=== PATIENT | male | born 1965 | race Caucasian/White ===

== ENCOUNTER 2016-07-04 10:24 | Emergency (ER) | payer MEDICARE ==
[~2016-07-04] VITALS: Ht 177.8 cm; Wt 113.4 kg
[~2016-07-04 10:24] MED LIST: ATEN100T88 PO; CYCL10TA9 PO; HYDR-2997 PO; LISI10TA PO; LISI40TA PO; OMEP40CA36 PO; OXYC-272 PO; PRAV20TA3 PO
[2016-07-04 11:13] LABS: BILIRUBIN,URINE NEGATIVE (NEGATIVE); KETONES,URINE NEGATIVE (NEGATIVE); LEUKOCYTE ESTERASE ,URINE NEGATIVE (NEGATIVE); NITRITE,URINE NEGATIVE (NEGATIVE); PH,URINE 5 (5-9); PROTEIN,URINE NEGATIVE (NEGATIVE); UROBILINOGEN,URINE NORMAL (NORMAL)
[2016-07-04] MEDS ORDERED: KETOROLAC 30 MG/ML VIAL IVP ONE (11:15)
[2016-07-04] MEDS ORDERED: NS IV 1000 ML 1,000 ML IV SCH (11:15)
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
[2016-07-04 11:22] LABS: SQUAMOUS EPITHELIAL CELL,UR RARE /HPF
[2016-07-04 11:45] LABS: BASOPHILS # (AUTO) 0.1 10^3/uL (0.0-0.1); BASOPHILS % (AUTO) 1 % (0-10); EOSINOPHILS # (AUTO) 0.2 10^3/uL (0.0-0.3); EOSINOPHILS % (AUTO) 2 % (0-10); LYMPHOCYTES # (AUTO) 2.3 X 10^3 (1.0-4.0); LYMPHOCYTES % (AUTO) 20 % (12-44); MEAN CORPUSCULAR HEMOGLOBIN 30 PG (25-34); MEAN CORPUSCULAR HGB CONC 34 G/DL (32-36); MEAN CORPUSCULAR VOLUME 88 FL (80-99); MEAN PLATELET VOLUME 10.9 FL (7.4-10.4); MONOCYTES # (AUTO) 0.7 X 10^3 (0.0-1.0); MONOCYTES % (AUTO) 6 % (0-12); NEUTROPHILS # (AUTO) 8.4 X 10^3 (1.8-7.8); NEUTROPHILS % (AUTO) 73 % (42-75); PLATELET COUNT 227 10^3/uL (130-400); RED BLOOD COUNT 4.81 10^6/uL (4.35-5.85); RED CELL DISTRIBUTION WIDTH 12.8 % (10.0-14.5); WHITE BLOOD COUNT 11.6 10^3/uL (4.3-11.0)
--- NOTE | 2016-07-04 12:04 | Diagnostic Imaging Report ---
PROCEDURE: CT abdomen and pelvis without contrast. TECHNIQUE: Multiple contiguous axial images were obtained through the abdomen and pelvis without the use of intravenous contrast. DATE: 07/04/2016. COMPARISON: CT abdomen and pelvis 03/29/2013. INDICATION: 51-year-old male, right flank pain. FINDINGS: The visualized portions of the lung bases are clear. The heart is not enlarged. There is no identified pericardial effusion. The liver is normal in size and contour. There are gallstones. The gallbladder is distended. There is no gallbladder wall thickening. There is no pericholecystic fluid or adjacent inflammatory stranding to specifically suggest acute cholecystitis. There is no intrahepatic or extrahepatic bile duct dilation. The main pancreatic duct is not abnormally dilated. The pancreatic parenchyma is grossly unremarkable on noncontrast assessment. The spleen is not enlarged. Several small splenic calcifications likely relate to sequela of prior granulomatous disease. The adrenal glands are unremarkable. There is a 2 mm nonobstructing right renal stone on axial image 34. There is a low-attenuation left renal lesion on axial image 30 which measures 1.9 cm in size with internal attenuation consistent with a benign renal cyst. The urinary collecting systems are not distended. In the left distal ureter at the ureterovesical junction, there is a 1 mm stone best demonstrated on axial image 77. The urinary bladder is unremarkable in appearance. There is extensive diverticulosis without evidence of acute diverticulitis. The intestinal tract is not distended. There is no free intraperitoneal air. There is no drainable fluid collection. There is a duodenal diverticulum at the junction of the second and third portions of duodenum. There are atherosclerotic calcifications. There is no identified lymph node in the abdomen or pelvis which specifically meet CT size criteria for adenopathy. There are moderate degenerative changes of the bilateral hips with prominent subchondral cystic changes in the acetabula. There are bilateral fractures of the L4 transverse processes with the fracture on the left appearing most likely chronic in age. The fracture on the right is age indeterminate. There are fractures of the right L2 and L3 transverse processes which may potentially be acute in age. There is a compression type fracture of the superior endplate of L1 with up to approximately 25% height loss. This is also seen on 03/29/2013. There are chronic-appearing right-sided rib deformities. IMPRESSION: CT ABDOMEN AND PELVIS. 1. 1 mm stone at the left ureterovesical junction without hydronephrosis. 2. Nonobstructing 2 mm right renal stone. 3. Cholelithiasis without evidence of acute cholecystitis. 4. Age indeterminate fractures of the right L2, L3, and L4 transverse processes which are new since 03/29/2013 with chronic appearing fracture of the left L4 transverse process. 5. Stable prior compression deformity of L1 vertebral body. Dictated by: Dictated on workstation # [id number]
[2016-07-04 12:08] LABS: ALANINE AMINOTRANSFERASE 17 U/L (0-55); ALBUMIN 4.3 G/DL (3.2-4.5); ANION GAP 13 MMOL/L (5-14); ASPARTATE AMINO TRANSFERASE 24 U/L (5-34); BILIRUBIN,TOTAL 0.5 MG/DL (0.1-1.0); BLOOD UREA NITROGEN 23 MG/DL (7-18); BUN/CREATININE RATIO 19; CALCIUM 8.8 MG/DL (8.5-10.1); CARBON DIOXIDE 25 MMOL/L (21-32); CHLORIDE 104 MMOL/L (98-107); CREATININE SERUM 1.22 MG/DL (0.60-1.30); GFR ESTIMATED > 60; GLUCOSE 95 MG/DL (70-105); LIPASE 18 U/L (8-78); POTASSIUM 4.3 MMOL/L (3.6-5.0); SODIUM 142 MMOL/L (135-145); TOTAL PROTEIN 7.2 G/DL (6.4-8.2)
[2016-07-04] MEDS ORDERED: TRAM50TA2 PO (12:40)
[2016-07-04] MEDS ORDERED: fentaNYL INJECTION 100 MCG/2 ML AMP ONE (12:41)
[2016-07-04] MEDS ORDERED: fentaNYL INJECTION 100 MCG/2 ML AMP IVP ONE (12:45)
[2016-07-04 13:02] VITALS: BP 138/90
== END 2016-07-04 13:02 | disposition home or self-care (01) ==
LOC: EDUNIT# 10:24 → ER 10:25
DX: M54.5 Low back pain (principal); N20.2 Calculus of kidney with calculus of ureter; K80.20 Calculus of gallbladder without cholecystitis without obstruction; I10 Essential (primary) hypertension; J44.9 Chronic obstructive pulmonary disease, unspecified; Z79.899 Other long term (current) drug therapy
CPT/HCPCS: 36415; 74176; 80053; 81000; 83690; 85025; 96361; 96374; 96375; 99282

== ENCOUNTER 2017-09-06 10:39 | Emergency (ER) | payer MEDICARE ==
[~2017-09-06] VITALS: Ht 177.8 cm; Wt 123.8 kg
[~2017-09-06 10:39] MED LIST changes: +TRAM50TA2 PO
--- OUTSIDE RECORDS SUMMARY | 2017-09-06 10:48 | XMS REPORT ---
Author Author AINSLEY OLEARY [facility] eClinicalWorks Address Unknown Phone Unavailable Care Team Providers Care Head Field Hockey Coach Name Role Phone AINSLEY OLEARY CP Unavailable Allergies No Known Allergies Problems Problem Type Condition ICD-9 Code Onset Dates Condition Status Problem Hypertension 401.9 Active Medications No Known Medications Results No Known Results Summary Purpose eClinicalWorks Submission
--- OUTSIDE RECORDS SUMMARY | 2017-09-06 10:48 | XMS REPORT ---
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 Active 882532026 Problem Essential hypertension I10 Active 12264426 Problem Hepatitis C, chronic B18.2 Active 208029286 Problem Reactive depression F32.9 Active 21992341 Problem Mixed hyperlipidemia E78.2 Active 697187033 ALLERGIES No Known Allergies SOCIAL HISTORY Never Assessed PLAN OF CARE Activity Details Follow Up 3 Months Reason: VITAL SIGNS Height 69 in 2016-09-10 Weight 263 lbs 2016-09-10 Temperature 98.4 degrees Fahrenheit 2016-09-10 Heart Rate 66 bpm 2016-09-10 Respiratory Rate 24 2016-09-10 Oximetry on room air:94 % 2016-09-10 BMI 38.83 kg/m2 2016-09-10 Blood pressure systolic 136 mmHg 2016-09-10 Blood pressure diastolic 92 mmHg 2016-09-10 MEDICATIONS Medication Instructions Dosage Frequency Start Date End Date Duration Status Remeron 30 MG Orally Once a day 1 tablet at bedtime 24h August, 30 day(s) Active Lisinopril 40 mg Orally Once a day 1 tablet in AM 24h Dec, Active Oxycodone-Acetaminophen 10-325 MG Orally every 6 hrs 1 tablet as needed 6h Active Omeprazole 20 mg Orally Once a day 1 capsule 24h August, Active Pravastatin Sodium 20 mg Orally Once a day 1 tablet 24h 17 Dec, 2014 Active Atenolol-Chlorthalidone 100-25 MG Orally Once a day 1 tablet 24h 30 days Active Ventolin HFA 108 (90 Base) MCG/ACT Inhalation every 4 hrs 2 puffs as needed 4h 90 days Active Lisinopril 20 mg Orally Once a day 1 tablet 24h Active Gabapentin 300 MG Orally Three times a day 1 capsule 8h Jun, 30 day(s) Active HydrOXYzine HCl 25 MG Orally every 8 hrs as needed for anxiety. APPT REQUIRED PRIOR TO REFILL 1 tablet as needed Apr, Active RESULTS No Results PROCEDURES Procedure Date Ordered Result Body Site MEASURE BLOOD OXYGEN LEVEL September 10, 2016 [facility] VISIT ESTABLISHED PATIENT September 10, 2016 IMMUNIZATIONS No Known Immunizations MEDICAL (GENERAL) HISTORY Type Description Date Medical History Asthma Medical History COPD (chronic obstructive pulmonary disease) Medical History Arthritis Medical History Hepatitis C Medical History (Hep C treated with Harvoni x 8 weeks Apr 2015 to Jun 2015) Medical History Stroke Medical History Heart attack Medical History Hypertension Surgical History rotator cuff tear repair Surgical History Left eye removal Hospitalization History surgeries
--- OUTSIDE RECORDS SUMMARY | 2017-09-06 10:48 | XMS REPORT ---
Author Author AINSLEY OLEARY [facility] eClinicalWorks Address Unknown Phone Unavailable Care Team Providers Care Hogshead Head Matcher Name Role Phone AINSLEY OLEARY CP Unavailable Allergies No Known Allergies Problems Problem Type Condition Code Onset Dates Condition Status Problem Hepatitis C, chronic B18.2 Active Problem Essential hypertension I10 Active Problem Chronic bronchitis, unspecified chronic bronchitis type J42 Active Medications No Known Medications Results No Known Results Summary Purpose eClinicalWorks Submission
--- OUTSIDE RECORDS SUMMARY | 2017-09-06 10:49 | XMS REPORT ---
Author Author PATRICK POOL [facility] Address [address] [place] [address] Care Team Providers Care [facility] Attendant Name Role Phone PATRICK POOL Unavailable PROBLEMS Type Condition ICD9-CM Code [id number] Code Onset Dates Condition Status SNOMED Code Problem Chronic bronchitis, unspecified chronic bronchitis type J42 Active 02784743 Problem Generalized anxiety disorder F41.1 Active 41789823 Problem Chronic pain due to trauma G89.21 Active 692500997 Problem Essential hypertension I10 Active 56688497 Problem Hepatitis C, chronic B18.2 Active 861587654 Problem Reactive depression F32.9 Active 53744309 Problem Mixed hyperlipidemia E78.2 Active 496774902 ALLERGIES Unknown Allergies SOCIAL HISTORY No smoking Hx information available PLAN OF CARE VITAL SIGNS MEDICATIONS Medication Instructions Dosage Frequency Start Date End Date Duration Status Ventolin HFA 108 (90 Base) MCG/ACT Inhalation every 4 hrs 2 puffs as needed 4h 90 days Active RESULTS No Results PROCEDURES No Known procedures IMMUNIZATIONS No Known Immunizations
--- OUTSIDE RECORDS SUMMARY | 2017-09-06 10:49 | XMS REPORT ---
Author Author AINSLEY OLEARY [facility] eClinicalWorks Address Unknown Phone Unavailable Care Team Providers Care [place]hateria Attendant Name Role Phone AINSLEY OLEARY CP Unavailable Allergies No Known Allergies Problems Problem Type Condition Code Onset Dates Condition Status Problem Hepatitis C, chronic B18.2 Active Problem Essential hypertension I10 Active Problem Chronic bronchitis, unspecified chronic bronchitis type J42 Active Medications No Known Medications Results No Known Results Summary Purpose eClinicalWorks Submission
--- OUTSIDE RECORDS SUMMARY | 2017-09-06 10:49 | XMS REPORT ---
Author Author ROXI SIMS [facility] eClinicalWorks Address Unknown Phone Unavailable Care Team Providers Care Rn Hedis Name Role Phone ROXI SIMS CP Unavailable Allergies No Known Allergies Problems Problem Type Condition Code Onset Dates Condition Status Problem Hepatitis C, chronic B18.2 Active Problem Essential hypertension I10 Active Problem Chronic bronchitis, unspecified chronic bronchitis type J42 Active Assessment Hepatitis C, chronic B18.2 Active Medications Medication Code System Code Instructions Start Date End Date Status Dosage HydrOXYzine HCl [facility] [address]-86 25 MG Orally every 8 hrs as needed for anxiety. APPT REQUIRED PRIOR TO REFILL Apr 22, 2015 1 tablet as needed Ibuprofen [facility] [address]-06 800 MG Orally Three times a day 1 tablet Albuterol [facility] 0 90 MCG/ACT Inhalation not defined Lisinopril [facility] [address]-79 40 MG Orally Once a day Jan 14, 2015 1 tablet Ranitidine HCl [facility] [address]-19 300 MG Orally Once a day 1 capsule at bedtime Harvoni [facility] [address]-66 90-400 MG Orally Once a day Apr 21, 2015Jun 1 tablet ProAir HFA [facility] [address]-00 108 (90 Base) MCG/ACT Inhalation every 4 hrs Mar 11, 2015 2 puffs as needed Pravastatin Sodium [facility] [address]-93 20 MG Orally Once a day Jan 16, 2015 1 tablet Oxycodone-Acetaminophen [facility] [address]-24 10-325 MG Orally every 6 hrs 1 tablet as needed Trazodone HCl [facility] [address]-53 150 MG Orally Once a day 1 tablet at bedtime as needed Norvasc [facility] [address]-98 5 MG Orally Once a day Jan 14, 2015 1 tablet Atenolol [facility] [address]-39 50 MG Orally Once a day Feb 24, 2015 1 tablet Results No Known Results Summary Purpose eClinicalWorks Submission
--- OUTSIDE RECORDS SUMMARY | 2017-09-06 10:49 | XMS REPORT ---
Author Author PATRICK POOL [facility] Address [address] [place] [address] Care Team Providers Care Community Outreach Specialist Name Role Phone PATRICK POOL Unavailable PROBLEMS Type Condition ICD9-CM Code [id number] Code Onset Dates Condition Status SNOMED Code Problem Essential hypertension I10 Active 58544267 Problem Generalized anxiety disorder F41.1 Active 18966418 Problem Reactive depression F32.9 Active 96255876 Problem Chronic bronchitis, unspecified chronic bronchitis type J42 Active 41747244 Problem Hepatitis C, chronic B18.2 Active 057178365 Problem Chronic pain due to 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
--- OUTSIDE RECORDS SUMMARY | 2017-09-06 10:49 | XMS REPORT ---
Author Author PATRICK POOL [facility] eClinicalWorks Address Unknown Phone Unavailable Care Team Providers Care Fabric Lay Out Worker Name Role Phone PATRICK POOL CP Unavailable Allergies, Adverse Reactions, Alerts Substance Reaction Event Type N.K.D.A. Info Not Available Non Drug Allergy Problems Problem Type Condition Code Onset Dates Condition Status Problem Chronic bronchitis, unspecified chronic bronchitis type J42 Active Problem Hepatitis C, chronic B18.2 Active Problem Mixed hyperlipidemia E78.2 Active Problem Essential hypertension I10 Active Assessment Mixed hyperlipidemia E78.2 Active Medications Medication Code System Code Instructions Start Date End Date Status Dosage Oxycodone-Acetaminophen [facility] [address]-11 10-325 MG Orally every 6 hrs 1 tablet as needed Pravastatin Sodium [facility] [address]-21 20 mg Orally Once a day Jan 16, 2015 1 tablet Ventolin HFA [facility] [address]-41 108 (90 Base) MCG/ACT Inhalation every 4 hrs 2 puffs as needed HydrOXYzine HCl [facility] [address]-45 25 MG Orally every 8 hrs as needed for anxiety. APPT REQUIRED PRIOR TO REFILL Apr 22, 2015 1 tablet as needed Omeprazole [facility] [address]-74 20 mg Orally Once a day September 19, 2015 1 capsule Lisinopril [facility] [address]-24 20 mg Orally Once a day 1 tablet Lisinopril [facility] [address]-27 40 mg Orally Once a day Jan 14, 2015 1 tablet in AM Atenolol-Chlorthalidone [facility] [address]-81 50-25 MG Orally Once a day 1 tablet Procedures Procedure Coding System Code Date Office Visit, Est Pt., Level 3 CPT-4 77276 Jan 30, 2016 [facility] ESTABLISHED PATIENT CPT-4 G0467 Jan 30, 2016 Vital Signs Date/Time: Jan 30, 2016 Cardiac Monitoring Heart Rate 92 bpm Weight 257.4 lbs Height 69 in BMI 38.01 Index Blood Pressure Diastolic 74 mmHg Blood Pressure Systolic 98 mmHg Results No Known Results Summary Purpose eClinicalWorks Submission
--- OUTSIDE RECORDS SUMMARY | 2017-09-06 10:49 | XMS REPORT ---
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 Active 481326325 Problem Essential hypertension I10 Active 02522875 Problem Hepatitis C, chronic B18.2 Active 068943844 Problem Reactive depression F32.9 Active 52338758 Problem Mixed hyperlipidemia E78.2 Active 577304775 ALLERGIES No Known Allergies SOCIAL HISTORY Never Assessed PLAN OF CARE Activity Details Follow Up prn Reason: VITAL SIGNS Height 69 in 2016-07-09 Weight 267 lbs 2016-07-09 Temperature 98.9 degrees Fahrenheit 2016-07-09 Heart Rate 108 bpm 2016-07-09 Respiratory Rate 24 2016-07-09 BMI 39.42 kg/m2 2016-07-09 Blood pressure systolic 178 mmHg 2016-07-09 Blood pressure diastolic 90 mmHg 2016-07-09 MEDICATIONS Medication Instructions Dosage Frequency Start Date End Date Duration Status HydrOXYzine HCl 25 MG Orally every 8 hrs as needed for anxiety. APPT REQUIRED PRIOR TO REFILL 1 tablet as needed Apr, Active Ventolin HFA 108 (90 Base) MCG/ACT Inhalation every 4 hrs 2 puffs as needed 4h 90 days Active Omeprazole 20 mg Orally Once a day 1 capsule 24h August, Active Lisinopril 20 mg Orally Once a day 1 tablet 24h Active Atenolol-Chlorthalidone 50-25 MG Orally Once a day 1 tablet 24h Active Pravastatin Sodium 20 mg Orally Once a day 1 tablet 24h 17 Dec, 2014 Active Oxycodone-Acetaminophen 10-325 MG Orally every 6 hrs 1 tablet as needed 6h Active Gabapentin 300 MG Orally Three times a day 1 capsule 8h 10 Jun, 2016 30 day(s) Active Lisinopril 40 mg Orally Once a day 1 tablet in AM 24h 15 Dec, 2014 Active RESULTS Name Result Date Reference Range UA LONG DIP (IN HOUSE) Lot # Exp date [id number] Clarity clear Color Dark yellow Odor None GLU Negative ELIZA 1+ KET trace SG 1.025 BLO Negative pH 7.5 Protein 2+ URO 4.0 NIT Negative SEDRICK Trace Lot # Exp date PROCEDURES Procedure Date Ordered Result Body Site URINALYSIS, AUTO, W/O SCOPE July 09, 2016 [facility] VISIT ESTABLISHED PATIENT July 09, 2016 IMMUNIZATIONS No Known Immunizations MEDICAL (GENERAL) [...]
--- OUTSIDE RECORDS SUMMARY | 2017-09-06 10:49 | XMS REPORT ---
Author Author ROXI SIMS [facility] eClinicalWorks Address Unknown Phone Unavailable Care Team Providers Care Fiber Optic Technician Name Role Phone ROXI SIMS CP Unavailable Allergies, Adverse Reactions, Alerts Substance Reaction Event Type N.K.D.A. Info Not Available Non Drug Allergy Problems Problem Type Condition Code Onset Dates Condition Status Problem Hepatitis C, chronic B18.2 Active Problem Essential hypertension I10 Active Problem Chronic bronchitis, unspecified chronic bronchitis type J42 Active Assessment Reflux esophagitis K21.0 Active Assessment Essential hypertension I10 Active Assessment Hepatitis C, chronic B18.2 Active Assessment Dyspepsia R10.13 Active Medications Medication Code System Code Instructions Start Date End Date Status Dosage Pravastatin Sodium [facility] [address]-13 20 MG Orally Once a day Jan 16, 2015 1 tablet ProAir HFA [facility] [address]-03 108 (90 Base) MCG/ACT Inhalation every 4 hrs Mar 11, 2015 2 puffs as needed HydrOXYzine HCl [facility] [address]-65 25 MG Orally every 8 hrs as needed for anxiety. APPT REQUIRED PRIOR TO REFILL Apr 22, 2015 1 tablet as needed Omeprazole [facility] [address]-59 40 MG Orally Once a day July 28, 2015 1 capsule Atenolol [facility] [address]-52 50 mg Orally Once a day Feb 24, 2015 1 tablet Lisinopril [facility] [address]-29 40 MG Orally Once a day Jan 14, 2015 1 tablet Ranitidine HCl [facility] [address]-82 300 MG Orally twice a day 1 capsule Procedures Procedure Coding System Code Date PROTHROMBIN TIME CPT-4 21877 July 28, 2015 VENINDIGO HASSAN* CPT-4 49216 July 28, 2015 LAB NOT BILLED BY [facility] CPT-4 NOBLL July 28, 2015 Office Visit, Est Pt., Level 4 CPT-4 73680 July 28, 2015 [facility]LY [facility] VISIT ESTABLISHED PATIENT CPT-4 G0467 July 28, 2015 Vital Signs Date/Time: July 28, 2015 Temperature 97.9 F Weight 256.0 lbs Height 69 in BMI 37.80 Index Blood Pressure Diastolic 86 mmHg Blood Pressure Systolic 140 mmHg Cardiac Monitoring Heart Rate 96 bpm Results Name Result Date Reference Range Unit Abnormality Flag CBC ----Lymphs 21 20150728 % ----Neutrophils 68 20150728 % ----Baso (Absolute) 0.0 40034032 0.0-0.2 x10E3/uL ----Hemoglobin 13.9 52421709 12.6-17.7 g/dL ----Eos (Absolute) 0.2 09675514 0.0-0.4 x10E3/uL ----Hematocrit 42.0 50336482 37.5-51.0 % ----Monocytes(Absolute) 0.7 32210061 0.1-0.9 x10E3/uL ----MCV 88 71055656 79-97 fL ----Lymphs (Absolute) 1.8 27522810 0.7-3.1 x10E3/uL ----MCH 29.0 17932834 26.6-33.0 pg ----Neutrophils (Absolute) 5.9 86421867 1.4-7.0 x10E3/uL ----MCHC 33.1 93471012 31.5-35.7 g/dL ----Immature Granulocytes 0 82121625 % ----Basos 1 20150728 % ----RDW 13.7 68079752 12.3-15.4 % ----Immature Grans (Abs) 0.0 73489580 0.0-0.1 x10E3/uL ----WBC 8.6 24133373 3.4-10.8 x10E3/uL ----Platelets 214 32174840 150-379 x10E3/uL ----Eos 2 48823168 % ----RBC 4.79 57350337 4.14-5.80 x10E6/uL ----Monocytes 8 46705730 % PT/INR ----INR 0.9 72250929 0.8-1.2 ----Prothrombin Time 10.1 03626185 9.1-12.0 sec ROUTINE VENIPUNCTURE HEP C PCR QUANT (Non-Graph)-APPROVAL REQUIRED ----Hepatitis C Quantitation HCV Not Detected 54029370 IU/mL CMP ----Potassium, Serum 4.6 58220352 3.5-5.2 mmol/L ----Sodium, Serum 143 41321396 134-144 mmol/L ----BUN/Creatinine Ratio 25 48874869 9-20 H ----eGFR If Africn Am 112 40298049 >59 mL/min/1.73 ----eGFR If NonAfricn Am 97 57019068 >59 mL/min/1.73 ----Creatinine, Serum 0.92 34311998 0.76-1.27 mg/dL ----BUN 23 80061198 6-24 mg/dL ----Glucose, Serum 121 07446743 65-99 mg/dL H ----AST (SGOT) 14 20150728 0-40 IU/L ----Globulin, Total 2.7 20874997 1.5-4.5 g/dL ----ALT (SGPT) 13 29699453 0-44 IU/L ----A/G Ratio 1.7 96957731 1.1-2.5 ----Bilirubin, Total 0.2 29328087 0.0-1.2 mg/dL ----Alkaline Phosphatase, S 60 20150728 39-117 IU/L ----Carbon Dioxide, Total 26 20150728 18-29 mmol/L ----Calcium, Serum 10.2 36088577 8.7-10.2 mg/dL ----Protein, Total, Serum 7.4 78641205 6.0-8.5 g/dL ----Albumin, Serum 4.7 88062085 3.5-5.5 g/dL ----Chloride, Serum 100 80421795 97-108 mmol/L Summary Purpose eClinicalWorks Submission
--- OUTSIDE RECORDS SUMMARY | 2017-09-06 10:49 | XMS REPORT ---
Author Author AINSLEY OLEARY [facility] eClinical[employer] Address Unknown Phone Unavailable Care Team Providers Care Youth Coordinator Name Role Phone AINSLEY OLEARY CP Unavailable Allergies No Known Allergies Problems Problem Type Condition Code Onset Dates Condition Status Problem Hepatitis C, chronic B18.2 Active Problem Essential hypertension I10 Active Problem Chronic bronchitis, unspecified chronic bronchitis type J42 Active Medications No Known Medications Results No Known Results Summary Purpose eClinicalWorks Submission
--- OUTSIDE RECORDS SUMMARY | 2017-09-06 10:49 | XMS REPORT ---
Author Author PATRICK POOL Organization [facility] [place] Address [address] [place] [address] Care Team Providers Care Drill Operator Pneumatic Name Role Phone PATRICK POOL Unavailable PROBLEMS Type Condition ICD9-CM Code FWT68-LR Code Onset Dates Condition Status SNOMED Code Problem Reactive depression F32.9 Active 40719540 Problem Generalized anxiety disorder F41.1 Active 87977233 Problem Chronic pain due to trauma G89.21 Active 770048451 Problem Essential hypertension I10 Active 79467404 Problem Chronic bronchitis, unspecified chronic bronchitis type J42 Active 69092134 Problem Mixed hyperlipidemia E78.2 Active 462834109 Problem Other chronic pain G89.29 Active 39860130 Problem Lumbago with sciatica, right side M54.41 Active 982426414675200 Problem Arthritis M19.90 Active 9936096 Problem History of CVA (cerebrovascular accident) Z86.73 Active 274228131 Problem Lumbago with sciatica, left side M54.42 Active 067934077 Problem Urinary hesitancy R39.11 Active 8418862 ALLERGIES No Information ENCOUNTERS Encounter Location Date Diagnosis [facility] [place] [id number] [place] [address]4627[address] 2835 August, [facility] [address] [place] [address]26 -3852 Jul, Left shoulder pain, unspecified chronicity M25.512 [facility] [place] [id number] [place] [address] 36946- 2007 Jul, Chronic pain due to trauma G89.21 ; Essential hypertension I10 ; Urinary hesitancy R39.11 ; Chronic bronchitis, unspecified chronic bronchitis type J42 ; Lumbago with sciatica, left side M54.42 ; Lumbago with sciatica, right side M54.41 ; Other chronic pain G89.29 and BMI 40.0-44.9, adult Z68.41 [facility] [place] [id number] [address] Jul, Chronic pain due to trauma G89.21 [facility] [place] [id number] [place] [address] 42697- 4855 Jul, Encounter for medication monitoring Z51.81 [facility] [place] [address] [address] Jul, Encounter for medication monitoring Z51.81 [facility] [place] [id number] [place] [address] 29890- 0466 Jun, [facility] [place] [id number] [place] [address] 80079- 1972 Jun, Chronic pain due to trauma G89.21 [facility] [place] [id number] [place] [address] 74777- 6594 Jun, Chronic bronchitis, unspecified chronic bronchitis type J42 [facility] [place] [id number] [place] [address] 13112- 3339 Jun, [facility] [place] [id number] [place] [address] 53900- 8304 Jun, Chronic pain due to trauma G89.21 [facility] [place] [id number] [place] [address] 22271- 7311 Jun, Chronic bronchitis, unspecified chronic bronchitis type J42 [facility] [place] [id number] [place] [address] 34518- 4767 Jun, Chronic pain due to trauma G89.21 [facility] [place] [id number] [place] [address] 47218- 8552 Jun, Chronic bronchitis, unspecified chronic bronchitis type J42 [facility] [place] [id number] [place] [address] 06575- 0768 May, Chronic pain due to trauma G89.21 and Arthritis M19.90 [facility] [place] [id number] [place] [address] 09100- 6813 May, Chronic pain due to trauma G89.21 [facility] [place] [id number] [place] [address] 66487- 9346 May, [facility] [place] [id number] [place] [address] 15937- 6218 Apr, Chronic pain due to trauma G89.21 [facility] [place] [id number] [place] [address] 33257- 6208 Mar, Essential hypertension I10 [facility] [place] [address] 55[address]- 9991 Mar, Chronic pain due to trauma G89.21 [facility] [place] [id number] [place] [address] 50388- 2411 Mar, [facility] [place] [address] 52920- 6815 Mar, Chronic pain due to trauma G89.21 ; Essential hypertension I10 and Mixed hyperlipidemia E78.2 [facility] [place] [id number] [place] [address] 92699- 5647 Jan, Chronic pain due to trauma G89.21 [facility] [place] [id number] [place] [address] 55311- 9153 Jan, [facility] [place] [id number] [place] [address] 15992- 3288 Dec, Chronic pain due to trauma G89.21 [facility] [place] [id number] [place] [address] 78426- 4570 22 Dec, 2016 Chronic pain due to trauma G89.21 [facility] [place] [id number] [place] [address] 86831- 4121 11 Dec, 2016 Essential hypertension I10 [facility] [place] [id number] [place] [address] 60928- 0680 Nov, Chronic pain due to trauma G89.21 [facility] [place] [id number] [place] [address] 36582- 7589 Oct, Chronic pain due to trauma G89.21 [facility] [place] [id number] [place] [address] 87827- 9666 Oct, Chronic pain due to trauma G89.21 [facility] [place] [address] 79363- 3276 Oct, Essential hypertension I10 [facility] [place] [address] 44555- 5024 Sep, Chronic pain due to trauma G89.21 ; Reactive depression F32.9 and Essential hypertension I10 [facility] [place] [id number] [place] [address] 30803- 7496 Sep, Generalized anxiety disorder F41.1 [facility] [place] [address] 88190- 2862 August, Essential hypertension I10 ; Reactive depression F32.9 and Chronic pain due to trauma G89.21 [facility] [place] [address] 90231- 5844 Jun, Flank pain R10.9 [facility] [place] [id number] [place] [address] 22336- 4756 09 Jun, 2016 Essential hypertension I10 [facility] [place] [address] 93591- 7301 May, Chronic bronchitis, unspecified chronic bronchitis type J42 [facility] [place] [id number] [place] [address] 00639- 9755 Apr, Essential hypertension I10 [facility] [place] [address] 31606- 3566 Apr, [facility] [place] [id number] [place] [address] 31917- 2019 30 Jan, 2016 Mixed hyperlipidemia E78.2 [facility] [place] [id number] [place] [address] 92689- 3626 Dec, Hepatitis C, chronic B18.2 ; Essential hypertension I10 and Mixed hyperlipidemia E78.2 [facility] [place] [id number] [place] [address] 37134- 4826 August, [facility] [place] [id number] [place] [address] 67776- 1137 August, [facility] [place] [address] 29800- 7807 August, Essential hypertension I10 ; Mixed hyperlipidemia E78.2 and Gastroesophageal reflux disease, esophagitis presence not specified K21.9 [place] [address] 9[address]53- 0723 Jun, [place] [id number] [place] [address] 16349- 7697 Jun, Hepatitis C, chronic B18.2 ; Dyspepsia R10.13 ; Reflux esophagitis K21.0 and Essential hypertension I10 [place] [id number] [place] [address] 25244- 5317 May, Reflux esophagitis K21.0 ; Hepatitis C, chronic B18.2 and Tachycardia, unspecified R00.0 [place] [id number] [place] [address] 29413- 5756 May, Generalized anxiety disorder F41.1 and Substance addiction F19.20 [place] [id number] [place] [address] 34116- 6655 Apr, [place] [id number] [place] [address] 89905- 0896 Apr, Hepatitis C, chronic B18.2 [place] [id number] [place] [address] 45953- 6142 Apr, Anxiety F41.9 [place] [address] 70833- 5322 Apr, Encounter for immunization Z23 and Hepatitis C, chronic B18.2 [facility] [place] [address] [address] Apr, [facility] [place] [id number] [place] [address] 83905- 0668 Apr, Dyspepsia R10.13 [facility] [place] [id number] [place] [address] 74039- 0011 Apr, [facility] [place] [id number] [place] [address] 43378- 8479 Mar, Hepatitis C, chronic B18.2 [facility] [place] [id number] [place] [address] 01830- 8513 Mar, Hepatitis C, chronic B18.2 [facility] [place] [id number] [place] [address] 21922- 7456 Mar, [facility] [place] [id number] [place] [address] 76947- 6151 Mar, [facility] [place] [id number] [place] [address] 26663- 3904 Mar, [facility] [place] [id number] [place] [address] 36761- 8851 Jan, Essential hypertension I10 ; Chronic bronchitis, unspecified chronic bronchitis type J42 ; Hepatitis C, chronic B18.2 and Dental caries of root surface K02.7 [facility] [place] [address] [place] [address] 75927- 7147 Dec, Routine adult health maintenance V70.0 [facility] [place] [id number] [place] [address] 53268- 5635 Dec, [facility] [place] [id number] [place] [address] 82879- 0521 Dec, Hypertension 401.9 ; Anxiety 300.00 and Routine adult health maintenance V70.0 IMMUNIZATIONS No Known Immunizations SOCIAL HISTORY Never Assessed REASON FOR VISIT Oxycodone 01/21 PLAN OF CARE VITAL SIGNS MEDICATIONS Medication Instructions Dosage Frequency Start Date End Date Duration Status Oxycodone-Acetaminophen 10-325 MG Orally every 6 hrs 1 tablet as needed 6h Dec, 28 days Active RESULTS No Results PROCEDURES No Known procedures INSTRUCTIONS MEDICATIONS ADMINISTERED No Known Medications MEDICAL (GENERAL) HISTORY Type Description Date Medical [...]
--- OUTSIDE RECORDS SUMMARY | 2017-09-06 10:50 | XMS REPORT ---
Author Author PATRICK POOL Organization [facility] Address [address] [place] [address] Care Team Providers Care Structural Steel Worker Apprentice Name Role Phone PATRICK POOL Unavailable PROBLEMS Type Condition ICD9-CM Code WGE37-DF Code Onset Dates Condition Status SNOMED Code Problem Reactive depression F32.9 Active 81651729 Problem Generalized anxiety disorder F41.1 Active 27585542 Problem Chronic pain due to trauma G89.21 Active 894204051 Problem Essential hypertension I10 Active 59572468 Problem Chronic bronchitis, unspecified chronic bronchitis type J42 Active 29883074 Problem Mixed hyperlipidemia E78.2 Active 182708971 Problem Other chronic pain G89.29 Active 93807505 Problem Lumbago with sciatica, right side M54.41 Active 171282075959753 Problem Arthritis M19.90 Active 7732975 Problem History of CVA (cerebrovascular accident) Z86.73 Active 019251431 Problem Lumbago with sciatica, left side M54.42 Active 966690573 Problem Urinary hesitancy R39.11 Active 8518442 ALLERGIES No Information ENCOUNTERS Encounter Location Date Diagnosis [place] [id number] [place] [address]058- 8028 August, [place] [id number] [place] [address] 13565- 8085 Jul, Chronic pain due to trauma G89.21 ; Essential hypertension I10 ; Urinary hesitancy R39.11 ; Chronic bronchitis, unspecified chronic bronchitis type J42 ; Lumbago with sciatica, left side M54.42 ; Lumbago with sciatica, right side M54.41 ; Other chronic pain G89.29 and BMI 40.0-44.9, adult Z68.41 [address] [place] [address] 55605- 0512 Jul, Chronic pain due to trauma G89.21 [facility] [address], [place] [address] Jul, Encounter for medication monitoring Z51.81 [facility] [address] [place] [id number] [place] [address] 14888- 3440 Jul, Encounter for medication monitoring Z51.81 [facility] [address] [place] [id number] [place] [address] 74667- 3520 Jun, [facility] [address] [place] [id number] [place] [address] 08114- 7954 Jun, Chronic pain due to trauma G89.21 [facility] [address] [place] [id number] [place] [address] 15267- 7195 Jun, Chronic bronchitis, unspecified chronic bronchitis type J42 [facility] [address] [place] [id number] [place] [address] 22845- 4084 Jun, [facility] [address] [place] [id number] [place] [address] 64167- 8494 Jun, Chronic pain due to trauma G89.21 [facility] [address] [place] [id number] [place] [address] 85586- 2268 Jun, Chronic bronchitis, unspecified chronic bronchitis type J42 [facility] [address] [place] [id number] [address] Jun, Chronic pain due to trauma G89.21 [facility] [address] [place] [id number] [place] [address] 86838- 3938 Jun, Chronic bronchitis, unspecified chronic bronchitis type J42 [facility] [address] [place] [id number] [place] [address] 72656- 9481 May, Chronic pain due to trauma G89.21 and Arthritis M19.90 [facility] [address] [place] [id number] [place] [address] 68889- 9506 May, Chronic pain due to trauma G89.21 [facility] [address] [place] [id number] [address] May, [facility] [address] [place] [id number] [place] [address] 56509- 7426 Apr, Chronic pain due to trauma G89.21 [facility] [address] [place] [id number] [place] [address] 67347- 4836 Mar, Essential hypertension I10 [facility] [address] [place] [id number] [place] [address] 78148- 4106 Mar, Chronic pain due to trauma G89.21 [facility] [address] [place] [id number] [place] [address] 69905- 8356 Mar, [facility] [address] [place] [id number] [place] [address] 72831- 0546 Mar, Chronic pain due to trauma G89.21 ; Essential hypertension I10 and Mixed hyperlipidemia E78.2 [facility] [address] [place] [id number] [place] [address] 02407- 9606 Jan, Chronic pain due to trauma G89.21 [facility] [address] [place] [id number] [place] [address] 37668- 8019 Jan, [facility] [address] [place] [id number] [place] [address] 14094- 7052 27 Dec, 2016 Chronic pain due to trauma G89.21 [facility] [address] [place] [id number] [place] [address] 72053- 1806 22 Dec, 2016 Chronic pain due to trauma G89.21 [facility] [address] [place] [address] 17947- 0244 11 Dec, 2016 Essential hypertension I10 [facility] [address] [place] [id number] [place] [address] 42317853- 7436 Nov, Chronic pain due to trauma G89.21 [facility] [address] [place] [id number] [place] [address] 02122- 8396 Oct, Chronic pain due to trauma G89.21 [facility] [address], [place] [address] 9[address] Oct, Chronic pain due to trauma G89.21 [facility] [address] [place] [id number] [place] [address] 97660- 7126 Oct, Essential hypertension I10 [facility] [address] [place] [id number] [place] [address] 96033- 0592 Sep, Chronic pain due to trauma G89.21 ; Reactive depression F32.9 and Essential hypertension I10 [facility] [address] [place] [id number] [place] [address] 81237- 0790 Sep, Generalized anxiety disorder F41.1 [facility] [address] [place] [id number] [place] [address] 64094- 0120 August, Essential hypertension I10 ; Reactive depression F32.9 and Chronic pain due to trauma G89.21 [facility] [address] [place] [id number] [place] [address] 60599- 4783 Jun, Flank pain R10.9 [facility] [address] [place] [id number] [place] [address] 77881- 1530 Jun, Essential hypertension I10 [facility] [address] [place] [id number] [place] [address] 30701- 7284 May, Chronic bronchitis, unspecified chronic bronchitis type J42 [facility] [address] [place] [id number] [place] [address] 09072- 1984 Apr, Essential hypertension I10 [facility] [address] [place] [id number] [place] [address] 18439- 2200 Apr, [facility] [address] [place] [id number] [place] [address] 03441- 0709 30 Jan, 2016 Mixed hyperlipidemia E78.2 [facility] [address] [place] [id number] [place] [address] 12294- 7216 19 Jan, 2016 Hepatitis C, chronic B18.2 ; Essential hypertension I10 and Mixed hyperlipidemia E78.2 [facility] [address] [place] [id number] [place] [address] 09105- 4413 August, [facility] [address] 14165- 3831 August, [facility] [address] 58931- 5091 August, Essential hypertension I10 ; Mixed hyperlipidemia E78.2 and Gastroesophageal reflux disease, esophagitis presence not specified K21.9 [facility] [address] 68291- 2174 Jun, [place] [address] 88999- 4645 Jun, Hepatitis C, chronic B18.2 ; Dyspepsia R10.13 ; Reflux esophagitis K21.0 and Essential hypertension I10 [place] [address] 48178- 9041 May, Reflux esophagitis K21.0 ; Hepatitis C, chronic B18.2 and Tachycardia, unspecified R00.0 [place] [address] 47959- 1099 May, Generalized anxiety disorder F41.1 and Substance addiction F19.20 [place] [address] [place] [id number] [place] [address] 15536- 0713 Apr, [place] [address] [place] [id number] [place] [address] 52902- 0998 Apr, Hepatitis C, chronic B18.2 [place] [address] [place] [id number] [place] [address] 93805- 2045 Apr, Anxiety F41.9 [place] [address] [place] [id number] [place] [address] 88430- 9631 Apr, Hepatitis C, chronic B18.2 and Encounter for immunization Z23 [place] [address] 25260- 8130 Apr, [facility] [address], [place] [address]- 8204 Apr, Dyspepsia R10.13 [facility] [address] [place] [address] 92558- 9777 Apr, [facility] [address] [place] [id number] [place] [address] 08665- 2495 Mar, Hepatitis C, chronic B18.2 [facility] [address] [place] [id number] [place] [address] 03599- 8144 Mar, Hepatitis C, chronic B18.2 [facility] [address] [place] [id number] [place] [address] 67069- 9387 Mar, [facility] [address] [place] [id number] [place] [address] 16770- 6601 Mar, [facility] [address] [place] [id number] [place] [address] 87361- 4274 Mar, [facility] [address] [place] [address] 48198- 2385 Jan, Essential hypertension I10 ; Chronic bronchitis, unspecified chronic bronchitis type J42 ; Hepatitis C, chronic B18.2 and Dental caries of root surface K02.7 [facility] [address] [place] [address] 23360- 0725 Dec, Routine adult health maintenance V70.0 [facility] [address] [place] [address] 06025- 0663 Dec, [facility] [address] [place] [address] 34079- 7398 Dec, Hypertension 401.9 ; Anxiety 300.00 and Routine adult health maintenance V70.0 IMMUNIZATIONS No Known Immunizations SOCIAL HISTORY Never Assessed REASON FOR VISIT Oxycodone- 12/24 PLAN OF CARE VITAL SIGNS MEDICATIONS Medication Instructions Dosage Frequency Start Date End Date Duration Status Oxycodone-Acetaminophen 10-325 MG Orally every 6 hrs 1 tablet as needed 6h Nov, 28 days Active RESULTS No Results PROCEDURES [...]
--- OUTSIDE RECORDS SUMMARY | 2017-09-06 10:50 | XMS REPORT ---
Author Author AINSLEY OLEARY [employer] Address Unknown Phone Unavailable Care Team Providers Care Financial Center Manager Name Role Phone AINSLEY OLEARY CP Unavailable Allergies, Adverse Reactions, Alerts Substance Reaction Event Type N.K.D.A. Info Not Available Non Drug Allergy Problems Problem Type Condition Code Onset Dates Condition Status Problem Hepatitis C, chronic B18.2 Active Problem Essential hypertension I10 Active Problem Chronic bronchitis, unspecified chronic bronchitis type J42 Active Assessment Hepatitis C, chronic B18.2 Active Assessment Dental caries of root surface K02.7 Active Assessment Essential hypertension I10 Active Assessment Chronic bronchitis, unspecified chronic bronchitis type J42 Active Medications Medication Code System Code Instructions Start Date End Date Status Dosage Ibuprofen [facility] [address]-58 800 MG Orally Three times a day 1 tablet Oxycodone-Acetaminophen [facility] [address]-48 10-325 MG Orally every 6 hrs 1 tablet as needed Norvasc [facility] [address]-76 5 MG Orally Once a day Jan 14, 2015 1 tablet Amoxicillin [facility] [address]-63 500 MG Orally 3 times a day Feb 24, 2015 Mar 06, 2015 1 tablet Albuterol ND 0 90 MCG/ACT Inhalation not defined Trazodone HCl [facility] [address]-64 150 MG Orally Once a day 1 tablet at bedtime as needed Ranitidine HCl [facility] [address]-35 300 MG Orally Once a day 1 capsule at bedtime Lisinopril [facility] [address]-37 40 MG Orally Once a day Jan 14, 2015 1 tablet Atenolol [facility] [address]-06 50 MG Orally Once a day Feb 24, 2015 1 tablet Pravastatin Sodium [facility] [address]-20 20 MG Orally Once a day Jan 16, 2015 1 tablet HydrOXYzine HCl [facility] [address]-58 25 MG Orally every 8 hrs 1 tablet as needed Clonazepam [facility] [address]-48 1 MG Orally PRN 1 tablet Procedures Procedure Coding System Code Date Office Visit, Est Pt., Level 3 CPT-4 16953 Feb 24, 2015 [facility] VISIT ESTABLISHED PATIENT CPT-4 G0467 Feb 24, 2015 Vital Signs Date/Time: Feb 24, 2015 Temperature 98.1 F Weight 252.3 lbs Height 69 in BMI 37.25 Index Blood Pressure Diastolic 82 mmHg Blood Pressure Systolic 136 mmHg Cardiac Monitoring Heart Rate 80 bpm Results No Known Results Summary Purpose eClinicalWorks Submission
--- OUTSIDE RECORDS SUMMARY | 2017-09-06 10:50 | XMS REPORT ---
Author Author ROXI SIMS [facility] e[employer] Address Unknown Phone Unavailable Care Team Providers Care Home Health Aid Name Role Phone ROXI SIMS CP Unavailable Allergies, Adverse Reactions, Alerts Substance Reaction Event Type N.K.D.A. Info Not Available Non Drug Allergy Problems Problem Type Condition Code Onset Dates Condition Status Problem Hepatitis C, chronic B18.2 Active Problem Essential hypertension I10 Active Problem Chronic bronchitis, unspecified chronic bronchitis type J42 Active Assessment Hepatitis C, chronic B18.2 Active Assessment Encounter for immunization Z23 Active Medications Medication Code System Code Instructions Start Date End Date Status Dosage Oxycodone-Acetaminophen [facility] [place] [address]-08 10-325 MG Orally every 6 hrs 1 tablet as needed Trazodone HCl [facility] [place] [address]-98 150 MG Orally Once a day 1 tablet at bedtime as needed Ranitidine HCl [facility] [place] [address]-23 300 MG Orally Once a day 1 capsule at bedtime Pravastatin Sodium [facility] [place] [address]-97 20 MG Orally Once a day Jan 16, 2015 1 tablet Ibuprofen [facility] [place] [address]-28 800 MG Orally Three times a day 1 tablet HydrOXYzine HCl [facility] [place] [address]-32 25 MG Orally every 8 hrs 1 tablet as needed Norvasc [facility] [place] [address]-34 5 MG Orally Once a day Jan 14, 2015 1 tablet Harvoni [facility] [place] [address]-19 90-400 MG Orally Once a day Apr 14, 2015Jun 1 tablet Lisinopril [facility] [place] [address]-83 40 MG Orally Once a day Jan 14, 2015 1 tablet Atenolol [facility] [place] [address]-68 50 MG Orally Once a day Feb 24, 2015 1 tablet ProAir HFA [facility] [place] [address]-73 108 (90 Base) MCG/ACT Inhalation every 4 hrs Mar 11, 2015 2 puffs as needed Albuterol [facility] [place] 0 90 MCG/ACT Inhalation not defined Procedures Procedure Coding System Code Date Office Visit, Est Pt., Level 4 CPT-4 31919 Apr 14, 2015 TWINRIX (HEP A/B) CPT-4 25039 Apr 14, 2015 [facility] VISIT ESTABLISHED PATIENT CPT-4 G0467 Apr 14, 2015 FLUARIX QUAD (3 & UP)-GSK-2014 CPT-4 38975 Apr 14, 2015 PPV23 (PNEUMOVAX) CPT-4 14863 Apr 14, 2015 IMMUNIZATION ADMIN, EACH ADD (please include units) CPT-4 42178 Apr 14, 2015 SINGLE IMMUNIZATION ADMIN CPT-4 69374 Apr 14, 2015 Vital Signs Date/Time: Apr 14, 2015 Temperature 97.9 F Weight 254 lbs Height 69 in BMI 37.51 Index Blood Pressure Diastolic 78 mmHg Blood Pressure Systolic 132 mmHg Cardiac Monitoring Heart Rate 78 bpm Results No Known Results Immunizations Vaccine Administration Date TWINRIX (HEP A/B) Apr 14, 2015 FLUARIX QUAD (3 & UP)-GSK-2014Apr 14, 2015 PPV23 (PNEUMOVAX) Apr 14, 2015 Summary Purpose eClinicalWorks Submission
--- OUTSIDE RECORDS SUMMARY | 2017-09-06 10:50 | XMS REPORT ---
Author Author PATRICK POOL Organization [facility] Address [address] [place] [address] Care Team Providers Care Nurses Medical Assistants Phlebotomists Name Role Phone PATRICK POOL Unavailable PROBLEMS Type Condition ICD9-CM Code UVY53-PP Code Onset Dates Condition Status SNOMED Code Problem Reactive depression F32.9 Active 24092578 Problem Generalized anxiety disorder F41.1 Active 23695754 Problem Chronic pain due to trauma G89.21 Active 400710927 Problem Essential hypertension I10 Active 44571615 Problem Chronic bronchitis, unspecified chronic bronchitis type J42 Active 16920221 Problem Mixed hyperlipidemia E78.2 Active 060542063 Problem Other chronic pain G89.29 Active 53588832 Problem Lumbago with sciatica, right side M54.41 Active 648978524666155 Problem Arthritis M19.90 Active 7076513 Problem History of CVA (cerebrovascular accident) Z86.73 Active 575660462 Problem Lumbago with sciatica, left side M54.42 Active 975897582 Problem Urinary hesitancy R39.11 Active 8952701 ALLERGIES No Information ENCOUNTERS Encounter Location Date Diagnosis [facility] [id number] [place] [address] 28724- 3997 August, Medicare annual wellness visit, initial Z00.00 ; Chronic bronchitis, unspecified chronic bronchitis type J42 ; Reactive depression F32.9 ; Mixed hyperlipidemia E78.2 and Generalized anxiety disorder F41.1 [facility] [id number] [place] [address] 74632- 3560 August, Chronic pain due to trauma G89.21 [facility] [id number] [place] [address] 24234 -6565 Jul, Left shoulder pain, unspecified chronicity M25.512 [facility] [id number] [place] [address] 35673- 3511 Jul, Chronic pain due to trauma G89.21 ; Essential hypertension I10 ; Urinary hesitancy R39.11 ; Chronic bronchitis, unspecified chronic bronchitis type J42 ; Lumbago with sciatica, left side M54.42 ; Lumbago with sciatica, right side M54.41 ; Other chronic pain G89.29 and BMI 40.0-44.9, adult Z68.41 [facility] [id number] [place] [address] 88215- 0816 Jul, Chronic pain due to trauma G89.21 [facility] [id number] [place] [address] 49250- 5778 Jul, Encounter for medication monitoring Z51.81 [facility] [id number] [place] [address] 31566- 6962 Jul, Encounter for medication monitoring Z51.81 [facility] [id number] [place] [address] 89658- 1378 Jun, [facility] [id number] [place] [address] 41580- 4250 Jun, Chronic pain due to trauma G89.21 [facility] [id number] [place] [address] 52082- 3678 Jun, Chronic bronchitis, unspecified chronic bronchitis type J42 [facility] [id number] [place] [address] 47608- 0664 Jun, [facility] [id number] [place] [address] 69120- 2327 Jun, Chronic pain due to trauma G89.21 [facility] [id number] [place] [address] 30224- 3052 Jun, Chronic bronchitis, unspecified chronic bronchitis type J42 [facility] [id number] [place] [address] 56246- 1052 Jun, Chronic pain due to trauma G89.21 [facility] [id number] [place] [address] 58447- 2516 Jun, Chronic bronchitis, unspecified chronic bronchitis type J42 [facility] [id number] [place] [address] 21566- 9424 May, Chronic pain due to trauma G89.21 and Arthritis M19.90 [facility] [id number] [place] [address] 40710- 6090 May, Chronic pain due to trauma G89.21 [facility] [id number] [place] [address] 18305- 0570 May, [facility] [address] 38246- 7122 Apr, Chronic pain due to trauma G89.21 [facility] [address] 05029- 7514 Mar, Essential hypertension I10 [facility] [id number] [place] [address] 39412- 3764 Mar, Chronic pain due to trauma G89.21 [facility] [id number] [place] [address] 15653- 2997 Mar, [facility] [id number] [place] [address] 18677- 2225 Mar, Chronic pain due to trauma G89.21 ; Essential hypertension I10 and Mixed hyperlipidemia E78.2 [facility] [id number] [place] [address] 99180- 9488 Jan, Chronic pain due to trauma G89.21 [facility] [id number] [place] [address] 29384- 2918 Jan, [facility] [id number] [place] [address] 28161- 5736 Dec, Chronic pain due to trauma G89.21 [facility] [id number] [place] [address] 99773- 9382 Dec, Chronic pain due to trauma G89.21 [facility] [address] [address] Dec, Essential hypertension I10 [facility] [id number] [place] [address] 13867- 5695 Nov, Chronic pain due to trauma G89.21 [facility] [id number] [place] [address] 28303- 8550 Oct, Chronic pain due to trauma G89.21 [facility] [id number] [place] [address] 46468- 7576 Oct, Chronic pain due to trauma G89.21 [facility] [id number] [place] [address] 83441- 3286 Oct, Essential hypertension I10 [facility] [id number] [place] [address] 46110- 5184 Sep, Chronic pain due to trauma G89.21 ; Reactive depression F32.9 and Essential hypertension I10 [facility] [id number] [place] [address] 23287- 2553 Sep, Generalized anxiety disorder F41.1 [facility] [id number] [place] [address] 09129- 3079 August, Essential hypertension I10 ; Reactive depression F32.9 and Chronic pain due to trauma G89.21 [facility] [id number] [place] [address] 90593- 6635 Jun, Flank pain R10.9 [facility] [id number] [place] [address] 81961- 1393 Jun, Essential hypertension I10 [facility] [id number] [place] [address] 36754- 7206 May, Chronic bronchitis, unspecified chronic bronchitis type J42 [facility] [id number] [place] [address] 00954- 4177 Apr, Essential hypertension I10 [facility] [id number] [place] [address] 12113- 0157 Apr, [facility] [id number] [place] [address] 09661- 8156 30 Jan, 2016 Mixed hyperlipidemia E78.2 [facility] [id number] [place] [address] 24221- 5951 Dec, Hepatitis C, chronic B18.2 ; Essential hypertension I10 and Mixed hyperlipidemia E78.2 [facility] [id number] [place] [address] 22590- 7160 August, [facility] [address] 78774- 8283 August, [facility] [id number] [place] [address] 65655- 9363 August, Essential hypertension I10 ; Mixed hyperlipidemia E78.2 and Gastroesophageal reflux disease, esophagitis presence not specified K21.9 [facility] [id number] [place] [address] 03174- 1828 Jun, [facility] [id number] [place] [address] 82684- 0598 Jun, Hepatitis C, chronic B18.2 ; Dyspepsia R10.13 ; Reflux esophagitis K21.0 and Essential hypertension I10 [facility] [id number] [place] [address] 51813- 5729 May, Reflux esophagitis K21.0 ; Hepatitis C, chronic B18.2 and Tachycardia, unspecified R00.0 [facility] [id number] [place] [address] 86646- 0426 May, Generalized anxiety disorder F41.1 and Substance addiction F19.20 [facility] [id number] [place] [address] 41697- 9763 29 Apr, 2015 [facility] [address] 80298- 6497 Apr, Hepatitis C, chronic B18.2 [facility] [address] 64939- 0491 Apr, Anxiety F41.9 [facility] [address] 59168- 0974 14 Apr, 2015 Hepatitis C, chronic B18.2 and Encounter for immunization Z23 [facility] [address] 41227- 8124 Apr, [facility] [address] 89524- 8563 Apr, Dyspepsia R10.13 [facility] [address] 30730- 0296 Apr, [facility] [address] 20983- 2901 Mar, Hepatitis C, chronic B18.2 [facility] [address] 79207- 1724 Mar, Hepatitis C, chronic B18.2 [facility] [address] 21719- 6469 Mar, [facility] [address] 85360- 0837 Mar, [facility] [address] 23708- 8543 Mar, [facility] [address] 55613- 2593 Jan, Essential hypertension I10 ; Chronic bronchitis, unspecified chronic bronchitis type J42 ; Hepatitis C, chronic B18.2 and Dental caries of root surface K02.7 [facility] [id number] [place] [address] 95885- 4308 17 Dec, 2014 Routine adult health maintenance V70.0 [facility] [address] [place] [address]- 2190 17 Dec, 2014 [facility] [address] [facility] [id number] [place] [address]- [address]10 15 Dec, 2014 Hypertension 401.9 ; Anxiety 300.00 and Routine adult health maintenance V70.0 IMMUNIZATIONS No Known Immunizations SOCIAL HISTORY Never Assessed REASON FOR VISIT Stolen Oxycodone- FYI PLAN OF CARE VITAL SIGNS MEDICATIONS No Known Medications RESULTS No Results PROCEDURES No Known [...]
--- OUTSIDE RECORDS SUMMARY | 2017-09-06 10:50 | XMS REPORT ---
Author Author PATRICK POOL [facility] Address [address] [place] [address] Care Team Providers Care Hearing Therapist Name Role Phone PATRICK POOL Unavailable PROBLEMS Type Condition ICD9-CM Code CNG45-HJ Code Onset Dates Condition Status SNOMED Code Problem Chronic bronchitis, unspecified chronic bronchitis type J42 Active 46395509 Problem Generalized anxiety disorder F41.1 Active 10765081 Problem Chronic pain due to trauma G89.21 Active 929455761 Problem Essential hypertension I10 Active 75989744 Problem Hepatitis C, chronic B18.2 Active 797560722 Problem Reactive depression F32.9 Active 04223901 Problem Mixed hyperlipidemia E78.2 Active 257898594 ALLERGIES No Known Allergies SOCIAL HISTORY Never Assessed PLAN OF CARE Activity Details Follow Up 6 Months Reason: VITAL SIGNS Height 69 in 2016-06-10 Weight 272.8 lbs 2016-06-10 Temperature 98.0 degrees Fahrenheit 2016-06-10 Heart Rate 104 bpm 2016-06-10 Respiratory Rate 22 2016-06-10 BMI 40.28 kg/m2 2016-06-10 Blood pressure systolic 130 mmHg 2016-06-10 Blood pressure diastolic 84 mmHg 2016-06-10 MEDICATIONS Medication Instructions Dosage Frequency Start Date End Date Duration Status Atenolol-Chlorthalidone 50-25 MG Orally Once a day 1 tablet 24h Active Lisinopril 20 mg Orally Once a day 1 tablet 24h Active HydrOXYzine HCl 25 MG Orally every 8 hrs as needed for anxiety. APPT REQUIRED PRIOR TO REFILL 1 tablet as needed Apr, Active Pravastatin Sodium 20 mg Orally Once a day 1 tablet 24h Dec, Active Omeprazole 20 mg Orally Once a day 1 capsule 24h August, Active Ventolin HFA 108 (90 Base) MCG/ACT Inhalation every 4 hrs 2 puffs as needed 4h 90 days Active Lisinopril 40 mg Orally Once a day 1 tablet in AM 24h Dec, Active Oxycodone-Acetaminophen 10-325 MG Orally every 6 hrs 1 tablet as needed 6h Active RESULTS No Results PROCEDURES Procedure Date Ordered Result Body Site [facility] VISIT ESTABLISHED PATIENT Jun 10, 2016 IMMUNIZATIONS No Known Immunizations MEDICAL [...]
--- OUTSIDE RECORDS SUMMARY | 2017-09-06 10:50 | XMS REPORT ---
Author Author AINSLEY OLEARY Organization [employer] Address Unknown Phone Unavailable Care Team Providers Care Hostel Parent Name Role Phone AINSLEY OLEARY CP Unavailable Allergies No Known Allergies Problems Problem Type Condition Code Onset Dates Condition Status Problem Hepatitis C, chronic B18.2 Active Problem Essential hypertension I10 Active Problem Chronic bronchitis, unspecified chronic bronchitis type J42 Active Assessment Dyspepsia R10.13 Active Medications Medication Code System Code Instructions Start Date End Date Status Dosage Ranitidine HCl [facility] [address]-36 300 MG Orally Once a day. APPT REQUIRED PRIOR TO REFILL Apr 11, 2015 1 capsule at bedtime Results No Known Results Summary Purpose [employer] Submission
--- OUTSIDE RECORDS SUMMARY | 2017-09-06 10:51 | XMS REPORT ---
Author Author AINSLEY OLEARY [facility] [employer] Address Unknown Phone Unavailable Care Team Providers Care Phlebotomist Name Role Phone AINSLEY OLEARY CP Unavailable Allergies, Adverse Reactions, Alerts Substance Reaction Event Type N.K.D.A. Info Not Available Non Drug Allergy Problems Problem Type Condition ICD-9 Code Onset Dates Condition Status Assessment Hypertension 401.9 Active Assessment Anxiety 300.00 Active Problem Hypertension 401.9 Active Assessment Routine adult health maintenance V70.0 Active Medications Medication Code System Code Instructions Start Date End Date Status Dosage Albuterol NDC 0 90 MCG/ACT Inhalation not defined Ventolin HFA [facility] [address]-14 90 MCG/ACT Inhalation every 4 hrs 2 puffs as needed Lisinopril [facility] [address]-38 40 MG Orally Once a day Jan 14, 2015 1 tablet HydrOXYzine HCl [facility] [address]-61 25 MG Orally every 8 hrs 1 tablet as needed Oxycodone-Acetaminophen [facility] [address]-07 10-325 MG Orally every 6 hrs 1 tablet as needed Clonazepam [facility] [address]-40 1 MG Orally PRN 1 tablet Budesonide-Formoterol Fumarate [facility] [address]-53 160-4.5 MCG/ACT Inhalation Twice a day 2 puffs Ibuprofen [facility] [address]-15 800 MG Orally Three times a day 1 tablet Ranitidine HCl [facility] [address]-22 300 MG Orally Once a day 1 capsule at bedtime Norvasc [facility] [address]-20 5 MG Orally Once a day Jan 14, 2015 1 tablet Trazodone HCl [facility] [address]-68 150 MG Orally Once a day 1 tablet at bedtime as needed Procedures Procedure Coding System Code Date [facility] VISIT NEW PATIENT CPT-4 G0466 Jan 14, 2015 Office Visit, New Pt., Level 4 CPT-4 35556 Jan 14, 2015 No Charge CPT-4 42079 Jan 14, 2015 VENIPUNCT, ROUTINE* CPT-4 79981 Jan 14, 2015 [facility] CPT-4 NOBLL Jan 14, 2015 Vital Signs Date/Time: Jan 14, 2015 Temperature 99.1 F Weight 253.5 lbs Height 69 in BMI 37.43 Index Blood Pressure Diastolic 110 mmHg Blood Pressure Systolic 172 mmHg Cardiac Monitoring Heart Rate 88 bpm Results Name Result Date Reference Range Unit Abnormality Flag TSH Summary Purpose [employer] Submission
--- OUTSIDE RECORDS SUMMARY | 2017-09-06 10:51 | XMS REPORT ---
Author Author PATRICK POOL Organization [facility] Address [address] [place] [address] Care Team Providers Care Brim Stretching Machine Operator Name Role Phone PATRICK POOL Unavailable PROBLEMS Type Condition ICD9-CM Code ZUE08-UH Code Onset Dates Condition Status SNOMED Code Problem Reactive depression F32.9 Active 25774678 Problem Generalized anxiety disorder F41.1 Active 94221847 Problem Chronic pain due to trauma G89.21 Active 245436973 Problem Essential hypertension I10 Active 87102677 Problem Chronic bronchitis, unspecified chronic bronchitis type J42 Active 49366475 Problem Mixed hyperlipidemia E78.2 Active 779202188 Problem Other chronic pain G89.29 Active 42925535 Problem Lumbago with sciatica, right side M54.41 Active 784729037947269 Problem Arthritis M19.90 Active 6830653 Problem History of CVA (cerebrovascular accident) Z86.73 Active 498516697 Problem Lumbago with sciatica, left side M54.42 Active 503698726 Problem Urinary hesitancy R39.11 Active 2499165 ALLERGIES No Information ENCOUNTERS Encounter Location Date Diagnosis [place] [id number] [place] [address] 41644- 3542 August, [place] [id number] [place] [address] 28274- 4238 Jul, Chronic pain due to trauma G89.21 ; Essential hypertension I10 ; Urinary hesitancy R39.11 ; Chronic bronchitis, unspecified chronic bronchitis type J42 ; Lumbago with sciatica, left side M54.42 ; Lumbago with sciatica, right side M54.41 ; Other chronic pain G89.29 and BMI 40.0-44.9, adult Z68.[address] [place] [address] 28370- 0908 Jul, Chronic pain due to trauma G89.21 [facility] [address], [place] [address] 4882 Jul, Encounter for medication monitoring Z51.81 [facility] [address] [place] [id number] [place] [address] 79806- 9083 Jul, Encounter for medication monitoring Z51.81 [facility] [address] [place] [address] [id number] [place] [address] 52762- 6611 Jun, [facility] [address] [place] [address] [id number] [place] [address] 26096- 1338 Jun, Chronic pain due to trauma G89.21 [facility] [address] [place] [address] [id number] [place] [address] 27915- 5776 Jun, Chronic bronchitis, unspecified chronic bronchitis type J42 [facility] [address] [place] [address] [id number] [place] [address] 08559- 6036 Jun, [facility] [address] [place] [address] [id number] [place] [address] 80213- 5448 Jun, Chronic pain due to trauma G89.21 [facility] [address] [place] [address] [id number] [place] [address] 50467- 3710 Jun, Chronic bronchitis, unspecified chronic bronchitis type J42 [facility] [id number] [address] 2247 Jun, Chronic pain due to trauma G89.21 [facility] [address] [place] [address] [id number] [place] [address] 79078- 7889 Jun, Chronic bronchitis, unspecified chronic bronchitis type J42 [facility] [address] [place] [address] [id number] [place] [address] 37227- 8810 May, Chronic pain due to trauma G89.21 and Arthritis M19.90 [facility] [address] [place] [address] [id number] [place] [address] 10501- 7222 May, Chronic pain due to trauma G89.21 [facility] [address] [address] [id number] [address]- 0068 May, [facility] [address] [place] [address] [id number] [place] [address] 49091- 4976 Apr, Chronic pain due to trauma G89.21 [facility] [address] [place] [address] [id number] [place] [address] 03305- 0286 Mar, Essential hypertension I10 [facility] [address] [place] [address] [id number] [place] [address] 65222- 0726 Mar, Chronic pain due to trauma G89.21 [facility] [address] [place] [address] [id number] [place] [address] 67300- 8596 Mar, [facility] [address] [place] [address] [id number] [place] [address] 83638- 9446 Mar, Chronic pain due to trauma G89.21 ; Essential hypertension I10 and Mixed hyperlipidemia E78.2 [facility] [address] [place] [address] [id number] [place] [address] 63675- 7137 Jan, Chronic pain due to trauma G89.21 [facility] [address] [place] [address] [id number] [place] [address] 68651- 3234 Jan, [facility] [address] [place] [address] [id number] [place] [address] 63455- 5536 27 Dec, 2016 Chronic pain due to trauma G89.21 [facility] [address] [place] [address] [id number] [place] [address] 34653- 3786 22 Dec, 2016 Chronic pain due to trauma G89.21 [facility] [address] [place] [address] 91297- 7822 11 Dec, 2016 Essential hypertension I10 [facility] [address] [place] [address] [id number] [place] [address] 66623035- 2566 Nov, Chronic pain due to trauma G89.21 [facility] [address] [place] [address] [id number] [place] [address] 03354- 5916 Oct, Chronic pain due to trauma G89.21 [facility] [address], [place] [address]- 3066 Oct, Chronic pain due to trauma G89.21 [facility] [address] [place] [id number] [place] [address] 65025- 9926 Oct, Essential hypertension I10 [facility] [address] [place] [id number] [place] [address] 93652- 0147 Sep, Chronic pain due to trauma G89.21 ; Reactive depression F32.9 and Essential hypertension I10 [facility] [address] [place] [id number] [place] [address] 76322- 0515 Sep, Generalized anxiety disorder F41.1 [facility] [address] [place] [id number] [place] [address] 35639- 2356 August, Essential hypertension I10 ; Reactive depression F32.9 and Chronic pain due to trauma G89.21 [facility] [address] [place] [id number] [place] [address] 02122- 0799 Jun, Flank pain R10.9 [facility] [address] [place] [id number] [place] [address] 30949- 0542 Jun, Essential hypertension I10 [facility] [address] [place] [id number] [place] [address] 53804- 9397 May, Chronic bronchitis, unspecified chronic bronchitis type J42 [facility] [address] [place] [address] [id number] [place] [address] 03986- 8563 Apr, Essential hypertension I10 [facility] [address] [place] [address] [id number] [place] [address] 31979- 4558 Apr, [facility] [address] [place] [id number] [place] [address] 65458- 9360 30 Jan, 2016 Mixed hyperlipidemia E78.2 [facility] [address] [place] [id number] [place] [address] 65871- 3524 19 Jan, 2016 Hepatitis C, chronic B18.2 ; Essential hypertension I10 and Mixed hyperlipidemia E78.2 [facility] [address] [place] [id number] [place] [address] 13551- 5029 August, [facility] [address] 84594- 8481 August, [facility] [address] 36437- 2655 August, Essential hypertension I10 ; Mixed hyperlipidemia E78.2 and Gastroesophageal reflux disease, esophagitis presence not specified K21.9 [facility] [address] 09976- 3765 Jun, [place] [address] 19613- 7950 Jun, Hepatitis C, chronic B18.2 ; Dyspepsia R10.13 ; Reflux esophagitis K21.0 and Essential hypertension I10 [place] [address] 62746- 4626 May, Reflux esophagitis K21.0 ; Hepatitis C, chronic B18.2 and Tachycardia, unspecified R00.0 [place] [address] 48761- 9972 May, Generalized anxiety disorder F41.1 and Substance addiction F19.20 [place] [address] [place] [id number] [place] [address] 27089- 8745 Apr, [place] [address] [place] [id number] [place] [address] 48113- 0470 Apr, Hepatitis C, chronic B18.2 [place] [address] [place] [id number] [place] [address] 93520- 1071 Apr, Anxiety F41.9 [place] [address] [place] [id number] [place] [address] 62917- 5296 Apr, Encounter for immunization Z23 and Hepatitis C, chronic B18.2 [place] [address] 16153- 8461 Apr, [facility] [address], [place] [address]- 4290 Apr, Dyspepsia R10.13 [facility] [address] [place] [address] 82310- 1155 Apr, [facility] [address] [place] [id number] [place] [address] 43753- 0266 Mar, Hepatitis C, chronic B18.2 [facility] [address] [place] [id number] [place] [address] 74100- 5233 Mar, Hepatitis C, chronic B18.2 [facility] [address] [place] [id number] [place] [address] 57547- 0254 Mar, [facility] [address] [place] [id number] [place] [address] 83509- 0427 Mar, [facility] [address] [place] [id number] [place] [address] 29965- 8017 Mar, [facility] [address] [place] [address] 92086- 3438 Jan, Essential hypertension I10 ; Chronic bronchitis, unspecified chronic bronchitis type J42 ; Hepatitis C, chronic B18.2 and Dental caries of root surface K02.7 [facility] [address] [place] [address] 67621- 9872 Dec, Routine adult health maintenance V70.0 [facility] [address] [place] [address] 98033- 6933 Dec, [facility] [address] [place] [address] 23790- 1070 Dec, Hypertension 401.9 ; Anxiety 300.00 and Routine adult health maintenance V70.0 IMMUNIZATIONS No Known Immunizations SOCIAL HISTORY Never Assessed REASON FOR VISIT Refill request PLAN OF CARE VITAL SIGNS MEDICATIONS Unknown [...]
--- OUTSIDE RECORDS SUMMARY | 2017-09-06 10:51 | XMS REPORT ---
Author Author AINSLEY OLEARY [facility] eClinicalWorks Address Unknown Phone Unavailable Care Team Providers Care Public Area Attendant Name Role Phone AINSLEY OLEARY CP Unavailable Allergies No Known Allergies Problems Problem Type Condition Code Onset Dates Condition Status Problem Hepatitis C, chronic B18.2 Active Problem Essential hypertension I10 Active Problem Chronic bronchitis, unspecified chronic bronchitis type J42 Active Medications Medication Code System Code Instructions Start Date End Date Status Dosage ProAir [facility] [id number] 108 (90 Base) MCG/ACT Inhalation every 4 hrs Mar 11, 2015 2 puffs as needed Results No Known Results Summary Purpose eClinicalWorks Submission
--- OUTSIDE RECORDS SUMMARY | 2017-09-06 10:51 | XMS REPORT ---
Author Author PATRICK POOL [facility] Address [address] [place] [address] Care Team Providers Care Mathematics Lecturer Name Role Phone PATRICK POOL Unavailable PROBLEMS Type Condition ICD9-CM Code XPU70-NK Code Onset Dates Condition Status SNOMED Code Problem Essential hypertension I10 Active 21959626 Problem Chronic bronchitis, unspecified chronic bronchitis type J42 Active 50353693 Problem Arthritis M19.90 Active 8830485 Problem History of CVA (cerebrovascular accident) Z86.73 Active 270066379 Problem Reactive depression F32.9 Active 91797648 Problem Mixed hyperlipidemia E78.2 Active 676967645 Problem Generalized anxiety disorder F41.1 Active 60483770 Problem Chronic pain due to trauma G89.21 Active 269187130 ALLERGIES No Information ENCOUNTERS Encounter Location Date Diagnosis [place] [address] [place] [id number] [place] [address] 24302- 5624 Jul, [place] [address] 30337- 5980 Jul, Chronic pain due to trauma G89.21 [facility] [address] [place] [id number] [place] [address] 89172- 9360 Jul, Encounter for medication monitoring Z51.81 [facility] [address] [place] [id number] [place] [address] 33770- 3394 Jul, Encounter for medication monitoring Z51.81 [facility] [address] 05275- 3946 Jun, [facility] [address] [place] [id number] [place] [address] 36706- 2631 Jun, Chronic pain due to trauma G89.21 [facility] [address] 02770- 7025 Jun, Chronic bronchitis, unspecified chronic bronchitis type J42 [facility] [address] [place] [address] 96456- 9061 Jun, [facility] [address] [place] [id number] [place] [address] 09574- 2835 Jun, Chronic pain due to trauma G89.21 [facility] [address] [place] [id number] [place] [address] 70275- 6390 Jun, Chronic bronchitis, unspecified chronic bronchitis type J42 [facility] [address] [place] [address] 23174- 1617 Jun, Chronic pain due to trauma G89.21 [facility] [address] [place] [id number] [place] [address] 74915- 1781 Jun, Chronic bronchitis, unspecified chronic bronchitis type J42 [facility] [address] [place] [id number] [place] [address] 38412- 4306 May, Chronic pain due to trauma G89.21 and Arthritis M19.90 [facility] [address] [place] [id number] [place] [address] 06238- 0106 May, Chronic pain due to trauma G89.21 [facility] [address] [place] [id number] [place] [address] 13604- 9874 May, [facility] [address] [place] [id number] [place] [address] 75204- 7176 Apr, Chronic pain due to trauma G89.21 [facility] [address] [place] [address] 11566- 0205 Mar, Essential hypertension I10 [facility] [address] [place] [id number] [place] [address] 19548- 1525 Mar, Chronic pain due to trauma G89.21 [facility] [address] [place] [id number] [place] [address] 74425- 6738 Mar, [facility] [address] [address]- 9616 Mar, Chronic pain due to trauma G89.21 ; Essential hypertension I10 and Mixed hyperlipidemia E78.2 [facility] [address] [place] [address] 37035768- 4346 Jan, Chronic pain due to trauma G89.21 [facility] [address] [place] [id number] [place] [address] 60735- 5916 Jan, [facility] [address] [place] [id number] [place] [address] 98349- 6636 Dec, Chronic pain due to trauma G89.21 [facility] [address] [place] [id number] [place] [address] 67680- 8376 Dec, Chronic pain due to trauma G89.21 [facility] [address] [place] [id number] [place] [address] 38375- 5926 Dec, Essential hypertension I10 [facility] [address] [place] [id number] [place] [address] 52977- 9921 Nov, Chronic pain due to trauma G89.21 [facility] [address] [place] [id number] [place] [address] 41157- 5416 Oct, Chronic pain due to trauma G89.21 [facility] [address] [place] [address] 39575- 7487 Oct, Chronic pain due to trauma G89.21 [facility] [address] [place] [id number] [place] [address] 19078- 8548 Oct, Essential hypertension I10 [facility] [address] [place] [id number] [place] [address] 113611- 1876 30 Sep, 2016 Chronic pain due to trauma G89.21 ; Reactive depression F32.9 and Essential hypertension I10 [facility] [address] [address]- 3312 13 Sep, 2016 Generalized anxiety disorder F41.1 [facility] [address] [place] [id number] [place] [address] 47043- 1751 August, Essential hypertension I10 ; Reactive depression F32.9 and Chronic pain due to trauma G89.21 [facility] [address] [place] [id number] [place] [address] 24067- 5666 10 Jun, 2016 Flank pain R10.9 [facility] [address] [place] [id number] [place] [address] 20875- 1446 09 Jun, 2016 Essential hypertension I10 [facility] [address] [place] [id number] [place] [address] 67427- 5487 May, Chronic bronchitis, unspecified chronic bronchitis type J42 [facility] [address] [place] [id number] [place] [address] 51469- 8934 Apr, Essential hypertension I10 [facility] [address] [place] [id number] [place] [address] 37321- 2018 Apr, [facility] [address] 68264- 9053 Dec, Mixed hyperlipidemia E78.2 [facility] [address] [place] [id number] [place] [address] 60513- 2425 Dec, Hepatitis C, chronic B18.2 ; Essential hypertension I10 and Mixed hyperlipidemia E78.2 [facility] [address] [id number] [place] [address] 37605- 3795 August, [facility] [address] [id number] [place] [address] 34513- 2550 August, [facility] [address] [address] [id number] [place] [address] 83288- 1124 August, Essential hypertension I10 ; Mixed hyperlipidemia E78.2 and Gastroesophageal reflux disease, esophagitis presence not specified K21.9 [facility] [address] [id number] [place] [address] 86950- 3314 29 Jul, 2015 [facility] [address] [address] [id number] [place] [address] 67648- 7227 Jun, Hepatitis C, chronic B18.2 ; Dyspepsia R10.13 ; Reflux esophagitis K21.0 and Essential hypertension I10 [place] [address] 09719- 5346 May, Reflux esophagitis K21.0 ; Hepatitis C, chronic B18.2 and Tachycardia, unspecified R00.0 [place] [address] 27208- 7772 May, Generalized anxiety disorder F41.1 and Substance addiction F19.20 [place] [address] 20609- 5489 Apr, [place] [address] 48700- 7163 Apr, Hepatitis C, chronic B18.2 [place] [address] 05178- 9510 Apr, Anxiety F41.9 [place] [address] 15404- 8943 Apr, Hepatitis C, chronic B18.2 and Encounter for immunization Z23 [place] [address] 79923- 0925 Apr, [place] [address] 98798- 7146 Apr, Dyspepsia R10.13 [place] [address] 49127- 5660 Apr, [place] [address] 10231- 8054 Mar, Hepatitis C, chronic B18.2 [place] [address] 14534- 2717 Mar, Hepatitis C, chronic B18.2 [place] [address] 74123- 6446 Mar, [facility] [address] [address]- 6861 Mar, [facility] [address] [address]- 7747 Mar, [facility] [address] [address]- 0340 Jan, Essential hypertension I10 ; Chronic bronchitis, unspecified chronic bronchitis type J42 ; Hepatitis C, chronic B18.2 and Dental caries of root surface K02.7 [facility] [address] [address]- 4417 17 Dec, 2014 Routine adult health maintenance V70.0 [facility] [address] [address]- 3873 Dec, [facility] [id number] [place] [address] 52794- 5369 Dec, Hypertension 401.9 ; Anxiety 300.00 and Routine adult health maintenance V70.0 IMMUNIZATIONS No Known Immunizations SOCIAL HISTORY Never Assessed REASON FOR VISIT Oxycodone 11/26 PLAN OF CARE VITAL SIGNS MEDICATIONS Medication Instructions Dosage Frequency Start Date End Date Duration Status Oxycodone-Acetaminophen 10-325 MG Orally every 6 hrs 1 tablet as needed 6h Oct, 28 days Active RESULTS No Results PROCEDURES [...]
--- OUTSIDE RECORDS SUMMARY | 2017-09-06 10:51 | XMS REPORT ---
Author Author AINSLEY OLEARY [facility] eClinicalWorks Address Unknown Phone Unavailable Care Team Providers Care Sales Support Coordinator Name Role Phone AINSLEY OLEARY CP Unavailable Allergies No Known Allergies Problems Problem Type Condition Code Onset Dates Condition Status Problem Hepatitis C, chronic B18.2 Active Problem Essential hypertension I10 Active Problem Chronic bronchitis, unspecified chronic bronchitis type J42 Active Assessment Hepatitis C, chronic B18.2 Active Medications No Known Medications Results No Known Results Summary Purpose eClinicalWorks Submission
--- OUTSIDE RECORDS SUMMARY | 2017-09-06 10:51 | XMS REPORT ---
Author Author AINSLEY OLEARY [facility] eClinicalWorks Address Unknown Phone Unavailable Care Team Providers Care Unit Educator Name Role Phone AINSLEY OLEARY CP Unavailable Allergies No Known Allergies Problems Problem Type Condition Code Onset Dates Condition Status Problem Hepatitis C, chronic B18.2 Active Problem Essential hypertension I10 Active Problem Chronic bronchitis, unspecified chronic bronchitis type J42 Active Assessment Hepatitis C, chronic B18.2 Active Medications No Known Medications Procedures Procedure Coding System Code Date PROTHROMBIN TIME CPT-4 28080 Mar 31, 2015 No Charge CPT-4 69860 Mar 31, 2015 [facility]-4 NOBLL Mar 31, 2015 ALANINE AMINO (ALT) (SGPT) CPT-4 04493 Mar 31, 2015 ASSAY, NEPHELOMETRY NOT SPEC CPT-4 66598 Mar 31, 2015 ASSAY OF PSA, TOTAL CPT-4 17780 Mar 31, 2015 VENIPUNCT, ROUTINE* CPT-4 67353 Mar 31, 2015 Results No Known Results Summary Purpose eClinicalWorks Submission
--- OUTSIDE RECORDS SUMMARY | 2017-09-06 10:52 | XMS REPORT ---
Author Author PATRICK POOL [facility] Address [address] [place] [address] Care Team Providers Care Mechanical Development Engineer Name Role Phone PATRICK POOL Unavailable PROBLEMS Type Condition ICD9-CM Code BIM18-BK Code Onset Dates Condition Status SNOMED Code Problem Mixed hyperlipidemia E78.2 Active 244277929 Problem Chronic bronchitis, unspecified chronic bronchitis type J42 Active 15688455 Assessment Hepatitis C, chronic B18.2 Dec, Active 949978264 Problem Hepatitis C, chronic B18.2 Active 690632849 Problem Essential hypertension I10 Active 27689969 ALLERGIES No Known Allergies SOCIAL HISTORY No smoking Hx information available PLAN OF CARE VITAL SIGNS MEDICATIONS No Known Medications RESULTS Name Result Date Reference Range CBC 2016-01-19 WBC 6.8 3.4-10.8 RBC 4.47 4.14-5.80 Hemoglobin 13.1 12.6-17.7 Hematocrit 40.0 37.5-51.0 MCV 90 79-97 MCH 29.3 26.6-33.0 MCHC 32.8 31.5-35.7 RDW 13.5 12.3-15.4 Platelets 181 150-379 Neutrophils 60 Lymphs 27 Monocytes 9 Eos 4 Basos 0 Neutrophils (Absolute) 3.9 1.4-7.0 Lymphs (Absolute) 1.8 0.7-3.1 Monocytes(Absolute) 0.6 0.1-0.9 Eos (Absolute) 0.3 0.0-0.4 Baso (Absolute) 0.0 0.0-0.2 Immature Granulocytes 0 Immature Grans (Abs) 0.0 0.0-0.1 CMP 2016-01-19 Glucose, Serum 103 65-99 BUN 31 6-24 Creatinine, Serum 1.16 0.76-1.27 eGFR If NonAfricn Am 73 >59 eGFR If Africn Am 84 >59 BUN/Creatinine Ratio 27 9-20 Sodium, Serum 141 134-144 Potassium, Serum 4.1 3.5-5.2 Chloride, Serum 97 97-108 Carbon Dioxide, Total 28 18-29 Calcium, Serum 9.7 8.7-10.2 Protein, Total, Serum 6.7 6.0-8.5 Albumin, Serum 4.4 3.5-5.5 Globulin, Total 2.3 1.5-4.5 A/G Ratio 1.9 1.1-2.5 Bilirubin, Total <0.2 0.0-1.2 Alkaline Phosphatase, S 61 39-117 AST (SGOT) 17 0-40 ALT (SGPT) 13 0-44 LIPID PANEL 2016-01-19 Cholesterol, Total 136 100-199 Triglycerides 204 0-149 HDL Cholesterol 28 >39 VLDL Cholesterol Flako 41 5-40 LDL Cholesterol Calc 67 0-99 HEP C PCR QUANT (Non-Graph)-APPROVAL REQUIRED 2016-01-19 Hepatitis C Quantitation HCV Not Detected HCV log10 Test Information: PROCEDURES Procedure Date Ordered Related Diagnosis Body Site VENIPUNCT, ROUTINE* Jan 19, 2016 LAB NOT BILLED BY [facility] Jan 19, 2016 IMMUNIZATIONS No Known Immunizations
--- OUTSIDE RECORDS SUMMARY | 2017-09-06 10:52 | XMS REPORT | Continuity of Care Document ---
Author Author [facility] Organization [facility] Address Unknown Phone Unavailable Allergies Active Description Code Type Severity Reaction Onset Reported/Identified Relationship to Patient Clinical Status Yes No Known Drug Allergies [id number] Drug Allergy Unknown N/A 03/29/2013 Medications There is no data. Problems Date Dx Coded Attending Type Code Diagnosis Diagnosed By 03/29/2013 SALTY NIETO MD Ot 574.20 03/29/2013 SALTY NIETO MD Ot 789.00 05/18/2013 HARRIETT COOL MD Ot 278.00 05/18/2013 HARRIETT COOL MD Ot 721.3 05/18/2013 HARRIETT COOL MD Ot 722.52 05/18/2013 HARRIETT COOL MD Ot 729.1 05/18/2013 HARRIETT COOL MD Ot V58.69 05/18/2013 HARRIETT COOL MD Ot V85.39 07/20/2013 HARRIETT COOL MD Ot 278.00 07/20/2013 HARRIETT COOL MD Ot 721.3 07/20/2013 HARRIETT COOL MD Ot 722.52 07/20/2013 HARRIETT COOL MD Ot 729.1 07/20/2013 HARRIETT COOL MD Ot V58.69 07/20/2013 HARRIETT COOL MD Ot V85.39 09/09/2014 HARRIETT COOL MD Ot 722.52 09/09/2014 HARRIETT COOL MD Ot 338.4 09/09/2014 HARRIETT COOL MD Ot 721.3 09/09/2014 HARRIETT COOL MD Ot 724.6 09/09/2014 HARRIETT COOL MD Ot V58.69 03/04/2016 BLAIR CADET DO Ot Z01.818 ENCOUNTER FOR OTHER PREPROCEDURAL EXAMIN 03/04/2016 BLAIR CADET DO Ot Z12.11 ENCOUNTER FOR SCREENING FOR MALIGNANT NE 03/09/2016 BLAIR CADET DO Ot K57.30 DVRTCLOS OF LG INT W/O PERFORATION OR AB 03/09/2016 BLAIR CADET DO Ot Z12.11 ENCOUNTER FOR SCREENING FOR MALIGNANT NE 03/10/2016 BLAIR CADET DO Ot K57.30 DVRTCLOS OF LG INT W/O PERFORATION OR AB 03/10/2016 BLAIR CADET DO Ot Z12.11 ENCOUNTER FOR SCREENING FOR MALIGNANT NE 07/04/2016 BILLIE RAMOS, JAEL Bates Ot I10 ESSENTIAL (PRIMARY) HYPERTENSION 07/04/2016 BILLIE RAMOS, JAEL Bates Ot J44.9 CHRONIC OBSTRUCTIVE PULMONARY DISEASE, U 07/04/2016 JAEL WISE MD Ot K80.20 CALCULUS OF GALLBLADDER W/O CHOLECYSTITI 07/04/2016 JAEL WISE MD Ot M54.5 LOW BACK PAIN 07/04/2016 JAEL WISE MD Ot N20.2 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 07/04/2016 AJEL WISE MD Ot R10.31 RIGHT LOWER QUADRANT PAIN 07/04/2016 JAEL WISE MD Ot Z79.899 OTHER CORRECTION (CURRENT) DRUG THERAPY 07/06/2016 JAEL WISE MD Ot I10 ESSENTIAL (PRIMARY) HYPERTENSION 07/06/2016 JAEL WISE MD Ot J44.9 CHRONIC OBSTRUCTIVE PULMONARY DISEASE, U 07/06/2016 JAEL WISE MD Ot K80.20 CALCULUS OF GALLBLADDER W/O CHOLECYSTITI 07/06/2016 JAEL WISE MD Ot M54.5 LOW BACK PAIN 07/06/2016 JAEL WISE MD Ot N20.2 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 07/06/2016 JAEL WISE MD Ot R10.31 RIGHT LOWER QUADRANT PAIN 07/06/2016 JAEL WISE MD Ot Z79.899 OTHER EMERGENCY VEHICLE TECHNICIAN (CURRENT) DRUG THERAPY 07/10/2016 JAEL WISE MD Ot I10 ESSENTIAL (PRIMARY) HYPERTENSION 07/10/2016 JAEL WISE MD Ot J44.9 CHRONIC OBSTRUCTIVE PULMONARY DISEASE, U 07/10/2016 JAEL WISE MD Ot K80.20 CALCULUS OF GALLBLADDER W/O CHOLECYSTITI 07/10/2016 BILILE RAMOS, JAEL Bates Ot M54.5 LOW BACK PAIN 07/10/2016 BILLIE RAMOS, JAEL Bates Ot N20.2 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 07/10/2016 BILLIE RAMOS, JAEL Bates Ot R10.31 RIGHT LOWER QUADRANT PAIN 07/10/2016 BILLIE RAMOS, JAEL Bates Ot Z79.899 OTHER EMERGENCY VEHICLE TECHNICIAN (CURRENT) DRUG THERAPY Procedures There is no data. Results Test Result Range CBC With Differential/Platelet - 01/19/16 08:32 WBC 6.8 x10E3/uL 3.4-10.8 RBC 4.47 x10E6/uL 4.14-5.80 Hemoglobin 13.1 g/dL 12.6-17.7 Hematocrit 40.0 % 37.5-51.0 MCV 90 fL 79-97 MCH 29.3 pg 26.6-33.0 MCHC 32.8 g/dL 31.5-35.7 RDW 13.5 % 12.3-15.4 Platelets 181 x10E3/uL 150-379 Neutrophils 60 % Lymphs 27 % Monocytes 9 % Eos 4 % Basos 0 % Neutrophils (Absolute) 3.9 x10E3/uL 1.4-7.0 Lymphs (Absolute) 1.8 x10E3/uL 0.7-3.1 Monocytes(Absolute) 0.6 x10E3/uL 0.1-0.9 Eos (Absolute) 0.3 x10E3/uL 0.0-0.4 Baso (Absolute) 0.0 x10E3/uL 0.0-0.2 Immature Granulocytes 0 % Immature Grans (Abs) 0.0 x10E3/uL 0.0-0.1 Comp. Metabolic Panel (14) - 01/19/16 08:32 Glucose, Serum 103 mg/dL 65-99 BUN 31 mg/dL 6-24 Creatinine, Serum 1.16 mg/dL 0.76-1.27 eGFR If NonAfricn Am 73 mL/min/1.73 >59 eGFR If Africn Am 84 mL/min/1.73 >59 BUN/Creatinine Ratio 27 9-20 Sodium, Serum 141 mmol/L 134-144 Potassium, Serum 4.1 mmol/L 3.5-5.2 Chloride, Serum 97 mmol/L 97-108 Carbon Dioxide, Total 28 mmol/L 18-29 Calcium, Serum 9.7 mg/dL 8.7-10.2 Protein, Total, Serum 6.7 g/dL 6.0-8.5 Albumin, Serum 4.4 g/dL 3.5-5.5 Globulin, Total 2.3 g/dL 1.5-4.5 A/G Ratio 1.9 1.1-2.5 Bilirubin, Total <0.2 mg/dL 0.0-1.2 Alkaline Phosphatase, S 61 IU/L 39-117 AST (SGOT) 17 IU/L 0-40 ALT (SGPT) 13 IU/L 0-44 Lipid Panel - 01/19/16 08:32 Cholesterol, Total 136 mg/dL 100-199 Triglycerides 204 mg/dL 0-149 HDL Cholesterol 28 mg/dL >39 VLDL Cholesterol Flako 41 mg/dL 5-40 LDL Cholesterol Calc 67 mg/dL 0-99 HCV RT-PCR, Quant (Non-Graph) - 01/19/16 08:32 Hepatitis C Quantitation HCV Not Detected IU/mL Test Information: Comment Complete urinalysis with reflex to culture - 07/04/16 11:05 Urine color determination YELLOW NRG Urine clarity determination CLEAR NRG Urine pH measurement by test strip 5 5-9 Specific gravity of urine by test strip 1.015 1.016- 1.022 Urine protein assay by test strip, semi-quantitative NEGATIVE NEGATIVE Urine glucose detection by automated test strip NEGATIVE NEGATIVE Erythrocytes detection in urine sediment by light microscopy NEGATIVE NEGATIVE Urine ketones detection by automated test strip NEGATIVE NEGATIVE Urine nitrite detection by test strip NEGATIVE NEGATIVE Urine total bilirubin detection by test strip NEGATIVE NEGATIVE Urine urobilinogen measurement by automated test strip (mass/volume) NORMAL NORMAL Urine leukocyte esterase detection by dipstick NEGATIVE NEGATIVE Automated urine sediment erythrocyte count by microscopy (number/high power field) RARE NRG Automated urine sediment leukocyte count by microscopy (number/high power field ) NONE NRG Bacteria detection in urine sediment by light microscopy NEGATIVE NRG Squamous epithelial cells detection in urine sediment by light microscopy RARE NRG Crystals detection in urine sediment by light microscopy NONE NRG Casts detection in urine sediment by light microscopy NONE NRG Mucus detection in urine sediment by light microscopy NEGATIVE NRG Complete urinalysis with reflex to culture NO NRG Complete blood count (CBC) with automated white blood cell (WBC) differential - 07/04/16 11:30 Blood leukocytes automated count (number/volume) 11.6 10*3/uL 4.3-11.0 Blood erythrocytes automated count (number/volume) 4.81 10*6/uL 4.35-5.85 Venous blood hemoglobin measurement (mass/volume) 14.3 g/dL 13.3-17.7 Blood hematocrit (volume fraction) 43 % 40-54 Automated erythrocyte mean corpuscular volume 88 [foz_us] 80-99 Automated erythrocyte mean corpuscular hemoglobin (mass per erythrocyte) 30 pg 25-34 Automated erythrocyte mean corpuscular hemoglobin concentration measurement ( mass/volume) 34 g/dL 32-36 Automated erythrocyte distribution width ratio 12.8 % 10.0-14.5 Automated blood platelet count (count/volume) 227 10*3/uL 130-400 Automated blood platelet mean volume measurement 10.9 [foz_us] 7.4-10.4 Automated blood neutrophils/100 leukocytes 73 % 42-75 Automated blood lymphocytes/100 leukocytes 20 % 12-44 Blood monocytes/100 leukocytes 6 % 0-12 Automated blood eosinophils/100 leukocytes 2 % 0-10 Automated blood basophils/100 leukocytes 1 % 0-10 Blood neutrophils automated count (number/volume) 8.4 10*3 1.8-7.8 Blood lymphocytes automated count (number/volume) 2.3 10*3 1.0-4.0 Blood monocytes automated count (number/volume) 0.7 10*3 0.0-1.0 Automated eosinophil count 0.2 10*3/uL 0.0-0.3 Automated blood basophil count (count/volume) 0.1 10*3/uL 0.0-0.1 Comprehensive metabolic panel - 07/04/16 11:35 Serum or plasma sodium measurement (moles/volume) 142 mmol/L 135-145 Serum or plasma potassium measurement (moles/volume) 4.3 mmol/L 3.6-5.0 Serum or plasma chloride measurement (moles/volume) 104 mmol/L 98-107 Carbon dioxide 25 mmol/L 21-32 Serum or plasma anion gap determination (moles/volume) 13 mmol/L 5-14 Serum or plasma urea nitrogen measurement (mass/volume) 23 mg/dL 7-18 Serum or plasma creatinine measurement (mass/volume) 1.22 mg/dL 0.60-1.30 Serum or plasma urea nitrogen/creatinine mass ratio 19 NRG Serum or plasma creatinine measurement with calculation of estimated glomerular filtration rate > NRG Serum or plasma glucose measurement (mass/volume) 95 mg/dL 70-105 Serum or plasma calcium measurement (mass/volume) 8.8 mg/dL 8.5-10.1 Serum or plasma total bilirubin measurement (mass/volume) 0.5 mg/dL 0.1-1.0 Serum or plasma alkaline phosphatase measurement (enzymatic activity/volume) 71 U/L 40-136 Serum or plasma aspartate aminotransferase measurement (enzymatic activity/ volume) 24 U/L 5-34 Serum or plasma alanine aminotransferase measurement (enzymatic activity/volume ) 17 U/L 0-55 Serum or plasma protein measurement (mass/volume) 7.2 g/dL 6.4-8.2 Serum or plasma albumin measurement (mass/volume) 4.3 g/dL 3.2-4.5 Lipase - 07/04/16 11:35 Lipase 18 U/L 8-78 CBC - 03/04/17 10:34 WHITE BLOOD CELL COUNT 7.4 Thousand/uL 3.8-10.8 RED BLOOD CELL COUNT 4.78 Million/uL 4.20-5.80 HEMOGLOBIN 14.1 g/dL 13.2-17.1 HEMATOCRIT 44.1 % 38.5-50.0 MCV 92.3 fL 80.0-100.0 MCH 29.5 pg 27.0-33.0 MCHC 32.0 g/dL 32.0-36.0 RDW 12.1 % 11.0-15.0 PLATELET COUNT 240 Thousand/uL 140-400 MPV 10.7 fL 7.5-12.5 ABSOLUTE NEUTROPHILS 4114 cells/uL 2079-9271 ABSOLUTE LYMPHOCYTES 2042 cells/uL 850-3900 ABSOLUTE MONOCYTES 895 cells/uL 200-950 ABSOLUTE EOSINOPHILS 266 cells/uL 15-500 ABSOLUTE BASOPHILS 81 cells/uL 0-200 NEUTROPHILS 55.6 % NRG LYMPHOCYTES 27.6 % NRG MONOCYTES 12.1 % NRG EOSINOPHILS 3.6 % NRG BASOPHILS 1.1 % NRG PDM - ATS (PROFILE 8 WITH CONFIRMATION) - 08/03/17 11:30 Creatinine 89.6 mg/dL > or=20.0 pH 6.25 4.5 - 9.0 Oxidant NEGATIVE mcg/mL <200 Amphetamines NEGATIVE ng/mL <500 medMATCH Amphetamines CONSISTENT NRG Benzodiazepines NEGATIVE ng/mL <100 medMATCH Benzodiazepines CONSISTENT NRG Marijuana Metabolite NEGATIVE ng/mL <20 medMATCH Marijuana Metab CONSISTENT NRG Cocaine Metabolite NEGATIVE ng/mL <150 medMATCH Cocaine Metab CONSISTENT NRG Opiates NEGATIVE ng/mL <100 medMATCH Opiates CONSISTENT NRG Oxycodone POSITIVE ng/mL <100 COMMENT NRG Buprenorphine NEGATIVE ng/mL <5 MDMA NEGATIVE ng/mL <500 medMATCH MDMA CONSISTENT NRG Alcohol Metabolites POSITIVE ng/mL <500 6 Acetylmorphine NEGATIVE ng/mL <10 medMATCH 6 Acetylmorphine CONSISTENT NRG medMATCH Buprenorphine CONSISTENT NRG Noroxycodone 1432 ng/mL <50 medMATCH Noroxycodone INCONSISTENT NRG Oxycodone 857 ng/mL <50 medMATCH Oxycodone INCONSISTENT NRG Oxymorphone 375 ng/mL <50 medMATCH Oxymorphone INCONSISTENT NRG Ethyl Glucuronide (ETG) 40161 ng/mL <500 medMATCH ETG INCONSISTENT NRG Ethyl Sulfate (ETS) 4033 ng/mL <100 medMATCH ETS INCONSISTENT NRG Encounters ACCT No. Visit Date/Time Discharge Status Pt. Type Provider Facility Loc./Unit Complaint [id number] 07/04/2016 10:25:00 07/04/2016 13:02:00 DIS Emergency BILLIE RAMOS, JAEL Bates [facility] ER R SIDE LOWER BACK PAIN [id number] 03/09/2016 10:23:00 03/09/2016 14:15:00 DIS Outpatient BLAIR CADET DO [facility] SDC SCREENING [id number] 03/04/2016 05:41:00 03/04/2016 14:55:00 DIS Outpatient BLAIR CADET DO [facility] PREOP SCREENING [id number] 09/09/2014 12:54:00 09/09/2014 14:53:00 DIS Outpatient HARRIETT COOL MD [facility] CARD [id number] 07/20/2013 09:07:00 07/20/2013 10:24:00 DIS Outpatient HARRIETT COOL MD [facility] CARD [id number] 05/18/2013 07:54:00 05/18/2013 08:54:00 DIS Outpatient SILVINA RAMOS, HARRIETT Kevin [facility] CARD [id number] 03/29/2013 07:54:00 03/29/2013 12:24:00 DIS Emergency GERSON RAMOS, SALTY Shoemaker [facility] ER [id number] 02/23/2013 06:59:00 02/23/2013 23:59:59 CLS Outpatient SILVINA RAMOS, HARRIETT Kevin [facility] CARD [id number] 08/26/2017 14:20:00 08/26/2017 23:59:59 CLS Outpatient YRN RAMOS, PATRICK DOTY [facility] [id number] 08/03/2017 12:00:00 Document Registration [id number] 03/04/2017 10:20:00 Document Registration [id number] 01/21/2016 13:05:00 Document Registration
--- OUTSIDE RECORDS SUMMARY | 2017-09-06 10:52 | XMS REPORT ---
Author Author PATRICK POOL Organization [facility] Address [address] [place] [address] Care Team Providers Care Account Management Specialist Name Role Phone PATRICK POOL Unavailable PROBLEMS Type Condition ICD9-CM Code BUB82-ZM Code Onset Dates Condition Status SNOMED Code Problem Essential hypertension I10 Active 23354181 Problem Chronic bronchitis, unspecified chronic bronchitis type J42 Active 07220205 Problem Arthritis M19.90 Active 8835741 Problem History of CVA (cerebrovascular accident) Z86.73 Active 350668881 Problem Reactive depression F32.9 Active 97031131 Problem Mixed hyperlipidemia E78.2 Active 595340782 Problem Generalized anxiety disorder F41.1 Active 58806537 Problem Chronic pain due to trauma G89.21 Active 319179397 ALLERGIES No Information ENCOUNTERS Encounter Location Date Diagnosis [place] [id number] [place] [address]858 Jul, [place] [address] [address] Jul, [place] [address] [address] Jul, Encounter for medication monitoring Z51.81 [facility] [id number] [place] [address] 24578- 1004 Jul, Encounter for medication monitoring Z51.81 [facility] [id number] [place] [address] 39591- 9754 Jun, [facility] [address] [address] Jun, Chronic pain due to trauma G89.21 [facility] [address] [address] Jun, Chronic bronchitis, unspecified chronic bronchitis type J42 [facility] [id number] [address] Jun, [facility] [id number] [place] [address] 02568- 9408 Jun, Chronic pain due to trauma G89.21 [facility] [id number] [place] [address] 19260- 8012 Jun, Chronic bronchitis, unspecified chronic bronchitis type J42 [facility] [id number] [place] [address] 75776- 7522 Jun, Chronic pain due to trauma G89.21 [facility] [id number] [place] [address] 45377- 9835 Jun, Chronic bronchitis, unspecified chronic bronchitis type J42 [facility] [id number] [place] [address] 79690- 0392 May, Chronic pain due to trauma G89.21 and Arthritis M19.90 [facility] [id number] [place] [address] 14830- 0701 May, Chronic pain due to trauma G89.21 [facility] [id number] [place] [address] 54241- 0347 May, [facility] [id number] [place] [address] 76869- 8641 Apr, Chronic pain due to trauma G89.21 [facility] [id number] [place] [address] 26156- 2962 Mar, Essential hypertension I10 [facility] [id number] [place] [address] 62982- 2850 Mar, Chronic pain due to trauma G89.21 [facility] [id number] [place] [address] 63146- 2245 Mar, [facility] [address] [place] [address] Mar, Chronic pain due to trauma G89.21 ; Essential hypertension I10 and Mixed hyperlipidemia E78.2 [facility] [id number] [place] [address] 35653- 7056 Jan, Chronic pain due to trauma G89.21 [facility] [id number] [place] [address] 50371- 7076 Jan, [facility] [address] [address]- [address] Dec, Chronic pain due to trauma G89.21 [facility] [address] 665149- 5086 22 Dec, 2016 Chronic pain due to trauma G89.21 [facility] [id number] [place] [address] 87011- 7216 Dec, Essential hypertension I10 [facility] [address] [address]- [address]44 Nov, Chronic pain due to trauma G89.21 [facility] [address] 983903- 1041 Oct, Chronic pain due to trauma G89.21 [facility] [id number] [place] [address] 51471- 8437 Oct, Chronic pain due to trauma G89.21 [facility] [id number] [place] [address] 07278- 1598 Oct, Essential hypertension I10 [facility] [id number] [place] [address] 73714- 5644 30 Sep, 2016 Chronic pain due to trauma G89.21 ; Reactive depression F32.9 and Essential hypertension I10 [facility] [id number] [place] [address] 55660- 4079 13 Sep, 2016 Generalized anxiety disorder F41.1 [facility] [address] [id number]- [address] August, Essential hypertension I10 ; Reactive depression F32.9 and Chronic pain due to trauma G89.21 [facility] [id number] [place] [address] 78321- 8197 10 Jun, 2016 Flank pain R10.9 [facility] [id number] [place] [address] 23356- 4636 09 Jun, 2016 Essential hypertension I10 [facility] [address] [address]- [address] May, Chronic bronchitis, unspecified chronic bronchitis type J42 [facility] [address] 29[address]- 0806 Apr, Essential hypertension I10 [facility] [id number] [place] [address] 87374- 4670 Apr, [facility] [id number] [place] [address] 98803- 1577 30 Jan, 2016 Mixed hyperlipidemia E78.2 [facility] [id number] [place] [address] 31387- 8207 Dec, Hepatitis C, chronic B18.2 ; Essential hypertension I10 and Mixed hyperlipidemia E78.2 [facility] [id number] [place] [address] 12051- 8948 August, [facility] [id number] [place] [address] 25032- 3759 August, [facility] [id number] [place] [address] 53739- 9937 August, Essential hypertension I10 ; Mixed hyperlipidemia E78.2 and Gastroesophageal reflux disease, esophagitis presence not specified K21.9 [facility] [id number] [place] [address] 81107- 6753 29 Jul, 2015 [facility] [id number] [place] [address] 20600- 0823 28 Jul, 2015 Hepatitis C, chronic B18.2 ; Dyspepsia R10.13 ; Reflux esophagitis K21.0 and Essential hypertension I10 [place] [address] 20167- [address] May, Reflux esophagitis K21.0 ; Hepatitis C, chronic B18.2 and Tachycardia, unspecified R00.0 [place] [address] [address]- [address] May, Generalized anxiety disorder F41.1 and Substance addiction F19.20 [place] [address] 0[address]- 9166 Apr, [place] [address] 9[address]- [address]75 Apr, Hepatitis C, chronic B18.2 [place] [address] 44737- 3417 Apr, Anxiety F41.9 [place] [address] 08096- 6833 Apr, Encounter for immunization Z23 and Hepatitis C, chronic B18.2 [place] [address] 50190- 6771 Apr, [place] [address] 01714- 8354 Apr, Dyspepsia R10.13 [place] [address] 48975- 8262 Apr, [place] [address] 06144- 0589 Mar, Hepatitis C, chronic B18.2 [place] [address] 9[address]96- 2779 Mar, Hepatitis C, chronic B18.2 [place] [address] 8[address]- 1890 Mar, [place] [address] [id number] [address] Mar, [facility] [address] [address] Mar, [facility] [address] [address] Jan, Essential hypertension I10 ; Chronic bronchitis, unspecified chronic bronchitis type J42 ; Hepatitis C, chronic B18.2 and Dental caries of root surface K02.7 [facility] [address] [address] Dec, Routine adult health maintenance V70.0 [facility] [address] [address] Dec, [facility] [address] [address] Dec, Hypertension 401.9 ; Anxiety 300.00 and Routine adult health maintenance V70.0 IMMUNIZATIONS No Known Immunizations SOCIAL HISTORY Never Assessed REASON FOR VISIT Refill request PLAN OF CARE VITAL SIGNS MEDICATIONS Medication Instructions Dosage Frequency Start Date End Date Duration Status Atenolol-Chlorthalidone 100-25 MG Orally Once a day 1 tablet 24h 30 days Active RESULTS No Results PROCEDURES No [...]
--- OUTSIDE RECORDS SUMMARY | 2017-09-06 10:52 | XMS REPORT ---
Author Author AINSLEY OLEARY Organization [employer] Address Unknown Phone Unavailable Care Team Providers Care Sandblaster Supervisor Name Role Phone AINSLEY OLEARY CP Unavailable Allergies No Known Allergies Problems Problem Type Condition Code Onset Dates Condition Status Problem Hepatitis C, chronic B18.2 Active Problem Essential hypertension I10 Active Problem Chronic bronchitis, unspecified chronic bronchitis type J42 Active Assessment Anxiety F41.9 Active Medications Medication Code System Code Instructions Start Date End Date Status Dosage HydrOXYzine HCl [facility] [address]-24 25 MG Orally every 8 hrs as needed for anxiety. APPT REQUIRED PRIOR TO REFILL Apr 22, 2015 1 tablet as needed Results No Known Results Summary Purpose [employer]Clinical[employer] Submission
--- OUTSIDE RECORDS SUMMARY | 2017-09-06 10:52 | XMS REPORT ---
Author Author AINSLEY OLEARY [facility] [employer] Address Unknown Phone Unavailable Care Team Providers Care Yard Warehouse Worker Name Role Phone AINSLEY OLEARY Unavailable Allergies No Known Allergies Problems Problem Type Condition ICD-9 Code Onset Dates Condition Status Assessment Routine adult health maintenance V70.0 Active Problem Hypertension 401.9 Active Medications Medication Code System Code Instructions Start Date End Date Status Dosage Pravastatin Sodium [facility] [address]-82 20 MG Orally Once a day Jan 16, 2015 1 tablet Results No Known Results Summary Purpose eClinicalWorks Submission
--- OUTSIDE RECORDS SUMMARY | 2017-09-06 10:52 | XMS REPORT ---
Author Author PATRICK POOL [facility] Address [address] [place] [address] Care Team Providers Care Concrete Vibrator Operator Name Role Phone PATRICK POOL Unavailable PROBLEMS Type Condition ICD9-CM Code [id number] Code Onset Dates Condition Status SNOMED Code Problem Essential hypertension I10 Active 58100053 Problem Generalized anxiety disorder F41.1 Active 25028562 Problem Reactive depression F32.9 Active 72728716 Problem Chronic bronchitis, unspecified chronic bronchitis type J42 Active 87389947 Problem Hepatitis C, chronic B18.2 Active 906736859 Problem Chronic pain due to trauma G89.21 Active 014785005 Problem Mixed hyperlipidemia E78.2 Active 430748202 ALLERGIES Unknown Allergies SOCIAL HISTORY No smoking Hx information available PLAN OF CARE VITAL SIGNS MEDICATIONS Medication Instructions Dosage Frequency Start Date End Date Duration Status Atenolol-Chlorthalidone 50-25 MG Orally Once a day 1 tablet 24h Active RESULTS No Results PROCEDURES No Known procedures IMMUNIZATIONS No Known Immunizations
--- OUTSIDE RECORDS SUMMARY | 2017-09-06 10:52 | XMS REPORT ---
Author Author AINSLEY OLEARY [facility] e[employer] Address Unknown Phone Unavailable Care Team Providers Care Crude Oil Driver Name Role Phone AINSLEY OLEARY CP Unavailable Allergies No Known Allergies Problems Problem Type Condition Code Onset Dates Condition Status Problem Hepatitis C, chronic B18.2 Active Problem Essential hypertension I10 Active Problem Chronic bronchitis, unspecified chronic bronchitis type J42 Active Medications No Known Medications Results No Known Results Summary Purpose eClinicalWorks Submission
--- OUTSIDE RECORDS SUMMARY | 2017-09-06 10:52 | XMS REPORT ---
Author Author IAN LEIGH [facility] Address [address] [place] [address] Care Team Providers Care Dispatcher Maintenance Service Name Role Phone IAN LEIGH Unavailable PROBLEMS Type Condition ICD9-CM Code [id number] Code Onset Dates Condition Status SNOMED Code Problem Essential hypertension I10 Active 50083266 Problem Generalized anxiety disorder F41.1 Active 24437918 Problem Reactive depression F32.9 Active 47859519 Problem Chronic bronchitis, unspecified chronic bronchitis type J42 Active 14972449 Problem Hepatitis C, chronic B18.2 Active 202342066 Problem Chronic pain due to trauma G89.21 Active 796973057 Problem Mixed hyperlipidemia E78.2 Active 473872058 ALLERGIES Unknown Allergies SOCIAL HISTORY No smoking Hx information available PLAN OF CARE Activity Details Follow Up prn Reason:Anxiety, possible depression VITAL SIGNS MEDICATIONS Unknown Medications RESULTS No Results PROCEDURES Procedure Date Ordered Related Diagnosis Body Site Psych diagnostic evaluation, new patient May 19, 2015 IMMUNIZATIONS No Known Immunizations
--- OUTSIDE RECORDS SUMMARY | 2017-09-06 10:52 | XMS REPORT ---
Author Author AINSLEY OLEARY [facility] eClinical[employer] Address Unknown Phone Unavailable Care Team Providers Care Sheep Killer Name Role Phone AINSLEY OLEARY CP Unavailable Allergies No Known Allergies Problems Problem Type Condition Code Onset Dates Condition Status Problem Hepatitis C, chronic B18.2 Active Problem Essential hypertension I10 Active Problem Chronic bronchitis, unspecified chronic bronchitis type J42 Active Medications Medication Code System Code Instructions Start Date End Date Status Dosage Ibuprofen [facility] [address]-45 800 MG Orally Three times a day 1 tablet Oxycodone-Acetaminophen [facility] [address]-68 10-325 MG Orally every 6 hrs 1 tablet as needed Lisinopril [facility] [address]-97 40 MG Orally Once a day Jan 14, 2015 1 tablet Clonazepam [facility] [address]-26 1 MG Orally PRN 1 tablet Ranitidine HCl [facility] [address]-99 300 MG Orally Once a day. APPT REQUIRED PRIOR TO REFILL Apr 11, 2015 1 tablet Albuterol ND 0 90 MCG/ACT Inhalation not defined HydrOXYzine HCl [facility] [address]-19 25 MG Orally every 8 hrs 1 tablet as needed Norvasc [facility] [address]-62 5 MG Orally Once a day Jan 14, 2015 1 tablet Trazodone HCl [facility] [address]-90 150 MG Orally Once a day 1 tablet at bedtime as needed Atenolol [facility] [address]-14 50 MG Orally Once a day Feb 24, 2015 1 tablet ProAir HFA [facility] [address]-32 108 (90 Base) MCG/ACT Inhalation every 4 hrs Mar 11, 2015 2 puffs as needed Pravastatin Sodium [facility] [address]-78 20 MG Orally Once a day Jan 16, 2015 1 tablet Results No Known Results Summary Purpose eClinicalWorks Submission
[2017-09-06] MEDS ORDERED: NS IV 1000 ML 1,000 ML IV ONE (10:55)
[2017-09-06] MEDS ORDERED: ONDANSETRON 4 MG/2 ML (SDV) Z0FRAN ONE (11:10)
[2017-09-06] MEDS ORDERED: ONDANSETRON 4 MG/2 ML (SDV) Z0FRAN IVP ONE (11:15)
[2017-09-06 11:18] LABS: BASOPHILS % (AUTO) 0 % (0-10); EOSINOPHILS # (AUTO) 0.2 10^3/uL (0.0-0.3); EOSINOPHILS % (AUTO) 2 % (0-10); HEMATOCRIT 39 % (40-54); HEMOGLOBIN 12.9 G/DL (13.3-17.7); LYMPHOCYTES # (AUTO) 1.3 X 10^3 (1.0-4.0); LYMPHOCYTES % (AUTO) 13 % (12-44); MEAN CORPUSCULAR HEMOGLOBIN 30 PG (25-34); MEAN CORPUSCULAR HGB CONC 33 G/DL (32-36); MEAN CORPUSCULAR VOLUME 90 FL (80-99); MEAN PLATELET VOLUME 11.2 FL (7.4-10.4); MONOCYTES # (AUTO) 0.8 X 10^3 (0.0-1.0); MONOCYTES % (AUTO) 8 % (0-12); NEUTROPHILS # (AUTO) 7.9 X 10^3 (1.8-7.8); NEUTROPHILS % (AUTO) 77 % (42-75); PLATELET COUNT 199 10^3/uL (130-400); RED BLOOD COUNT 4.32 10^6/uL (4.35-5.85); RED CELL DISTRIBUTION WIDTH 12.5 % (10.0-14.5); WHITE BLOOD COUNT 10.3 10^3/uL (4.3-11.0)
[2017-09-06 11:33] LABS: PROTHROMBIN TIME PATIENT 13.1 SEC (12.2-14.7)
[2017-09-06 11:39] LABS: ALANINE AMINOTRANSFERASE 110 U/L (0-55); ALBUMIN 4.6 GM/DL (3.2-4.5); ALKALINE PHOSPHATASE 122 U/L (40-136); BILIRUBIN,TOTAL 0.5 MG/DL (0.1-1.0); BUN/CREATININE RATIO 34; CALCIUM 9.7 MG/DL (8.5-10.1); CARBON DIOXIDE 24 MMOL/L (21-32); CHLORIDE 107 MMOL/L (98-107); CREATININE SERUM 1.19 MG/DL (0.60-1.30); GFR ESTIMATED > 60; GLUCOSE 130 MG/DL (70-105); POTASSIUM 4.9 MMOL/L (3.6-5.0); SODIUM 139 MMOL/L (135-145); TOTAL PROTEIN 7.9 GM/DL (6.4-8.2)
[2017-09-06 11:44] LABS: BILIRUBIN,URINE NEGATIVE (NEGATIVE); CLARITY,URINE CLEAR; COLOR,URINE YELLOW; GLUCOSE, URINE (UA) NEGATIVE (NEGATIVE); KETONES,URINE NEGATIVE (NEGATIVE); LEUKOCYTE ESTERASE ,URINE NEGATIVE (NEGATIVE); NITRITE,URINE NEGATIVE (NEGATIVE); PH,URINE 6 (5-9); PROTEIN,URINE 1+ (NEGATIVE); UROBILINOGEN,URINE NORMAL (NORMAL)
[2017-09-06 11:54] LABS: BACTERIA,URINE NEGATIVE /HPF; SQUAMOUS EPITHELIAL CELL,UR RARE /HPF
[2017-09-06 11:59] LABS: TSH (THYROID ANALYZER) 4.17 UIU/ML (0.35-4.94)
--- NOTE | 2017-09-06 12:03 | Diagnostic Imaging Report ---
INDICATION: Nausea. Weakness. COMPARISON: None FINDINGS: Single frontal view of the chest demonstrates borderline enlarged cardiac silhouette. Pulmonary vasculature, however, is within normal limits. The lungs are well aerated and clear. No large pleural effusion or pneumothorax is seen. The visualized osseous structures show no acute abnormalities. IMPRESSION: 1. Borderline enlarged cardiac silhouette, which may be accentuated by portable technique. There is, however, no evidence of failure or focal infiltrate. Dictated by: Dictated on workstation # [id number]
[2017-09-06 12:30] LABS: AMPHETAMINE SCREEN, URINE NEGATIVE (NEGATIVE); BARBITURATE SCREEN URINE NEGATIVE (NEGATIVE); BENZODIAZEPINES SCREEN URINE NEGATIVE (NEGATIVE); CANNABINOID SCREEN, URINE NEGATIVE (NEGATIVE); COCAINE SCREEN URINE NEGATIVE (NEGATIVE); METHADONE STAT NEGATIVE (NEGATIVE); METHAMPHETAMINE SCREEN URINE S NEGATIVE (NEGATIVE); OPIATE SCREEN URINE NEGATIVE (NEGATIVE); OXYCODONE STAT POSITIVE (NEGATIVE); PROPOXYPHENE STAT NEGATIVE (NEGATIVE); TRICYCLIC ANTIDEPRESSANTS SCRE POSITIVE (NEGATIVE)
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
[2017-09-06] MEDS ORDERED: ONDA4TAB11 PO (13:47)
[2017-09-06 13:49] VITALS: BP 116/102
[2017-09-09] MEDS ORDERED: ACHD5005 PO (14:51)
[2017-10-19] MEDS ORDERED: DILT120C53 PO (07:32)
[2017-10-19] MEDS ORDERED: ASPI-808 PO (07:32)
[2017-10-19] MEDS ORDERED: APIX5TAB PO (07:32)
== END 2017-09-06 13:49 | disposition home or self-care (01) ==
LOC: EDUNIT# 10:39 → ER 10:42
DX: R11.2 Nausea with vomiting, unspecified (principal); T88.7XXA Unspecified adverse effect of drug or medicament, initial encounter; J44.9 Chronic obstructive pulmonary disease, unspecified; I10 Essential (primary) hypertension; K21.9 Gastro-esophageal reflux disease without esophagitis; Z87.19 Personal history of other diseases of the digestive system
CPT/HCPCS: 36415; 71045; 80053; 80306; 80320; 81000; 82962; 83605; 84443; 84484; 85025; 85610; 85730; 87040; 96361; 96374

== ENCOUNTER 2017-09-08 15:18 | Inpatient (IN) | payer MEDICARE ==
[~2017-09-08] VITALS: Ht 175.3 cm; Wt 121.6 kg
[~2017-09-08 15:18] MED LIST changes: -ACHD5005 PO; -ALBU18HF2 INH; -AMLO5TAB2 PO; -APIX5TAB PO; -ASPI-808 PO; -ATEN1TAB4 PO; -DICL100G18 TOP; -DILT120C53 PO; -GABA-488 PO; -HYDR-700 PO; -IBUP-850 PO; -LISI-552 PO; -MELO15TA39 PO; -MULT-228 PO; -OMEP20CA12 PO; -OXYC-465 PO
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
[2017-09-08] MEDS ORDERED: NS IV 1000 ML 1,000 ML ONE (15:37)
[2017-09-08] MEDS: NS IV 1000 ML 1,000 ML IV SCH ×3 (15:40→19:55)
[2017-09-08] MEDS ORDERED: PIPERACILLIN SODIUM/TAZOBACTAM 4.5 GM in D5W 100 ML IVPB 100 ML IV ONE (16:00)
--- NOTE | 2017-09-08 16:01 | ED Abdominal Pain ---
General Chief Complaint: Back Problems Stated Complaint: CHEST/ABD Source of Information: Patient History of Present Illness Date Seen by Provider: September 08, 2017 Time Seen by Provider: 15:57 Initial Comments This 50-year-old white male presents with acute cholecystitis documented by the radiologist shortly before the patient was transferred to the emergency department. Patient is complaining of severe right upper quadrant pain. On arrival to emergency department patient blood pressure was systolic of 70. IV fluid bolus was initiated. Dr. Guillaume was acutely counseled will see the patient emergency department shortly. Allergies and Home Medications Allergies Coded Allergies: No Known Drug Allergies (Unverified , 03/29/13) Home Medications Atenolol 100 Mg Tablet, 100 MG PO DAILY, (Reported) Cyclobenzaprine Hcl 10 Mg Tablet, 10 MG PO Q8HR PRN, (Reported) Lisinopril 40 Mg Tablet, 40 MG PO DAILY, (Reported) Omeprazole 40 Mg Capsule.dr, 40 MG PO DAILY, (Reported) Ondansetron 4 Mg Tab.rapdis, 4 MG PO Q6H PRN for NAUSEA/VOMITING Prescribed by: MONA POE on 09/06/17 1347 Pravastatin Sodium 20 Mg Tablet, 20 MG PO HS, (Reported) Tramadol HCl 50 Mg Tablet, 50 MG PO Q4H PRN for PAIN Prescribed by: JAEL WISE MD on 07/04/16 1240 Patient Home Medication List Home Medication List Reviewed: Yes Review of Systems Constitutional: see HPI EENTM: No Eye Pain Respiratory: Denies Cough Cardiovascular: Denies Chest Pain Gastrointestinal: Abdominal Pain Genitourinary: No Symptoms Reported Musculoskeletal: back pain Skin: no symptoms reported Psychiatric/Neurological: No Symptoms Reported Endocrine: No Symptoms Reported Hematologic/Lymphatic: No Symptoms Reported Past Flrkjhx-Kcwimz-Awsnbn Hx Past Med/Social Hx: Reviewed Nursing Past Med/Soc Hx Patient Social History Alcohol Use: Regular Use Alcohol Beverage of Choice: Beer Recreational Drug Use: No Smoking Status: Never a Smoker Recent Foreign Travel: No Contact w/Someone Who Travel: No Recent Hopitalizations: No Physical Abuse: No Sexual Abuse: No Mistreated: No Fear: No Seasonal Allergies Seasonal Allergies: No Past Medical History Surgeries: Yes Eye Surgery Respiratory: Yes Asthma, COPD Cardiac: Yes Hypertension Gastrointestinal: Yes Gastroesophageal Reflux, Diverticulosis Musculoskeletal: Yes Chronic Back Pain Nursing Suicide Risk Score: 0 Family Medical History No Pertinent Family Hx Physical Exam Vital Signs Capillary Refill : General Appearance: WD/WN, moderate distress HEENT: normal ENT inspection Neck: non-tender, normal inspection Respiratory: lungs clear Cardiovascular: regular rate, rhythm, tachycardia Gastrointestinal: abnormal bowel sounds, tenderness Extremities: normal inspection Neurologic/Psychiatric: no motor/sensory deficits Skin: normal color, warm/dry Progress/Results/Core Measures Results/Orders My Orders Orders - JAEL WISE MD Ns Iv 1000 Ml (Sodium Chloride 0.9%) (09/08/17 15:37) Blood Culture (09/08/17 15:55) Comprehensive Metabolic Panel (09/08/17 15:55) Lipase (09/08/17 15:55) Lactic Acid Analyzer (09/08/17 15:55) Zosyn 4.5 Gm Iv (1x Dose) (09/08/17 16:00) Normal Saline Bolus 2,000ml (09/08/17 16:00) Progress Progress Note : Time: 15:59 Progress Note The patient's hypertension was treated with a 2 L bolus of normal saline. Laboratory evaluation was undertaken. Per Dr. Guillaume requests an ultrasound of the gallbladder has been requested. Patient received 4.5 g of Zosyn IV. Departure Communication (Admissions) Time/Spoke to Admitting Phy: 16:00 Dr. Guillaume. Impression Primary Impression: Acute cholecystitis Disposition: ADMITTED INPATIENT Condition: Improved Admissions Decision to Admit Reason: Admit from ER (General) Decision to Admit/Date: September 08, 2017 Time/Decision to Admit Time: 16:00 Departure-Patient Inst. Referrals: PATRICK POOL MD (PCP/Family) Primary Care Physician JAEL WISE MD September 08, 2017 16:01
[2017-09-08 16:25] LABS: ALBUMIN 4.3 GM/DL (3.2-4.5); BILIRUBIN,TOTAL 0.7 MG/DL (0.1-1.0); CALCIUM 9.8 MG/DL (8.5-10.1); CREATININE SERUM 4.2 MG/DL (0.60-1.30); POTASSIUM 3.6 MMOL/L (3.6-5.0); TOTAL PROTEIN 8.4 GM/DL (6.4-8.2)
--- NOTE | 2017-09-08 16:38 | Diagnostic Imaging Report ---
PROCEDURE: US Gallbladder. TECHNIQUE: Multiple real-time grayscale images were obtained over the right upper quadrant in various projections. INDICATION: Abdominal pain. FINDINGS: Liver parenchyma is homogeneous with normal echotexture. There are stones and sludge in the gallbladder. The gallbladder wall appears thickened and the patient has a sonographic Conrad's sign. Common duct was difficult to see and could not be evaluated. Right kidney appears normal. There is no ascites. Pancreas is obscured by bowel gas. IMPRESSION: Cholecystolithiasis with sludge and thickened gallbladder wall. Findings are concerning for acute cholecystitis. Dictated by: Dictated on workstation # [id number]
[2017-09-08 17:30] VITALS: BP 102/60
--- NOTE | 2017-09-08 17:42 | History & Physicial ---
History of Present Illness History of Present Illness Reason for visit/HPI Malaise and upper abdominal pain leading to an emergency room visit. Evaluation has confirmed gallstones with features of early acute cholecystitis. In addition, his renal function is deranged possibly due to his acute illness. Date of Admission September 08, 2017 at 16:28 Date Seen by Provider: September 08, 2017 Time Seen by Provider: 15:55 I consulted on this patient on 09/08/17 17:37 Attending Physician Anselmo Quiroz MD Admitting Physician Jong Wells MD Consult Allergies and Home Medications Allergies Coded Allergies: No Known Drug Allergies (Unverified , 03/29/13) Home Medications Atenolol 100 Mg Tablet, 100 MG PO DAILY, (Reported) Cyclobenzaprine Hcl 10 Mg Tablet, 10 MG PO Q8HR PRN, (Reported) Lisinopril 40 Mg Tablet, 40 MG PO DAILY, (Reported) Omeprazole 40 Mg Capsule.dr, 40 MG PO DAILY, (Reported) Ondansetron 4 Mg Tab.rapdis, 4 MG PO Q6H PRN for NAUSEA/VOMITING Prescribed by: MONA POE on 09/06/17 1347 Pravastatin Sodium 20 Mg Tablet, 20 MG PO HS, (Reported) Tramadol HCl 50 Mg Tablet, 50 MG PO Q4H PRN for PAIN Prescribed by: JAEL WISE MD on 07/04/16 1240 Patient Home Medication List Home Medication List Reviewed: Yes Past Haurlxp-Vpdbut-Etfxgi Hx Patient Social History Marrital Status: single Employed/Student: unemployed Alcohol Use: Regular Use Alcohol Beverage of Choice: Beer Recreational Drug Use: No Smoking Status: Never a Smoker Recent Foreign Travel: No Contact w/other who traveled: No Recent Hopitalizations: No Recent Infectious Disease Expo: No Seasonal Allergies Seasonal Allergies: No Surgeries Yes Eye Surgery, Orthopedic Respiratory Yes Cardiovascular Yes High Cholesterol, Hypertension Neurological No Reproductive System Hx Reproductive Disorders: No Gastrointestinal Yes Gastroesophageal Reflux, Diverticulosis Musculoskeletal Yes Chronic Back Pain Endocrine History of Endocrine Disorders: No HEENT History of HEENT Disorders: No Loss of Vision: Left Cancer No Psychosocial History of Psychiatric Problem: No Family Medical History Significant Family History: No Pertinent Family Hx Constitutional: malaise, weakness EENTM: no symptoms reported Respiratory: no symptoms reported Cardiovascular: other Gastrointestinal: RUQ, abdominal pain (RUQ) Genitourinary: decreased output Musculoskeletal: back pain Skin: no symptoms reported Psychiatric/Neurological: No Symptoms Reported Physical Exam Vital Signs Vital Signs - First Documented 09/08/17 15:49 Temp 97.4 Pulse 115 Resp 18 B/P (MAP) 70/55 (60) Pulse Ox 97 Capillary Refill : Less Than 3 Seconds General Appearance: No Apparent Distress HEENT: Normal ENT Inspection Neck: Normal Inspection Respiratory: Lungs Clear Cardiovascular: Regular Rate, Rhythm Gastrointestinal: Soft, Tenderness Back: Normal Inspection Extremity: Normal Inspection Neurologic/Psychiatric: Alert, Oriented x3 Skin: Warm/Dry Comments tenderness over the right upper quadrant. 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 Movements of left shoulder limited despite previous surgery for rotator cuff injury Assessment/Plan Assessment and Plan gentleman with gallstones and acute cholecystitis. Hypertension. Renal dysfunction. We will administer intravenous fluids and IV antibiotics. Robotic -assisted cholecystectomy planned for the morning. Admission Diagnosis Admission Status: Observation ANSELMO QUIROZ MD September 08, 2017 17:42
--- NOTE | 2017-09-08 17:45 | Progress Note-Pre Operative ---
Pre-Operative Progress Note H&P Reviewed The H&P was reviewed, patient examined and no changes noted. Date Seen by Provider: September 08, 2017 Time Seen by Provider: 15:55 Date H&P Reviewed: September 08, 2017 Time H&P Reviewed: 17:45 Pre-Operative Diagnosis: Gallstones with acute cholecystitis BRODERICK QUIROZ MD September 08, 2017 17:45
[2017-09-08] MEDS ORDERED: ONDANSETRON 4 MG/2 ML (SDV) Z0FRAN IV PRN (18:00)
[2017-09-08] MEDS ORDERED: CATHETER FLUSH 10 ML SYR IV PRN (18:00)
[2017-09-08] MEDS: fentaNYL INJECTION 100 MCG/2 ML AMP IV PRN ×2 (18:23→22:17)
[2017-09-08 20:00] VITALS: BP 100/60
[2017-09-08] MEDS: PIPERACILLIN/TAZO 4.5 GM/D5W 100 ML IVPB IV SCH ×2 (21:06)
[2017-09-08] MEDS ORDERED: ATENOLOL 50 MG (TENORMIN) TAB PO ONE (22:45)
[2017-09-08 23:16] VITALS: BP 111/59
[2017-09-09 02:15] LABS: BILIRUBIN,URINE NEGATIVE (NEGATIVE); COLOR,URINE YELLOW; GLUCOSE, URINE (UA) NEGATIVE (NEGATIVE); KETONES,URINE NEGATIVE (NEGATIVE); LEUKOCYTE ESTERASE ,URINE NEGATIVE (NEGATIVE); NITRITE,URINE NEGATIVE (NEGATIVE); PH,URINE 5 (5-9); PROTEIN,URINE 3+ (NEGATIVE); UROBILINOGEN,URINE 1 MG/DL (NORMAL)
[2017-09-09 02:23] LABS: AMORPHOUS SEDIMENT,UR MOD AMOR URATES /LPF; BACTERIA,URINE TRACE /HPF; CLARITY,URINE SLIGHTLY CLOUDY; SQUAMOUS EPITHELIAL CELL,UR RARE /HPF
[2017-09-09 02:24] LABS: GRANULAR CASTS,URINE RARE /LPF
[2017-09-09] MEDS: fentaNYL INJECTION 100 MCG/2 ML AMP IV PRN ×4 (03:31→20:21)
[2017-09-09 04:00] VITALS: BP 127/81
[2017-09-09] MEDS: NS IV 1000 ML 1,000 ML IV SCH ×2 (05:17→15:56)
[2017-09-09] MEDS: PIPERACILLIN/TAZO 4.5 GM/D5W 100 ML IVPB IV SCH ×6 (05:31→21:05)
[2017-09-09 06:57] LABS: BASOPHILS % (AUTO) 0 % (0-10); EOSINOPHILS % (AUTO) 0 % (0-10); HEMATOCRIT 32 % (40-54); HEMOGLOBIN 10.4 G/DL (13.3-17.7); LYMPHOCYTES # (AUTO) 1.3 X 10^3 (1.0-4.0); LYMPHOCYTES % (AUTO) 8 % (12-44); MEAN CORPUSCULAR HEMOGLOBIN 30 PG (25-34); MEAN CORPUSCULAR HGB CONC 33 G/DL (32-36); MEAN CORPUSCULAR VOLUME 90 FL (80-99); MEAN PLATELET VOLUME 11.6 FL (7.4-10.4); MONOCYTES # (AUTO) 1.4 X 10^3 (0.0-1.0); MONOCYTES % (AUTO) 9 % (0-12); NEUTROPHILS # (AUTO) 13.8 X 10^3 (1.8-7.8); NEUTROPHILS % (AUTO) 83 % (42-75); PLATELET COUNT 202 10^3/uL (130-400); RED BLOOD COUNT 3.52 10^6/uL (4.35-5.85); RED CELL DISTRIBUTION WIDTH 12.4 % (10.0-14.5); WHITE BLOOD COUNT 16.6 10^3/uL (4.3-11.0)
[2017-09-09 07:18] LABS: BAND NEUTROPHILS 4 %; LYMPHOCYTES % (MANUAL) 13 %; MONOCYTES % (MANUAL) 7 %; NEUTROPHILS % (MANUAL) 76 %
[2017-09-09 07:19] LABS: RBC MORPH NORMAL
[2017-09-09 07:20] LABS: ALBUMIN 3.6 GM/DL (3.2-4.5); BILIRUBIN,TOTAL 0.8 MG/DL (0.1-1.0); CALCIUM 8.4 MG/DL (8.5-10.1); CREATININE SERUM 2.55 MG/DL (0.60-1.30); POTASSIUM 3.2 MMOL/L (3.6-5.0); TOTAL PROTEIN 6.7 GM/DL (6.4-8.2)
[2017-09-09 08:00] VITALS: BP 113/57
[2017-09-09] MEDS ORDERED: MELO15TA39 PO (08:40)
[2017-09-09] MEDS ORDERED: OXYC-465 PO (08:40)
[2017-09-09] MEDS ORDERED: CYCL10TA9 PO (08:40)
[2017-09-09] MEDS ORDERED: ATEN1TAB4 PO (08:40)
[2017-09-09] MEDS ORDERED: HYDR-700 PO (08:40)
[2017-09-09] MEDS ORDERED: LISI-552 PO (08:40)
[2017-09-09] MEDS ORDERED: AMLO5TAB2 PO (08:40)
[2017-09-09] MEDS ORDERED: ALBU18HF2 INH (08:40)
--- NOTE | 2017-09-09 08:42 | Progress Note-Standard ---
Standard Progress Note Progress Notes/Assess & Plan Date Seen by Provider: September 09, 2017 Time Seen by Provider: 07:00 Progress/Assessment & Plan Found to be in atrial fibrillation. RUQ pain persists. Creatinine decreasing. WCC increased. Tender RUQ on exam. Heart rate around 105, irregular. Echo and cardiac eval pending. For cholecystectomy this am. Final Diagnosis Acute cholecystitis. Hypertension, atrial fibrillation Focused Exam Lactate Level 09/08/17 15:45: Lactic Acid Level 1.33 BRODERICK QUIROZ MD September 09, 2017 08:42
[2017-09-09] MEDS ORDERED: DICL100G18 TOP (08:48)
[2017-09-09] MEDS ORDERED: OMEP20CA12 PO (08:48)
[2017-09-09] MEDS ORDERED: LISI40TA PO (08:48)
[2017-09-09] MEDS ORDERED: IBUP-850 PO (08:48)
[2017-09-09] MEDS ORDERED: GABA-488 PO (08:48)
[2017-09-09] MEDS ORDERED: MULT-228 PO (08:49)
[2017-09-09] MEDS ORDERED: BUP/EPI 0.5% 1:200,000 (SENSORCAINE) 30 ML VIAL ONE (10:28)
[2017-09-09] MEDS ORDERED: meTOprolol 5 MG/5 ML (LOPRESSOR) VIAL IV NR (10:30)
--- NOTE | 2017-09-09 10:50 | Consultation-Cardiology ---
HPI-Cardiology Cardiology Consultation Date of Consultation 09/09/17 Date of Admission Time Seen by Provider: 10:44 Indication: Atrial Fibrillation HPI 52 years old gentleman with history of hypertension, sustained a fall about 2 weeks ago and injured his shoulder. Continue to have pain. Came into the emergency room for the shoulder pain in addition to abdominal pain, he has been having abdominal pain which has been worsening recently, could not eat for the past 3 days. Denied any previous cardiac history, noted to be in atrial fibrillation, denied any shortness of breath, fairly active. No chest pain. No syncope or near syncopal episodes. No claudication. Home Medications & Allergies Allergies: Coded Allergies: No Known Drug Allergies (Unverified , 03/29/13) Home Medication List Reviewed: Yes HOW-Pigbxh-Cydpwc Hx Patient Social History Marital Status: single Employed/Student: unemployed Alcohol Use: Occasionally Uses Recreational Drug Use: No Smoking Status: Never a Smoker Recent Foreign Travel: No Recent Infectious Disease Expo: No Recent Hopitalizations: No Physical Abuse Screen: No Sexual Abuse: No Immunizations Up To Date Date of Pneumonia Vaccine: Mar 11, 2017 Past Medical History Past medical history as discussed below Family Medical History Significant Family History: No Pertinent Family Hx Family History: Arthritis 19 FATHER Asthma 19 MOTHER Cardiovascular disease Congenital heart disease 19 FATHER Hypertension G8 BROTHER Myocardial infarction 19 FATHER Osteoporosis 19 FATHER Respiratory disorder 19 MOTHER Thyroid disease 19 MOTHER Constitutional: no symptoms reported, see HPI EENTM: see HPI, no symptoms reported Respiratory: no symptoms reported, see HPI Cardiovascular: no symptoms reported, see HPI Gastrointestinal: RUQ, see HPI, nausea Genitourinary: no symptoms reported, see HPI Musculoskeletal: see HPI, back pain, joint pain (Left shoulder pain) Skin: no symptoms reported, see HPI Psychiatric/Neurological: No Symptoms Reported, See HPI Reviewed Test Results Reviewed Test Results Lab Laboratory Tests Test 09/08/17 15:33 09/08/17 15:45 09/09/17 02:08 09/09/17 06:31 Range/Units Sodium Level 139 137 135-145 MMOL/L Potassium Level 3.6 3.2 L 3.6-5.0 MMOL/L Chloride Level 98 104 98-107 MMOL/L Carbon Dioxide Level 27 20 L 21-32 MMOL/L Anion Gap 14 13 5-14 MMOL/L Blood Urea Nitrogen 47 H 45 H 7-18 MG/DL Creatinine 4.20 #H 2.55 #H 0.60-1.30 MG/DL Estimat Glomerular Filtration Rate 15 27 BUN/Creatinine Ratio 11 18 Glucose Level 96 108 H 70-105 MG/DL Calcium Level 9.8 8.4 L 8.5-10.1 MG/DL Total Bilirubin 0.7 0.8 0.1-1.0 MG/DL Aspartate Amino Transf (AST/SGOT) 18 15 5-34 U/L Alanine Aminotransferase (ALT/SGPT) 39 27 0-55 U/L Alkaline Phosphatase 88 73 40-136 U/L Total Protein 8.4 H 6.7 6.4-8.2 GM/DL Albumin 4.3 3.6 3.2-4.5 GM/DL Lipase 19 15 8-78 U/L Lactic Acid Level 1.33 0.50-2.00 MMOL/L Urine Color YELLOW Urine Clarity SLIGHTLY CLOUDY Urine pH 5 5-9 Urine Specific Herreid 1.010 L 1.016-1.022 Urine Protein 3+ H NEGATIVE Urine Glucose (UA) NEGATIVE NEGATIVE Urine Ketones NEGATIVE NEGATIVE Urine Nitrite NEGATIVE NEGATIVE Urine Bilirubin NEGATIVE NEGATIVE Urine Urobilinogen 1 NORMAL MG/DL Urine Leukocyte Esterase NEGATIVE NEGATIVE Urine RBC (Auto) 1+ H NEGATIVE Urine RBC NONE /HPF Urine WBC NONE /HPF Urine Squamous Epithelial Cells RARE /HPF Urine Crystals PRESENT H /LPF Urine Amorphous Sediment MOD ILDEFONSO URATES H /LPF Urine Bacteria TRACE /HPF Urine Casts NONE /LPF Urine Granular Casts RARE /LPF Urine Mucus SMALL H /LPF Urine Culture Indicated NO White Blood Count 16.6 H 4.3-11.0 10^3/uL Red Blood Count 3.52 L 4.35-5.85 10^6/uL Hemoglobin 10.4 L 13.3-17.7 G/DL Hematocrit 32 L 40-54 % Mean Corpuscular Volume 90 80-99 FL Mean Corpuscular Hemoglobin 30 25-34 PG Mean Corpuscular Hemoglobin Concent 33 32-36 G/DL Red Cell Distribution Width 12.4 10.0-14.5 % Platelet Count 202 130-400 10^3/uL Mean Platelet Volume 11.6 H 7.4-10.4 FL Neutrophils (%) (Auto) 83 H 42-75 % Lymphocytes (%) (Auto) 8 L 12-44 % Monocytes (%) (Auto) 9 0-12 % Eosinophils (%) (Auto) 0 0-10 % Basophils (%) (Auto) 0 0-10 % Neutrophils # (Auto) 13.8 H 1.8-7.8 X 10^3 Lymphocytes # (Auto) 1.3 1.0-4.0 X 10^3 Monocytes # (Auto) 1.4 H 0.0-1.0 X 10^3 Eosinophils # (Auto) 0.0 0.0-0.3 10^3/uL Basophils # (Auto) 0.0 0.0-0.1 10^3/uL Neutrophils % (Manual) 76 % Lymphocytes % (Manual) 13 % Monocytes % (Manual) 7 % Band Neutrophils 4 % Blood Morphology Comment NORMAL Physical Exam Vital Signs Vital Signs - First Documented 09/08/17 09/08/17 15:49 17:30 Temp 97.4 Pulse 115 Resp 18 B/P (MAP) 70/55 (60) Pulse Ox 97 O2 Delivery Room Air Capillary Refill : Less Than 3 Seconds General Appearance: WD/WN, Mild Distress Eyes: Bilateral Eye Normal Inspection, Bilateral Eye PERRL, Bilateral Eye EOMI HEENT: PERRL/EOMI, TMs Normal, Normal ENT Inspection, Pharynx Normal Neck: Full Range of Motion, Normal Inspection, Non Tender, Supple, Carotid Bruit Respiratory: Chest Non Tender, Lungs Clear, Normal Breath Sounds, No Accessory Muscle Use, No Respiratory Distress Cardiovascular: No Edema, No Gallop, No JVD, No Murmur, Normal Peripheral Pulses, Irregularly Irregular Gastrointestinal: No Organomegaly, No Pulsatile Mass, Guarding, Tenderness (RUQ ) Back: Normal Inspection, No CVA Tenderness, No Vertebral Tenderness Extremity: Normal Capillary Refill, Normal Inspection, Normal Range of Motion, Non Tender, No Calf Tenderness Neurologic/Psychiatric: Alert, Oriented x3, No Motor/Sensory Deficits, Normal Mood/Affect Skin: Normal Color, Warm/Dry Lymphatic: No Adenopathy A/P-Cardiology Admission Diagnosis Acute cholecystitis Paroxysmal atrial fibrillation Hypertension Pulmonary hypertension Assessment/Plan Acute cholecystitis, scheduled for cholecystectomy today. Atrial fibrillation, unknown duration, probably chronic. Patient is reporting history of rapid heart rate in the past about 10 years ago. Does not have any symptoms. Echocardiogram showed left atrium is mildly dilated. Otherwise normal liver ventricular size and function. He was noted to be slightly tachycardic, I will give 5 mg of IV Lopressor, perioperative beta blockers are recommended with close monitoring to his heart rate and blood pressure [id number] score of 1, intermediate risk for stroke without oral anticoagulation, yearly risk of stroke without oral anticoagulation is 1.3 percent, recommend aspirin or oral anticoagulation to reduce the risk of stroke Acute renal failure, probably due to intravascular volume depletion, slightly better today with hydration. Continue to monitor renal function closely Hypertension, was on atenolol as an outpatient. Restart beta blockers postoperatively Obesity, BMI 39, discussed weight loss Left shoulder injury after a fall about 2 weeks ago, history of rotator cuff surgery about 12 years ago. Questionable sleep apnea, body habitus suggestive of sleep apnea. Moderate pulmonary hypertension, continue to monitor blood pressure Preoperative cardiac evaluation, patient is considered at intermediate risk for perioperative cardiac vascular complications, decision regarding the surgery, risks versus benefit is deferred to the surgeon. Clinical Quality Measures DVT/VTE Risk/Contraindication: Risk Factor Score Per Nursin RFS Level Per Nursing on Admit: 4+=Very High ANGELA HYMAN MD September 09, 2017 10:50
[2017-09-09] MEDS ORDERED: MIDAZOLAM 2 MG/2 ML (VERSED) VIAL ONE (10:54)
[2017-09-09] MEDS ORDERED: DEXAMETHASONE 10 MG/ML (DECADRON) 1 ML VIAL ONE (10:54)
[2017-09-09] MEDS ORDERED: LIDOCAINE PF 2% 5 ML (XYLOCAINE) VIAL ONE (10:54)
[2017-09-09] MEDS ORDERED: proPOfol 200 MG/20 ML (DIPRIVAN) VIAL IV ONE ×2 (10:54→14:00)
[2017-09-09] MEDS ORDERED: ONDANSETRON 4 MG/2 ML (SDV) Z0FRAN ONE (10:54)
[2017-09-09] MEDS ORDERED: SEVOFLURANE (ULTANE) 15 ML INHAL SOLN ONE ×10 (10:54→14:01)
[2017-09-09] MEDS ORDERED: ROCURONIUM 10 MG/ML 5 ML SYRINGE IV ONE ×2 (10:54→11:43)
[2017-09-09] MEDS ORDERED: fentaNYL INJECTION 100 MCG/2 ML AMP ONE ×2 (10:56→13:15)
[2017-09-09] MEDS ORDERED: PHENYLEPHRINE 100 MCG/ML 10 ML (ANESTHESIA) SYR ONE (11:33)
[2017-09-09] MEDS ORDERED: ESMOLOL 100 MG/10 ML (BREVIBLOC) VIAL ONE (11:33)
[2017-09-09] MEDS ORDERED: metroNIDAZOLE 500MG/100ML IVPB 100 ML IV ONE (12:00)
[2017-09-09] MEDS ORDERED: ceFAZolin 2 GM IV Premixed 50 ML IV ONE (12:00)
[2017-09-09] MEDS: LACTATED RINGERS 1,000 ML IV PRN ×2 (12:30→14:20)
[2017-09-09] MEDS ORDERED: NS (IVPB) 250 ML ONE (12:41)
[2017-09-09] MEDS ORDERED: PHENYLEPHRINE INJ 10 MG/ML (NEO-SYNEPHRINE 1%) ONE (12:41)
[2017-09-09] MEDS ORDERED: metroNIDAZOLE 500MG/100ML IVPB 100 ML ONE (13:43)
[2017-09-09] MEDS ORDERED: ceFAZolin 1,000 MG (ANCEF) VIAL ONE (13:43)
[2017-09-09] MEDS ORDERED: GLYCOPYRROLATE 0.2 MG/ML (ROBINUL) 2 ML VIAL ONE (14:03)
[2017-09-09] MEDS ORDERED: NEOSTIGMINE 1 MG/ML 5 ML SYRINGE ONE (14:03)
--- NOTE | 2017-09-09 14:44 | Operative Report ---
Operative Report Date of Procedure/Surgery September 09, 2017 Surgeon (s) BRODERICK QUIROZ MD Social Work Lecturer (s): Tana Pruett (Med Student III) Post-Operative Diagnosis Gallstones with acute cholecystitis Empyema of the gallbladder Procedure Performed Robotic-assisted cholecystectomy Description of Procedure Anesthesia Type: General Estimated blood loss (mL): 400 mL Specimen(s) collected/removed Gallbladder Description of the Procedure Indication for the procedure: This gentleman presented with complicated gallstone disease with features of acute cholecystitis and decreased renal function. Following intravenous fluid administration and IV antibiotics, he was offered cholecystectomy using minimally invasive technique with robotic assistance. The operative details and complications of wound infection, bile leak and cardiorespiratory dysfunction. During the night before surgery, he was found to be in atrial fibrillation. This was evaluated by Dr. Jade, our security administrator and he was found to be at intermediate risk for cardiac complications. Description of the procedure: He was placed supine on the operative table and general anesthesia induced. 2 g of Ancef and 500 mg of Flagyl were administered intravenously as prophylaxis against wound infection. Sequential compression devices were placed around his legs, abdomen was prepared and draped in the usual sterile manner. Pneumoperitoneum was established using a Veress needle introduced over the supraumbilical region. Intra-abdominal pressure was maintained at 17 millimeters of mercury, using carbon dioxide insufflation. A 12 mm trocar was placed and anatomy visualized using the high definition, 3-dimensional laparoscope associated with da Pham system. Under direct view, I placed an 8 mm trocar over each side of the, followed by a 5 mm trocar over the left subcostal region. He was then turned into reverse Trendelenburg position, with the right side tilted up. The robotic system was then docked in place. Gallbladder was obscured by omentum wrapped around it. Was gently using blunt dissection, revealing an acutely inflamed gallbladder, that was tense. It was decompressed at the fundus to facilitate dissection. Spillage of purulent material was To the minimal and the area was irrigated. The fundus of the gallbladder was retracted cephalad and by a combination of blunt and sharp dissection the infundibulum of the gallbladder was delineated. This was followed by delineation of this duct and artery, both being divided between locking clips. Cholecystectomy was then completed using the vessel sealing device and intermittent use of hook cautery. Gallbladder was then placed in an Endo Catch bag via the supraumbilical trocar site. Due to empyema of the gallbladder, it is felt reasonable to place a drain. A 10 [place] Amos-Alonzo drain was chosen and placed in the gallbladder fossa, being introduced into the peritoneal cavity along the trocar over the right side abdomen. It was carefully secured with 2 sutures due to the large nature of the gallbladder, the supraumbilical incision had to be extended sideways to allow retrieval of the gallbladder. The fascia over this incision was closed using interrupted #1 Prolene sutures. The cutaneous tissue was closed using 3- 0 PDS sutures. Skin incisions was closed using saira. 0.5 percent Marcaine with epinephrine was infiltrated along the incisions, both preemptively and at the conclusion of the operation. He tolerated the procedure well, was extubated in the operating room and taken to the recovery room in a stable condition. Findings of the Procedure See op report Allergies and Home Medications Allergies Coded Allergies: No Known Drug Allergies (Unverified , 03/29/13) Home Medications Albuterol Sulfate 18 Gm Hfa.aer.ad, 2 PUFF INH Q4H PRN for SHORTNESS OF BREATH, (Reported) Atenolol/Chlorthalidone 1 Each Tablet, 1 TAB PO DAILY, (Reported) Cyclobenzaprine HCl 10 Mg Tablet, 10 MG PO TID PRN for MUSCLE SPASMS, (Reported) Diclofenac Sodium 100 Gm Gel..gram., TOP QID PRN for ARTHRITIS PAIN, (Reported) Gabapentin 300 Mg Capsule, 300 MG PO BID PRN for NERVE PAIN, (Reported) Hydroxyzine HCl 25 Mg Tablet, 25 MG PO TID PRN for ANXIETY, (Reported) Ibuprofen 800 Mg Tablet, 800 MG PO TID PRN for PAIN-MILD, (Reported) Lisinopril 20 Mg Tablet, 20 MG PO HS, (Reported) Lisinopril 40 Mg Tablet, 40 MG PO DAILY, (Reported) Meloxicam 15 Mg Tablet, 15 MG PO DAILY, (Reported) Multivitamin 1 Each Tab.chew, 1 TAB.CHEW PO DAILY, (Reported) Omeprazole 20 Mg Capsule.dr, 20 MG PO DAILY, (Reported) Ondansetron 4 Mg Tab.rapdis, 4 MG PO Q6H PRN for NAUSEA/VOMITING Prescribed by: MONA POE on 09/06/17 4426 Oxycodone HCl/Acetaminophen 1 Each Tablet, 1 TAB PO Q6H PRN for PAIN-MODERATE, ( Reported) Pravastatin Sodium 20 Mg Tablet, 20 MG PO HS, (Reported) LAST FILLED #90 05-26-17 Patient Home Medication List Home Medication List Reviewed: Yes BRODERICK QUIROZ MD September 09, 2017 2:44 pm
[2017-09-09] MEDS ORDERED: CYCLOBENZAPRINE 10 MG (FLEXERIL) TAB PO PRN (14:45)
[2017-09-09] MEDS ORDERED: GABAPENTIN 300 MG (NEURONTIN) CAP PO PRN (14:45)
[2017-09-09] MEDS ORDERED: D5 LR IV SOLUTION 1,000 ML IV SCH (14:45)
[2017-09-09] MEDS ORDERED: ACHD5005 PO (14:51)
[2017-09-09] MEDS: morphine INJ 10 MG/ML 1ML (SYR OR VIAL) IVP PRN ×2 (14:55→15:00)
[2017-09-09] MEDS ORDERED: ONDANSETRON 4 MG/2 ML (SDV) Z0FRAN IVP PRN (15:00)
[2017-09-09] MEDS ORDERED: HYDROmorphone 1 MG/ML (DILAUDID) 1 ML SYRINGE IV PRN (15:00)
[2017-09-09 16:00] VITALS: BP 149/95
[2017-09-09] MEDS: HYDROcodone/APAP 5 MG/325 MG (LORTAB) TAB PO PRN ×2 (16:07→21:50)
[2017-09-09 19:40] VITALS: BP 128/89
[2017-09-09] MEDS ORDERED: LISINOPRIL 20 MG PO SCH (21:00)
[2017-09-09] MEDS ORDERED: lisINopril 20 MG (PRINIVIL) TABLET PO SCH (21:00)
[2017-09-09] MEDS ORDERED: NON-FORMULARY MEDICATION 1 EA EA (Pravastatin Sodium 20 MG) PO SCH (21:00)
[2017-09-09] MEDS ORDERED: SIMvastatin 10 MG (ZOCOR) TAB PO SCH (21:00)
[2017-09-10] MEDS: fentaNYL INJECTION 100 MCG/2 ML AMP IV PRN ×4 (00:16→09:11)
[2017-09-10] MEDS: NS IV 1000 ML 1,000 ML IV SCH ×2 (00:21→08:29)
[2017-09-10 00:26] VITALS: BP 124/84
[2017-09-10 04:05] VITALS: BP 122/78
[2017-09-10 04:30] LABS: BASOPHILS % (AUTO) 0 % (0-10); EOSINOPHILS % (AUTO) 0 % (0-10); HEMATOCRIT 28 % (40-54); HEMOGLOBIN 9.3 G/DL (13.3-17.7); LYMPHOCYTES # (AUTO) 0.5 X 10^3 (1.0-4.0); LYMPHOCYTES % (AUTO) 5 % (12-44); MEAN CORPUSCULAR HEMOGLOBIN 30 PG (25-34); MEAN CORPUSCULAR HGB CONC 33 G/DL (32-36); MEAN CORPUSCULAR VOLUME 91 FL (80-99); MEAN PLATELET VOLUME 11.1 FL (7.4-10.4); MONOCYTES # (AUTO) 0.9 X 10^3 (0.0-1.0); MONOCYTES % (AUTO) 8 % (0-12); NEUTROPHILS # (AUTO) 9.4 X 10^3 (1.8-7.8); NEUTROPHILS % (AUTO) 87 % (42-75); PLATELET COUNT 226 10^3/uL (130-400); RED BLOOD COUNT 3.13 10^6/uL (4.35-5.85); RED CELL DISTRIBUTION WIDTH 12.5 % (10.0-14.5); WHITE BLOOD COUNT 10.8 10^3/uL (4.3-11.0)
[2017-09-10 05:30] LABS: ALBUMIN 3.3 GM/DL (3.2-4.5); BILIRUBIN,TOTAL 0.5 MG/DL (0.1-1.0); CALCIUM 8.2 MG/DL (8.5-10.1); CREATININE SERUM 1.51 MG/DL (0.60-1.30); POTASSIUM 3.7 MMOL/L (3.6-5.0); TOTAL PROTEIN 6.4 GM/DL (6.4-8.2)
[2017-09-10] MEDS: PIPERACILLIN/TAZO 4.5 GM/D5W 100 ML IVPB IV SCH ×2 (05:53)
[2017-09-10] MEDS ORDERED: ATENOLOL 50 MG (TENORMIN) TAB PO SCH (07:00)
[2017-09-10] MEDS ORDERED: PANTOPRAZOLE 20 MG TABLET (PROTONIX) PO SCH (07:00)
[2017-09-10] MEDS ORDERED: CHLORTHALIDONE 25 MG (HYGROTON) TABLET PO SCH (07:00)
[2017-09-10 08:00] VITALS: BP 123/77
[2017-09-10] MEDS ORDERED: ATENOLOL PO SCH (09:00)
[2017-09-10] MEDS ORDERED: lisINopril 40 MG (PRINIVIL) TABLET PO SCH (09:00)
[2017-09-10] MEDS ORDERED: OMEPRAZOLE 20 MG (PriLOSEC) CAP NON-FORMULARY PO SCH (09:00)
[2017-09-10] MEDS ORDERED: CHLORTHALIDONE PO SCH (09:00)
[2017-09-10] MEDS ORDERED: [UNRECOGNIZED DRUG - OTHER] PO SCH (09:00)
--- NOTE | 2017-09-10 11:26 | Anesthesia-General Post-Op ---
General Patient Condition Mental Status/LOC: Same as Preop Cardiovascular: Satisfactory Nausea/Vomiting: Absent Respiratory: Satisfactory Pain: Controlled Complications: Absent Post Op Complications Complications None Follow Up Care/Instructions Patient Instructions None needed. Anesthesia/Patient Condition Patient Condition Patient is doing well, no complaints, stable vital signs, no apparent adverse anesthesia problems. No complications reported per nursing. [place] [facility] [place]: Yes DELMIS EL CRNA September 10, 2017 11:25
--- NOTE | 2017-09-10 11:33 | Progress Note ---
Subjective Time Seen by Provider: 11:20 Subjective/Events-last exam Pt seen and examined, states he has minimal incisional pain. Tolerating diet and urinating without any difficulty. Review of Systems General: No Chills, No Night Sweats Pulmonary: No Dyspnea, No Cough Cardiovascular: Palpitations; No: Chest Pain, Lt Headedness Genitourinary: No Dysuria, No Frequency, No Hematuria Focused Exam Lactate Level 09/08/17 15:45: Lactic Acid Level 1.33 Objective Exam Vital Signs Date Time Temp Pulse Resp B/P (MAP) Pulse Ox O2 Delivery O2 Flow Rate FiO2 09/10/17 08:00 98.9 117 20 123/77 (92) 95 Room Air 09/10/17 07:00 119 09/10/17 04:05 97.8 105 19 122/78 (93) 93 Room Air 09/10/17 01:00 116 09/10/17 00:26 97.9 110 18 124/84 (97) 95 Room Air 09/09/17 19:40 98.9 111 18 128/89 (102) 96 Room Air 09/09/17 19:00 135 09/09/17 16:00 98.0 109 20 149/95 (113) 94 Room Air I & O 09/10/17 07:00 Intake Total 3824 ml Output Total 2120 ml Balance 1704 ml Capillary Refill : Less Than 3 Seconds General Appearance: No Apparent Distress, WD/WN Neck: Carotid Bruit Respiratory: Chest Non Tender, Lungs Clear, Normal Breath Sounds, No Accessory Muscle Use, No Respiratory Distress Cardiovascular: No Edema, No Murmur, Irregularly Irregular Gastrointestinal: soft, distended, tenderness (mild and mostly at incisions) Neurologic/Psychiatric: Alert, Oriented x3 Results Lab Laboratory Tests 09/10/17 04:00: White Blood Count 10.8, Red Blood Count 3.13L, Hemoglobin 9.3L, Hematocrit 28L, Mean Corpuscular Volume 91, Mean Corpuscular Hemoglobin 30, Mean Corpuscular Hemoglobin Concent 33, Red Cell Distribution Width 12.5, Platelet Count 226, Mean Platelet Volume 11.1H, Neutrophils (%) (Auto) 87H, Lymphocytes (%) (Auto) 5L, Monocytes (%) (Auto) 8, Eosinophils (%) (Auto) 0, Basophils (%) (Auto) 0, Neutrophils # (Auto) 9.4H, Lymphocytes # (Auto) 0.5L, Monocytes # (Auto) 0.9, Eosinophils # (Auto) 0.0, Basophils # (Auto) 0.0, Sodium Level 138, Potassium Level 3.7, Chloride Level 103, Carbon Dioxide Level 25, Anion Gap 10, Blood Urea Nitrogen 37H, Creatinine 1.51H, Estimat Glomerular Filtration Rate 49, BUN/ Creatinine Ratio 25, Glucose Level 209H, Calcium Level 8.2L, Total Bilirubin 0.5 , Aspartate Amino Transf (AST/SGOT) 45H, Alanine Aminotransferase (ALT/SGPT) 38 , Alkaline Phosphatase 95, Total Protein 6.4, Albumin 3.3 Microbiology 09/08/17 Blood Culture - Preliminary, Resulted No growth Assessment/Plan Assessment/Plan Assessment/Plan S/P Lap Roseline Acute Renal failure - improving Afib ?? chronic Pt encouraged to drink lots of fluids, was most likely dehydrated and this caused his acute renal failure. Pt still in Afib, will await cardiology input today; most likely can go home if ok with Cardiology. Pt already pulled out his IV and was in process of pulling out HARLAN drain, threw the bulb away already "it fell off in the bathroom and I threw it in the trash". Clinical Quality Measures DVT/VTE Risk/Contraindication: Risk Factor Score Per Nursin RFS Level Per Nursing on Admit: 4+=Very High MAC AHUMADA DO September 10, 2017 11:33
--- NOTE | 2017-09-10 12:08 | Discharge Inst-Surgical ---
Discharge Inst-Surgical Depart Medication/Instructions New, Converted or Re-Newed RX: RX Given to Pt/Family Patient Instructions Follow up Appt: Make appointment for Tuesday or Tuesday with Dr. Guillaume to remove HARLAN drain. Instructions: No lifting greater than 10 pounds. No strenuous activity. May shower in 24 hours, no tub bath or soaking. Use incentive spirometer at home as directed. No Smoking Skin/Wound Care: May remove bandages. Symptoms to Report: Appetite Changes, Extremity Discoloration, Numbness/Tingling, Swelling Increased , Bleeding Excessive, Eyesight Changes, Pain Increased, Urine Color Change, Constipation(Persistent), Fever over 101 degree F, Pain/Pressure in chest, Urinating Difficulty, Cough Up/Vomit Blood, Heart Beat Irreg/Pounding, Pain/ Pressure in jaw, Cramps in feet or legs, Lightheadedness, Pain/Pressure in shoulder, Diarrhea(Persistent), Memory Changes Suddenly, Questions/Concerns, Weight gain consecutive days, Dizziness/Fainting, Nausea/Vomiting, Shortness of Breath, Weight gain over 2 pounds. If eyes or skin turn yellow notify physician. If questions or concerns contact your physician Or seek help at emergency department. Activity Activity as Tolerated: Yes Activity Instructions: Avoid Stress to Incision Driving Instructions: No Driving/Refer to Diet Discharge Diet: Avoid Fatty Foods, Low Fat/Low Cholesterol Diet After 24 Hours: Clear Liquid if Nauseous If Any Problems/Questions/Issu: Contact Your Physician, Go to Emergency Room Skin/Wound Care Infection Signs and Symptoms: Increased Redness, Foul Odor of Wound, Increased Drainage, Skin Itchy or Has a Rash, Increased Swelling, Temperature Above 101 F Wound Care Comment: please teach HARLAN care Stitches/Gil/Dermabond Dis: Care of MAC Rojas DO September 10, 2017 12:08
[2017-10-19] MEDS ORDERED: ASPI-808 PO (07:32)
[2017-10-19] MEDS ORDERED: DILT120C53 PO (07:32)
[2017-10-19] MEDS ORDERED: APIX5TAB PO (07:32)
== END 2017-09-10 12:30 | disposition home or self-care (01) | DRG 418 ==
LOC: EDUNIT# 15:18 → ER 15:19 → 4TH 16:28
PROVIDERS: ADMIT Surgery; ATTEND Surgery
PROC: 8E0W4CZ Robotic Assisted Procedure of Trunk Region, Percutaneous Endoscopic Approach (ICD-10-PCS; 2017-09-09)
PROC: 0FT44ZZ Resection of Gallbladder, Percutaneous Endoscopic Approach (ICD-10-PCS; principal; 2017-09-09 11:15)
DX: K80.00 Calculus of gallbladder with acute cholecystitis without obstruction (principal); N17.9 Acute kidney failure, unspecified; E86.0 Dehydration; I10 Essential (primary) hypertension; J44.9 Chronic obstructive pulmonary disease, unspecified; K21.9 Gastro-esophageal reflux disease without esophagitis; E78.00 Pure hypercholesterolemia, unspecified; M54.9 Dorsalgia, unspecified; K57.90 Diverticulosis of intestine, part unspecified, without perforation or abscess without bleeding; I48.0 Paroxysmal atrial fibrillation; I27.20 Pulmonary hypertension, unspecified; E66.9 Obesity, unspecified; Z68.39 Body mass index [BMI] 39.0-39.9, adult
CPT/HCPCS: 36415; 74176; 76705; 80053; 81000; 83605; 83690; 85007; 85025; 85027; 87040; 87081; 88304; 93005; 93306; 94664; 96361; 96365

== ENCOUNTER → 2017-09-08 | Outpatient (CLI) | payer MEDICARE ==
[~2017-09-08] MED LIST changes: +ACHD5005 PO; +ALBU18HF2 INH; +AMLO5TAB2 PO; +APIX5TAB PO; +ASPI-808 PO; +ATEN1TAB4 PO; +DICL100G18 TOP; +DILT120C53 PO; +GABA-488 PO; +HYDR-700 PO; +IBUP-850 PO; +LISI-552 PO; +MELO15TA39 PO; +MULT-228 PO; +OMEP20CA12 PO; +ONDA4TAB11 PO; +OXYC-465 PO
--- NOTE | 2017-09-08 15:43 | Diagnostic Imaging Report ---
PROCEDURE: CT abdomen and pelvis without contrast. TECHNIQUE: Multiple contiguous axial images were obtained through the abdomen and pelvis without the use of intravenous contrast. INDICATION: Right upper quadrant pain. FINDINGS: The previous exam of 07/04/2016 noted that there was cholelithiasis and that the gallbladder was distended but that there was no sign of acute cholecystitis. On this exam, the gallbladder is more distended than noted previously. The wall also seems thickened, and a small amount of pericholecystic fluid has developed. In addition, there is now a gallstone lodged in the neck of the gallbladder. These findings do suggest acute cholecystitis. If further evaluation is desired, then either a surgical consult or a gallbladder ultrasound exam would be recommended. The liver is homogeneous and not enlarged. The spleen, pancreas, adrenals, kidneys, aorta, and inferior vena cava show no sign of an acute abnormality. The cyst along the anterior margin of the left kidney seen previously is again evident and not significantly changed. The nonobstructive calculus within the right kidney noted on the prior exam is also again visualized and unchanged. The stomach is not well distended and consequently difficult to assess. The images through the pelvis show that there are a number of diverticula involving the sigmoid colon. There is no evidence for acute diverticulitis, however. The appendix was visualized and is not abnormally thickened. There is no pelvic mass or free fluid collection noted. The urinary bladder and prostate gland are grossly unremarkable. The bone windows show no evidence for an acute fracture or for a destructive lesion. The long-standing compression deformity of the superior endplate of L1 seen previously is again evident and no different. The lung bases are clear. IMPRESSION: 1. There is marked distention of the gallbladder. The gallbladder wall also seems thickened, and there is pericholecystic fluid. Cholelithiasis is also again noted, and there does seem to be a gallstone lodged in the neck of the gallbladder. These findings do suggest acute cholecystitis. Recommendations as above. 2. There is no acute abnormality of the abdomen or pelvis noted otherwise. 3. These results were discussed with Dr. Jong Wells. Dictated by: Dictated on workstation # [id number]
== END ==
LOC: RAD 14:32
PROVIDERS: ATTEND Internal Medicine
DX: K80.20 Calculus of gallbladder without cholecystitis without obstruction (principal)
CPT/HCPCS: 74176

== ENCOUNTER → 2017-09-21 | Outpatient (CLI) | payer MEDICARE ==
[~2017-09-21] MED LIST changes: +ACHD5005 PO; +ALBU18HF2 INH; +AMLO5TAB2 PO; +APIX5TAB PO; +ASPI-808 PO; +ATEN1TAB4 PO; +DICL100G18 TOP; +DILT120C53 PO; +GABA-488 PO; +HYDR-700 PO; +IBUP-850 PO; +LISI-552 PO; +MELO15TA39 PO; +MULT-228 PO; +OMEP20CA12 PO; +OXYC-465 PO
[2017-09-21 11:44] LABS: HEMOGLOBIN 10.6 G/DL (13.3-17.7); MEAN PLATELET VOLUME 10.7 FL (7.4-10.4); RED BLOOD COUNT 3.66 10^6/uL (4.35-5.85); RED CELL DISTRIBUTION WIDTH 12.4 % (10.0-14.5); WHITE BLOOD COUNT 12.5 10^3/uL (4.3-11.0)
[2017-09-21 11:57] LABS: ALBUMIN 4.3 GM/DL (3.2-4.5); BILIRUBIN,TOTAL 0.2 MG/DL (0.1-1.0); CALCIUM 9.8 MG/DL (8.5-10.1); CREATININE SERUM 1.94 MG/DL (0.60-1.30); POTASSIUM 4.1 MMOL/L (3.6-5.0); TOTAL PROTEIN 8.4 GM/DL (6.4-8.2)
--- NOTE | 2017-09-22 12:21 | Physician Query-Final Dx ---
PARK LAZARO 09/22/17 1221: Clinic Account Progress/Dx Physician Query: Diagnosis gave is Post OP - Please give a more specific diagnosis thank you Date of Service September 21, 2017 at 11:23 BRODERICK QUIROZ MD 09/22/17 1649: Clinic Account Progress/Dx DIAGNOSIS: Diagnosis Empyema of gallbladder PARK LAZARO September 22, 2017 12:21 BRODERICK QUIROZ MD September 22, 2017 16:49
== END ==
LOC: LAB 11:23
PROVIDERS: ATTEND Surgery
DX: K81.0 Acute cholecystitis (principal)
CPT/HCPCS: 36415; 80053; 85027

== ENCOUNTER → 2017-10-19 | Day surgery (SDC) | payer MEDICARE ==
[2017-10-19] VITALS (9 sets, daily range): BP systolic 130–181; BP diastolic 101–124
[~2017-10-19] VITALS: Ht 175.3 cm; Wt 121.6 kg
[~2017-10-19] MED LIST changes: +LIDOCAINE 2% VISCOUS 15 ML UDC ONE; +MIDAZOLAM 2 MG/2 ML (VERSED) VIAL ONE; +NS IV 1000 ML 1,000 ML IV SCH; +NS IV 1000 ML 1,000 ML ONE; +proPOfol 200 MG/20 ML (DIPRIVAN) VIAL IV ONE
--- OUTSIDE RECORDS SUMMARY | 2017-10-19 06:42 | XMS REPORT ---
Author Author PATRICK POOL [facility] Address [address] [place] [address] Care Team Providers Care Law Enforcement Instructor Name Role Phone PATRICK POOL Unavailable PROBLEMS Type Condition ICD9-CM Code FLI84-IJ Code Onset Dates Condition Status SNOMED Code Problem Reactive depression F32.9 Active 95818775 Problem Generalized anxiety disorder F41.1 Active 55778096 Problem Chronic pain due to trauma G89.21 Active 219294260 Problem Essential hypertension I10 Active 16108409 Problem Chronic bronchitis, unspecified chronic bronchitis type J42 Active 40855135 Problem Mixed hyperlipidemia E78.2 Active 999251637 Problem Other chronic pain G89.29 Active 16822640 Problem Lumbago with sciatica, right side M54.41 Active 514234660613168 Problem Arthritis M19.90 Active 5180851 Problem History of CVA (cerebrovascular accident) Z86.73 Active 042147104 Problem Lumbago with sciatica, left side M54.42 Active 248638222 Problem Urinary hesitancy R39.11 Active 6393093 ALLERGIES No Information ENCOUNTERS Encounter Location Date Diagnosis [place] [id number] [place] [address] 59075- 6738 August, Chronic pain due to trauma G89.21 [facility] [id number] [place] [address] 60703- 3846 August, Essential hypertension I10 [place] [id number] [place] [address] 66117- 9676 August, Right upper quadrant abdominal pain R10.11 [facility] [id number] [place] [address] 13306- 8813 August, Medicare annual wellness visit, initial Z00.00 ; Chronic bronchitis, unspecified chronic bronchitis type J42 ; Reactive depression F32.9 ; Mixed hyperlipidemia E78.2 and Generalized anxiety disorder F41.1 [facility] [id number] [place] [address] 59661- 9236 August, Chronic pain due to trauma G89.21 [facility] WALK IN [facility] [id number] [place] [address] 66250 -2790 Jul, Left shoulder pain, unspecified chronicity M25.512 [facility] [id number] [place] [address] 24638- 2599 Jul, Chronic pain due to trauma G89.21 ; Essential hypertension I10 ; Urinary hesitancy R39.11 ; Chronic bronchitis, unspecified chronic bronchitis type J42 ; Lumbago with sciatica, left side M54.42 ; Lumbago with sciatica, right side M54.41 ; Other chronic pain G89.29 and BMI 40.0-44.9, adult Z68.41 [place] [id number] [place] [address] 87631- 4864 Jul, Chronic pain due to trauma G89.21 [facility] [id number] [place] [address] 77354- 7388 Jul, Encounter for medication monitoring Z51.81 [place] [id number] [place] [address] 39123- 4003 Jul, Encounter for medication monitoring Z51.81 [place] [id number] [place] [address] 16264- 2040 Jun, [place] [id number] [place] [address] 34946- 6612 Jun, Chronic pain due to trauma G89.21 [facility] [id number] [place] [address] 83393- 6978 Jun, Chronic bronchitis, unspecified chronic bronchitis type J42 [place] [id number] [place] [address] 59253- 6989 Jun, [facility] [address] [place] [address]- 5763 Jun, Chronic pain due to trauma G89.21 [facility] [address] 91678- 6742 Jun, Chronic bronchitis, unspecified chronic bronchitis type J42 [facility] [id number] [place] [address] 13545- 6830 Jun, Chronic pain due to trauma G89.21 [facility] [address] 76526- 3322 Jun, Chronic bronchitis, unspecified chronic bronchitis type J42 [facility] [address] 130936- 6454 May, Chronic pain due to trauma G89.21 and Arthritis M19.90 [facility] [address] 97659- 3119 May, Chronic pain due to trauma G89.21 [facility] [id number] [place] [address] 21826- 1095 May, [facility] [address] 98072- 2673 Apr, Chronic pain due to trauma G89.21 [facility] [id number] [place] [address] 59467- 9653 Mar, Essential hypertension I10 [facility] [id number] [place] [address] 40604- 4913 Mar, Chronic pain due to trauma G89.21 [facility] [id number] [place] [address] 44331- 4997 Mar, [facility] [address] 130934- 5100 Mar, Chronic pain due to trauma G89.21 ; Essential hypertension I10 and Mixed hyperlipidemia E78.2 [facility] [address] 74536- 9393 Jan, Chronic pain due to trauma G89.21 [facility] [id number] [place] [address] 57611- 7627 Jan, [facility] [id number] [place] [address] 775499- 8726 Dec, Chronic pain due to trauma G89.21 [facility] [id number] [place] [address] 554893- 0983 Dec, Chronic pain due to trauma G89.21 [facility] [id number] [place] [address] 559924- 2678 Dec, Essential hypertension I10 [facility] [id number] [place] [address] 08113- 4904 Nov, Chronic pain due to trauma G89.21 [facility] [id number] [place] [address] 30349- 4700 Oct, Chronic pain due to trauma G89.21 [facility] [id number] [place] [address] 94229- 0754 Oct, Chronic pain due to trauma G89.21 [facility] [id number] [place] [address] 01162- 8696 Oct, Essential hypertension I10 [facility] [id number] [place] [address] 62086- 4437 Sep, Chronic pain due to trauma G89.21 ; Reactive depression F32.9 and Essential hypertension I10 [facility] [id number] [place] [address] 31401- 7542 13 Sep, 2016 Generalized anxiety disorder F41.1 [facility] [id number] [place] [address] 84450- 8856 August, Essential hypertension I10 ; Reactive depression F32.9 and Chronic pain due to trauma G89.21 [facility] [id number] [place] [address] 02682- 8607 Jun, Flank pain R10.9 [facility] [id number] [place] [address] 22516- 7642 Jun, Essential hypertension I10 [facility] [id number] [place] [address] 05488- 1331 May, Chronic bronchitis, unspecified chronic bronchitis type J42 [facility] [id number] [place] [address] 53195- 8612 Apr, Essential hypertension I10 [facility] [id number] [place] [address] 02738- 4611 Apr, [facility] [address] 84951- 7943 30 Jan, 2016 Mixed hyperlipidemia E78.2 [facility] [id number] [place] [address] 66036- 4565 Dec, Hepatitis C, chronic B18.2 ; Essential hypertension I10 and Mixed hyperlipidemia E78.2 [facility] [id number] [place] [address] 93897- 5970 August, [facility] [id number] [place] [address] 88711- 9208 August, [facility] [id number] [place] [address] 86616- 4088 August, Essential hypertension I10 ; Mixed hyperlipidemia E78.2 and Gastroesophageal reflux disease, esophagitis presence not specified K21.9 [facility] [id number] [place] [address] 89943- 1649 Jun, [facility] [id number] [place] [address] 46713- 0394 Jun, Hepatitis C, chronic B18.2 ; Dyspepsia R10.13 ; Reflux esophagitis K21.0 and Essential hypertension I10 [facility] [id number] [place] [address] 60041- 1646 May, Reflux esophagitis K21.0 ; Hepatitis C, chronic B18.2 and Tachycardia, unspecified R00.0 [facility] [id number] [place] [address] 85932- 7134 May, Generalized anxiety disorder F41.1 and Substance addiction F19.20 [facility] [id number] [place] [address] 16943- 1211 Apr, [facility] [address] 91904- 9970 Apr, Hepatitis C, chronic B18.2 [facility] [address] 85375- 6809 Apr, Anxiety F41.9 [place] [address] 58311- 7926 Apr, Encounter for immunization Z23 and Hepatitis C, chronic B18.2 [facility] [address] 61329- 0397 Apr, [facility] [address] 99547- 4323 Apr, Dyspepsia R10.13 [facility] [address] 29135- 8970 Apr, [facility] [id number] [place] [address] 44128- 0354 30 Mar, 2015 Hepatitis C, chronic B18.2 [facility] [id number] [place] [address] 25651- 4261 Mar, Hepatitis C, chronic B18.2 [facility] [id number] [place] [address] 67386- 4875 Mar, [facility] [id number] [place] [address] 71470- 0115 Mar, [facility] [id number] [place] [address] 39012- 8906 Mar, [facility] [address] [facility] [id number] [address]- 2049 Jan, Essential hypertension I10 ; Chronic bronchitis, unspecified chronic bronchitis type J42 ; Hepatitis C, chronic B18.2 and Dental caries of root surface K02.7 [facility] [id number] [address]- 2091 Dec, Routine adult health maintenance V70.0 [facility] [id number] [address]- 9512 Dec, [facility] [id number] [address]- 4653 Dec, Hypertension 401.9 ; Anxiety 300.00 and Routine adult health maintenance V70.0 IMMUNIZATIONS No Known Immunizations SOCIAL HISTORY Never Assessed REASON FOR VISIT Oxycodone 04/15 PLAN OF CARE VITAL SIGNS MEDICATIONS Medication Instructions Dosage Frequency Start Date End Date Duration Status Oxycodone-Acetaminophen 10-325 MG Orally every 6 hrs 1 tablet as needed 6h Apr, 28 days Active RESULTS No Results PROCEDURES [...] tear repair Surgical History Left eye removal Surgical History cholecystectomy Hospitalization History surgeries Hospitalization History [facility]- Acute Cholecystitis 09/10/2017
--- OUTSIDE RECORDS SUMMARY | 2017-10-19 06:42 | XMS REPORT ---
Author Author PATRICK POOL Organization [facility] Address [address] [place] [address] Care Team Providers Care Ethanol Quality Leader Name Role Phone PATRICK POOL Unavailable PROBLEMS Type Condition ICD9-CM Code ASN95-AN Code Onset Dates Condition Status SNOMED Code Problem Reactive depression F32.9 Active 97352025 Problem Generalized anxiety disorder F41.1 Active 80968745 Problem Chronic pain due to trauma G89.21 Active 329310312 Problem Essential hypertension I10 Active 82959432 Problem Chronic bronchitis, unspecified chronic bronchitis type J42 Active 64153887 Problem Mixed hyperlipidemia E78.2 Active 959326324 Problem Other chronic pain G89.29 Active 05662907 Problem Lumbago with sciatica, right side M54.41 Active 693923259215512 Problem Arthritis M19.90 Active 3663717 Problem History of CVA (cerebrovascular accident) Z86.73 Active 483852943 Problem Lumbago with sciatica, left side M54.42 Active 176415373 Problem Urinary hesitancy R39.11 Active 6174311 ALLERGIES No Information ENCOUNTERS Encounter Location Date Diagnosis [place] [id number] [place] [address] 62455- 7320 Sep, [facility] [id number] [place] [address] 72978- 5277 August, Chronic pain due to trauma G89.21 [facility] [id number] [place] [address] 99584- 5249 August, Essential hypertension I10 [facility] [id number] [place] [address] 07850- 4707 August, Right upper quadrant abdominal pain R10.11 [place] [id number] [place] [address] 25364- 5959 August, Medicare annual wellness visit, initial Z00.00 ; Chronic bronchitis, unspecified chronic bronchitis type J42 ; Reactive depression F32.9 ; Mixed hyperlipidemia E78.2 and Generalized anxiety disorder F41.1 [facility] [address] [place] [address] 18563- 1500 August, Chronic pain due to trauma G89.21 [facility] WALK IN [facility] [id number] [place] [address] 35819 -6931 Jul, Left shoulder pain, unspecified chronicity M25.512 [facility] [id number] [place] [address] 53213- 0361 Jul, Chronic pain due to trauma G89.21 ; Essential hypertension I10 ; Urinary hesitancy R39.11 ; Chronic bronchitis, unspecified chronic bronchitis type J42 ; Lumbago with sciatica, left side M54.42 ; Lumbago with sciatica, right side M54.41 ; Other chronic pain G89.29 and BMI 40.0-44.9, adult Z68.41 [place] [id number] [place] [address] 73367- 5653 Jul, Chronic pain due to trauma G89.21 [place] [id number] [place] [address] 64504- 5551 Jul, Encounter for medication monitoring Z51.81 [place] [id number] [place] [address] 58852- 2653 Jul, Encounter for medication monitoring Z51.81 [facility] [id number] [place] [address] 34427- 0935 Jun, [place] [id number] [place] [address] 11504- 3433 Jun, Chronic pain due to trauma G89.21 [facility] [id number] [place] [address] 83659- 7465 Jun, Chronic bronchitis, unspecified chronic bronchitis type J42 [place] [id number] [place] [address] 68506- 1011 Jun, [facility] [id number] [place] [address] 62565- 0826 Jun, Chronic pain due to trauma G89.21 [facility] [id number] [place] [address] 58427- 4736 Jun, Chronic bronchitis, unspecified chronic bronchitis type J42 [facility] [id number] [place] [address] 88604- 1852 Jun, Chronic pain due to trauma G89.21 [facility] [id number] [place] [address] 834702- 7206 Jun, Chronic bronchitis, unspecified chronic bronchitis type J42 [facility] [id number] [place] [address] 89639- 6843 May, Chronic pain due to trauma G89.21 and Arthritis M19.90 [facility] [id number] [place] [address] 46417- 7340 May, Chronic pain due to trauma G89.21 [facility] [id number] [place] [address] 12009- 3278 May, [facility] [id number] [place] [address] 96373- 7554 Apr, Chronic pain due to trauma G89.21 [facility] [id number] [place] [address] 95982- 5163 Mar, Essential hypertension I10 [facility] [address] [place] [address] 66202- 3042 Mar, Chronic pain due to trauma G89.21 [facility] [id number] [place] [address] 17632- 8171 Mar, [facility] [id number] [place] [address] 20612- 4275 Mar, Chronic pain due to trauma G89.21 ; Essential hypertension I10 and Mixed hyperlipidemia E78.2 [facility] [id number] [address]- 6462 Jan, Chronic pain due to trauma G89.21 [facility] [id number] [place] [address] 16918984- 7116 05 Jan, 2017 [facility] [id number] [place] [address] 09555- 1856 Dec, Chronic pain due to trauma G89.21 [facility] [id number] [place] [address] 65887- 5886 22 Dec, 2016 Chronic pain due to trauma G89.21 [facility] [id number] [place] [address] 41650- 1156 Dec, Essential hypertension I10 [facility] [id number] [place] [address] 12582- 3196 Nov, Chronic pain due to trauma G89.21 [facility] [id number] [place] [address] 12765- 1438 Oct, Chronic pain due to trauma G89.21 [facility] [id number] [place] [address] 96156- 7865 Oct, Chronic pain due to trauma G89.21 [facility] [id number] [place] [address] 38262- 2886 Oct, Essential hypertension I10 [facility] [id number] [place] [address] 87091- 3218 Sep, Chronic pain due to trauma G89.21 ; Reactive depression F32.9 and Essential hypertension I10 [facility] [id number] [place] [address] 50327- 4330 13 Sep, 2016 Generalized anxiety disorder F41.1 [facility] [id number] [place] [address] 99910- 1640 August, Essential hypertension I10 ; Reactive depression F32.9 and Chronic pain due to trauma G89.21 [facility] [id number] [place] [address] 58012- 9771 10 Jun, 2016 Flank pain R10.9 [facility] [id number] [place] [address] 33373- 6225 09 Jun, 2016 Essential hypertension I10 [place] [address] 67445- 7324 May, Chronic bronchitis, unspecified chronic bronchitis type J42 [facility] [id number] [place] [address] 31457- 6368 Apr, Essential hypertension I10 [place] [address] 68189- 0719 Apr, [place] [address] 12235- 0314 30 Jan, 2016 Mixed hyperlipidemia E78.2 [place] [address] 23507- 1045 Dec, Hepatitis C, chronic B18.2 ; Essential hypertension I10 and Mixed hyperlipidemia E78.2 [place] [id number] [place] [address] 02162- 9310 August, [place] [id number] [place] [address] 10119- 3885 August, [facility] [id number] [place] [address] 39028- 4916 August, Essential hypertension I10 ; Mixed hyperlipidemia E78.2 and Gastroesophageal reflux disease, esophagitis presence not specified K21.9 [facility] [id number] [place] [address] 33719- 2491 Jun, [place] [address] 54383- 6282 28 Jul, 2015 Hepatitis C, chronic B18.2 ; Dyspepsia R10.13 ; Reflux esophagitis K21.0 and Essential hypertension I10 [facility] [id number] [place] [address] 34928- 9653 May, Reflux esophagitis K21.0 ; Hepatitis C, chronic B18.2 and Tachycardia, unspecified R00.0 [facility] [id number] [place] [address] 86670- 4471 May, Generalized anxiety disorder F41.1 and Substance addiction F19.20 [facility] [address] 81951- 8018 Apr, [facility] [address] 37115- 7336 Apr, Hepatitis C, chronic B18.2 [facility] [address] 74476- 6783 Apr, Anxiety F41.9 [place] [address] 65016- 2663 Apr, Encounter for immunization Z23 and Hepatitis C, chronic B18.2 [facility] [address] 19476- 3408 Apr, [facility] [address] 84134- 0709 Apr, Dyspepsia R10.13 [facility] [id number] [place] [address] 14618- 5096 Apr, [facility] [address] 33658- 2961 Mar, Hepatitis C, chronic B18.2 [facility] [id number] [place] [address] 58724- 6208 Mar, Hepatitis C, chronic B18.2 [facility] [id number] [place] [address] 48057- 5423 Mar, [facility] [id number] [place] [address] 83498- 9973 Mar, [facility] [id number] [address]- 7801 Mar, [facility] [address] [place] [address] [id number]- 8851 Jan, Essential hypertension I10 ; Chronic bronchitis, unspecified chronic bronchitis type J42 ; Hepatitis C, chronic B18.2 and Dental caries of root surface K02.7 [facility] [address] [place] [address] 45779- 2135 Dec, Routine adult health maintenance V70.0 [facility] [address] [address]- 1887 Dec, [facility] [address] [place] [address] 85869- 4305 Dec, Hypertension 401.9 ; Anxiety 300.00 and Routine adult health maintenance V70.0 IMMUNIZATIONS No Known Immunizations SOCIAL HISTORY Never Assessed REASON FOR VISIT Refill request PLAN OF CARE VITAL SIGNS MEDICATIONS Medication Instructions Dosage Frequency Start Date End Date Duration Status HydrOXYzine HCl 25 mg Orally every 8 hrs TAKE ONE TABLET BY MOUTH EVERY 8 HOURS NEEDED FOR ANXIETY 8h 30 Active RESULTS No Results PROCEDURES No Known [...] History cholecystectomy Hospitalization History surgeries Hospitalization History [facility]- Acute Cholecystitis 09/10/2017
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
[2017-10-19 07:09] LABS: HEMOGLOBIN 10.9 G/DL (13.3-17.7); RED BLOOD COUNT 3.73 10^6/uL (4.35-5.85)
[2017-10-19 07:20] LABS: INR 1.2 (0.8-1.4); PROTHROMBIN TIME PATIENT 15.4 SEC (12.2-14.7)
[2017-10-19 07:25] LABS: ALANINE AMINOTRANSFERASE 14 U/L (0-55); ALKALINE PHOSPHATASE 77 U/L (40-136); BILIRUBIN,TOTAL 0.3 MG/DL (0.1-1.0); BUN/CREATININE RATIO 15; CALCIUM 9.7 MG/DL (8.5-10.1); CARBON DIOXIDE 25 MMOL/L (21-32); CHLORIDE 104 MMOL/L (98-107); CHOLESTEROL 152 MG/DL (< 200); CREATININE SERUM 1.05 MG/DL (0.60-1.30); GFR ESTIMATED > 60; GLUCOSE 112 MG/DL (70-105); HDL CHOLESTEROL 30 MG/DL (40-60); POTASSIUM 3.8 MMOL/L (3.6-5.0); SODIUM 141 MMOL/L (135-145); TOTAL PROTEIN 7.3 GM/DL (6.4-8.2); TRIGLYCERIDES 113 MG/DL (<150); VLDL CHOLESTEROL 23 MG/DL (5-40)
--- NOTE | 2017-10-19 07:30 | Diagnostic Imaging Report ---
INDICATION: AFIB,HTN,HLP COMPARISON: 09/06/2017 FINDINGS: Single frontal view of the chest demonstrates mild prominence of the cardiac silhouette. Pulmonary vasculature, however, within normal limits. The lungs are well aerated and clear. No large pleural effusion or pneumothorax is seen. The visualized osseous structures show no acute abnormalities. IMPRESSION: 1. Mild prominence of the cardiac silhouette, which may be accentuated by portable technique. There is otherwise no evidence of failure or focal infiltrate. Dictated by: Dictated on workstation # [id number]
--- NOTE | 2017-10-19 08:17 | Cardiac Procedure Note-CS/ASA ---
Pre-Procedure Note Pre-Op Procedure Note H&P Reviewed The H&P was reviewed, patient examined and no changes noted. Date H&P Reviewed: Oct 19, 2017 Time H&P Reviewed: 08:17 Conscious Sedation Pre-Proced Time Reviewed: 08:17 ASA Class: 3 Airway Mallampati Classification: ([place] appropriate class) I. II. III, IV Lungs Heart ASA score ASA 1: a normal healthy patient ASA 2: a patient with a mild systemic disease (mid diabetes, controlled hypertension, obesity X ASA 3: a patient with a severe systemic disease that limits activity (angina , COPD, prior Myocardial infarction) ASA 4: a patient with an incapacitating disease that is a constant threat to life (CHF, renal failure) ASA 5: a moribund patient not expected to survive 24 hrs. (ruptured aneurysm) ASA 6: a declared brain patient whose organs are being harvested. For emergent operations, add the letter E after the classification Grade 3 Sedation Plan: Analgesia, Amnesia, Plan communicated to team members, Discussed options with patient/fam, Discussed risks with patient/fam Note The patient is an appropriate candidate to undergo the planned procedure, sedation, and anesthesia. The patient immediately re-assessed prior to indication. ANGELA HYMAN MD Oct 19, 2017 08:17
--- NOTE | 2017-10-19 18:33 | Clinic Account Progress/Dx ---
Clinic Account Progress/Dx DIAGNOSIS: Date Seen by Provider: Oct 19, 2017 Time Seen by Provider: 09:00 Atrial fibrillation CAD HTN CVA ANGELA HYMAN MD Oct 19, 2017 6:33 pm
== END | disposition home or self-care (01) ==
LOC: CATH 06:36
PROVIDERS: ATTEND Internal Medicine Cardiovascular Disease
DX: I48.91 Unspecified atrial fibrillation (principal); I10 Essential (primary) hypertension; I34.0 Nonrheumatic mitral (valve) insufficiency; Z79.01 Long term (current) use of anticoagulants; Z79.899 Other long term (current) drug therapy
CPT/HCPCS: 36415; 71045; 80053; 80061; 85027; 85610; 85730; 87081; 93320; 93325

== ENCOUNTER → 2017-11-30 | Day surgery (SDC) | payer MEDICARE ==
[~2017-11-30] VITALS: Ht 175.3 cm; Wt 111.6 kg
[2017-11-30] VITALS (7 sets, daily range): BP systolic 151–165; BP diastolic 101–113
[~2017-11-30] MED LIST changes: +APIXABAN 5 MG (ELIQUIS) TABLET PO SCH; +ATENOLOL PO SCH; +CHLORTHALIDONE PO SCH; +LIDOCAINE 2% VISCOUS 15 ML UDC PO ONE; -MIDAZOLAM 2 MG/2 ML (VERSED) VIAL ONE; +MIDAZOLAM 5 MG/5 ML (VERSED) VIAL ONE; +NON-FORMULARY MEDICATION 1 EA EA (Diltiazem HCl (Cartia Xt) 120 MG) PO SCH; +NON-FORMULARY MEDICATION 1 EA EA (Hydroxyzine HCl 25 MG) PO PRN; +NON-FORMULARY MEDICATION 1 EA EA (Pravastatin Sodium 20 MG) PO SCH; +OMEPRAZOLE 20 MG (PriLOSEC) CAP NON-FORMULARY PO SCH; +[UNRECOGNIZED DRUG - OTHER] PO SCH; +lisINopril 40 MG (PRINIVIL) TABLET PO SCH
--- NOTE | 2017-11-30 07:36 | Diagnostic Imaging Report ---
INDICATION: Atrial fibrillation and dyspnea Portable upright AP view of the chest is obtained with comparison made to the study of 10/19/2017. FINDINGS: Heart size and pulmonary vascularity are within normal limits, and the lungs are clear, bilaterally. IMPRESSION: Unremarkable chest. Dictated by: Dictated on workstation # [id number]
[2017-11-30 07:46] LABS: HEMOGLOBIN 12.6 G/DL (13.3-17.7); MEAN PLATELET VOLUME 10.7 FL (7.4-10.4); RED BLOOD COUNT 4.24 10^6/uL (4.35-5.85); RED CELL DISTRIBUTION WIDTH 13.3 % (10.0-14.5); WHITE BLOOD COUNT 5.3 10^3/uL (4.3-11.0)
[2017-11-30 08:01] LABS: INR 1.1 (0.8-1.4); PROTHROMBIN TIME PATIENT 13.8 SEC (12.2-14.7)
[2017-11-30 08:07] LABS: ALANINE AMINOTRANSFERASE 56 U/L (0-55); ALBUMIN 4.1 GM/DL (3.2-4.5); ALKALINE PHOSPHATASE 148 U/L (40-136); BILIRUBIN,TOTAL 0.2 MG/DL (0.1-1.0); BUN/CREATININE RATIO 15; CALCIUM 9.7 MG/DL (8.5-10.1); CARBON DIOXIDE 29 MMOL/L (21-32); CHLORIDE 102 MMOL/L (98-107); CREATININE SERUM 0.92 MG/DL (0.60-1.30); GFR ESTIMATED > 60; GLUCOSE 108 MG/DL (70-105); POTASSIUM 4.3 MMOL/L (3.6-5.0); SODIUM 141 MMOL/L (135-145); TOTAL PROTEIN 7.3 GM/DL (6.4-8.2)
--- NOTE | 2017-11-30 10:06 | Cardiac Procedure Note-CS/ASA ---
Pre-Procedure Note Pre-Op Procedure Note H&P Reviewed The H&P was reviewed, patient examined and no changes noted. Date H&P Reviewed: Nov 30, 2017 Time H&P Reviewed: 09:30 Conscious Sedation Pre-Proced Time Reviewed: 09:30 ASA Class: 3 Airway Mallampati Classification: ([place] appropriate class) I. II. III, IV Lungs Heart ASA score ASA 1: a normal healthy patient ASA 2: a patient with a mild systemic disease (mid diabetes, controlled hypertension, obesity x ASA 3: a patient with a severe systemic disease that limits activity (angina , COPD, prior Myocardial infarction) ASA 4: a patient with an incapacitating disease that is a constant threat to life (CHF, renal failure) ASA 5: a moribund patient not expected to survive 24 hrs. (ruptured aneurysm) ASA 6: a declared brain patient whose organs are being harvested. For emergent operations, add the letter E after the classification Grade 3 Sedation Plan: Analgesia, Amnesia, Plan communicated to team members, Discussed options with patient/fam, Discussed risks with patient/fam Note The patient is an appropriate candidate to undergo the planned procedure, sedation, and anesthesia. The patient immediately re-assessed prior to indication. ANGELA HYMAN MD Nov 30, 2017 10:06
--- NOTE | 2017-11-30 10:28 | Anesthesia-Procedure Note ---
Procedures/Interventions Procedure Start/Stop/Diagnosis Date of Procedure: Nov 30, 2017 Start Time: 09:45 Preprocedural Diagnosis: a-fib Stop Time: 10:05 MARTHA/Cardioversion Anesthesia Type: mac ASA Class: 3 Medications propofol 150 mg, versed 2 mg Monitors and Equipment: Continuous EKG, End Tidal CO2, IV, Pulse Oximeter VALENTE HERNANDES CRNA Nov 30, 2017 10:28
--- NOTE | 2017-11-30 13:17 | Cardioversion ---
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 Electrical cardioversion was carried out with anesthesia support with propofol. 200 joules of synchronized shock was delivered through external patches which promptly restored sinus rhythm. The patient tolerated the procedure well. Conclusions: Successful electrical cardioversion terminating atrial fibrillation Final Diagnosis: 1. Chronic atrial fibrillation 2. Hypertension 3. Hyperlipidemia ANGELA JADE MD Nov 30, 2017 13:17
== END | disposition home or self-care (01) ==
LOC: CATH 06:53
PROVIDERS: ATTEND Internal Medicine Cardiovascular Disease
DX: I48.2 Chronic atrial fibrillation (principal); I10 Essential (primary) hypertension; E78.2 Mixed hyperlipidemia; J44.9 Chronic obstructive pulmonary disease, unspecified; F41.9 Anxiety disorder, unspecified; J45.909 Unspecified asthma, uncomplicated; I27.20 Pulmonary hypertension, unspecified; E66.9 Obesity, unspecified; Z68.38 Body mass index [BMI] 38.0-38.9, adult; D64.9 Anemia, unspecified; K75.9 Inflammatory liver disease, unspecified; I34.0 Nonrheumatic mitral (valve) insufficiency; Z86.73 Personal history of transient ischemic attack (TIA), and cerebral infarction without residual deficits
CPT/HCPCS: 36415; 71045; 80053; 85027; 85610; 85730; 87081; 92960; 93005; 93312; 93325

== ENCOUNTER → 2018-02-22 | Day surgery (SDC) | payer MEDICARE ==
[~2018-02-22] VITALS: Ht 175.3 cm; Wt 121.6 kg
[2018-02-22] VITALS (9 sets, daily range): BP systolic 97–158; BP diastolic 64–113
[~2018-02-22] MED LIST changes: +AMIO200T4 PO; -AMLO5TAB2 PO; +AMLO5TAB7 PO; -APIXABAN 5 MG (ELIQUIS) TABLET PO SCH; -ATENOLOL PO SCH; +CHLO25TA22 PO; -CHLORTHALIDONE PO SCH; +FLEC100T PO; +FLEC50TA PO; +FLU QUADRIvalent (5+ YOA) 2018-2019 (AFLURIA) 0.5 ML IM ONE; -LIDOCAINE 2% VISCOUS 15 ML UDC ONE; -LIDOCAINE 2% VISCOUS 15 ML UDC PO ONE; -NON-FORMULARY MEDICATION 1 EA EA (Diltiazem HCl (Cartia Xt) 120 MG) PO SCH; -NON-FORMULARY MEDICATION 1 EA EA (Hydroxyzine HCl 25 MG) PO PRN; -NON-FORMULARY MEDICATION 1 EA EA (Pravastatin Sodium 20 MG) PO SCH; -OMEPRAZOLE 20 MG (PriLOSEC) CAP NON-FORMULARY PO SCH; -[UNRECOGNIZED DRUG - OTHER] PO SCH; -lisINopril 40 MG (PRINIVIL) TABLET PO SCH
--- OUTSIDE RECORDS SUMMARY | 2018-02-22 07:14 | XMS REPORT ---
Author Author SHAHAB Barragan [facility] Address [address] [place] [address] Care Team Providers Care Loading Checker Name Role Phone SHAHAB Barragan Unavailable PROBLEMS ALLERGIES ENCOUNTERS IMMUNIZATIONS No Known Immunizations SOCIAL HISTORY No smoking Hx information available REASON FOR VISIT PLAN OF CARE VITAL SIGNS MEDICATIONS RESULTS No Results PROCEDURES INSTRUCTIONS MEDICATIONS ADMINISTERED No Known Medications MEDICAL (GENERAL) HISTORY
--- OUTSIDE RECORDS SUMMARY | 2018-02-22 07:14 | XMS REPORT ---
Author Author PATRICK POOL [facility] Address [address] [place] [address] Care Team Providers Care Investigation Lieutenant Name Role Phone PATRICK POOL Unavailable PROBLEMS Type Condition ICD9-CM Code JFI82-AC Code Onset Dates Condition Status SNOMED Code Problem Chronic pain due to trauma G89.21 Active 960829892 Problem History of CVA (cerebrovascular accident) Z86.73 Active 615754825 Problem Generalized anxiety disorder F41.1 Active 91171621 Problem Chronic bronchitis, unspecified chronic bronchitis type J42 Active 75794175 Problem Essential hypertension I10 Active 06806782 Problem Mixed hyperlipidemia E78.2 Active 432897646 Problem Reactive depression F32.9 Active 99623813 Problem Persistent atrial fibrillation I48.1 Active 598432984 Problem Lumbago with sciatica, right side M54.41 Active 264028816728886 Problem Urinary hesitancy R39.11 Active 6504520 Problem Arthritis M19.90 Active 6668011 Problem Lumbago with sciatica, left side M54.42 Active 646294334 Problem Other chronic pain G89.29 Active 35090039 ALLERGIES No Information ENCOUNTERS Encounter Location Date Diagnosis [place] [id number] [place] [address] 82898- 9499 Dec, Other viral warts B07.8 [facility] [address] [place] [id number] [place] [address] 43786- 3240 Dec, Chronic pain due to trauma G89.21 [facility] [address] 9[address]84- 6759 Dec, [place] [address] [place] [id number] [place] [address] 52593- 1685 Nov, Persistent atrial fibrillation I48.1 and Chronic pain due to trauma G89.21 [place] [address] [address] Nov, Chronic pain due to trauma G89.21 [facility] [id number] [place] [address] 55782- 1561 Nov, [facility] [address] [id number] [place] [address] 27745- 0687 Oct, Chronic pain due to trauma G89.21 [facility] [id number] [place] [address] 48467- 3892 Sep, [facility] [address] [id number] [place] [address] 43215- 4598 Sep, Chronic pain due to trauma G89.21 [facility] [id number] [place] [address] 70221- 7987 Sep, Chronic pain due to trauma G89.21 ; Essential hypertension I10 and Urinary hesitancy R39.11 [facility] [id number] [place] [address] 23486- 6681 Sep, [facility] [id number] [place] [address] 19870- 2214 August, Chronic pain due to trauma G89.21 [facility] [id number] [place] [address] 98186- 6441 August, Essential hypertension I10 [facility] [id number] [place] [address] 87197- 8012 August, Right upper quadrant abdominal pain R10.11 [facility] [id number] [place] [address] 80900- 0132 August, Medicare annual wellness visit, initial Z00.00 ; Chronic bronchitis, unspecified chronic bronchitis type J42 ; Reactive depression F32.9 ; Mixed hyperlipidemia E78.2 and Generalized anxiety disorder F41.1 [facility] [address], [place] [address] 6[address] August, Chronic pain due to trauma G89.21 [facility] [address], [place] [address] Jul, Left shoulder pain, unspecified chronicity M25.512 [facility] [id number] [place] [address] 89586- 4400 Jul, Chronic pain due to trauma G89.21 ; Essential hypertension I10 ; Urinary hesitancy R39.11 ; Chronic bronchitis, unspecified chronic bronchitis type J42 ; Lumbago with sciatica, left side M54.42 ; Lumbago with sciatica, right side M54.41 ; Other chronic pain G89.29 and BMI 40.0-44.9, adult Z68.41 [facility] [address] [id number] [place] [address] 42197- 6174 Jul, Chronic pain due to trauma G89.21 [facility] [address] [place] [address] [id number] [place] [address] 19526- 5596 Jul, Encounter for medication monitoring Z51.81 [facility] [id number] [place] [address] 40188- 9844 Jul, Encounter for medication monitoring Z51.81 [facility] [id number] [place] [address] 05872- 6784 Jun, [facility] [id number] [place] [address] 45563- 6793 Jun, Chronic pain due to trauma G89.21 [facility] [address] [id number] [place] [address] 61016- 4624 Jun, Chronic bronchitis, unspecified chronic bronchitis type J42 [facility] [address] [id number] [place] [address] 60536- 1476 Jun, [facility] [address] [id number] [place] [address] 25973- 3633 Jun, Chronic pain due to trauma G89.21 [facility] [address] [id number] [place] [address] 43683- 6504 Jun, Chronic bronchitis, unspecified chronic bronchitis type J42 [facility] [address] [id number] [place] [address] 29584- 4389 Jun, Chronic pain due to trauma G89.21 [facility] [address] [id number] [place] [address] 08190- 5228 Jun, Chronic bronchitis, unspecified chronic bronchitis type J42 [facility] [address] [address] [id number] [place] [address] 882526- 1780 May, Chronic pain due to trauma G89.21 and Arthritis M19.90 [facility] [address] 019697- 7920 May, Chronic pain due to trauma G89.21 [facility] [address] [address] [id number] [place] [address] 87756- 3743 May, [facility] [address] [address] [id number] [place] [address] 57458- 1136 Apr, Chronic pain due to trauma G89.21 [facility] [address] [id number] [place] [address] 06750- 4346 Mar, Essential hypertension I10 [facility] [address] [id number] [place] [address] 80883- 1289 Mar, Chronic pain due to trauma G89.21 [facility] [address] [id number] [place] [address] 12338- 1686 Mar, [facility] [id number] [place] [address] 24090- 0619 Mar, Chronic pain due to trauma G89.21 ; Essential hypertension I10 and Mixed hyperlipidemia E78.2 [facility] [address] [place] [address] [id number] [place] [address] 55375- 2733 Jan, Chronic pain due to trauma G89.21 [facility] [address] [place] [id number] [place] [address] 59024- 8815 Jan, [facility] [address], [place] [address]- 5030 27 Dec, 2016 Chronic pain due to trauma G89.21 [facility] [address] [place] [id number] [place] [address] 64097- 2836 22 Dec, 2016 Chronic pain due to trauma G89.21 [facility] [address] [place] [id number] [place] [address] 39476- 9356 Dec, Essential hypertension I10 [facility] [address] [place] [id number] [place] [address] 42324- 7915 Nov, Chronic pain due to trauma G89.21 [facility] [address] [place] [id number] [place] [address] 40102- 7206 Oct, Chronic pain due to trauma G89.21 [facility] [address] [place] [id number] [place] [address] 19852- 6310 Oct, Chronic pain due to trauma G89.21 [facility] [address] [place] [id number] [place] [address] 76503- 8792 Oct, Essential hypertension I10 [place] [address] [place] [id number] [place] [address] 57822- 0223 Sep, Chronic pain due to trauma G89.21 ; Reactive depression F32.9 and Essential hypertension I10 [place] [address] [place] [id number] [place] [address] 33173- 7270 Sep, Generalized anxiety disorder F41.1 [facility] [address] [place] [id number] [place] [address] 60924- 6900 August, Essential hypertension I10 ; Reactive depression F32.9 and Chronic pain due to trauma G89.21 [place] [address] [place] [id number] [place] [address] 08359- 2066 Jun, Flank pain R10.9 [facility] [address] [place] [id number] [place] [address] 02972- 5346 Jun, Essential hypertension I10 [place] [address] [place] [id number] [place] [address] 76351- 4613 May, Chronic bronchitis, unspecified chronic bronchitis type J42 [place] [address] [place] [id number] [place] [address] 82498- 4333 Apr, Essential hypertension I10 [place] [address] [place] [id number] [place] [address] 30063- 7751 Apr, [place] [address] 85304- 9577 Dec, Mixed hyperlipidemia E78.2 [place] [address] 19935- 5506 Dec, Hepatitis C, chronic B18.2 ; Essential hypertension I10 and Mixed hyperlipidemia E78.2 [place] [address] [place] [id number] [place] [address] 19594- 4339 August, [place] [address] 85923- 7983 August, [facility] [address] [place] [id number] [place] [address] 12770- 6105 August, Essential hypertension I10 ; Mixed hyperlipidemia E78.2 and Gastroesophageal reflux disease, esophagitis presence not specified K21.9 [place] [address] [place] [id number] [place] [address] 68558- 8539 Jun, [place] [address] [place] [id number] [place] [address] 71031- 0276 Jun, Hepatitis C, chronic B18.2 ; Dyspepsia R10.13 ; Reflux esophagitis K21.0 and Essential hypertension I10 [place] [address] [place] [id number] [place] [address] 53005- 3013 May, Reflux esophagitis K21.0 ; Hepatitis C, chronic B18.2 and Tachycardia, unspecified R00.0 [place] [address] [place] [id number] [place] [address] 64250- 0120 May, Generalized anxiety disorder F41.1 and Substance addiction F19.20 [facility] [address] [place] [id number] [place] [address] 87363- 2943 Apr, [facility] [address] [place] [id number] [place] [address] 17476- 4609 Apr, Hepatitis C, chronic B18.2 [facility] [address] 94973- 1223 Apr, Anxiety F41.9 [facility] [address] [place] [id number] [place] [address] 07391- 9262 Apr, Hepatitis C, chronic B18.2 and Encounter for immunization Z23 [facility] [address] [place] [id number] [place] [address] 12292- 7245 Apr, [facility] [address] [place] [id number] [place] [address] 71565- 0250 Apr, Dyspepsia R10.13 [facility] [address] [place] [id number] [place] [address] 99003- 0786 Apr, [facility] [address] 15549- 0487 Mar, Hepatitis C, chronic B18.2 [facility] [address] [place] [id number] [place] [address] 77233- 7465 Mar, Hepatitis C, chronic B18.2 [facility] [address] [place] [id number] [place] [address] 99115- 3802 Mar, [facility] [address] [place] [id number] [place] [address] 15944- 2354 Mar, [facility] [address] 69040- 3790 Mar, [facility] [address] [id number] [place] [address] 03786- 0671 Jan, Essential hypertension I10 ; Chronic bronchitis, unspecified chronic bronchitis type J42 ; Hepatitis C, chronic B18.2 and Dental caries of root surface K02.7 [facility] [address] [facility] [id number] [address]- 8221 17 Dec, 2014 Routine adult health maintenance V70.0 [facility] [address] [facility] [id number] [address]- 9410 17 Dec, 2014 [facility] [address] [facility] [id number] [address]- 5818 15 Dec, 2014 Hypertension 401.9 ; Anxiety 300.00 and Routine adult health maintenance V70.0 IMMUNIZATIONS No Known Immunizations SOCIAL HISTORY Never Assessed REASON FOR VISIT Requests return call PLAN OF CARE VITAL SIGNS MEDICATIONS No [...] History cholecystectomy Hospitalization History surgeries Hospitalization History [facility]- Acute Cholecystitis 09/10/2017
--- OUTSIDE RECORDS SUMMARY | 2018-02-22 07:15 | XMS REPORT ---
Author Author PATRICK POOL [facility] Address [address] [place] [address] Care Team Providers Care Supervisor Maintenance And Custodians Name Role Phone PATRICK POOL Unavailable PROBLEMS Type Condition ICD9-CM Code FVB11-LB Code Onset Dates Condition Status SNOMED Code Problem Chronic pain due to trauma G89.21 Active 698349716 Problem History of CVA (cerebrovascular accident) Z86.73 Active 478757995 Problem Generalized anxiety disorder F41.1 Active 16905802 Problem Chronic bronchitis, unspecified chronic bronchitis type J42 Active 25923334 Problem Essential hypertension I10 Active 63266304 Problem Mixed hyperlipidemia E78.2 Active 269151542 Problem Reactive depression F32.9 Active 27157225 Problem Persistent atrial fibrillation I48.1 Active 151419367 Problem Lumbago with sciatica, right side M54.41 Active 239440160561131 Problem Urinary hesitancy R39.11 Active 5859700 Problem Arthritis M19.90 Active 0833176 Problem Lumbago with sciatica, left side M54.42 Active 190090361 Problem Other chronic pain G89.29 Active 60086301 ALLERGIES No Information ENCOUNTERS Encounter Location Date Diagnosis [facility] [address], [place] [address] Jan, [facility] [id number] [place] [address] 89165- 0101 Nov, Persistent atrial fibrillation I48.1 and Chronic pain due to trauma G89.21 [facility] [id number] [place] [address] 46731- 4527 Nov, Chronic pain due to trauma G89.21 [facility] [id number] [place] [address] 28185- 0329 Nov, [facility] [id number], [place] [address] Oct, Chronic pain due to trauma G89.21 [facility] [id number] [place] [address] 60468- 6048 Sep, [facility] [id number] [place] [address] 53888- 7199 Sep, Chronic pain due to trauma G89.21 [facility] [id number] [place] [address] 14207- 5302 Sep, Chronic pain due to trauma G89.21 ; Essential hypertension I10 and Urinary hesitancy R39.11 [facility] [id number] [place] [address] 08426- 3377 Sep, [facility] [id number] [place] [address] 65942- 7063 August, Chronic pain due to trauma G89.21 [facility] [id number] [place] [address] 15474- 6805 August, Essential hypertension I10 [facility] [id number] [place] [address] 12118- 6709 August, Right upper quadrant abdominal pain R10.11 [facility] [id number] [place] [address] 69132- 5988 August, Medicare annual wellness visit, initial Z00.00 ; Chronic bronchitis, unspecified chronic bronchitis type J42 ; Reactive depression F32.9 ; Mixed hyperlipidemia E78.2 and Generalized anxiety disorder F41.1 [facility] [id number] [place] [address] 25567- 4286 August, Chronic pain due to trauma G89.21 [facility] [id number] [place] [address] 48938 -2301 Jul, Left shoulder pain, unspecified chronicity M25.512 [facility] [id number] [place] [address] 42451- 8329 Jul, Chronic pain due to trauma G89.21 ; Essential hypertension I10 ; Urinary hesitancy R39.11 ; Chronic bronchitis, unspecified chronic bronchitis type J42 ; Lumbago with sciatica, left side M54.42 ; Lumbago with sciatica, right side M54.41 ; Other chronic pain G89.29 and BMI 40.0-44.9, adult Z68.41 [facility] [id number] [place] [address] 13230- 3338 Jul, Chronic pain due to trauma G89.21 [facility] [id number] [place] [address] 18135- 7695 Jul, Encounter for medication monitoring Z51.81 [place] [address] 27507- 4859 Jul, Encounter for medication monitoring Z51.81 [facility] [id number] [place] [address] 22133- 9997 Jun, [place] [facility] [address] 82109- 7196 Jun, Chronic pain due to trauma G89.21 [place] [address] 79854- 0652 Jun, Chronic bronchitis, unspecified chronic bronchitis type J42 [facility] [id number] [place] [address] 55230- 8847 Jun, [facility] [id number] [place] [address] 05456- 0007 Jun, Chronic pain due to trauma G89.21 [facility] [id number] [place] [address] 66151- 4861 Jun, Chronic bronchitis, unspecified chronic bronchitis type J42 [facility] [id number] [place] [address] 44294- 2905 Jun, Chronic pain due to trauma G89.21 [facility] [id number] [place] [address] 67941- 8610 Jun, Chronic bronchitis, unspecified chronic bronchitis type J42 [facility] [id number] [place] [address] 26860- 8512 May, Chronic pain due to trauma G89.21 and Arthritis M19.90 [facility] [id number] [place] [address] 56086- 7216 May, Chronic pain due to trauma G89.21 [facility] [address] 22102- 0622 May, [facility] [address] 01295- 6605 Apr, Chronic pain due to trauma G89.21 [facility] [address] 38148- 5698 Mar, Essential hypertension I10 [facility] [address] 42035- 7638 Mar, Chronic pain due to trauma G89.21 [facility] [id number] [place] [address] 67512- 8034 Mar, [facility] [id number] [place] [address] Mar, Chronic pain due to trauma G89.21 ; Essential hypertension I10 and Mixed hyperlipidemia E78.2 [facility] [id number] [place] [address] 09250- 1700 Jan, Chronic pain due to trauma G89.21 [facility] [id number] [place] [address] 05398- 1584 Jan, [facility] [address] 80455- 7596 Dec, Chronic pain due to trauma G89.21 [facility] [id number] [place] [address] 93556- 9106 Dec, Chronic pain due to trauma G89.21 [facility] [address], [place] [address] Dec, Essential hypertension I10 [facility] [id number] [place] [address] 01917- 8636 Nov, Chronic pain due to trauma G89.21 [facility] [id number] [place] [address] 13429- 9966 Oct, Chronic pain due to trauma G89.21 [facility] [id number] [place] [address] 10560- 7046 Oct, Chronic pain due to trauma G89.21 [facility] [id number] [place] [address] 89539- 7356 Oct, Essential hypertension I10 [facility] [id number] [place] [address] 47468- 9551 Sep, Chronic pain due to trauma G89.21 ; Reactive depression F32.9 and Essential hypertension I10 [facility] [id number] [place] [address] 14391- 5702 Sep, Generalized anxiety disorder F41.1 [facility] [id number] [place] [address] 02136- 1435 August, Essential hypertension I10 ; Reactive depression F32.9 and Chronic pain due to trauma G89.21 [facility] [id number] [place] [address] 39888- 2528 Jun, Flank pain R10.9 [facility] [id number] [place] [address] 71647- 4853 Jun, Essential hypertension I10 [facility] [id number] [place] [address] 33972- 0724 May, Chronic bronchitis, unspecified chronic bronchitis type J42 [facility] [id number] [place] [address] 22202- 4475 Apr, Essential hypertension I10 [facility] [id number] [place] [address] 30971- 6078 Apr, [facility] [id number] [place] [address] 37950- 8338 30 Jan, 2016 Mixed hyperlipidemia E78.2 [facility] [id number] [place] [address] 52564- 8362 19 Jan, 2016 Hepatitis C, chronic B18.2 ; Essential hypertension I10 and Mixed hyperlipidemia E78.2 [facility] [id number] [place] [address] 95879- 1936 August, [facility] [address] 88908- 3339 August, [facility] [id number] [place] [address] 80491- 7160 August, Essential hypertension I10 ; Mixed hyperlipidemia E78.2 and Gastroesophageal reflux disease, esophagitis presence not specified K21.9 [facility] [id number] [place] [address] 84508- 9242 Jun, [facility] [id number] [place] [address] 88408- 4728 Jun, Hepatitis C, chronic B18.2 ; Dyspepsia R10.13 ; Reflux esophagitis K21.0 and Essential hypertension I10 [place] [id number] [place] [address] 09341- 3724 May, Reflux esophagitis K21.0 ; Hepatitis C, chronic B18.2 and Tachycardia, unspecified R00.0 [facility] [id number] [place] [address] 84960- 2667 May, Generalized anxiety disorder F41.1 and Substance addiction F19.20 [facility] [id number] [place] [address] 46305- 6669 Apr, [facility] [id number] [place] [address] 86328- 9361 Apr, Hepatitis C, chronic B18.2 [facility] [id number] [place] [address] 45647- 2103 Apr, Anxiety F41.9 [facility] [address] 75209- 0900 Apr, Hepatitis C, chronic B18.2 and Encounter for immunization Z23 [facility] [address] 37115- 2151 Apr, [facility] [address] 83557- 7008 Apr, Dyspepsia R10.13 [facility] [address] 23321- 5448 Apr, [facility] [address] 08421- 5383 Mar, Hepatitis C, chronic B18.2 [facility] [address] 84237- 3649 Mar, Hepatitis C, chronic B18.2 [facility] [address] 04486- 0517 Mar, [facility] [address] 97103- 0411 Mar, [facility] [address] 04680- 0001 Mar, [facility] [address] 35616- 5712 Jan, Essential hypertension I10 ; Chronic bronchitis, unspecified chronic bronchitis type J42 ; Hepatitis C, chronic B18.2 and Dental caries of root surface K02.7 [facility] [id number] [place] [address] 10560- 8247 Dec, Routine adult health maintenance V70.0 [facility] [address] 23588- 7816 Dec, [facility] [address] [facility] [id number] [place] [address]- 1423 Dec, Hypertension 401.9 ; Anxiety 300.00 and Routine adult health maintenance V70.0 IMMUNIZATIONS No Known Immunizations SOCIAL HISTORY Never Assessed REASON FOR VISIT Oxycodone due 11/24 PLAN OF CARE VITAL SIGNS MEDICATIONS Medication [...] History cholecystectomy Hospitalization History surgeries Hospitalization History [facility]- Acute Cholecystitis 09/10/2017
--- OUTSIDE RECORDS SUMMARY | 2018-02-22 07:15 | XMS REPORT ---
Author Author PATRICK POOL [facility] Address [address] [place] [address] Care Team Providers Care Carpenter Foreman Name Role Phone PATRICK POOL Unavailable PROBLEMS Type Condition ICD9-CM Code PTH79-GQ Code Onset Dates Condition Status SNOMED Code Problem Chronic pain due to trauma G89.21 Active 580382034 Problem History of CVA (cerebrovascular accident) Z86.73 Active 438136476 Problem Generalized anxiety disorder F41.1 Active 77508236 Problem Chronic bronchitis, unspecified chronic bronchitis type J42 Active 50944050 Problem Essential hypertension I10 Active 31317314 Problem Mixed hyperlipidemia E78.2 Active 655228553 Problem Reactive depression F32.9 Active 58058674 Problem Persistent atrial fibrillation I48.1 Active 049218046 Problem Lumbago with sciatica, right side M54.41 Active 432461554924692 Problem Urinary hesitancy R39.11 Active 3181012 Problem Arthritis M19.90 Active 1952062 Problem Lumbago with sciatica, left side M54.42 Active 156814132 Problem Other chronic pain G89.29 Active 97619585 ALLERGIES No Information ENCOUNTERS Encounter Location Date Diagnosis [facility] [id number], [place] [address] Jan, [facility] [id number] [place] [address] 32508- 6619 Dec, [facility] [id number] [place] [address] 55417- 0421 Dec, Chronic pain due to trauma G89.21 [facility] [id number] [place] [address] 11966- 2529 Dec, [facility] [id number] [place] [address] 31439- 5398 Nov, Persistent atrial fibrillation I48.1 and Chronic pain due to trauma G89.21 [facility] [id number], [place] [address] Nov, Chronic pain due to trauma G89.21 [facility] [id number] [place] [address] 59022- 1914 Nov, [facility] [id number] [place] [address] 12154- 5839 Oct, Chronic pain due to trauma G89.21 [facility] [id number] [place] [address] 54996- 6931 Sep, [facility] [id number] [place] [address] 09292- 7148 Sep, Chronic pain due to trauma G89.21 [facility] [id number] [place] [address] 98984- 5939 Sep, Chronic pain due to trauma G89.21 ; Essential hypertension I10 and Urinary hesitancy R39.11 [facility] [id number] [place] [address] 79007- 5631 Sep, [facility] [id number] [place] [address] 19843- 9705 August, Chronic pain due to trauma G89.21 [facility] [address] [place] [address] 44785- 0837 August, Essential hypertension I10 [facility] [address] [place] [address] 89915- 6190 August, Right upper quadrant abdominal pain R10.11 [facility] [id number] [place] [address] 02572- 5922 August, Medicare annual wellness visit, initial Z00.00 ; Chronic bronchitis, unspecified chronic bronchitis type J42 ; Reactive depression F32.9 ; Mixed hyperlipidemia E78.2 and Generalized anxiety disorder F41.1 [facility] [address] [place] [address]- 3287 August, Chronic pain due to trauma G89.21 [facility] [id number] [place] [address] 83938 -6432 Jul, Left shoulder pain, unspecified chronicity M25.512 [facility] [id number] [place] [address] 14975- 7272 Jul, Chronic pain due to trauma G89.21 ; Essential hypertension I10 ; Urinary hesitancy R39.11 ; Chronic bronchitis, unspecified chronic bronchitis type J42 ; Lumbago with sciatica, left side M54.42 ; Lumbago with sciatica, right side M54.41 ; Other chronic pain G89.29 and BMI 40.0-44.9, adult Z68.41 [facility] [id number] [place] [address] 89840- 1035 Jul, Chronic pain due to trauma G89.21 [facility] [address] 04056- 3666 Jul, Encounter for medication monitoring Z51.81 [address] 16387- 4348 Jul, Encounter for medication monitoring Z51.81 [facility] [id number] [place] [address] 22557- 2073 Jun, [facility] [id number] [place] [address] 95932- 0109 Jun, Chronic pain due to trauma G89.21 [facility] [id number] [place] [address] 51162- 6274 Jun, Chronic bronchitis, unspecified chronic bronchitis type J42 [facility] [id number] [place] [address] 45822- 2381 Jun, [facility] [id number] [place] [address] 97788- 4630 Jun, Chronic pain due to trauma G89.21 [facility] [address] [place] [address] 03333- 6857 Jun, Chronic bronchitis, unspecified chronic bronchitis type J42 [facility] [id number] [place] [address] 99717- 0026 Jun, Chronic pain due to trauma G89.21 [facility] [id number] [place] [address] 21174- 7914 Jun, Chronic bronchitis, unspecified chronic bronchitis type J42 [facility] [id number] [place] [address] 78227- 1290 May, Chronic pain due to trauma G89.21 and Arthritis M19.90 [facility] [id number] [place] [address] 67533- 8959 May, Chronic pain due to trauma G89.21 [facility] [id number] [place] [address] 01984- 5539 May, [facility] [id number] [place] [address] 27637- 8011 Apr, Chronic pain due to trauma G89.21 [facility] [id number] [place] [address] 10699- 4117 Mar, Essential hypertension I10 [facility] [id number] [place] [address] 85954- 0621 Mar, Chronic pain due to trauma G89.21 [facility] [id number] [place] [address] 65598- 4048 Mar, [facility] [id number] [place] [address] 20966- 0924 Mar, Chronic pain due to trauma G89.21 ; Essential hypertension I10 and Mixed hyperlipidemia E78.2 [facility] [address] [place] [address] 73715- 6362 Jan, Chronic pain due to trauma G89.21 [facility] [id number] [place] [address] 23544- 2233 05 Jan, 2017 [facility] [id number] [place] [address] 76815- 9012 27 Dec, 2016 Chronic pain due to trauma G89.21 [facility] [id number] [place] [address] 86108- 8217 22 Dec, 2016 Chronic pain due to trauma G89.21 [facility] [id number] [place] [address] 50898- 5234 Dec, Essential hypertension I10 [facility] [id number] [place] [address] 75314- 6466 Nov, Chronic pain due to trauma G89.21 [facility] [id number] [place] [address] 11787- 2627 Oct, Chronic pain due to trauma G89.21 [facility] [id number] [place] [address] 60737- 9744 Oct, Chronic pain due to trauma G89.21 [facility] [id number] [place] [address] 70188- 1544 Oct, Essential hypertension I10 [facility] [id number] [place] [address] 40379- 7503 Sep, Chronic pain due to trauma G89.21 ; Reactive depression F32.9 and Essential hypertension I10 [facility] [id number] [place] [address] 12127- 1824 13 Sep, 2016 Generalized anxiety disorder F41.1 [facility] [id number] [place] [address] 03833- 1554 August, Essential hypertension I10 ; Reactive depression F32.9 and Chronic pain due to trauma G89.21 [facility] [id number] [place] [address] 59785- 3565 10 Jun, 2016 Flank pain R10.9 [facility] [id number] [place] [address] 86283- 6280 09 Jun, 2016 Essential hypertension I10 [facility] [id number] [place] [address] 77844- 4276 May, Chronic bronchitis, unspecified chronic bronchitis type J42 [facility] [id number] [place] [address] 72865- 3252 27 Apr, 2016 Essential hypertension I10 [facility] [id number] [place] [address] 29057- 7272 Apr, [facility] [id number] [place] [address] 15515- 5022 30 Jan, 2016 Mixed hyperlipidemia E78.2 [address] [id number] [place] [address] 28918- 0021 Dec, Hepatitis C, chronic B18.2 ; Essential hypertension I10 and Mixed hyperlipidemia E78.2 [address] [id number] [place] [address] 78612- 4088 August, [facility] [id number] [place] [address] 62201- 0769 August, [facility] [id number] [place] [address] 67697- 5420 August, Essential hypertension I10 ; Mixed hyperlipidemia E78.2 and Gastroesophageal reflux disease, esophagitis presence not specified K21.9 [address] [facility] [id number] [place] [address] 89799- 6666 Jun, [facility] [id number] [place] [address] 53061- 6256 Jun, Hepatitis C, chronic B18.2 ; Dyspepsia R10.13 ; Reflux esophagitis K21.0 and Essential hypertension I10 [facility] [id number] [place] [address] 80726- 6386 May, Reflux esophagitis K21.0 ; Hepatitis C, chronic B18.2 and Tachycardia, unspecified R00.0 [address] [id number] [place] [address] 79745- 9326 May, Generalized anxiety disorder F41.1 and Substance addiction F19.20 [facility] [address] 62977- 8947 Apr, [facility] [address] 68865- 5571 Apr, Hepatitis C, chronic B18.2 [facility] [address] 26861- 4692 Apr, Anxiety F41.9 [facility] [address] 17844- 7698 Apr, Hepatitis C, chronic B18.2 and Encounter for immunization Z23 [facility] [address] 54286- 0506 Apr, [facility] [address] 71943- 8893 Apr, Dyspepsia R10.13 [facility] [address] 70931- 7369 Apr, [facility] [address] 70244- 2937 Mar, Hepatitis C, chronic B18.2 [facility] [address] 43555- 6157 Mar, Hepatitis C, chronic B18.2 [facility] [id number] [place] [address] 31193- 8473 Mar, [facility] [address] 34801- 6607 Mar, [facility] [id number] [place] [address] 54497- 6968 09 Mar, 2015 [facility] [address] 05719- 3139 Jan, Essential hypertension I10 ; Chronic bronchitis, unspecified chronic bronchitis type J42 ; Hepatitis C, chronic B18.2 and Dental caries of root surface K02.7 [facility] [id number], [place] [address]- 6034 Dec, Routine adult health maintenance V70.0 [facility] [id number], [place] [address]- 3064 Dec, [facility] [address] [facility] [id number] [address]- 1588 Dec, Hypertension 401.9 ; Anxiety 300.00 and Routine adult health maintenance V70.0 IMMUNIZATIONS No Known Immunizations SOCIAL HISTORY Never Assessed REASON FOR VISIT Controlled Med Refill 12/22 PLAN OF CARE VITAL SIGNS MEDICATIONS Medication [...] History cholecystectomy Hospitalization History surgeries Hospitalization History [facility], [place]- Acute Cholecystitis 09/10/2017
--- OUTSIDE RECORDS SUMMARY | 2018-02-22 07:15 | XMS REPORT ---
Author Author PATRICK POOL Organization [facility] Address [address] [place] [address] Care Team Providers Care Termite Helper Name Role Phone PATRICK POOL Unavailable PROBLEMS Type Condition ICD9-CM Code AET60-JM Code Onset Dates Condition Status SNOMED Code Problem Chronic pain due to trauma G89.21 Active 572920211 Problem History of CVA (cerebrovascular accident) Z86.73 Active 465382709 Problem Generalized anxiety disorder F41.1 Active 70790607 Problem Chronic bronchitis, unspecified chronic bronchitis type J42 Active 11411790 Problem Essential hypertension I10 Active 91926158 Problem Mixed hyperlipidemia E78.2 Active 855044140 Problem Reactive depression F32.9 Active 50907612 Problem Persistent atrial fibrillation I48.1 Active 196748185 Problem Lumbago with sciatica, right side M54.41 Active 596702252601122 Problem Urinary hesitancy R39.11 Active 9664352 Problem Arthritis M19.90 Active 1578912 Problem Lumbago with sciatica, left side M54.42 Active 299883247 Problem Other chronic pain G89.29 Active 18566242 ALLERGIES No Information ENCOUNTERS Encounter Location Date Diagnosis [facility] [id number], [place] [address] Jan, [facility] [id number] [address] Dec, [facility] [id number] [place] [address] 83261- 5757 Dec, [facility] [id number] [place] [address] 96630- 6048 Nov, Persistent atrial fibrillation I48.1 and Chronic pain due to trauma G89.21 [facility] [id number] [place] [address] 41639- 6941 Nov, Chronic pain due to trauma G89.21 [facility] [id number] [place] [address] 60227- 6308 Nov, [facility] [id number] [place] [address] 28976- 9519 Oct, Chronic pain due to trauma G89.21 [facility] [id number] [place] [address] 81634- 2337 Sep, [facility] [id number] [place] [address] 00018- 3895 Sep, Chronic pain due to trauma G89.21 [facility] [id number] [place] [address] 37222- 8813 Sep, Chronic pain due to trauma G89.21 ; Essential hypertension I10 and Urinary hesitancy R39.11 [facility] [id number] [place] [address] 75051- 2627 Sep, [facility] [id number] [place] [address] 96479- 1216 August, Chronic pain due to trauma G89.21 [facility] [id number] [place] [address] 52679- 9564 August, Essential hypertension I10 [facility] [id number] [place] [address] 57468- 7301 August, Right upper quadrant abdominal pain R10.11 [facility] [id number] [place] [address] 16860- 6842 August, Medicare annual wellness visit, initial Z00.00 ; Chronic bronchitis, unspecified chronic bronchitis type J42 ; Reactive depression F32.9 ; Mixed hyperlipidemia E78.2 and Generalized anxiety disorder F41.1 [facility] [id number] [place] [address] 09995- 1334 August, Chronic pain due to trauma G89.21 [facility] [id number] [place] [address] 97656 -3234 Jul, Left shoulder pain, unspecified chronicity M25.512 [facility] [id number] [place] [address] 60183- 0006 Jul, Chronic pain due to trauma G89.21 ; Essential hypertension I10 ; Urinary hesitancy R39.11 ; Chronic bronchitis, unspecified chronic bronchitis type J42 ; Lumbago with sciatica, left side M54.42 ; Lumbago with sciatica, right side M54.41 ; Other chronic pain G89.29 and BMI 40.0-44.9, adult Z68.41 [facility] [id number] [place] [address] 90683- 1451 Jul, Chronic pain due to trauma G89.21 [facility] [address] 27293- 9394 Jul, Encounter for medication monitoring Z51.81 [facility] [address] 51951- 9290 Jul, Encounter for medication monitoring Z51.81 [facility] [id number] [place] [address] 89225- 9081 Jun, [facility] [id number] [place] [address] 72508- 1406 Jun, Chronic pain due to trauma G89.21 [facility] [id number] [place] [address] 24727- 4119 Jun, Chronic bronchitis, unspecified chronic bronchitis type J42 [facility] [id number] [place] [address] 59924- 2685 Jun, [facility] [id number] [place] [address] 67666- 8544 Jun, Chronic pain due to trauma G89.21 [facility] [id number] [place] [address] 64980- 9528 Jun, Chronic bronchitis, unspecified chronic bronchitis type J42 [facility] [id number] [place] [address] 30764- 8008 Jun, Chronic pain due to trauma G89.21 [facility] [id number] [place] [phone] Jun, Chronic bronchitis, unspecified chronic bronchitis type J42 [facility] [id number] [place] [address] 09723- 6142 May, Chronic pain due to trauma G89.21 and Arthritis M19.90 [facility] [address] 31082- 6332 May, Chronic pain due to trauma G89.21 [facility] [id number] [place] [address] 98393- 9154 May, [facility] [address] 75660- 9441 Apr, Chronic pain due to trauma G89.21 [facility] [id number] [place] [address] 90017- 9994 Mar, Essential hypertension I10 [facility] [id number] [place] [address] 73548- 5052 Mar, Chronic pain due to trauma G89.21 [facility] [id number] [place] [address] 76314- 7597 Mar, [facility] [address] 80191- 6446 Mar, Chronic pain due to trauma G89.21 ; Essential hypertension I10 and Mixed hyperlipidemia E78.2 [facility] [id number] [place] [address] 60457- 3935 Jan, Chronic pain due to trauma G89.21 [facility] [id number] [place] [address] 55466- 1050 Jan, [facility] [address] [phone]- [phone] 27 Dec, 2016 Chronic pain due to trauma G89.21 [facility] [id number] [place] [address] 61778- 0740 22 Dec, 2016 Chronic pain due to trauma G89.21 [facility] [id number] [place] [address] 76559- 1434 11 Dec, 2016 Essential hypertension I10 [facility] [id number] [place] [address] 44508- 0327 Nov, Chronic pain due to trauma G89.21 [facility] [id number] [place] [address] 94598- 0576 Oct, Chronic pain due to trauma G89.21 [facility] [id number] [place] [address] 86361- 2055 Oct, Chronic pain due to trauma G89.21 [facility] [id number] [place] [address] 06701- 1432 Oct, Essential hypertension I10 [facility] [id number] [place] [address] 69189- 0153 Sep, Chronic pain due to trauma G89.21 ; Reactive depression F32.9 and Essential hypertension I10 [facility] [id number] [place] [address] 53015- 1952 Sep, Generalized anxiety disorder F41.1 [facility] [id number] [place] [address] 17080- 8547 August, Essential hypertension I10 ; Reactive depression F32.9 and Chronic pain due to trauma G89.21 [facility] [id number] [place] [address] 48704- 1588 Jun, Flank pain R10.9 [facility] [address] [place] [address] 94941- 8224 09 Jun, 2016 Essential hypertension I10 [facility] [id number] [place] [address] 44698- 3562 May, Chronic bronchitis, unspecified chronic bronchitis type J42 [facility] [id number] [place] [address] 80517- 7358 Apr, Essential hypertension I10 [facility] [id number] [place] [address] 45401- 9738 Apr, [facility] [address] 01454- 4349 30 Jan, 2016 Mixed hyperlipidemia E78.2 [facility] [address] 76397- 0342 Dec, Hepatitis C, chronic B18.2 ; Essential hypertension I10 and Mixed hyperlipidemia E78.2 [place] [facility] [address] 34976- 1724 August, [facility] [address] 30152- 8218 August, [facility] [address] 75349- 4404 August, Essential hypertension I10 ; Mixed hyperlipidemia E78.2 and Gastroesophageal reflux disease, esophagitis presence not specified K21.9 [facility] [id number] [place] [address] 40389- 6831 Jun, [facility] [id number] [place] [address] 71946- 5736 Jun, Hepatitis C, chronic B18.2 ; Dyspepsia R10.13 ; Reflux esophagitis K21.0 and Essential hypertension I10 [facility] [id number] [place] [address] 47480- 1481 May, Reflux esophagitis K21.0 ; Hepatitis C, chronic B18.2 and Tachycardia, unspecified R00.0 [facility] [id number] [place] [address] 76299- 8546 May, Generalized anxiety disorder F41.1 and Substance addiction F19.20 [facility] [id number] [place] [address] 84071- 9736 Apr, [facility] [id number] [place] [address] 05939- 1855 Apr, Hepatitis C, chronic B18.2 [facility] [id number] [place] [address] 42784- 7889 Apr, Anxiety F41.9 [facility] [address] 65715- 6116 Apr, Hepatitis C, chronic B18.2 and Encounter for immunization Z23 [facility] [address] 77142- 4716 Apr, [facility] [id number] [place] [address] 33965- 6293 Apr, Dyspepsia R10.13 [facility] [id number] [place] [address] 17246- 0261 Apr, [facility] [id number] [place] [address] 21075- 7466 Mar, Hepatitis C, chronic B18.2 [facility] [id number] [place] [address] 11756- 0546 Mar, Hepatitis C, chronic B18.2 [facility] [id number] [place] [address] 27740- 4408 Mar, [facility] [id number] [place] [address] 03346- 3793 Mar, [facility] [id number] [place] [address] 74771- 6088 Mar, [facility] [id number] [place] [address] 40525- 5301 Jan, Essential hypertension I10 ; Chronic bronchitis, unspecified chronic bronchitis type J42 ; Hepatitis C, chronic B18.2 and Dental caries of root surface K02.7 [facility] [address] [facility] [id number] [place] [address]- 0135 17 Dec, 2014 Routine adult health maintenance V70.0 [facility] [address] [facility] [id number] [place] [address]- 6218 17 Dec, 2014 [facility] [address] [facility] [id number] [address] 7838 15 Dec, 2014 Hypertension 401.9 ; Anxiety 300.00 and Routine adult health maintenance V70.0 IMMUNIZATIONS No Known Immunizations SOCIAL HISTORY Never Assessed REASON FOR VISIT Linnette CAVAZOS PLAN OF CARE VITAL SIGNS MEDICATIONS Unknown [...] History cholecystectomy Hospitalization History surgeries Hospitalization History [facility]- Acute Cholecystitis 09/10/2017
--- OUTSIDE RECORDS SUMMARY | 2018-02-22 07:16 | XMS REPORT ---
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 Name Role Phone PATRICK POOL Unavailable PROBLEMS Type Condition ICD9-CM Code VOQ01-KZ Code Onset Dates Condition Status SNOMED Code Problem Chronic pain due to trauma G89.21 Active 197001483 Problem History of CVA (cerebrovascular accident) Z86.73 Active 654646280 Problem Generalized anxiety disorder F41.1 Active 56991486 Problem Chronic bronchitis, unspecified chronic bronchitis type J42 Active 81395677 Problem Essential hypertension I10 Active 89522980 Problem Mixed hyperlipidemia E78.2 Active 773785180 Problem Reactive depression F32.9 Active 30513583 Problem Persistent atrial fibrillation I48.1 Active 717350678 Problem Lumbago with sciatica, right side M54.41 Active 877789568143508 Problem Urinary hesitancy R39.11 Active 6759327 Problem Arthritis M19.90 Active 4447209 Problem Lumbago with sciatica, left side M54.42 Active 678682315 Problem Other chronic pain G89.29 Active 44842634 ALLERGIES Substance Reaction Event Type Date Status Mirtazapine urinary problems Drug Allergy Sep, Active ENCOUNTERS Encounter Location Date Diagnosis [facility] [id number] [place] [address] 32005- 6977 Nov, Persistent atrial fibrillation I48.1 and Chronic pain due to trauma G89.21 [facility] [id number] [place] [address] 62269- 5341 Nov, Chronic pain due to trauma G89.21 [facility] [id number] [place] [address] 06678- 5360 Nov, [facility] [id number] [place] [address] 60163- 0611 Oct, Chronic pain due to trauma G89.21 [facility] [address] [address] Sep, [facility] [id number] [place] [address] 62100- 8800 Sep, Chronic pain due to trauma G89.21 [facility] [id number] [place] [address] 82285- 6966 Sep, Chronic pain due to trauma G89.21 ; Essential hypertension I10 and Urinary hesitancy R39.11 [facility] [id number] [place] [address] 00369- 0499 Sep, [facility] [id number] [place] [address] 63227- 4764 August, Chronic pain due to trauma G89.21 [facility] [id number] [place] [address] 15965- 0078 August, Essential hypertension I10 [facility] [id number] [place] [address] 51965- 4767 August, Right upper quadrant abdominal pain R10.11 [place] [id number] [place] [address] 02255- 1451 August, Medicare annual wellness visit, initial Z00.00 ; Chronic bronchitis, unspecified chronic bronchitis type J42 ; Reactive depression F32.9 ; Mixed hyperlipidemia E78.2 and Generalized anxiety disorder F41.1 [facility] [address] [address] August, Chronic pain due to trauma G89.21 [facility] [id number] [place] [address] 81136 -0024 Jul, Left shoulder pain, unspecified chronicity M25.512 [facility] [address] [address] 5851 Jul, Chronic pain due to trauma G89.21 ; Essential hypertension I10 ; Urinary hesitancy R39.11 ; Chronic bronchitis, unspecified chronic bronchitis type J42 ; Lumbago with sciatica, left side M54.42 ; Lumbago with sciatica, right side M54.41 ; Other chronic pain G89.29 and BMI 40.0-44.9, adult Z68.41 [facility] [id number] [place] [address] 47393- 3673 Jul, Chronic pain due to trauma G89.21 [facility] [address] 31243- 7827 Jul, Encounter for medication monitoring Z51.81 [place] [address] 20281- 5005 Jul, Encounter for medication monitoring Z51.81 [place] [address] 45750- 5761 Jun, [place] [address] 45678- 8763 Jun, Chronic pain due to trauma G89.21 [facility] [id number] [place] [address] 40150- 1663 Jun, Chronic bronchitis, unspecified chronic bronchitis type J42 [facility] [id number] [place] [address] 78577- 5930 Jun, [place] [id number] [place] [address] 88715- 9834 Jun, Chronic pain due to trauma G89.21 [facility] [id number] [place] [address] 80573- 5844 Jun, Chronic bronchitis, unspecified chronic bronchitis type J42 [facility] [address] 98079- 0442 Jun, Chronic pain due to trauma G89.21 [facility] [id number] [place] [address] 13334- 2997 Jun, Chronic bronchitis, unspecified chronic bronchitis type J42 [facility] [id number] [place] [address] 75212- 9671 May, Chronic pain due to trauma G89.21 and Arthritis M19.90 [facility] [id number] [place] [address] 24565- 4167 May, Chronic pain due to trauma G89.21 [facility] [address] 63211- 1751 May, [facility] [address] 38634- 1287 Apr, Chronic pain due to trauma G89.21 [facility] [address] 87064- 4026 Mar, Essential hypertension I10 [facility] [address] 88952- 6470 Mar, Chronic pain due to trauma G89.21 [facility] [address] 24921- 7234 Mar, [facility] [address] 08519- 0926 Mar, Chronic pain due to trauma G89.21 ; Essential hypertension I10 and Mixed hyperlipidemia E78.2 [facility] [id number] [place] [address] 96547- 1958 Jan, Chronic pain due to trauma G89.21 [facility] [id number] [place] [address] 80497- 4837 Jan, [facility] [address] [address]28- 2007 Dec, Chronic pain due to trauma G89.21 [facility] [id number] [place] [address] 52515- 7110 Dec, Chronic pain due to trauma G89.21 [facility] [address] [place] [address]- 4450 Dec, Essential hypertension I10 [facility] [id number] [place] [address] 19816- 4350 Nov, Chronic pain due to trauma G89.21 [facility] [id number] [place] [address] 95292- 9869 Oct, Chronic pain due to trauma G89.21 [facility] [address] 92979- 8939 Oct, Chronic pain due to trauma G89.21 [facility] [id number] [place] [address] 64925- 4945 Oct, Essential hypertension I10 [place] [id number] [place] [address] 29894- 8746 Sep, Chronic pain due to trauma G89.21 ; Reactive depression F32.9 and Essential hypertension I10 [facility] [id number] [place] [address] 35325- 5925 Sep, Generalized anxiety disorder F41.1 [place] [id number] [place] [address] 98370- 9021 August, Essential hypertension I10 ; Reactive depression F32.9 and Chronic pain due to trauma G89.21 [facility] [id number] [place] [address] 62314- 0121 Jun, Flank pain R10.9 [facility] [id number] [place] [address] 25449- 9266 09 Jun, 2016 Essential hypertension I10 [facility] [id number] [place] [address] 59900- 5976 May, Chronic bronchitis, unspecified chronic bronchitis type J42 [facility] [id number] [place] [address] 04150- 5764 Apr, Essential hypertension I10 [facility] [address] 66571- 6200 Apr, [facility] [id number] [place] [address] 69931- 4142 30 Jan, 2016 Mixed hyperlipidemia E78.2 [facility] [id number] [place] [address] 44765- 3037 Dec, Hepatitis C, chronic B18.2 ; Essential hypertension I10 and Mixed hyperlipidemia E78.2 [facility] [address] 73053- 5082 August, [facility] [id number] [place] [address] 09147- 0520 August, [facility] [id number] [place] [address] 67633- 4731 August, Essential hypertension I10 ; Mixed hyperlipidemia E78.2 and Gastroesophageal reflux disease, esophagitis presence not specified K21.9 [facility] [id number] [place] [address] 30950- 4555 Jun, [facility] [id number] [place] [address] 92674- 2093 Jun, Hepatitis C, chronic B18.2 ; Dyspepsia R10.13 ; Reflux esophagitis K21.0 and Essential hypertension I10 [place] [id number] [place] [address] 29123- 7405 May, Reflux esophagitis K21.0 ; Hepatitis C, chronic B18.2 and Tachycardia, unspecified R00.0 [facility] [id number] [place] [address] 25590- 2732 May, Generalized anxiety disorder F41.1 and Substance addiction F19.20 [facility] [id number] [place] [address] 50320- 2282 Apr, [facility] [id number] [place] [address] 92972- 9275 Apr, Hepatitis C, chronic B18.2 [facility] [id number] [place] [address] 07550- 4210 Apr, Anxiety F41.9 [facility] [address] 57415- 5638 Apr, Hepatitis C, chronic B18.2 and Encounter for immunization Z23 [facility] [id number] [place] [address] 05033- 5647 Apr, [facility] [address] 16629- 3568 Apr, Dyspepsia R10.13 [facility] [address] 32039- 0054 Apr, [facility] [id number] [place] [address] 45138- 4226 Mar, Hepatitis C, chronic B18.2 [facility] [address] 41823- 0435 Mar, Hepatitis C, chronic B18.2 [facility] [id number] [place] [address] 41076- 7207 Mar, [facility] [id number] [place] [address] 75006- 8002 Mar, [facility] [id number] [place] [address] 74010- 0716 Mar, [facility] [id number] [place] [address] 47053- 2980 Jan, Essential hypertension I10 ; Chronic bronchitis, unspecified chronic bronchitis type J42 ; Hepatitis C, chronic B18.2 and Dental caries of root surface K02.7 [facility] [id number] [place] [address] 18232- 7951 Dec, Routine adult health maintenance V70.0 [facility] [id number] [place] [address] 46407- 7125 Dec, [facility] [id number] [place] [address]- [address]46 15 Dec, 2014 Hypertension 401.9 ; Anxiety 300.00 and Routine adult health maintenance V70.0 IMMUNIZATIONS No Known Immunizations SOCIAL HISTORY Never Assessed REASON FOR VISIT Pain management (chronic)-HARRISON coleman, updated contract PLAN OF CARE Activity Details Follow Up 3 Months Reason: VITAL SIGNS Height 69 in 2017-10-24 Weight 254.3 lbs 2017-10-24 Temperature 98.6 degrees Fahrenheit 2017-10-24 Heart Rate 80 bpm 2017-10-24 Respiratory Rate 20 2017-10-24 BMI 37.55 kg/m2 2017-10-24 Blood pressure systolic 178 mmHg 2017-10-24 Blood pressure diastolic 110 mmHg 2017-10-24 MEDICATIONS Medication Instructions Dosage Frequency Start Date End Date Duration Status Oxycodone-Acetaminophen 10-325 MG Orally every 6 hrs 1 tablet as needed 6h August, 28 days Active Lisinopril 20 mg Orally bid 2 AM, 1 PM 12h Sep, Active Cartia XT 120 MG Orally Once a day 1 capsule 24h Active Pravastatin Sodium 20 MG TAKE ONE TABLET BY MOUTH ONCE DAILY 90 Active Prinivil 20 mg Orally 2 AM, 1 PM 1 tablet Sep, Active Cyclobenzaprine HCl 10 MG TAKE ONE TABLET BY MOUTH THREE TIMES DAILY NEEDED 28 Active Ventolin HFA 108MCG/A INHALE 2 PUFFS BY MOUTH EVERY 4 HOURS NEEDED Active Voltaren 1 % Transdermal 4 times a day apply pea sized 6h Active Meloxicam 15 MG TAKE ONE TABLET BY MOUTH ONCE DAILY 30 Not- Taking Omeprazole 20 mg Orally Once a day 1 capsule 24h August, Active Atenolol-Chlorthalidone 100-25 MG TAKE ONE TABLET BY MOUTH ONCE DAILY 30 Active Eliquis 5 MG Active Lisinopril 40 mg Orally Once a day 1 tablet with the 20 mg tablet 24h Active HydrOXYzine HCl 25 MG Orally every 8 hrs 1 tablet as needed for anxiety 8h 30 Active RESULTS No Results PROCEDURES Procedure Date Ordered Result Body Site [facility] VIS[facility] ESTABLISHED PATIENT October 24, 2017 INSTRUCTIONS MEDICATIONS ADMINISTERED No Known Medications MEDICAL [...] History cholecystectomy Hospitalization History surgeries Hospitalization History [facility]- Acute Cholecystitis 09/10/2017
--- OUTSIDE RECORDS SUMMARY | 2018-02-22 07:16 | XMS REPORT ---
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 Name Role Phone PATRICK POOL Unavailable PROBLEMS Type Condition ICD9-CM Code MIE88-XY Code Onset Dates Condition Status SNOMED Code Problem Chronic pain due to trauma G89.21 Active 327097865 Problem History of CVA (cerebrovascular accident) Z86.73 Active 384002555 Problem Generalized anxiety disorder F41.1 Active 23149967 Problem Chronic bronchitis, unspecified chronic bronchitis type J42 Active 98491727 Problem Essential hypertension I10 Active 05072216 Problem Mixed hyperlipidemia E78.2 Active 074880528 Problem Reactive depression F32.9 Active 13351474 Problem Persistent atrial fibrillation I48.1 Active 349417471 Problem Lumbago with sciatica, right side M54.41 Active 785665563042547 Problem Urinary hesitancy R39.11 Active 6520634 Problem Arthritis M19.90 Active 9931780 Problem Lumbago with sciatica, left side M54.42 Active 059113924 Problem Other chronic pain G89.29 Active 18608456 ALLERGIES No Information ENCOUNTERS Encounter Location Date Diagnosis [place] [id number] [place] [address] 72113- 3389 Nov, Persistent atrial fibrillation I48.1 and Chronic pain due to trauma G89.21 [facility] [address] [place] [address] 15917- 8753 Nov, Chronic pain due to trauma G89.21 [place] [address] [place] [id number] [place] [address] 66087- 1676 Nov, [place] [address] [place] [address] 26500- 0623 Oct, Chronic pain due to trauma G89.21 [place] [address] [address] Sep, [place] [address] [place] [id number] [place] [address] 03892- 5393 Sep, Chronic pain due to trauma G89.21 [facility] [address] [place] [id number] [place] [address] 35759- 8284 Sep, Chronic pain due to trauma G89.21 ; Essential hypertension I10 and Urinary hesitancy R39.11 [facility] [address] [place] [id number] [place] [address] 88863- 4139 Sep, [place] [address] [place] [id number] [place] [address] 90580- 5145 August, Chronic pain due to trauma G89.21 [place] [address] [place] [id number] [place] [address] 89545- 7647 August, Essential hypertension I10 [place] [address] [place] [id number] [place] [address] 00084- 1318 August, Right upper quadrant abdominal pain R10.11 [place] [address] [place] [id number] [place] [address] 14130- 4279 August, Medicare annual wellness visit, initial Z00.00 ; Chronic bronchitis, unspecified chronic bronchitis type J42 ; Reactive depression F32.9 ; Mixed hyperlipidemia E78.2 and Generalized anxiety disorder F41.1 [facility] [address] [place] [id number] [address] August, Chronic pain due to trauma G89.21 [facility] [address], [place] [address] Jul, Left shoulder pain, unspecified chronicity M25.512 [facility] [address] [address] Jul, Chronic pain due to trauma G89.21 ; Essential hypertension I10 ; Urinary hesitancy R39.11 ; Chronic bronchitis, unspecified chronic bronchitis type J42 ; Lumbago with sciatica, left side M54.42 ; Lumbago with sciatica, right side M54.41 ; Other chronic pain G89.29 and BMI 40.0-44.9, adult Z68.41 [facility] [address] [place] [id number] [place] [address] 86021- 7371 Jul, Chronic pain due to trauma G89.21 [facility] [address] 12483- 9343 Jul, Encounter for medication monitoring Z51.81 [facility] [address] [place] [id number] [place] [address] 34600- 1901 Jul, Encounter for medication monitoring Z51.81 [facility] [address] [place] [id number] [place] [address] 57509- 0638 Jun, [facility] [address] [place] [id number] [place] [address] 88611- 4007 Jun, Chronic pain due to trauma G89.21 [facility] [address] [place] [id number] [place] [address] 07193- 3671 Jun, Chronic bronchitis, unspecified chronic bronchitis type J42 [facility] [address] [place] [id number] [place] [address] 44877- 1510 Jun, [facility] [address] [place] [id number] [place] [address] 16875- 3113 Jun, Chronic pain due to trauma G89.21 [facility] [address] [place] [id number] [place] [address] 98590- 8668 Jun, Chronic bronchitis, unspecified chronic bronchitis type J42 [facility] [address] [place] [id number] [place] [address] 54087- 7855 Jun, Chronic pain due to trauma G89.21 [facility] [address] [place] [id number] [place] [address] 96690- 4707 Jun, Chronic bronchitis, unspecified chronic bronchitis type J42 [facility] [address] [place] [id number] [place] [address] 60531- 9062 May, Chronic pain due to trauma G89.21 and Arthritis M19.90 [facility] [address] [place] [id number] [place] [address] May, Chronic pain due to trauma G89.21 [facility] [address] [place] [id number] [place] [address] 04798- 0058 May, [facility] [address] 521414- 8018 Apr, Chronic pain due to trauma G89.21 [facility] [address] 005443- 5267 Mar, Essential hypertension I10 [facility] [address] [place] [id number] [place] [address] 98043- 8410 Mar, Chronic pain due to trauma G89.21 [facility] [address] 54453- 7763 Mar, [facility] [address] [place] 878953- 7889 Mar, Chronic pain due to trauma G89.21 ; Essential hypertension I10 and Mixed hyperlipidemia E78.2 [facility] [address] [place] [id number] [place] [address] 25994- 5512 Jan, Chronic pain due to trauma G89.21 [facility] [address] [place] [id number] [place] [address] 45635- 0897 Jan, [facility] [address] [place] [id number] [place] [address] 10593- 2152 27 Dec, 2016 Chronic pain due to trauma G89.21 [facility] [address] [place] [id number] [place] [address] 69167- 6737 22 Dec, 2016 Chronic pain due to trauma G89.21 [facility] [address] [place] [id number] [place] [address] 13283- 6412 Dec, Essential hypertension I10 [facility] [address], [place] [address] 7251 Nov, Chronic pain due to trauma G89.21 [facility] [address] [place] [id number] [place] [address] 145803- 6416 Oct, Chronic pain due to trauma G89.21 [facility] [address] [place] [id number] [place] [address] 98498- 0776 Oct, Chronic pain due to trauma G89.21 [facility] [address] [place] [id number] [place] [address] 56006- 8907 Oct, Essential hypertension I10 [facility] [address] [place] [id number] [place] [address] 93128- 2476 Sep, Chronic pain due to trauma G89.21 ; Reactive depression F32.9 and Essential hypertension I10 [facility] [address] [place] [id number] [place] [address] 64125- 4038 Sep, Generalized anxiety disorder F41.1 [facility] [address] [place] [id number] [place] [address] 65592- 2174 August, Essential hypertension I10 ; Reactive depression F32.9 and Chronic pain due to trauma G89.21 [facility] [address] [place] [address] 83291- 7411 Jun, Flank pain R10.9 [facility] [address] [place] [id number] [place] [address] 77905- 3874 Jun, Essential hypertension I10 [facility] [address] [place] [id number] [place] [address] 55524- 6680 May, Chronic bronchitis, unspecified chronic bronchitis type J42 [facility] [address] [place] [id number] [place] [address] 19865- 2974 Apr, Essential hypertension I10 [facility] [address] [place] [id number] [place] [address] 62956- 2556 Apr, [facility] [address] [place] [id number] [place] [address] 80604- 3774 30 Jan, 2016 Mixed hyperlipidemia E78.2 [place] [address] 68648- 0615 Dec, Hepatitis C, chronic B18.2 ; Essential hypertension I10 and Mixed hyperlipidemia E78.2 [place] [address] 60404- 4231 August, [facility] [address] 34110- 3169 August, [place] [address] 64821- 0190 August, Essential hypertension I10 ; Mixed hyperlipidemia E78.2 and Gastroesophageal reflux disease, esophagitis presence not specified K21.9 [place] [address] 38805- 3631 Jun, [place] [address] 76363- 3349 Jun, Hepatitis C, chronic B18.2 ; Dyspepsia R10.13 ; Reflux esophagitis K21.0 and Essential hypertension I10 [place] [address] [place] [id number] [place] [address] 76011- 3766 May, Reflux esophagitis K21.0 ; Hepatitis C, chronic B18.2 and Tachycardia, unspecified R00.0 [place] [address] [place] [id number] [place] [address] 09470- 4055 May, Generalized anxiety disorder F41.1 and Substance addiction F19.20 [place] [address] [place] [id number] [place] [address] 43267- 3293 Apr, [place] [address] 03512- 2180 Apr, Hepatitis C, chronic B18.2 [place] [address] [place] [id number] [place] [address] 02399- 2627 Apr, Anxiety F41.9 [facility] [address] [place] [id number] [place] [address] 69877- 3632 Apr, Hepatitis C, chronic B18.2 and Encounter for immunization Z23 [facility] [address] [place] [id number] [place] [address] 62878- 6078 Apr, [facility] [address] 47687- 9166 Apr, Dyspepsia R10.13 [facility] [address] 14885- 1518 Apr, [facility] [address] 45263- 4449 Mar, Hepatitis C, chronic B18.2 [facility] [address] 41732- 5731 Mar, Hepatitis C, chronic B18.2 [facility] [address] 23010- 6555 Mar, [facility] [address] 03796- 5855 Mar, [facility] [address] [place] [id number] [place] [address] 91753- 4743 Mar, [facility] [address] [place] [id number] [place] [address] 24267- 7696 Jan, Essential hypertension I10 ; Chronic bronchitis, unspecified chronic bronchitis type J42 ; Hepatitis C, chronic B18.2 and Dental caries of root surface K02.7 [facility] [address] [place] [id number] [place] [address] 72462- 0301 Dec, Routine adult health maintenance V70.0 [facility] [address] [place] [id number] [place] [address] 68675- 4374 17 Dec, 2014 [facility] [address] 91565- 0590 15 Dec, 2014 Hypertension 401.9 ; Anxiety 300.00 and Routine adult health maintenance V70.0 IMMUNIZATIONS No Known Immunizations SOCIAL HISTORY Never Assessed REASON FOR VISIT Oxycodone 10/27 PLAN OF CARE VITAL SIGNS MEDICATIONS Medication Instructions Dosage Frequency Start Date End Date Duration Status Oxycodone-Acetaminophen 10-325 MG Orally every 6 hrs 1 tablet as needed 6h Sep, 28 days Active RESULTS No Results PROCEDURES [...] History cholecystectomy Hospitalization History surgeries Hospitalization History [facility]- Acute Cholecystitis 09/10/2017
--- OUTSIDE RECORDS SUMMARY | 2018-02-22 07:16 | XMS REPORT ---
Author Author PATRICK POOL [facility] Address [address] [place] [address] Care Team Providers Care Quarter Inspector Name Role Phone PATRICK POOL Unavailable PROBLEMS Type Condition ICD9-CM Code EGA12-PJ Code Onset Dates Condition Status SNOMED Code Problem Chronic pain due to trauma G89.21 Active 905262762 Problem History of CVA (cerebrovascular accident) Z86.73 Active 711816276 Problem Generalized anxiety disorder F41.1 Active 84744062 Problem Chronic bronchitis, unspecified chronic bronchitis type J42 Active 55664923 Problem Essential hypertension I10 Active 33796108 Problem Mixed hyperlipidemia E78.2 Active 715501948 Problem Reactive depression F32.9 Active 71380696 Problem Persistent atrial fibrillation I48.1 Active 960806705 Problem Lumbago with sciatica, right side M54.41 Active 689229743855928 Problem Urinary hesitancy R39.11 Active 6107738 Problem Arthritis M19.90 Active 8390819 Problem Lumbago with sciatica, left side M54.42 Active 178315646 Problem Other chronic pain G89.29 Active 70658520 ALLERGIES No Information ENCOUNTERS Encounter Location Date Diagnosis [place] [id number] [place] [address] 31468- 7309 Nov, Persistent atrial fibrillation I48.1 and Chronic pain due to trauma G89.21 [facility] [address] [place] [address] 57083- 8242 Nov, Chronic pain due to trauma G89.21 [place] [address] [place] [id number] [place] [address] 30820- 1529 Nov, [place] [address] [place] [address] 31605- 7479 Oct, Chronic pain due to trauma G89.21 [place] [address] [address] Sep, [place] [address] [place] [id number] [place] [address] 62460- 0678 Sep, Chronic pain due to trauma G89.21 [facility] [address] [place] [id number] [place] [address] 95374- 6547 Sep, Chronic pain due to trauma G89.21 ; Essential hypertension I10 and Urinary hesitancy R39.11 [facility] [address] [place] [id number] [place] [address] 24376- 6759 Sep, [place] [address] [place] [id number] [place] [address] 19504- 0314 August, Chronic pain due to trauma G89.21 [place] [address] [place] [id number] [place] [address] 33845- 6713 August, Essential hypertension I10 [place] [address] [place] [id number] [place] [address] 63880- 3470 August, Right upper quadrant abdominal pain R10.11 [place] [address] [place] [id number] [place] [address] 77669- 8307 August, Medicare annual wellness visit, initial Z00.00 ; Chronic bronchitis, unspecified chronic bronchitis type J42 ; Reactive depression F32.9 ; Mixed hyperlipidemia E78.2 and Generalized anxiety disorder F41.1 [facility] [address] [id number] [address] August, Chronic pain due to trauma G89.21 [facility] [address] [address] Jul, Left shoulder pain, unspecified chronicity M25.512 [facility] [address] [address] Jul, Chronic pain due to trauma G89.21 ; Essential hypertension I10 ; Urinary hesitancy R39.11 ; Chronic bronchitis, unspecified chronic bronchitis type J42 ; Lumbago with sciatica, left side M54.42 ; Lumbago with sciatica, right side M54.41 ; Other chronic pain G89.29 and BMI 40.0-44.9, adult Z68.41 [facility] [address] [place] [id number] [place] [address] 59145- 4907 Jul, Chronic pain due to trauma G89.21 [facility] [address] 03573- 7155 Jul, Encounter for medication monitoring Z51.81 [facility] [address] [place] [id number] [place] [address] 32527- 8554 Jul, Encounter for medication monitoring Z51.81 [facility] [address] [place] [address] [id number] [place] [address] 86250- 7480 Jun, [facility] [address] [place] [id number] [place] [address] 13731- 9917 Jun, Chronic pain due to trauma G89.21 [facility] [address] [address] [id number] [place] [address] 92548- 5260 Jun, Chronic bronchitis, unspecified chronic bronchitis type J42 [facility] [address] [place] [id number] [place] [address] 12648- 0484 Jun, [facility] [address] [place] [id number] [place] [address] 71634- 1526 Jun, Chronic pain due to trauma G89.21 [facility] [address] [place] [id number] [place] [address] 20032- 0031 Jun, Chronic bronchitis, unspecified chronic bronchitis type J42 [facility] [address] [place] [id number] [place] [address] 82501- 6053 Jun, Chronic pain due to trauma G89.21 [facility] [address] [place] [id number] [place] [address] 03104- 0286 Jun, Chronic bronchitis, unspecified chronic bronchitis type J42 [facility] [address] [place] [id number] [place] [address] 23360- 3208 May, Chronic pain due to trauma G89.21 and Arthritis M19.90 [facility] [address] [place] [id number] [place] [address] May, Chronic pain due to trauma G89.21 [facility] [address] [place] [id number] [place] [address] 98809- 9916 May, [facility] [address] 838772- 9541 Apr, Chronic pain due to trauma G89.21 [facility] [address] 543089- 4620 Mar, Essential hypertension I10 [facility] [address] [place] [id number] [place] [address] 96302- 4152 Mar, Chronic pain due to trauma G89.21 [facility] [address] 27522- 3303 Mar, [facility] [address] [place] 241690- 3553 Mar, Chronic pain due to trauma G89.21 ; Essential hypertension I10 and Mixed hyperlipidemia E78.2 [facility] [address] [place] [id number] [place] [address] 42691- 9352 Jan, Chronic pain due to trauma G89.21 [facility] [address] [place] [id number] [place] [address] 69901- 7114 Jan, [facility] [address] [place] [id number] [place] [address] 66898- 3229 27 Dec, 2016 Chronic pain due to trauma G89.21 [facility] [address] [place] [id number] [place] [address] 18702- 4422 22 Dec, 2016 Chronic pain due to trauma G89.21 [facility] [address] [place] [id number] [place] [address] 19628- 2659 Dec, Essential hypertension I10 [facility] [address] [address] 1642 Nov, Chronic pain due to trauma G89.21 [facility] [address] [place] [id number] [place] [address] 212182- 0276 Oct, Chronic pain due to trauma G89.21 [facility] [address] [place] [id number] [place] [address] 76202- 7329 Oct, Chronic pain due to trauma G89.21 [facility] [address] [place] [address] [id number] [place] [address] 71783- 5332 Oct, Essential hypertension I10 [facility] [address] [place] [id number] [place] [address] 55554- 9376 Sep, Chronic pain due to trauma G89.21 ; Reactive depression F32.9 and Essential hypertension I10 [facility] [address] [place] [id number] [place] [address] 31417- 9934 Sep, Generalized anxiety disorder F41.1 [facility] [address] [place] [id number] [place] [address] 73855- 3325 August, Essential hypertension I10 ; Reactive depression F32.9 and Chronic pain due to trauma G89.21 [facility] [address] [place] [address] 68557- 5960 Jun, Flank pain R10.9 [facility] [address] [place] [id number] [place] [address] 82853- 1508 Jun, Essential hypertension I10 [facility] [address] [place] [id number] [place] [address] 67239- 0329 May, Chronic bronchitis, unspecified chronic bronchitis type J42 [facility] [address] [place] [id number] [place] [address] 07651- 6966 Apr, Essential hypertension I10 [facility] [address] [place] [id number] [place] [address] 31904- 0723 Apr, [facility] [address] [place] [id number] [place] [address] 38467- 0923 30 Jan, 2016 Mixed hyperlipidemia E78.2 [place] [address] 42496- 1707 Dec, Hepatitis C, chronic B18.2 ; Essential hypertension I10 and Mixed hyperlipidemia E78.2 [place] [address] 68984- 1992 August, [facility] [address] 10364- 2903 August, [place] [address] 03208- 8941 August, Essential hypertension I10 ; Mixed hyperlipidemia E78.2 and Gastroesophageal reflux disease, esophagitis presence not specified K21.9 [place] [address] 30292- 3223 Jun, [place] [address] 30183- 3669 Jun, Hepatitis C, chronic B18.2 ; Dyspepsia R10.13 ; Reflux esophagitis K21.0 and Essential hypertension I10 [place] [address] [place] [id number] [place] [address] 50606- 8571 May, Reflux esophagitis K21.0 ; Hepatitis C, chronic B18.2 and Tachycardia, unspecified R00.0 [place] [address] [place] [id number] [place] [address] 15425- 0724 May, Generalized anxiety disorder F41.1 and Substance addiction F19.20 [place] [address] [place] [id number] [place] [address] 41370- 2222 Apr, [place] [address] 00065- 2371 Apr, Hepatitis C, chronic B18.2 [place] [address] [place] [id number] [place] [address] 21573- 3957 Apr, Anxiety F41.9 [facility] [address] [place] [id number] [place] [address] 09234- 8768 Apr, Hepatitis C, chronic B18.2 and Encounter for immunization Z23 [facility] [address] [place] [id number] [place] [address] 26886- 1051 Apr, [facility] [address] 03788- 5810 Apr, Dyspepsia R10.13 [facility] [address] 04815- 4780 Apr, [facility] [address] 18869- 2838 Mar, Hepatitis C, chronic B18.2 [facility] [address] 71184- 3524 Mar, Hepatitis C, chronic B18.2 [facility] [address] 21234- 1574 Mar, [facility] [address] 70616- 9008 Mar, [facility] [address] [place] [id number] [place] [address] 61589- 8456 Mar, [facility] [address] [place] [id number] [place] [address] 25773- 0420 Jan, Essential hypertension I10 ; Chronic bronchitis, unspecified chronic bronchitis type J42 ; Hepatitis C, chronic B18.2 and Dental caries of root surface K02.7 [facility] [address] [place] [id number] [place] [address] 20545- 9778 Dec, Routine adult health maintenance V70.0 [facility] [address] [place] [id number] [place] [address] 57397- 0342 17 Dec, 2014 [facility] [address] 38170- 0414 15 Dec, 2014 Hypertension 401.9 ; Anxiety 300.00 and Routine adult health maintenance V70.0 IMMUNIZATIONS No Known Immunizations SOCIAL HISTORY Never Assessed REASON FOR VISIT Pt came in and wanted to know if he could get his percocet a day early as his back is really hurting. PLAN OF CARE VITAL SIGNS MEDICATIONS No [...]
--- OUTSIDE RECORDS SUMMARY | 2018-02-22 07:17 | XMS REPORT ---
Author Author PATRICK POOL [facility] Address [address] [place] [address] Care Team Providers Care Unified Communications Architect Name Role Phone PATRICK POOL Unavailable PROBLEMS Type Condition ICD9-CM Code [id number] Code Onset Dates Condition Status SNOMED Code Problem Reactive depression F32.9 Active 26419350 Problem Generalized anxiety disorder F41.1 Active 90139746 Problem Chronic pain due to trauma G89.21 Active 179793003 Problem Essential hypertension I10 Active 42046734 Problem Chronic bronchitis, unspecified chronic bronchitis type J42 Active 52430701 Problem Mixed hyperlipidemia E78.2 Active 671884480 Problem Other chronic pain G89.29 Active 43983626 Problem Lumbago with sciatica, right side M54.41 Active 663462299002281 Problem Arthritis M19.90 Active 2076672 Problem History of CVA (cerebrovascular accident) Z86.73 Active 656949010 Problem Lumbago with sciatica, left side M54.42 Active 132509830 Problem Urinary hesitancy R39.11 Active 5574493 ALLERGIES No Information ENCOUNTERS Encounter Location Date Diagnosis [place] [id number] [place] [address] 45068- 7146 Nov, [facility] [id number] [place] [address] 20719- 6000 Oct, Chronic pain due to trauma G89.21 [facility] [id number] [place] [address] 30992- 5942 Sep, [facility] [id number] [place] [address] 32110- 6307 Sep, Chronic pain due to trauma G89.21 [facility] [id number] [place] [address] 57718- 1746 Sep, Chronic pain due to trauma G89.21 ; Essential hypertension I10 and Urinary hesitancy R39.11 [facility] [id number] [place] [address] 51985- 2716 Sep, [facility] [id number] [place] [address] 17672- 7590 August, Chronic pain due to trauma G89.21 [facility] [id number] [place] [address] 03904- 4716 August, Essential hypertension I10 [place] [id number] [place] [address] 33968- 0873 August, Right upper quadrant abdominal pain R10.11 [place] [id number] [place] [address] 78117- 0744 August, Medicare annual wellness visit, initial Z00.00 ; Chronic bronchitis, unspecified chronic bronchitis type J42 ; Reactive depression F32.9 ; Mixed hyperlipidemia E78.2 and Generalized anxiety disorder F41.1 [place] [id number] [place] [address] 52993- 2450 August, Chronic pain due to trauma G89.21 [facility] [id number] [place] [address] 92951 -9282 Jul, Left shoulder pain, unspecified chronicity M25.512 [place] [id number] [place] [address] 53797- 6469 Jul, Chronic pain due to trauma G89.21 ; Essential hypertension I10 ; Urinary hesitancy R39.11 ; Chronic bronchitis, unspecified chronic bronchitis type J42 ; Lumbago with sciatica, left side M54.42 ; Lumbago with sciatica, right side M54.41 ; Other chronic pain G89.29 and BMI 40.0-44.9, adult Z68.41 [facility] [address] [address] Jul, Chronic pain due to trauma G89.21 [facility] [id number] [address] Jul, Encounter for medication monitoring Z51.81 [facility] [id number] [place] [address] 55811- 6516 Jul, Encounter for medication monitoring Z51.81 [facility] [id number] [place] [address] 33426- 7482 Jun, [facility] [id number] [place] [address] 28084- 3057 Jun, Chronic pain due to trauma G89.21 [facility] [id number] [place] [address] 48779- 7543 Jun, Chronic bronchitis, unspecified chronic bronchitis type J42 [facility] [id number] [place] [address] 00214- 8796 Jun, [facility] [id number] [place] [address] 14522- 3857 Jun, Chronic pain due to trauma G89.21 [facility] [id number] [place] [address] 15543- 6274 Jun, Chronic bronchitis, unspecified chronic bronchitis type J42 [facility] [id number] [place] [address] 96747- 9255 Jun, Chronic pain due to trauma G89.21 [facility] [id number] [place] [address] 34954- 8458 Jun, Chronic bronchitis, unspecified chronic bronchitis type J42 [facility] [id number] [place] [address] 11652- 9425 May, Chronic pain due to trauma G89.21 and Arthritis M19.90 [facility] [id number] [place] [address] 65308- 4850 May, Chronic pain due to trauma G89.21 [facility] [id number] [place] [address] 37224- 6382 May, [facility] [id number] [place] [address] 52814- 3235 Apr, Chronic pain due to trauma G89.21 [facility] [id number] [place] [address] 89654- 6221 Mar, Essential hypertension I10 [facility] [id number] [place] [address] 26021- 1515 Mar, Chronic pain due to trauma G89.21 [facility] [id number] [place] [address] 15982- 8450 Mar, [facility] [address] 27052- 0950 Mar, Chronic pain due to trauma G89.21 ; Essential hypertension I10 and Mixed hyperlipidemia E78.2 [facility] [address] 16391- 3890 Jan, Chronic pain due to trauma G89.21 [facility] [id number] [place] [address] 23612- 2279 Jan, [facility] [id number] [place] [address] 12321- 0904 27 Dec, 2016 Chronic pain due to trauma G89.21 [facility] [id number] [place] [address] 64521- 9507 Dec, Chronic pain due to trauma G89.21 [facility] [id number] [place] [address] 56285- 4073 11 Dec, 2016 Essential hypertension I10 [facility] [id number] [place] [address] 09201- 0120 Nov, Chronic pain due to trauma G89.21 [facility] [id number] [place] [address] 38387- 1216 Oct, Chronic pain due to trauma G89.21 [facility] [address] 48445- 4701 Oct, Chronic pain due to trauma G89.21 [facility] [id number] [place] [address] 88984- 4239 Oct, Essential hypertension I10 [facility] [id number] [place] [address] 08803- 2897 30 Sep, 2016 Chronic pain due to trauma G89.21 ; Reactive depression F32.9 and Essential hypertension I10 [facility] [id number] [place] [address] 13629- 8080 Sep, Generalized anxiety disorder F41.1 [facility] [address] 23881- 7320 August, Essential hypertension I10 ; Reactive depression F32.9 and Chronic pain due to trauma G89.21 [facility] [id number] [place] [address] 76925- 1582 Jun, Flank pain R10.9 [facility] [id number] [place] [address] 35838- 1496 Jun, Essential hypertension I10 [facility] [address] [id number] [place] [address] 64082- 3592 May, Chronic bronchitis, unspecified chronic bronchitis type J42 [facility] [id number] [place] [address] 90136- 2672 Apr, Essential hypertension I10 [facility] [id number] [place] [address] 84926- 4140 Apr, [facility] [id number] [place] [address] 93003- 1715 30 Jan, 2016 Mixed hyperlipidemia E78.2 [facility] [address] [id number] [place] [address] 46055- 3278 19 Jan, 2016 Hepatitis C, chronic B18.2 ; Essential hypertension I10 and Mixed hyperlipidemia E78.2 [facility] [id number] [place] [address] 61613- 6204 August, [facility] [id number] [place] [address] 18305- 8152 August, [facility] [address] 56799- 8292 August, Essential hypertension I10 ; Mixed hyperlipidemia E78.2 and Gastroesophageal reflux disease, esophagitis presence not specified K21.9 [place] [address] 37832- 7436 Jun, [place] [address] 92747- 1684 Jun, Hepatitis C, chronic B18.2 ; Dyspepsia R10.13 ; Reflux esophagitis K21.0 and Essential hypertension I10 [place] [address] 52361- 6154 May, Reflux esophagitis K21.0 ; Hepatitis C, chronic B18.2 and Tachycardia, unspecified R00.0 [place] [address] 70804- 1780 May, Generalized anxiety disorder F41.1 and Substance addiction F19.20 [place] [address] 89064- 4377 Apr, [place] [address] [id number] [place] [address] 24415- 7965 Apr, Hepatitis C, chronic B18.2 [place] [address] [id number] [place] [address] 51000- 6309 Apr, Anxiety F41.9 [place] [address] 38909- 7792 Apr, Hepatitis C, chronic B18.2 and Encounter for immunization Z23 [place] [address] 27362- 3647 Apr, [place] [address] [place] [address]- 0599 Apr, Dyspepsia R10.13 [place] [address] [id number] [place] [address] 46316- 9600 Apr, [facility] [id number] [place] [address] 21083- 9683 Mar, Hepatitis C, chronic B18.2 [place] [address] 73186- 5779 Mar, Hepatitis C, chronic B18.2 [facility] [id number] [place] [address] 93723- 4091 Mar, [place] [address] 14418- 5386 Mar, [place] [address] [id number] [place] [address] 18248- 7125 Mar, [facility] [address] [id number] [place] [address] 21534- 1144 Jan, Essential hypertension I10 ; Chronic bronchitis, unspecified chronic bronchitis type J42 ; Hepatitis C, chronic B18.2 and Dental caries of root surface K02.7 [place] [address] [id number] [place] [address] 35321- 2740 Dec, Routine adult health maintenance V70.0 [place] [address] [id number] [place] [address] 71670- 0723 Dec, [place] [address] [id number] [place] [address] 34173- 5720 Dec, Hypertension 401.9 ; Anxiety 300.00 and Routine adult health maintenance V70.0 IMMUNIZATIONS No Known Immunizations SOCIAL HISTORY Never Assessed REASON FOR VISIT Oxycodone 09/30 PLAN OF CARE VITAL SIGNS MEDICATIONS Medication Instructions Dosage Frequency Start Date End Date Duration Status Oxycodone-Acetaminophen 10-325 MG Orally every 6 hrs 1 tablet as needed August, 28 days Active RESULTS No Results PROCEDURES [...] History cholecystectomy Hospitalization History surgeries Hospitalization History [facility]- Acute Cholecystitis 09/10/2017
--- OUTSIDE RECORDS SUMMARY | 2018-02-22 07:17 | XMS REPORT ---
Author Author PATRICK POOL [facility] Address [address] [place] [address] Care Team Providers Care Day Care Home Mother Name Role Phone PATRICK POOL Unavailable PROBLEMS Type Condition ICD9-CM Code [id number] Code Onset Dates Condition Status SNOMED Code Problem Reactive depression F32.9 Active 16586334 Problem Generalized anxiety disorder F41.1 Active 44992826 Problem Chronic pain due to trauma G89.21 Active 295808869 Problem Essential hypertension I10 Active 59028496 Problem Chronic bronchitis, unspecified chronic bronchitis type J42 Active 70651041 Problem Mixed hyperlipidemia E78.2 Active 101642917 Problem Other chronic pain G89.29 Active 01620492 Problem Lumbago with sciatica, right side M54.41 Active 421772203588134 Problem Arthritis M19.90 Active 6431463 Problem History of CVA (cerebrovascular accident) Z86.73 Active 287407517 Problem Lumbago with sciatica, left side M54.42 Active 587375059 Problem Urinary hesitancy R39.11 Active 6295417 ALLERGIES Substance Reaction Event Type Date Status Mirtazapine urinary problems Drug Allergy August, Active ENCOUNTERS Encounter Location Date Diagnosis [facility] [id number] [address] Nov, [facility] [id number] [place] [address] 09936- 6992 Oct, Chronic pain due to trauma G89.21 [facility] [id number] [place] [address] 46583- 8280 Sep, [facility] [address] [address] Sep, Chronic pain due to trauma G89.21 [facility] [id number] [place] [address] 95620- 7903 Sep, Chronic pain due to trauma G89.21 ; Essential hypertension I10 and Urinary hesitancy R39.11 [facility] [id number] [place] [address] 78389- 1059 Sep, [facility] [id number] [place] [address] 93062- 5095 August, Chronic pain due to trauma G89.21 [facility] [id number] [place] [address] 34311- 5339 August, Essential hypertension I10 [facility] [id number] [place] [address] 20828- 3054 August, Right upper quadrant abdominal pain R10.11 [facility] [facility] [id number] [place] [address] 88821- 8101 August, Medicare annual wellness visit, initial Z00.00 ; Chronic bronchitis, unspecified chronic bronchitis type J42 ; Reactive depression F32.9 ; Mixed hyperlipidemia E78.2 and Generalized anxiety disorder F41.1 [facility] [facility] [id number] [place] [address] 82769- 2919 August, Chronic pain due to trauma G89.21 [facility] [id number] [place] [address] 90199 -4060 Jul, Left shoulder pain, unspecified chronicity M25.512 [place] [id number] [place] [address] 53236- 8867 Jul, Chronic pain due to trauma G89.21 ; Essential hypertension I10 ; Urinary hesitancy R39.11 ; Chronic bronchitis, unspecified chronic bronchitis type J42 ; Lumbago with sciatica, left side M54.42 ; Lumbago with sciatica, right side M54.41 ; Other chronic pain G89.29 and BMI 40.0-44.9, adult Z68.41 [place] [id number] [place] [address] 16100- 0462 Jul, Chronic pain due to trauma G89.21 [facility] [address] [address] Jul, Encounter for medication monitoring Z51.81 [facility] [id number] [place] [address] 01238- 1831 Jul, Encounter for medication monitoring Z51.81 [facility] [id number] [place] [address] 59103- 2360 Jun, [facility] [id number] [place] [address] 70325- 3949 Jun, Chronic pain due to trauma G89.21 [facility] [id number] [place] [address] 39249- 4106 Jun, Chronic bronchitis, unspecified chronic bronchitis type J42 [facility] [id number] [place] [address] 21464- 1767 Jun, [facility] [id number] [place] [address] 13993- 5616 Jun, Chronic pain due to trauma G89.21 [facility] [id number] [place] [address] 93063- 2437 Jun, Chronic bronchitis, unspecified chronic bronchitis type J42 [facility] [id number] [place] [address] 71917- 5684 Jun, Chronic pain due to trauma G89.21 [facility] [id number] [place] [address] 00974- 1926 Jun, Chronic bronchitis, unspecified chronic bronchitis type J42 [facility] [id number] [place] [address] 45513- 4500 May, Chronic pain due to trauma G89.21 and Arthritis M19.90 [facility] [id number] [place] [address] 84230- 9182 May, Chronic pain due to trauma G89.21 [facility] [id number] [place] [address] 10914- 2902 May, [facility] [id number] [place] [address] 92821- 4533 Apr, Chronic pain due to trauma G89.21 [facility] [id number] [place] [address] 68099- 3626 Mar, Essential hypertension I10 [facility] [id number] [place] [address] 01195- 2966 Mar, Chronic pain due to trauma G89.21 [facility] [id number] [place] [address] 62238- 0726 Mar, [facility] [id number] [place] [address] 274229- 1480 Mar, Chronic pain due to trauma G89.21 ; Essential hypertension I10 and Mixed hyperlipidemia E78.2 [facility] [id number] [place] [address] 93321- 8364 Jan, Chronic pain due to trauma G89.21 [facility] [id number] [place] [address] 97190- 4177 Jan, [facility] [id number] [place] [address] 94386- 6320 Dec, Chronic pain due to trauma G89.21 [facility] [id number] [place] [address] 11939- 2225 22 Dec, 2016 Chronic pain due to trauma G89.21 [facility] [id number] [place] [address] 33299- 3203 11 Dec, 2016 Essential hypertension I10 [facility] [id number] [place] [address] 32686- 3156 Nov, Chronic pain due to trauma G89.21 [facility] [id number] [place] [address] 55097- 6076 Oct, Chronic pain due to trauma G89.21 [facility] [address] [address] Oct, Chronic pain due to trauma G89.21 [facility] [id number] [place] [address] 96720- 6226 Oct, Essential hypertension I10 [facility] [id number] [place] [address] 23979- 9542 Sep, Chronic pain due to trauma G89.21 ; Reactive depression F32.9 and Essential hypertension I10 [facility] [id number] [place] [address] 09247- 9854 Sep, Generalized anxiety disorder F41.1 [facility] [id number] [place] [address] 93036- 8923 August, Essential hypertension I10 ; Reactive depression F32.9 and Chronic pain due to trauma G89.21 [facility] [id number] [place] [address] 19557- 8124 Jun, Flank pain R10.9 [facility] [id number] [place] [address] 77918- 0262 Jun, Essential hypertension I10 [facility] [id number] [place] [address] 42261- 9182 May, Chronic bronchitis, unspecified chronic bronchitis type J42 [facility] [id number] [place] [address] 97712- 6438 Apr, Essential hypertension I10 [facility] [id number] [place] [address] 66432- 7356 Apr, [facility] [id number] [place] [address] 38637- 8273 30 Jan, 2016 Mixed hyperlipidemia E78.2 [facility] [id number] [place] [address] 02080- 9733 19 Jan, 2016 Hepatitis C, chronic B18.2 ; Essential hypertension I10 and Mixed hyperlipidemia E78.2 [place] [id number] [place] [address] 84231- 2803 August, [facility] [address] 09191- 6970 August, [facility] [address] 88971- 4181 August, Essential hypertension I10 ; Mixed hyperlipidemia E78.2 and Gastroesophageal reflux disease, esophagitis presence not specified K21.9 [facility] [address] 84146- 3056 Jun, [place] [address] 90123- 8162 Jun, Hepatitis C, chronic B18.2 ; Dyspepsia R10.13 ; Reflux esophagitis K21.0 and Essential hypertension I10 [place] [address] 96081- 7491 May, Reflux esophagitis K21.0 ; Hepatitis C, chronic B18.2 and Tachycardia, unspecified R00.0 [place] [address] 70784- 5308 May, Generalized anxiety disorder F41.1 and Substance addiction F19.20 [place] [address] 07290- 4267 Apr, [place] [address] 89075- 6203 Apr, Hepatitis C, chronic B18.2 [place] [address] 31202- 8527 Apr, Anxiety F41.9 [place] [address] 89267- 5560 Apr, Hepatitis C, chronic B18.2 and Encounter for immunization Z23 [place] [address] 61668- 2929 Apr, [facility] [id number] [place] [address] 45136- 5088 Apr, Dyspepsia R10.13 [facility] [id number] [place] [address] 43958- 0746 Apr, [facility] [id number] [place] [address] 85454- 9401 Mar, Hepatitis C, chronic B18.2 [facility] [id number] [place] [address] 75714- 9779 Mar, Hepatitis C, chronic B18.2 [facility] [id number] [place] [address] 57239- 8032 Mar, [facility] [id number] [place] [address] 88208- 6369 Mar, [facility] [id number] [place] [address] 95721- 7427 Mar, [facility] [id number] [place] [address] 16720- 9462 Jan, Essential hypertension I10 ; Chronic bronchitis, unspecified chronic bronchitis type J42 ; Hepatitis C, chronic B18.2 and Dental caries of root surface K02.7 [facility] [id number] [place] [address] 77480- 7444 Dec, Routine adult health maintenance V70.0 [facility] [id number] [place] [address] 40870- 5627 Dec, [facility] [id number] [place] [address] 42280- 5854 Dec, Hypertension 401.9 ; Anxiety 300.00 and Routine adult health maintenance V70.0 IMMUNIZATIONS No Known Immunizations SOCIAL HISTORY Never Assessed REASON FOR VISIT Blood Pressure - MPeters [facility] [employer] Activity Details Follow Up 3 Months Reason: VITAL SIGNS Height 69 in 2017-09-23 Weight 253 lbs 2017-09-23 Temperature 97.8 degrees Fahrenheit 2017-09-23 Heart Rate 84 bpm 2017-09-23 Respiratory Rate 20 2017-09-23 BMI 37.36 kg/m2 2017-09-23 Blood pressure systolic 130 mmHg 2017-09-23 Blood pressure diastolic 78 mmHg 2017-09-23 MEDICATIONS Medication Instructions Dosage Frequency Start Date End Date Duration Status Voltaren 1 % Transdermal 4 times a day apply pea sized 6h Active Lisinopril 40 mg Orally Once a day 1 tablet with the 20 mg tablet 24h Active Atenolol-Chlorthalidone 100-25 MG TAKE ONE TABLET BY MOUTH ONCE DAILY 30 Active Cyclobenzaprine HCl 10 MG TAKE ONE TABLET BY MOUTH THREE TIMES DAILY NEEDED 28 Active Omeprazole 20 mg Orally Once a day 1 capsule 24h August, Active HydrOXYzine HCl 25 MG Orally every 8 hrs 1 tablet as needed for anxiety 8h 30 days Active Meloxicam 15 MG TAKE ONE TABLET BY MOUTH ONCE DAILY 30 Active Pravastatin Sodium 20MG TAKE ONE TABLET BY MOUTH ONCE DAILY Active Ventolin HFA 108MCG/A INHALE 2 PUFFS BY MOUTH EVERY 4 HOURS NEEDED Active Oxycodone-Acetaminophen 10-325 MG Orally every 6 hrs 1 tablet as needed 6h August, 28 days Active RESULTS No Results PROCEDURES Procedure Date Ordered Result Body Site COUNT INCLUDES THE [facility] VISIT ESTABLISHED PATIENT September 23, 2017 INSTRUCTIONS MEDICATIONS ADMINISTERED No Known Medications [...] History cholecystectomy Hospitalization History surgeries Hospitalization History [facility]- Acute Cholecystitis 09/10/2017
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
[2018-02-22 07:50] LABS: HEMOGLOBIN 14.4 G/DL (13.3-17.7); MEAN PLATELET VOLUME 10.3 FL (7.4-10.4); RED BLOOD COUNT 4.91 10^6/uL (4.35-5.85); RED CELL DISTRIBUTION WIDTH 13.6 % (10.0-14.5); WHITE BLOOD COUNT 8.4 10^3/uL (4.3-11.0)
[2018-02-22 08:11] LABS: ALANINE AMINOTRANSFERASE 17 U/L (0-55); ALBUMIN 4.6 GM/DL (3.2-4.5); ALKALINE PHOSPHATASE 86 U/L (40-136); BILIRUBIN,TOTAL 0.4 MG/DL (0.1-1.0); BUN/CREATININE RATIO 22; CALCIUM 10.1 MG/DL (8.5-10.1); CARBON DIOXIDE 26 MMOL/L (21-32); CHLORIDE 102 MMOL/L (98-107); CREATININE SERUM 1.31 MG/DL (0.60-1.30); GFR ESTIMATED 57; GLUCOSE 104 MG/DL (70-105); POTASSIUM 4.4 MMOL/L (3.6-5.0); SODIUM 141 MMOL/L (135-145); TOTAL PROTEIN 7.9 GM/DL (6.4-8.2)
--- NOTE | 2018-02-22 08:54 | Cardiac Procedure Note-CS/ASA ---
Pre-Procedure Note Pre-Op Procedure Note H&P Reviewed The H&P was reviewed, patient examined and no changes noted. Date H&P Reviewed: Feb 22, 2018 Time H&P Reviewed: 08:54 Conscious Sedation Pre-Proced Time 08:54 ASA Score 3 For ASA 3 and 4: Consider anesthesia and medical clearance. Also, for patients with a history of failed moderate sedation consider anesthesia. Airway Lungs Heart ASA score ASA 1: a normal healthy patient ASA 2: a patient with a mild systemic disease (mid diabetes, controlled hypertension, obesity x ASA 3: a patient with a severe systemic disease that limits activity (angina , COPD, prior Myocardial infarction) ASA 4: a patient with an incapacitating disease that is a constant threat to life (CHF, renal failure) ASA 5: a moribund patient not expected to survive 24 hrs. (ruptured aneurysm) ASA 6: a declared brain patient whose organs are being harvested. For emergent operations, add the letter E after the classification Mallampati Classification Grade 3 Sedation Plan Analgesia, Amnesia, Plan communicated to team members, Discussed options with patient/fam, Discussed risks with patient/fam The patient is an appropriate candidate to undergo the planned procedure, sedation, and anesthesia. The patient immediately re-assessed prior to indication. ANGELA HYMAN MD Feb 22, 2018 08:54
--- NOTE | 2018-02-22 09:02 | Anesthesia-Procedure Note ---
Procedures/Interventions Procedure Start/Stop/Diagnosis Date of Procedure: Feb 22, 2018 Start Time: 08:40 Referring Physician: Kalie Preprocedural Diagnosis: A-fib Brief History Brief verbal history obtained. No contraindications noted. Stop Time: 08:50 MARTHA/Cardioversion Anesthesia Type: MAC ASA Class: 3 Medications Propofol-120 MG Versed-3 MG Monitors and Equipment: BP Cuff - Left READINGPEPPER CRNA Feb 22, 2018 09:02
--- NOTE | 2018-02-22 09:13 | Cardioversion ---
Cardioversion PROCEDURE PHYSICIAN: Angela Jade DATE OF PROCEDURE: 02/22/18 DIRECT EXTERNAL ELECTRICAL CARDIOVERSION: Indications: Atrial Fibrillation with rapid ventricular rate Preoperative diagnoses: Atrial Fibrillation with rapid ventricular rate Postoperative diagnosis: Sinus rhythm, Successful Electrical Cardioversion Anesthesia: By Anesthesia services Complications: None Specimen: None Contrast: 0 Flouroscopy: none Procedure Details: The patient was brought the research laboratory specialist after informed consent was taken, all the risks and complications were explained including the risk of stroke. Electrical cardioversion was carried out with anesthesia support with propofol. 200 joules of synchronized shock was delivered twice through external patches which promptly restored sinus rhythm. The patient tolerated the procedure well. Conclusions: Successful electrical cardioversion in terminating atrial fibrillation Final Diagnosis: Chronic atrial fibrillation Hypertension Hyperlipidemia Alcoholism ANGELA JADE MD Feb 22, 2018 09:13
--- NOTE | 2018-02-22 10:42 | Anesthesia-General Post-Op ---
MAC Patient Condition Mental Status/LOC: Same as Preop Cardiovascular: Satisfactory Nausea/Vomiting: Absent Respiratory: Satisfactory Pain: Controlled Complications: Absent Post Op Complications Complications None Follow Up Care/Instructions Patient Instructions None needed. Anesthesiology Discharge Order Discharge Order Patient is doing well, no complaints, stable vital signs, no apparent adverse anesthesia problems. No complications reported per nursing. PEPPER DUMONT CRNA Feb 22, 2018 10:42
== END | disposition home or self-care (01) ==
LOC: CATH 07:07
PROVIDERS: ATTEND Internal Medicine Cardiovascular Disease
DX: I48.2 Chronic atrial fibrillation (principal); I10 Essential (primary) hypertension; E78.5 Hyperlipidemia, unspecified; F10.20 Alcohol dependence, uncomplicated; E78.2 Mixed hyperlipidemia; J44.9 Chronic obstructive pulmonary disease, unspecified; E66.9 Obesity, unspecified; Z86.73 Personal history of transient ischemic attack (TIA), and cerebral infarction without residual deficits; Z79.899 Other long term (current) drug therapy; Z79.01 Long term (current) use of anticoagulants; F41.9 Anxiety disorder, unspecified; G89.4 Chronic pain syndrome; I27.20 Pulmonary hypertension, unspecified; Z68.38 Body mass index [BMI] 38.0-38.9, adult; Z11.2 Encounter for screening for other bacterial diseases
CPT/HCPCS: 36415; 80053; 85027; 87081; 92960; 93005

== ENCOUNTER → 2018-06-01 | Day surgery (SDC) | payer MEDICARE ==
[~2018-06-01] VITALS: Ht 175.3 cm; Wt 121.6 kg
[~2018-06-01] MED LIST changes: -AMLO5TAB7 PO; +AMLO5TAB9 PO; -FLU QUADRIvalent (5+ YOA) 2018-2019 (AFLURIA) 0.5 ML IM ONE; -MIDAZOLAM 5 MG/5 ML (VERSED) VIAL ONE; +NS IV 1000 ML 1,000 ML IV ONE; -NS IV 1000 ML 1,000 ML IV SCH; -proPOfol 200 MG/20 ML (DIPRIVAN) VIAL IV ONE
[2018-06-01 10:35] VITALS: BP 128/90
[2018-06-01 11:56] VITALS: BP 141/96
[2018-06-01 12:03] VITALS: BP 138/97
--- NOTE | 2018-06-01 12:05 | Cardioversion ---
Cardioversion PROCEDURE PHYSICIAN: Noe Turcios MD DATE OF PROCEDURE: 06/01/18 DIRECT EXTERNAL ELECTRICAL CARDIOVERSION: Indications: Atrial Fibrillation Preoperative diagnoses: Atrial Fibrillation Postoperative diagnosis: Unsuccessful Electrical Cardioversion History: Persistent AF. Anesthesia: By Anesthesia services Complications: None Specimen: None Contrast: 0 Flouroscopy: none Procedure Details: The patient was brought the cork slabs sawyer after informed consent was taken, all the risks and complications were explained including the risk of stroke. Electrical cardioversion was carried out with anesthesia support with propofol. Three 200 joules of synchronized shock were delivered through external patches which were unsuccessful. The patient tolerated the procedure well. Conclusions: 1.Unsuccessful Cardioversion. 2.Continue oral anticoagulation and rate controlling agent. 3.Follow up in office in 14-21 days. Noe Turcios MD, RS, CCDS Cardiac Electrophysiology Latrell TURCIOS MD Jun 01, 2018 12:05
[2018-06-01 12:10] VITALS: BP 107/80
[2018-06-01 12:15] VITALS: BP 101/89
--- OUTSIDE RECORDS SUMMARY | 2018-06-01 12:26 | XMS REPORT ---
Author Author PATRICK POOL [facility] Address [address] [place] [address] Care Team Providers Care Cage Clerk Name Role Phone PATRICK POOL Unavailable PROBLEMS Type Condition ICD9-CM Code JCI38-SV Code Onset Dates Condition Status SNOMED Code Problem Chronic pain due to trauma G89.21 Active 130755161 Problem History of CVA (cerebrovascular accident) Z86.73 Active 138067124 Problem Generalized anxiety disorder F41.1 Active 99507785 Problem Chronic bronchitis, unspecified chronic bronchitis type J42 Active 18096676 Problem Essential hypertension I10 Active 58367527 Problem Mixed hyperlipidemia E78.2 Active 167731568 Problem Reactive depression F32.9 Active 57350117 Problem Persistent atrial fibrillation I48.1 Active 569359206 Problem Lumbago with sciatica, right side M54.41 Active 286094647446869 Problem Urinary hesitancy R39.11 Active 8393192 Problem Arthritis M19.90 Active 9326197 Problem Lumbago with sciatica, left side M54.42 Active 529223034 Problem Other chronic pain G89.29 Active 46424331 ALLERGIES No Information ENCOUNTERS Encounter Location Date Diagnosis [facility] [id number] [place] [address] 12329- 5554 Mar, Chronic pain due to trauma G89.21 [facility] [address], [place] [address] Jan, [facility] [id number] [place] [address] 91485- 1751 Jan, Essential hypertension I10 [facility] [id number] [place] [address] 70653- 3898 Jan, Chronic pain due to trauma G89.21 [facility] [id number] [place] [address] 18026- 6429 16 Jan, 2018 [address] viral warts B07.8 [facility] [id number] [place] [address] 30164- 6236 24 Dec, 2017 Other viral warts B07.8 [facility] [id number] [place] [address] 50902- 0176 19 Dec, 2017 Chronic pain due to trauma G89.21 [facility] [id number] [place] [address] 97519- 4167 Dec, [facility] [id number] [place] [address] 34664- 5950 Nov, Persistent atrial fibrillation I48.1 and Chronic pain due to trauma G89.21 [facility] [id number] [place] [address] 32077- 1698 Nov, Chronic pain due to trauma G89.21 [facility] [id number] [place] [address] 74113- 8861 Nov, [facility] [id number] [place] [address] 07909- 7090 Oct, Chronic pain due to trauma G89.21 [facility] [id number] [place] [address] 47740- 1101 Sep, [facility] [id number] [place] [address] 21668- 6616 Sep, Chronic pain due to trauma G89.21 [facility] [id number] [place] [address] 06974- 7636 Sep, Chronic pain due to trauma G89.21 ; Essential hypertension I10 and Urinary hesitancy R39.11 [facility] [id number] [place] [address] 10951- 4836 Sep, [facility] [id number] [place] [address] 71643- 1792 August, Chronic pain due to trauma G89.21 [facility] [id number] [place] [address] 66249- 9823 August, Essential hypertension I10 [facility] [id number] [place] [address] 91042- 3946 August, Right upper quadrant abdominal pain R10.11 [facility] [id number] [place] [address] 39890- 5445 August, Medicare annual wellness visit, initial Z00.00 ; Chronic bronchitis, unspecified chronic bronchitis type J42 ; Reactive depression F32.9 ; Mixed hyperlipidemia E78.2 and Generalized anxiety disorder F41.1 [facility] [address] 48924- 2282 August, Chronic pain due to trauma G89.21 [facility] [id number] [place] [address] 47237 -8752 Jul, Left shoulder pain, unspecified chronicity M25.512 [facility] [id number] [place] [address] 20615- 7271 Jul, Chronic pain due to trauma G89.21 ; Essential hypertension I10 ; Urinary hesitancy R39.11 ; Chronic bronchitis, unspecified chronic bronchitis type J42 ; Lumbago with sciatica, left side M54.42 ; Lumbago with sciatica, right side M54.41 ; Other chronic pain G89.29 and BMI 40.0-44.9, adult Z68.41 [facility] [id number] [place] [address] 96508- 1274 Jul, Chronic pain due to trauma G89.21 [facility] [id number] [place] [address] 39669- 8855 Jul, Encounter for medication monitoring Z51.81 [facility] [id number] [place] [address] 08465- 1446 Jul, Encounter for medication monitoring Z51.81 [facility] [id number] [place] [address] 02164- 3591 Jun, [facility] [address], [place] [address] 0787 Jun, Chronic pain due to trauma G89.21 [facility] [address] [place] [address] 701530- 7522 Jun, Chronic bronchitis, unspecified chronic bronchitis type J42 [facility] [address] [place] [address] 42801- 5609 Jun, [facility] [id number] [place] [address] 17173- 8850 Jun, Chronic pain due to trauma G89.21 [facility] [id number] [place] [address] 14868- 0647 Jun, Chronic bronchitis, unspecified chronic bronchitis type J42 [facility] [id number] [place] [address] 94559- 1647 Jun, Chronic pain due to trauma G89.21 [facility] [id number] [place] [address] 66532- 0757 Jun, Chronic bronchitis, unspecified chronic bronchitis type J42 [facility] [id number] [place] [address] 88834- 9325 May, Chronic pain due to trauma G89.[address] [facility] [address] [place] [address] 46205- 5183 May, Chronic pain due to trauma G89.21 [facility] [id number] [place] [address] 06852- 4989 May, [facility] [id number] [place] [address] 55372- 2428 Apr, Chronic pain due to trauma G89.21 [facility] [address] [place] [address] 75327- 5152 Mar, Essential hypertension I10 [facility] [id number] [place] [address] 09991- 5028 Mar, Chronic pain due to trauma G89.21 [facility] [id number] [place] [address] 69812- 6176 Mar, [facility] [id number] [place] [address] 35012- 7766 Mar, Chronic pain due to trauma G89.21 ; Essential hypertension I10 and Mixed hyperlipidemia E78.2 [facility] [id number] [place] [address] 75641- 4557 Jan, Chronic pain due to trauma G89.21 [facility] [id number] [place] [address] 93616- 6306 Jan, [facility] [id number] [place] [address] 31194- 0871 Dec, Chronic pain due to trauma G89.21 [facility] [id number] [place] [address] 75504- 6755 Dec, Chronic pain due to trauma G89.21 [facility] [id number] [place] [address] 27572- 6909 Dec, Essential hypertension I10 [facility] [id number] [place] [address] 44452- 6001 Nov, Chronic pain due to trauma G89.21 [facility] [id number] [place] [address] 80924- 1799 Oct, Chronic pain due to trauma G89.21 [facility] [id number] [place] [address] 91217- 4761 Oct, Chronic pain due to trauma G89.21 [facility] [id number] [place] [address] [phone]- 4018 Oct, Essential hypertension I10 [facility] [id number] [place] [address] 83017- 8961 Sep, Chronic pain due to trauma G89.21 ; Reactive depression F32.9 and Essential hypertension I10 [facility] [id number] [place] [address] 35829- 2239 13 Sep, 2016 Generalized anxiety disorder F41.1 [facility] [id number] [place] [address] 51621- 6340 12 Aug, 2016 Essential hypertension I10 ; Reactive depression F32.9 and Chronic pain due to trauma G89.21 [facility] [address] 83078- 8811 10 Jun, [address] [facility] [address] 59809- 9937 09 Jun, [address] [facility] [id number] [place] [address] 26732- 5468 May, Chronic bronchitis, unspecified chronic bronchitis type J42 [facility] [address] 04872- 1236 Apr, Essential hypertension I10 [facility] [id number] [place] [address] 24304- 0916 Apr, [facility] [id number] [place] [address] 49430- 4288 30 Jan, [address] [facility] [id number] [place] [address] 46699- 7405 Dec, Hepatitis C, chronic B18.2 ; Essential hypertension I10 and Mixed hyperlipidemia E78.2 [facility] [id number] [place] [address] 98191- 8052 August, [facility] [address] 14433- 4416 August, [facility] [id number] [place] [address] 59441- 1481 August, Essential hypertension I10 ; Mixed hyperlipidemia E78.2 and Gastroesophageal reflux disease, esophagitis presence not specified K21.9 [facility] [address] 80384- 1246 Jun, [place] [address] 83102- 0564 Jun, Hepatitis C, chronic B18.2 ; Dyspepsia R10.13 ; Reflux esophagitis K21.0 and Essential hypertension I10 [place] [address] 86867- 8000 May, Reflux esophagitis K21.0 ; Hepatitis C, chronic B18.2 and Tachycardia, unspecified R00.0 [place] [address] 54253- 4541 May, Generalized anxiety disorder F41.1 and Substance addiction F19.20 [place] [address] 48323- 3040 Apr, [place] [address] 47465- 3173 Apr, Hepatitis C, chronic B18.2 [place] [address] 31435- 6103 Apr, Anxiety F41.9 [place] [address] 07639- 6434 Apr, Hepatitis C, chronic B18.2 and Encounter for immunization Z23 [place] [address] 38830- 3403 Apr, [place] [address] 48306- 9842 Apr, Dyspepsia R10.13 [place] [address] 81914- 4732 Apr, [place] [address] 98709- 5929 Mar, Hepatitis C, chronic B18.2 [facility] [address], [place] [address]- 8462 Mar, Hepatitis C, chronic B18.2 [facility] [id number] [place] [address] 34096- 9536 Mar, [facility] [address] [place] [address] 09672- 2186 Mar, [facility] [address] [place] [address] 29651- 7789 Mar, [facility] [id number] [place] [address] 97086- 7653 Jan, Essential hypertension I10 ; Chronic bronchitis, unspecified chronic bronchitis type J42 ; Hepatitis C, chronic B18.2 and Dental caries of root surface K02.7 [facility] [id number] [place] [address] 73746- 7245 17 Dec, 2014 Routine adult health maintenance V70.0 [facility] [id number] [place] [address] 94160- 1637 Dec, [facility] [id number] [place] [address] 29462- 9777 Dec, Hypertension 401.9 ; Anxiety 300.00 and Routine adult health maintenance V70.0 IMMUNIZATIONS No Known Immunizations SOCIAL HISTORY Never Assessed REASON FOR VISIT Controlled Med Refill 03/16 PLAN OF CARE VITAL SIGNS MEDICATIONS Medication Instructions Dosage Frequency Start Date End Date Duration Status Oxycodone-Acetaminophen 10-325 MG Orally every 6 hrs 1 tablet as needed 6h Mar, 28 days Active RESULTS No Results PROCEDURES [...] History cholecystectomy Hospitalization History surgeries Hospitalization History [facility]- Acute Cholecystitis 09/10/2017
--- OUTSIDE RECORDS SUMMARY | 2018-06-01 12:26 | XMS REPORT ---
Author Author PATRICK POOL [facility] Address [address] [place] [address] Care Team Providers Care Lorry Weigher Name Role Phone PATRICK POOL Unavailable PROBLEMS Type Condition ICD9-CM Code OPH92-OV Code Onset Dates Condition Status SNOMED Code Problem Chronic pain due to trauma G89.21 Active 729859633 Problem History of CVA (cerebrovascular accident) Z86.73 Active 985881865 Problem Generalized anxiety disorder F41.1 Active 51210199 Problem Chronic bronchitis, unspecified chronic bronchitis type J42 Active 44812201 Problem Essential hypertension I10 Active 40474841 Problem Mixed hyperlipidemia E78.2 Active 859247302 Problem Reactive depression F32.9 Active 03737719 Problem Persistent atrial fibrillation I48.1 Active 709644110 Problem Lumbago with sciatica, right side M54.41 Active [id number] Problem Urinary hesitancy R39.11 Active 4627629 Problem Arthritis M19.90 Active 3806786 Problem Lumbago with sciatica, left side M54.42 Active 436604193 Problem Other chronic pain G89.29 Active 56546780 ALLERGIES No Information ENCOUNTERS Encounter Location Date Diagnosis [place] [id number] [place] [address] 58269- 9751 Apr, Chronic pain due to trauma G89.21 [facility] [id number] [place] [address] 23626- 3773 Mar, Chronic pain due to trauma G89.21 [facility] [id number] [place] [address] 16244- 1300 Jan, [facility] [id number] [place] [address] 39464- 1735 Jan, Essential hypertension I10 [place] [address] [id number] [place] [address] 17560- 0427 18 Jan, 2018 Chronic pain due to trauma G89.21 [facility] [id number] [place] [address] 17506- 5893 16 Jan, 2018 Other viral warts B07.8 [facility] [id number] [place] [address] 61589- 8061 24 Dec, 2017 Other viral warts B07.8 [facility] [id number] [place] [address] 03257- 9739 19 Dec, 2017 Chronic pain due to trauma G89.21 [facility] [id number] [place] [address] 833060- 1151 Dec, [facility] [id number] [place] [address] 03711- 1865 Nov, Persistent atrial fibrillation I48.1 and Chronic pain due to trauma G89.21 [facility] [id number] [place] [address] 86074- 8642 Nov, Chronic pain due to trauma G89.21 [facility] [id number] [place] [address] 08753- 0511 Nov, [facility] [id number] [place] [address] 60612- 8114 Oct, Chronic pain due to trauma G89.21 [facility] [id number] [place] [address] 01172- 8642 Sep, [facility] [id number] [place] [address] 64971- 8598 Sep, Chronic pain due to trauma G89.21 [facility] [id number] [place] [address] 39211- 0575 Sep, Chronic pain due to trauma G89.21 ; Essential hypertension I10 and Urinary hesitancy R39.11 [facility] [id number] [place] [address] 37039- 5908 Sep, [place] [id number] [place] [address] 38460- 5435 August, Chronic pain due to trauma G89.21 [place] [address] [address] [id number] [place] [address] 63149- 8602 August, Essential hypertension I10 [place] [address] [id number] [place] [address] 33584- 3627 August, Right upper quadrant abdominal pain R10.11 [place] [address] 24419- 6294 August, Medicare annual wellness visit, initial Z00.00 ; Chronic bronchitis, unspecified chronic bronchitis type J42 ; Reactive depression F32.9 ; Mixed hyperlipidemia E78.2 and Generalized anxiety disorder F41.1 [place] [address] [id number] [place] [address] 03164- 9714 August, Chronic pain due to trauma G89.21 [facility] [id number] [place] [address] 45604 -8028 Jul, Left shoulder pain, unspecified chronicity M25.512 [place] [address] 79389- 9685 Jul, Chronic pain due to trauma G89.21 ; Essential hypertension I10 ; Urinary hesitancy R39.11 ; Chronic bronchitis, unspecified chronic bronchitis type J42 ; Lumbago with sciatica, left side M54.42 ; Lumbago with sciatica, right side M54.41 ; Other chronic pain G89.29 and BMI 40.0-44.9, adult Z68.41 [place] [address] [id number] [place] [address] 23384- 5919 Jul, Chronic pain due to trauma G89.21 [place] [address] [address] [id number] [place] [address] 83210- 3422 Jul, Encounter for medication monitoring Z51.81 [place] [address] 89834- 2052 Jul, Encounter for medication monitoring Z51.81 [facility] [id number] [place] [address] 85258- 3700 Jun, [facility] [id number] [place] [address] 67989- 1425 Jun, Chronic pain due to trauma G89.21 [facility] [id number] [place] [address] 19205- 6861 Jun, Chronic bronchitis, unspecified chronic bronchitis type J42 [facility] [id number] [place] [address] 29551- 4296 Jun, [facility] [id number] [place] [address] 45476- 9431 Jun, Chronic pain due to trauma G89.21 [facility] [id number] [place] [address] 86663- 8820 Jun, Chronic bronchitis, unspecified chronic bronchitis type J42 [facility] [id number] [place] [address] 52661- 8176 Jun, Chronic pain due to trauma G89.21 [facility] [id number] [place] [address] 68717- 4708 Jun, Chronic bronchitis, unspecified chronic bronchitis type J42 [facility] [id number] [place] [address] 04755- 0250 May, Chronic pain due to trauma G89.21 and Arthritis M19.90 [facility] [id number] [place] [address] 17273- 7576 May, Chronic pain due to trauma G89.21 [facility] [id number] [place] [address] 49607- 1279 May, [facility] [id number] [place] [address] 34573- 7594 Apr, Chronic pain due to trauma G89.21 [facility] [id number] [place] [address] 58776- 5559 Mar, Essential hypertension I10 [facility] [id number] [place] [address] 08687- 5206 Mar, Chronic pain due to trauma G89.21 [facility] [id number] [place] [address] 61353- 1808 Mar, [facility] [address] 530256- 9370 Mar, Chronic pain due to trauma G89.21 ; Essential hypertension I10 and Mixed hyperlipidemia E78.2 [facility] [address] 29977- 2726 Jan, Chronic pain due to trauma G89.21 [facility] [id number] [place] [address] 08968- 4383 Jan, [facility] [id number] [place] [address] 23730- 9753 Dec, Chronic pain due to trauma G89.21 [facility] [id number] [place] [address] 02551- 6219 Dec, Chronic pain due to trauma G89.21 [facility] [id number] [place] [address] 37500- 4585 Dec, Essential hypertension I10 [facility] [id number] [place] [address] 17659- 3531 Nov, Chronic pain due to trauma G89.21 [facility] [id number] [place] [address] 26421- 4789 Oct, Chronic pain due to trauma G89.21 [facility] [id number] [place] [address] 24238- 2774 Oct, Chronic pain due to trauma G89.21 [facility] [id number] [place] [address] 73366- 9820 Oct, Essential hypertension I10 [facility] [id number] [place] [address] 92474- 7199 30 Sep, 2016 Chronic pain due to trauma G89.21 ; Reactive depression F32.9 and Essential hypertension I10 [facility] [id number] [place] [address] 26959- 3521 13 Sep, 2016 Generalized anxiety disorder F41.1 [facility] [id number] [place] [address] 73133- 3863 August, Essential hypertension I10 ; Reactive depression F32.9 and Chronic pain due to trauma G89.21 [facility] [address] 22696- 1163 Jun, Flank pain R10.9 [facility] [id number] [place] [address] 68876- 0092 09 Jun, 2016 Essential hypertension I10 [facility] [id number] [place] [address] 22894- 8799 May, Chronic bronchitis, unspecified chronic bronchitis type J42 [facility] [id number] [place] [address] 17134- 5702 Apr, Essential hypertension I10 [facility] [id number] [place] [address] 52732- 9992 Apr, [facility] [id number] [place] [address] 14836- 5048 30 Jan, 2016 Mixed hyperlipidemia E78.2 [facility] [id number] [place] [address] 52199- 4864 Dec, Hepatitis C, chronic B18.2 ; Essential hypertension I10 and Mixed hyperlipidemia E78.2 [facility] [id number] [place] [address] 97524- 7808 August, [facility] [id number] [place] [address] 77101- 6695 August, [facility] [address] 96261- 3506 August, Essential hypertension I10 ; Mixed hyperlipidemia E78.2 and Gastroesophageal reflux disease, esophagitis presence not specified K21.9 [place] [address] 64413- 1367 Jun, [place] [address] 28064- 9568 Jun, Hepatitis C, chronic B18.2 ; Dyspepsia R10.13 ; Reflux esophagitis K21.0 and Essential hypertension I10 [place] [address] 13190- 6651 May, Reflux esophagitis K21.0 ; Hepatitis C, chronic B18.2 and Tachycardia, unspecified R00.0 [place] [address] 97319- 6883 May, Generalized anxiety disorder F41.1 and Substance addiction F19.20 [place] [address] 75354- 7242 Apr, [place] [address] 73157- 1281 Apr, Hepatitis C, chronic B18.2 [place] [address] 90578- 8605 Apr, Anxiety F41.9 [place] [address] 47008- 0912 Apr, Hepatitis C, chronic B18.2 and Encounter for immunization Z23 [place] [address] 11203- 1384 Apr, [place] [address] 36663- 6241 Apr, Dyspepsia R10.13 [place] [address] 31464- 2007 Apr, [facility] [address] [address]- 8690 Mar, Hepatitis C, chronic B18.2 [facility] [id number] [place] [address] 54063- 5095 Mar, Hepatitis C, chronic B18.2 [facility] [id number] [place] [address] 47420- 2453 Mar, [facility] [id number] [place] [address] 38234- 4752 Mar, [facility] [id number] [place] [address] 10132- 7921 Mar, [facility] [id number] [place] [address] 47009- 2831 Jan, Essential hypertension I10 ; Chronic bronchitis, unspecified chronic bronchitis type J42 ; Hepatitis C, chronic B18.2 and Dental caries of root surface K02.7 [facility] [id number] [place] [address] 69245- 8769 Dec, Routine adult health maintenance V70.0 [facility] [id number] [place] [address] 48041- 5597 Dec, [facility] [id number] [place] [address] 86515- 6696 Dec, Hypertension 401.9 ; Anxiety 300.00 and Routine adult health maintenance V70.0 IMMUNIZATIONS No Known Immunizations SOCIAL HISTORY Never Assessed REASON FOR VISIT Controlled Med Refill 04/13 PLAN OF CARE VITAL SIGNS MEDICATIONS Medication [...]
--- OUTSIDE RECORDS SUMMARY | 2018-06-01 12:27 | XMS REPORT ---
Author Author PATRICK POOL [facility] Address [address] [place] [address] Care Team Providers Care Executive Chairman Of The Board Name Role Phone PATRICK POOL Unavailable PROBLEMS Type Condition ICD9-CM Code [id number] Code Onset Dates Condition Status SNOMED Code Problem Chronic pain due to trauma G89.21 Active 144502649 Problem History of CVA (cerebrovascular accident) Z86.73 Active 562170272 Problem Generalized anxiety disorder F41.1 Active 46285973 Problem Chronic bronchitis, unspecified chronic bronchitis type J42 Active 46436210 Problem Essential hypertension I10 Active 69284524 Problem Mixed hyperlipidemia E78.2 Active 059263154 Problem Reactive depression F32.9 Active 58665884 Problem Persistent atrial fibrillation I48.1 Active 524974635 Problem Lumbago with sciatica, right side M54.41 Active 944717550944525 Problem Urinary hesitancy R39.11 Active 0327883 Problem Arthritis M19.90 Active 5696490 Problem Lumbago with sciatica, left side M54.42 Active 681171788 Problem Other chronic pain G89.29 Active 79337822 ALLERGIES No Information ENCOUNTERS Encounter Location Date Diagnosis [facility] [id number] [place] [address] 86102- 5718 Jan, [facility] [id number] [place] [address] 00088- 3015 18 Jan, 2018 Essential hypertension I10 [facility] [id number] [place] [address] 30284- 3872 18 Jan, 2018 Chronic pain due to trauma G89.21 [facility] [id number] [place] [address] 99013- 5377 16 Jan, 2018 Other viral warts B07.8 [facility] [id number] [place] [address] 89337- 2473 Dec, Other viral warts B07.8 [facility] [id number] [place] [address] 81470- 9776 Dec, Chronic pain due to trauma G89.21 [facility] [id number] [place] [address] 18303- 9756 Dec, [facility] [id number] [place] [address] 17142- 7738 Nov, Persistent atrial fibrillation I48.1 and Chronic pain due to trauma G89.21 [facility] [id number] [place] [address] 46156- 1626 Nov, Chronic pain due to trauma G89.21 [facility] [id number] [place] [address] 56149- 3896 Nov, [facility] [id number] [place] [address] 24632- 2761 Oct, Chronic pain due to trauma G89.21 [facility] [id number] [place] [address] 92682- 3104 Sep, [facility] [id number] [place] [address] 29632- 6139 Sep, Chronic pain due to trauma G89.21 [facility] [id number] [place] [address] 63326- 7405 Sep, Chronic pain due to trauma G89.21 ; Essential hypertension I10 and Urinary hesitancy R39.11 [facility] [id number] [address] Sep, [facility] [id number] [place] [address] 43214- 3616 August, Chronic pain due to trauma G89.21 [facility] [id number] [address] August, Essential hypertension I10 [facility] [id number] [place] [address] 71487- 5424 August, Right upper quadrant abdominal pain R10.11 [facility] [id number] [place] [address] 07575- 0785 August, Medicare annual wellness visit, initial Z00.00 ; Chronic bronchitis, unspecified chronic bronchitis type J42 ; Reactive depression F32.9 ; Mixed hyperlipidemia E78.2 and Generalized anxiety disorder F41.1 [facility] [address] 33817- 7836 August, Chronic pain due to trauma G89.21 [facility] [address] 20721 -3236 Jul, Left shoulder pain, unspecified chronicity M25.512 [place] [address] 61910- 0518 Jul, Chronic pain due to trauma G89.21 ; Essential hypertension I10 ; Urinary hesitancy R39.11 ; Chronic bronchitis, unspecified chronic bronchitis type J42 ; Lumbago with sciatica, left side M54.42 ; Lumbago with sciatica, right side M54.41 ; Other chronic pain G89.29 and BMI 40.0-44.9, adult Z68.41 [facility] [id number] [place] [address] 84051- 9839 Jul, Chronic pain due to trauma G89.21 [facility] [id number] [place] [address] 20614- 8413 Jul, Encounter for medication monitoring Z51.81 [facility] [id number] [place] [address] 27645- 2923 Jul, Encounter for medication monitoring Z51.81 [facility] [id number] [place] [address] 88996- 7135 Jun, [facility] [id number] [place] [address] 98086- 2088 Jun, Chronic pain due to trauma G89.21 [facility] [address] [address] 7412 Jun, Chronic bronchitis, unspecified chronic bronchitis type J42 [facility] [address] [address]- 3134 Jun, [facility] [id number] [place] [address] 73865- 0315 Jun, Chronic pain due to trauma G89.21 [facility] [address] [facility] [id number] [place] [address] 65512- 7986 Jun, Chronic bronchitis, unspecified chronic bronchitis type J42 [facility] [id number] [place] [address] 08681- 4584 Jun, Chronic pain due to trauma G89.21 [facility] [id number] [place] [address] 38571- 5722 Jun, Chronic bronchitis, unspecified chronic bronchitis type J42 [facility] [id number] [place] [address] 70511- 9989 May, Chronic pain due to trauma G89.21 and Arthritis M19.90 [facility] [id number] [place] [address] 60476- 0690 May, Chronic pain due to trauma G89.21 [facility] [address] [address]- 8160 May, [facility] [id number] [place] [address] 94512- 8494 Apr, Chronic pain due to trauma G89.21 [facility] [id number] [place] [address] 69674- 0038 Mar, Essential hypertension I10 [facility] [address] [address]- 8622 Mar, Chronic pain due to trauma G89.21 [facility] [id number] [place] [address] 21553- 6197 Mar, [facility] [id number] [place] [address] 71760- 0576 Mar, Chronic pain due to trauma G89.21 ; Essential hypertension I10 and Mixed hyperlipidemia E78.2 [facility] [id number] [place] [address] 56368- 4526 Jan, Chronic pain due to trauma G89.21 [facility] [id number] [place] [address] 45915- 0753 Jan, [facility] [address] 56914- 4861 Dec, Chronic pain due to trauma G89.21 [facility] [id number] [place] [address] 37420- 3514 Dec, Chronic pain due to trauma G89.21 [facility] [id number] [place] [address] 09578- 0685 Dec, Essential hypertension I10 [facility] [id number] [place] [address] 61146- 3057 Nov, Chronic pain due to trauma G89.21 [facility] [id number] [place] [address] 22059- 3943 Oct, Chronic pain due to trauma G89.21 [facility] [id number] [place] [address] 15045- 2220 Oct, Chronic pain due to trauma G89.21 [facility] [id number] [place] [address] 91882- 8917 Oct, Essential hypertension I10 [facility] [id number] [place] [address] 43408- 4108 Sep, Chronic pain due to trauma G89.21 ; Reactive depression F32.9 and Essential hypertension I10 [facility] [id number] [place] [address] 62320- 0532 13 Sep, 2016 Generalized anxiety disorder F41.1 [facility] [id number] [place] [address] 88448- 7783 12 Aug, 2016 Essential hypertension I10 ; Reactive depression F32.9 and Chronic pain due to trauma G89.21 [facility] [id number] [place] [address] 44107- 7185 10 Jun, 2016 Flank pain R10.9 [facility] [address] 74195- 0254 09 Jun, 2016 Essential hypertension I10 [place] [address] 32976- 1837 May, Chronic bronchitis, unspecified chronic bronchitis type J42 [facility] [id number] [place] [address] 32057- 8798 Apr, Essential hypertension I10 [facility] [id number] [place] [address] 17243- 4831 Apr, [facility] [id number] [place] [address] 17424- 3813 30 Jan, 2016 Mixed hyperlipidemia E78.2 [facility] [id number] [place] [address] 73203- 2973 Dec, Hepatitis C, chronic B18.2 ; Essential hypertension I10 and Mixed hyperlipidemia E78.2 [facility] [id number] [place] [address] 49394- 1827 August, [facility] [id number] [place] [address] 15076- 4065 August, [facility] [id number] [place] [address] 19418- 0340 August, Essential hypertension I10 ; Mixed hyperlipidemia E78.2 and Gastroesophageal reflux disease, esophagitis presence not specified K21.9 [facility] [id number] [place] [address] 16508- 6819 Jun, [facility] [id number] [place] [address] 97525- 8722 Jun, Hepatitis C, chronic B18.2 ; Dyspepsia R10.13 ; Reflux esophagitis K21.0 and Essential hypertension I10 [facility] [id number] [place] [address] 94276- 7382 May, Reflux esophagitis K21.0 ; Hepatitis C, chronic B18.2 and Tachycardia, unspecified R00.0 [facility] [address] 72816- 4246 May, Generalized anxiety disorder F41.1 and Substance addiction F19.20 [facility] [address] 51744- 8765 Apr, [place] [facility] [address] 95044- 8375 Apr, Hepatitis C, chronic B18.2 [facility] [address] 87395- 9642 Apr, Anxiety F41.9 [facility] [address] 25665- 3397 Apr, Hepatitis C, chronic B18.2 and Encounter for immunization Z23 [facility] [id number] [place] [address] 05673- 7659 Apr, [facility] [address] 28382- 8584 08 Apr, 2015 Dyspepsia R10.13 [facility] [id number] [place] [address] 91768- 2846 Apr, [facility] [address] 97859- 4272 30 Mar, 2015 Hepatitis C, chronic B18.2 [facility] [id number] [place] [address] 77995- 7591 Mar, Hepatitis C, chronic B18.2 [facility] [address] [address]- 0248 Mar, [facility] [id number] [place] [address] 49274- 0806 Mar, [facility] [id number] [place] [address] 80566- 9843 Mar, [facility] [id number] [place] [address] 69370- 1294 Jan, Essential hypertension I10 ; Chronic bronchitis, unspecified chronic bronchitis type J42 ; Hepatitis C, chronic B18.2 and Dental caries of root surface K02.7 [facility] [id number] [place] [address] 18143- 8595 Dec, Routine adult health maintenance V70.0 [facility] [id number] [place] [address] 83034- 4761 Dec, [facility] [id number] [place] [address] 56111- 5295 Dec, Hypertension 401.9 ; Anxiety 300.00 and Routine adult health maintenance V70.0 IMMUNIZATIONS No Known Immunizations SOCIAL HISTORY Never Assessed REASON FOR VISIT Requests return call PLAN OF CARE VITAL SIGNS MEDICATIONS Unknown [...]
--- OUTSIDE RECORDS SUMMARY | 2018-06-01 12:27 | XMS REPORT ---
Author Author PATRICK POOL [facility] Address [address] [place] [address] Care Team Providers Care Stock Handler Floorperson Name Role Phone PATRICK POOL Unavailable PROBLEMS Type Condition ICD9-CM Code [id number] Code Onset Dates Condition Status SNOMED Code Problem Chronic pain due to trauma G89.21 Active 788933373 Problem History of CVA (cerebrovascular accident) Z86.73 Active 466789867 Problem Generalized anxiety disorder F41.1 Active 40931914 Problem Chronic bronchitis, unspecified chronic bronchitis type J42 Active 62743566 Problem Essential hypertension I10 Active 81414421 Problem Mixed hyperlipidemia E78.2 Active 496234680 Problem Reactive depression F32.9 Active 14301949 Problem Persistent atrial fibrillation I48.1 Active 586260576 Problem Lumbago with sciatica, right side M54.41 Active 770532850434447 Problem Urinary hesitancy R39.11 Active 6519813 Problem Arthritis M19.90 Active 2744291 Problem Lumbago with sciatica, left side M54.42 Active 615858554 Problem Other chronic pain G89.29 Active 82834825 ALLERGIES Substance Reaction Event Type Date Status Mirtazapine urinary problems Drug Allergy Nov, Active ENCOUNTERS Encounter Location Date Diagnosis [facility] [id number], [place] [address] Jan, [facility] [id number], [place] [address] Jan, Essential hypertension I10 [facility] [id number], [place] [address] Jan, Chronic pain due to trauma G89.21 [facility] [id number], [place] [address] Jan, Other viral warts B07.8 [facility] [id number] [place] [address] 01992- 9107 24 Dec, 2017 Other viral warts B07.8 [facility] [id number] [place] [address] 54882- 2976 Dec, Chronic pain due to trauma G89.21 [facility] [id number] [place] [address] 79348- 9356 Dec, [facility] [id number] [place] [address] 74867- 5084 Nov, Persistent atrial fibrillation I48.1 and Chronic pain due to trauma G89.21 [facility] [id number] [place] [address] 47269- 4636 Nov, Chronic pain due to trauma G89.21 [facility] [id number] [place] [address] 82514- 4079 Nov, [facility] [id number] [place] [address] 10812- 9275 Oct, Chronic pain due to trauma G89.21 [facility] [id number] [place] [address] 43822- 8009 Sep, [facility] [id number] [place] [address] 90111- 3034 Sep, Chronic pain due to trauma G89.21 [facility] [id number] [place] [address] 85390- 1767 Sep, Chronic pain due to trauma G89.21 ; Essential hypertension I10 and Urinary hesitancy R39.11 [facility] [id number] [place] [address] 22077- 3115 Sep, [facility] [id number] [place] [address] 31500- 9434 August, Chronic pain due to trauma G89.21 [facility] [id number] [place] [address] 66855- 9872 August, Essential hypertension I10 [facility] [id number] [place] [address] 93254- 2854 August, Right upper quadrant abdominal pain R10.11 [facility] [id number] [place] [address] 10843- 4849 August, Medicare annual wellness visit, initial Z00.00 ; Chronic bronchitis, unspecified chronic bronchitis type J42 ; Reactive depression F32.9 ; Mixed hyperlipidemia E78.2 and Generalized anxiety disorder F41.1 [facility] [id number] [place] [address] 55326- 2338 August, Chronic pain due to trauma G89.21 [facility] [id number] [place] [address] 64294 -7498 Jul, Left shoulder pain, unspecified chronicity M25.512 [facility] [id number] [place] [address] 91237- 7822 Jul, Chronic pain due to trauma G89.21 ; Essential hypertension I10 ; Urinary hesitancy R39.11 ; Chronic bronchitis, unspecified chronic bronchitis type J42 ; Lumbago with sciatica, left side M54.42 ; Lumbago with sciatica, right side M54.41 ; Other chronic pain G89.29 and BMI 40.0-44.9, adult Z68.41 [facility] [id number] [place] [address] 58439- 9818 Jul, Chronic pain due to trauma G89.21 [facility] [id number] [place] [address] 89034- 3486 Jul, Encounter for medication monitoring Z51.81 [facility] [id number] [place] [address] 02516- 9400 Jul, Encounter for medication monitoring Z51.81 [facility] [id number] [place] [address] 78530- 2851 Jun, [facility] [id number] [place] [address] 76978- 2466 Jun, Chronic pain due to trauma G89.21 [facility] [address] [place] [address] 53816- 1674 Jun, Chronic bronchitis, unspecified chronic bronchitis type J42 [facility] [address] [place] [address] 43330- 5190 Jun, [facility] [id number] [place] [address] 77996- 8688 Jun, Chronic pain due to trauma G89.21 [facility] [id number] [place] [address] 25763- 4501 Jun, Chronic bronchitis, unspecified chronic bronchitis type J42 [facility] [id number] [place] [address] 14497- 7338 Jun, Chronic pain due to trauma G89.21 [facility] [id number] [place] [address] 73045- 8413 Jun, Chronic bronchitis, unspecified chronic bronchitis type J42 [facility] [id number] [place] [address] 60673- 4390 May, Chronic pain due to trauma G89.21 and Arthritis M19.90 [facility] [address] [place] [address] 03329- 9416 May, Chronic pain due to trauma G89.21 [facility] [address] [place] [address] 64545- 5056 May, [facility] [id number] [place] [address] 91478- 1770 Apr, Chronic pain due to trauma G89.21 [facility] [id number] [place] [address] 43658- 3389 Mar, Essential hypertension I10 [facility] [id number] [place] [address] 43480- 7360 Mar, Chronic pain due to trauma G89.21 [facility] [id number] [place] [address] 85411- 5365 Mar, [facility] [id number] [place] [address] 28633 2546 Mar, Chronic pain due to trauma G89.21 ; Essential hypertension I10 and Mixed hyperlipidemia E78.2 [facility] [id number] [place] [address] 15659- 5406 Jan, Chronic pain due to trauma G89.21 [facility] [id number] [place] [address] 32461- 6968 Jan, [facility] [address] 66835- 5056 Dec, Chronic pain due to trauma G89.21 [facility] [id number] [place] [address] 56320- 9328 Dec, Chronic pain due to trauma G89.21 [facility] [id number] [place] [address] 94851- 8654 Dec, Essential hypertension I10 [facility] [id number] [place] [address] 87207- 6476 Nov, Chronic pain due to trauma G89.21 [facility] [id number] [place] [address] 18681- 6376 Oct, Chronic pain due to trauma G89.21 [facility] [id number] [place] [address] 14108- 4027 Oct, Chronic pain due to trauma G89.21 [facility] [id number] [place] [address] 61023744- 1866 Oct, Essential hypertension I10 [facility] [id number] [place] [address] 10625- 2546 Sep, Chronic pain due to trauma G89.21 ; Reactive depression F32.9 and Essential hypertension I10 [facility] [id number] [place] [address] 61284- 1124 13 Sep, 2016 Generalized anxiety disorder F41.1 [address] [facility] [address] 40008- 5263 12 Aug, 2016 Essential hypertension I10 ; Reactive depression F32.9 and Chronic pain due to trauma G89.21 [facility] [address] 83768- 8306 10 Jun, 2016 Flank pain R10.9 [address] [address] 26295- 6571 09 Jun, 2016 Essential hypertension I10 [address] [address] 54675- 9561 May, Chronic bronchitis, unspecified chronic bronchitis type J42 [address] [address] 34412- 3372 Apr, Essential hypertension I10 [facility] [id number] [place] [address] 06046- 0957 Apr, [address] [address] 88839- 6700 30 Jan, 2016 Mixed hyperlipidemia E78.2 [address] [facility] 07375- 1367 Dec, Hepatitis C, chronic B18.2 ; Essential hypertension I10 and Mixed hyperlipidemia E78.2 [facility] [id number] [place] [address] 97006- 1614 August, [facility] [id number] [place] [address] 72339- 5120 August, [facility] [id number] [place] [address] 73284- 8646 August, Essential hypertension I10 ; Mixed hyperlipidemia E78.2 and Gastroesophageal reflux disease, esophagitis presence not specified K21.9 [facility] [id number] [place] [address] 99228- 8852 Jun, [facility] [id number] [place] [address] 15693- 0989 Jun, Hepatitis C, chronic B18.2 ; Dyspepsia R10.13 ; Reflux esophagitis K21.0 and Essential hypertension I10 [facility] [address] 76393- 2493 May, Reflux esophagitis K21.0 ; Hepatitis C, chronic B18.2 and Tachycardia, unspecified R00.0 [address] [address] 93727- 8641 May, Generalized anxiety disorder F41.1 and Substance addiction F19.20 [address] [facility] [address] 46129- 1815 Apr, [address] [address] 32435- 6750 Apr, Hepatitis C, chronic B18.2 [address] 13072- 2983 Apr, Anxiety F41.9 [address] 10967- 9555 Apr, Hepatitis C, chronic B18.2 and Encounter for immunization Z23 [address] 09181- 6050 Apr, [address] [address] 43295- 5672 Apr, Dyspepsia R10.13 [address] 71247- 0253 Apr, [address] [address] 31394- 3934 Mar, Hepatitis C, chronic B18.2 [address] 11375- 6852 Mar, Hepatitis C, chronic B18.2 [facility] [address], [place] [address]- 4028 Mar, [facility] [address] [place] [address] 36309- 5572 Mar, [facility] [id number] [place] [address] 36828- 3542 Mar, [facility] [id number] [place] [address] 71098- 8334 Jan, Essential hypertension I10 ; Chronic bronchitis, unspecified chronic bronchitis type J42 ; Hepatitis C, chronic B18.2 and Dental caries of root surface K02.7 [facility] [id number] [place] [address] 14520- 7525 17 Dec, 2014 Routine adult health maintenance V70.0 [facility] [id number] [place] [address] 63778- 3133 17 Dec, 2014 [facility] [id number] [place] [address] 61358- 2837 15 Dec, 2014 Hypertension 401.9 ; Anxiety 300.00 and Routine adult health maintenance V70.0 IMMUNIZATIONS No Known Immunizations SOCIAL HISTORY Never Assessed REASON FOR VISIT [facility] follow up, Please update narc hallie. Bethany RN PLAN OF CARE Activity Details Follow Up 3 Months Reason: VITAL SIGNS Height 69 in 2017-12-26 Weight 262 lbs 2017-12-26 Temperature 98.2 degrees Fahrenheit 2017-12-26 Heart Rate 72 bpm 2017-12-26 Respiratory Rate 22 2017-12-26 BMI 38.69 kg/m2 2017-12-26 Blood pressure systolic 132 mmHg 2017-12-26 Blood pressure diastolic 72 mmHg 2017-12-26 MEDICATIONS Medication Instructions Dosage Frequency Start Date End Date Duration Status Eliquis 5 MG Active Prinivil 20 mg Orally 2 AM, 1 PM 1 tablet Sep, Active Pravastatin Sodium 20 MG TAKE ONE TABLET BY MOUTH ONCE DAILY 90 Active Cartia XT 120 MG Orally Once a day 1 capsule 24h Active Cyclobenzaprine HCl 10 MG TAKE ONE TABLET BY MOUTH THREE TIMES DAILY NEEDED 28 Active Amiodarone HCl 1 capsule Nov, Active Chlorthalidone 1 capsule Nov, Active HydrOXYzine HCl 25 MG Orally every 8 hrs 1 tablet as needed for anxiety 8h 30 Active Omeprazole 20 MG TAKE ONE CAPSULE BY MOUTH ONCE DAILY 90 Active Lisinopril 20 mg Orally bid 2 AM, 1 PM 12h Sep, Active Voltaren 1 % Transdermal 4 times a day apply pea sized 6h Active Atenolol-Chlorthalidone 100-25 MG TAKE ONE TABLET BY MOUTH ONCE DAILY 30 Active Lisinopril 40 mg Orally Once a day 1 capsule 24h Active Ventolin HFA 108MCG/A INHALE 2 PUFFS BY MOUTH EVERY 4 HOURS NEEDED Active Oxycodone-Acetaminophen 10-325 MG Orally every 6 hrs 1 tablet as needed 6h Nov, 28 days Active RESULTS No Results PROCEDURES Procedure Date Ordered Result Body Site [facility] VISIT ESTABLISHED PATIENT Dec 26, 2017 INSTRUCTIONS MEDICATIONS ADMINISTERED No Known Medications [...] History cholecystectomy Hospitalization History surgeries Hospitalization History [facility], [place], operated by [facility]- Acute Cholecystitis 09/10/2017
--- NOTE | 2018-06-01 12:29 | Anesthesia-Procedure Note ---
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 Patient has a history of requiring larges doses of propofol for this exact same procedure. Reviewed history and NKDA. Total of 100mg Propofol IV given over a period of 3 shocks. Reported off to Karyn Mccray RN. Stop Time: 12:06 MARTHA/Cardioversion Anesthesia Type: mac ASA Class: 3 Medications Propofol 100mg Monitors and Equipment: BP Cuff - Right, Continuous EKG, End Tidal CO2, IV, Pulse Oximeter DEISI LEONE CRNA Jun 01, 2018 12:29
--- NOTE | 2018-06-01 12:35 | NUR ---
unable to obtain further vital signs because patient refusing, stating "i need a minute". patient alert and oriented x3.
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
--- NOTE | 2018-06-01 12:40 | NUR ---
patient refusing to stay any longer. dr. jason called and ok with patient going home as long as patient was not driving. patient verbalized understanding of post procedure teaching.
[2018-06-01 13:05] LABS: ALBUMIN 4.3 GM/DL (3.2-4.5); CALCIUM 9.8 MG/DL (8.5-10.1); CREATININE SERUM 1.28 MG/DL (0.60-1.30); PHOSPHORUS 3.8 MG/DL (2.3-4.7); POTASSIUM 4.4 MMOL/L (3.6-5.0)
== END ==
LOC: CATH 09:48
PROVIDERS: ATTEND Internal Medicine Interventional Cardiology
DX: I48.1 Persistent atrial fibrillation (principal); I12.9 Hypertensive chronic kidney disease with stage 1 through stage 4 chronic kidney disease, or unspecified chronic kidney disease; N18.4 Chronic kidney disease, stage 4 (severe); F41.9 Anxiety disorder, unspecified; J44.9 Chronic obstructive pulmonary disease, unspecified; G89.4 Chronic pain syndrome; E78.2 Mixed hyperlipidemia; Z79.01 Long term (current) use of anticoagulants; Z79.899 Other long term (current) drug therapy
CPT/HCPCS: 36415; 80069; 92960; 93005

== ENCOUNTER → 2018-07-12 | Outpatient (CLI) | payer MEDICARE, OTHER ==
[~2018-07-12] MED LIST changes: -NS IV 1000 ML 1,000 ML IV ONE; -NS IV 1000 ML 1,000 ML ONE; +RT-ALBUTEROL SULF 2.5 MG/3 ML PRE-MIX VIAL INH ONE; +RT-ALBUTEROL SULF 2.5 MG/3 ML PRE-MIX VIAL ONE
== END ==
LOC: RT 06-21 08:01
PROVIDERS: ATTEND Surgery
DX: Z02.71 Encounter for disability determination (principal)
CPT/HCPCS: 94060

== ENCOUNTER 2018-07-26 15:00 | Outpatient (CLI) | payer MEDICARE ==
[~2018-07-26] VITALS: Ht 175.3 cm; Wt 117.5 kg
[~2018-07-26 15:00] MED LIST changes: -RT-ALBUTEROL SULF 2.5 MG/3 ML PRE-MIX VIAL INH ONE; -RT-ALBUTEROL SULF 2.5 MG/3 ML PRE-MIX VIAL ONE
[2018-07-26] MEDS ORDERED: GABA-488 PO (15:54)
[2018-07-26] MEDS ORDERED: LISI-552 PO ×2 (15:54)
[2018-07-26] MEDS ORDERED: AMIO200T4 PO (15:54)
== END 2018-07-26 15:50 | disposition home or self-care (01) ==
LOC: PREOP 15:00
PROVIDERS: ATTEND Internal Medicine Interventional Cardiology
DX: Z01.818 Encounter for other preprocedural examination (principal)

== ENCOUNTER 2018-07-31 08:07 | Day surgery (SDC) | payer MEDICARE, OTHER ==
[2018-07-31] VITALS (10 sets, daily range): BP systolic 126–181; BP diastolic 73–125
[~2018-07-31] VITALS: Ht 175.3 cm; Wt 117.5 kg
[2018-07-31] MEDS ORDERED: ISOFLURANE (FORANE) 15 ML/15 MIN INHALATION INH ONE (08:08)
[2018-07-31] MEDS ORDERED: NS IV 1000 ML 1,000 ML IV SCH (08:13)
[2018-07-31] MEDS ORDERED: HEParin 1000 UNIT/ML (10ML VIAL) FOR BOLUS ONE ×4 (08:15→13:38)
[2018-07-31] MEDS ORDERED: ISOPROTERENOL 0.2 MG/100 ML D5W IV ONE (08:15)
[2018-07-31] MEDS ORDERED: LIDOCAINE 1% INJ 20 ML 20 ML VIAL ONE (08:15)
[2018-07-31] MEDS ORDERED: MIDAZOLAM 2 MG/2 ML (VERSED) VIAL ONE (08:18)
[2018-07-31] MEDS ORDERED: proPOfol 200 MG/20 ML (DIPRIVAN) VIAL IV ONE ×2 (08:19→09:27)
[2018-07-31] MEDS ORDERED: fentaNYL INJECTION 100 MCG/2 ML AMP ONE ×2 (08:19→23:47)
[2018-07-31] MEDS ORDERED: SUCCINYLCHOLINE INJ 100 MG/5 ML SYR ONE (08:19)
[2018-07-31] MEDS ORDERED: LIDOCAINE PF 1% 2 ML AMP ONE (08:20)
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
[2018-07-31 08:40] LABS: HEMOGLOBIN 14.5 G/DL (13.3-17.7); MEAN PLATELET VOLUME 10.7 FL (7.4-10.4); RED CELL DISTRIBUTION WIDTH 13.2 % (10.0-14.5)
--- NOTE | 2018-07-31 08:42 | NUR ---
#20 GA IV STARTED R FOREARM.
[2018-07-31] MEDS ORDERED: NS IV 1000 ML 2,000 ML ONE ×2 (08:46→10:31)
[2018-07-31 08:53] LABS: INR 1.1 (0.8-1.4); PROTHROMBIN TIME PATIENT 14.3 SEC (12.2-14.7)
[2018-07-31 09:00] LABS: ALBUMIN 4.5 GM/DL (3.2-4.5); BILIRUBIN,TOTAL 0.5 MG/DL (0.1-1.0); CALCIUM 10.5 MG/DL (8.5-10.1); CREATININE SERUM 1.3 MG/DL (0.60-1.30); POTASSIUM 3.9 MMOL/L (3.6-5.0); TOTAL PROTEIN 7.8 GM/DL (6.4-8.2)
[2018-07-31] MEDS ORDERED: ROCURONIUM 10 MG/ML 5 ML SYRINGE IV ONE ×2 (09:30→13:16)
[2018-07-31] MEDS ORDERED: HEParin DRIP 25000 UNIT/500ML 500 ML IV ONE (09:37)
[2018-07-31] MEDS ORDERED: NS IV 1000 ML 1,000 ML ONE ×2 (09:52→11:46)
[2018-07-31] MEDS ORDERED: PROTAMINE 50 MG/5 ML VIAL ONE (09:52)
[2018-07-31] MEDS ORDERED: PHENYLEPHRINE INJ 10 MG/ML (FOR DRIP KITS ONLY) ONE (13:17)
[2018-07-31] MEDS ORDERED: NS (IVPB) 250 ML ONE (13:17)
[2018-07-31] MEDS ORDERED: SEVOFLURANE (ULTANE) 15 ML INHAL SOLN ONE (14:50)
[2018-07-31] MEDS ORDERED: GLYCOPYRROLATE 0.2 MG/ML (ROBINUL) 2 ML VIAL ONE (16:08)
[2018-07-31] MEDS ORDERED: NEOSTIGMINE 1 MG/ML 5 ML SYRINGE ONE (16:08)
--- NOTE | 2018-07-31 16:10 | Cardiac Procedure Note-CS/ASA ---
Pre-Procedure Note Pre-Op Procedure Note H&P Reviewed The H&P was reviewed, patient examined and no changes noted. Date H&P Reviewed: Jul 31, 2018 Time H&P Reviewed: 09:00 Conscious Sedation Pre-Proced Time 09:00 ASA Score 3 For ASA 3 and 4: Consider anesthesia and medical clearance. Also, for patients with a history of failed moderate sedation consider anesthesia. Airway Lungs Heart ASA score ASA 1: a normal healthy patient ASA 2: a patient with a mild systemic disease (mid diabetes, controlled hypertension, obesity ASA 3: a patient with a severe systemic disease that limits activity (angina , COPD, prior Myocardial infarction) ASA 4: a patient with an incapacitating disease that is a constant threat to life (CHF, renal failure) ASA 5: a moribund patient not expected to survive 24 hrs. (ruptured aneurysm) ASA 6: a declared brain- patient whose organs are being harvested. For emergent operations, add the letter E after the classification Mallampati Classification Grade 1 Sedation Plan Analgesia, Amnesia, Plan communicated to team members, Discussed options with patient/fam, Discussed risks with patient/fam The patient is an appropriate candidate to undergo the planned procedure, sedation, and anesthesia. The patient immediately re-assessed prior to indication. Latrell GUSMAN MD Jul 31, 2018 16:10
--- NOTE | 2018-07-31 16:14 | Electrophysiology Procedure ---
EP Procedure DATE OF SERVICE:07/31/18 Persistent Atrial Fibrillation Ablation CARDIAC DECORATIVE ENGRAVER APPRENTICE: Noe Turcios MD, [facility]. INDICATION: Persistent Atrial Fibrillation. PREOPERATIVE DIAGNOSIS: Persistent atrial fibrillation. POSTOPERATIVE DIAGNOSES: Persistent atrial fibrillation, status post atrial fibrillation ablation. Right-sided atrial flutter. HISTORY: This is a 53-year-old gentleman with history of COPD, sleep apnea, persistent atrial fibrillation on antiarrhythmic therapy with significant symptoms. The patient has failed numerous cardioversions and would immediately convert to atrial fibrillation post cardioversion. The patient is planned for comprehensive EP study and ablation. PROCEDURE PERFORMED: 1. EP study 2. Fluoroscopy. 3. CS pacing/Left atrial pacing and recording. 4. Drug infusion. 5. Pulmonary vein isolation 6. Comprehensive 3D mapping with the carto system. 7. Transeptal access. 8. Intracardiac Echo. 9. Cardioversion. COMPLICATION: None. ESTIMATED BLOOD LOSS: 10 mL. CONTRAST USED: None. FLUOROSCOPY TIME: 12.02 minutes FLUOROSCOPY DOSE: 329 mgy. SPECIMENS: None. ANESTHESIA: Done by our anesthesia colleagues. ANTICOAGULATION: On interrupted Eliquis, Heparin. PROCEDURE IN DETAIL: After informed consent was taken, the patient was brought to the EP lab. Anesthesia was provided by our anesthesia colleagues. The patient was draped and prepped in the usual sterile fashion. The patient presented to the EP lab in atrial fibrillation. Access was gained in the right femoral vein with a 8 Nepalese sheath and an 8.5 Nepalese sheath. Access was gained in the right femoral artery with a 8.5 [place]alese sheath. Access was gained in the left femoral vein with a 6 Nepalese sheath and two 5 [place]alese sheath. Right femoral arterial access was used to advanced a pigtail catheter which was placed in the aortic root. An ice catheter was advanced through the 8-1/2 [place]alese sheath and placed in the right atrium. We then took a 0.032 guidewire and placed it in the SVC. The short sheath was then taken out and then a long sheath with introducer was advanced into the SVC. The guidewire was taken out and under ice and fluoroscopic guidance the long sheath and introducer were pulled back to the tip was in the fossa ovalis. The transseptal needle was advanced and then very carefully under ice and fluoroscopic guidance a single transseptal puncture was performed. Left atrial access was confirmed with a left atrial tracing. Left atrial pressure was 18/6 mmHg. IV heparin was given to a target ACT of over 300 seconds. A CS catheter was advanced through the 6 [place] left femoral vein access and placed in the CS. The ice catheter was used to create a car to sound image of the left atrium as well as left atrial appendage, mitral valve, all 4 pulmonary veins, esophagus. We then advanced a pentaray catheter into the left atrium and high density mapping was performed and a 3-D map was created of the left atrium. We then exchanged the mapping catheter with a irrigated ablation catheter. WACA/PVI ablation was performed for all 4 pulmonary veins. We had difficulty performing adequate ablation in between the left superior pulmonary vein and the left atrial appendage. Therefore left superior pulmonary vein could not be adequately isolated. All the other 3 veins were isolated. Patient continued to be in atrial fibrillation therefore cardioversion was performed. Please note that on ice evaluation no thrombus was seen in the left atrium and left atrial appendage. A 3D electroanatomic mapping was donewith the carto system. A right sided 2:1 atrial flutter was induced. However CTI ablation was not performed. Isuprel was given to the dose of 6 g per KG per minute with no induction of atrial fibrillation. However an accelerated junctional rhythm was induced with hypotension therefore Isuprel was switched off. A EP study was done using the CS catheter. The patienttolerated the procedure well and did not have any complication.Protamine was given to reverse anticoagulation. The patientleft the lab in sinus rhythm. Total ablation time was 2196 seconds. MEASUREMENTS/EP STUDY: AV Wenckebachwas at cycle length 480 ms. Atrial ERP was at 600/410 ms. MD interval 76 ms, QRS duration 78 ms, QT interval 371 ms, R-R interval 649 ms PLAN: The patient will be observed overnight and will be discharged home tomorrow with precise followup instructions. Noe Turcios MD, [facility] Cardiac Electrophysiology Latrell TURCIOS MD Jul 31, 2018 16:14
[2018-07-31] MEDS ORDERED: PATIENT MAY USE OWN MEDS, ALL PO SCH (16:15)
--- NOTE | 2018-07-31 16:35 | NUR ---
laborer tree tapping to room 5 with pt. This RN was informed by Krishan computer lab para professional RN, that they would come back to pull sheaths when they were able to be pulled.
[2018-07-31] MEDS ORDERED: ONDANSETRON 4 MG/2 ML (SDV) Z0FRAN IVP PRN (17:15)
[2018-07-31] MEDS ORDERED: MEPERIDINE (DEMEROL) INJ 50 MG/ML IVP ONE (17:15)
[2018-07-31] MEDS ORDERED: PROMETHAZINE INJ 25 MG/ML (PHENERGAN) AMP IVP ONE (17:15)
[2018-07-31] MEDS ORDERED: morphine INJ 10 MG/ML 1ML (SYR OR VIAL) IVP ONE (17:15)
--- NOTE | 2018-07-31 17:35 | NUR ---
Received pt from Karen Holloway, recovery nurse. Pt has 2 venous sheaths, 1 arterial sheath in the right groin, 3 venous sheaths in the left groin. Pt is awake and alert but speaking inappropriately. Pt does not listen to commands. Pt will not hold still when asked to do so. Pt was informed of the possible repercussions of not holding still and his groins starting to bleed. 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 This is why the pt is cognitively inappropriate. Sitter placed with pt at this time.
[2018-07-31] MEDS: NS IV 1000 ML 1,000 ML IV SCH (17:48)
[2018-07-31] MEDS: fentaNYL INJECTION 100 MCG/2 ML AMP IVP PRN ×3 (17:51→23:53)
[2018-07-31] MEDS ORDERED: fentaNYL INJECTION 100 MCG/2 ML AMP IVP ONE (20:15)
[2018-07-31] MEDS ORDERED: oxyCODONE/APAP 10/325MG (PERCOCET 10) TABLET PO ONE (21:36)
[2018-07-31] MEDS ORDERED: oxyCODONE/APAP 10/325MG (PERCOCET 10) TABLET PO PRN (21:45)
[2018-08-01] VITALS (9 sets, daily range): BP systolic 166–196; BP diastolic 76–117
[2018-08-01] MEDS: APIXABAN 5 MG (ELIQUIS) TABLET PO SCH ×2 (03:33→07:31)
[2018-08-01] MEDS: fentaNYL INJECTION 100 MCG/2 ML AMP IVP PRN (03:34)
[2018-08-01 03:48] LABS: HEMOGLOBIN 11.9 G/DL (13.3-17.7); MEAN PLATELET VOLUME 10.8 FL (7.4-10.4); WHITE BLOOD COUNT 11.3 10^3/uL (4.3-11.0)
[2018-08-01 04:10] LABS: BUN/CREATININE RATIO 13; CALCIUM 8.7 MG/DL (8.5-10.1); CARBON DIOXIDE 23 MMOL/L (21-32); CHLORIDE 107 MMOL/L (98-107); CREATININE SERUM 1.04 MG/DL (0.60-1.30); GFR ESTIMATED > 60; GLUCOSE 109 MG/DL (70-105); POTASSIUM 3.6 MMOL/L (3.6-5.0); SODIUM 141 MMOL/L (135-145)
[2018-08-01] MEDS ORDERED: lisINopril 40 MG (PRINIVIL) TABLET ONE (05:00)
[2018-08-01] MEDS: NS IV 1000 ML 1,000 ML IV SCH (07:33)
--- NOTE | 2018-08-01 07:33 | NUR ---
pt was non compliant with post cath bedrest restrictions this shift. pt was educated and re educated many time this shift on the importance of remaining flat to prevent bleeding from cath site. each time pt stated that he understood the education provided. pt continued to move legs and lift head all during the post cath bedrest. shortly after pt bed rest was over and the fem stop removed pt started to develop a small hematoma on the r groin. pt was instructed to lay flat in the bed and manual pressure re applied by this nurse. manual pressure held for 20 minutes and a sand bag was placed on the pt r groin. pt continued to remain on bedrest with the sand bag in place for aprox 4 additional hours. no s/s of a new hematoma this morning.
--- NOTE | 2018-08-01 08:25 | NUR ---
Pt unwilling to sit still. Had pt lay down long enough to check Artline pressure. Pt pressure reading 187/76 when pt lay still.
[2018-08-01] MEDS ORDERED: amLODIPine 10 MG (NORVASC) TAB PO NR (08:53)
[2018-08-01] MEDS ORDERED: lisINopril 40 MG (PRINIVIL) TABLET PO SCH (09:00)
--- NOTE | 2018-08-01 10:57 | Anesthesia-General Post-Op ---
General Patient Condition Mental Status/LOC: Same as Preop Cardiovascular: Satisfactory Nausea/Vomiting: Absent Respiratory: Satisfactory Pain: Controlled Complications: Absent Post Op Complications Complications None Follow Up Care/Instructions Patient Instructions None needed. Anesthesia/Patient Condition Patient Condition Patient is doing well, no complaints, stable vital signs, no apparent adverse anesthesia problems. No complications reported per nursing. DEISI LEONE CRNA Aug 01, 2018 10:57
[2018-08-01] MEDS ORDERED: lisINopril 20 MG (PRINIVIL) TABLET PO SCH (12:00)
--- NOTE | 2018-08-01 13:10 | Cardiology Discharge Summary ---
Diagnosis/Chief Complaint Date of Admission 07/31/2018 Date of Discharge 08/01/2018 Admission Diagnosis Persistent atrial fibrillation refractory to antiarrhythmic therapy Final/Discharge Diagnosis Atrial fibrillation ablation Chief Complaint/HPI Chief Complaint/HPI This is a 53-year-old gentleman with history of persistent atrial fibrillation refractory to antiarrhythmic therapy and numerous cardioversions done both by Dr. Jade and myself. The patient has history of likely COPD and sleep apnea. Persistent atrial fibrillation ablation is recommended. Discharge Summary Procedures Atrial fibrillation ablation with pulmonary vein isolation. Cardioversion. Discharge Physical Examination Stable. Hospital Course Was the Problem List Reviewed?: Yes Elevated blood pressure. Amlodipine was added. Discussion & Recommendations Discussion I discussed at length the procedure with the patient. Atrial fibrillation was not induced on Isuprel after PVI. However 2:1 right atrial flutter was induced. Patient will likely require right atrial flutter ablation in the future. Of note the left superior pulmonary vein was not isolated completely. Discharge took over 30 minutes to complete. Follow up appt.: Dr. Turcios in 3-4 weeks. Dicharge Diet: Regular Diet Activity as Tolerated: Yes Home Medications Reviewed patient Home Medication Reconciliation performed by pharmacy medication reconciliations office technician and/or nursing. Patients Allergies have been reviewed. Discharge Home Medications: Reviewed and agree with Discharge Medication list on patient's Discharge Instruction sheet Condition at discharge Stable. Instructions to patient/family Discussed at length with the patient. Latrell TURCIOS MD Aug 01, 2018 13:10
--- NOTE | 2018-08-01 13:11 | Discharge Inst-Post CATH ---
Discharge Inst-CATH/EP Post Cardiac Cath/EP D/C Inst Follow Up/Plan Dr. Turcios in 3-4 weeks. CARDIAC CATH DISCHARGE INSTRUCTIONS *Hold Metformin for 48 hours post heart cath. ACTIVITY * Go Home directly and rest. * Limit activity of the leg (or wrist if it was used) for 7 days including aerobics, swimming, jogging, bicycling, etc. * Restrict stair-climbing for 7 days if possible, if not, climb up with your non -cath leg, then bring together on the same step. * Avoid lifting, pushing, pulling or excessive movement of the affected extremity for 7 days. * Customary sexual activity may be resumed after 2 days-use caution not to use a position that strains or causes pain to the affected extremity. * No driving for 24 hours. * NO SMOKING. * Avoid straining for bowel movements for 7 days. * Gentle walking on level ground is allowed. * Returning to work will depend on the type of procedure and the results. Your doctor will discuss this with you. CALL YOUR DOCTOR FOR ANY OF THE FOLLOWING: *If bleeding from the puncture site occurs- Apply gentle pressure to site with clean cloth and call your doctor or EMS. * If a knot or lump forms under the skin, increases in size, or causes pain. * If bruising appears to be worsening or moving further down your leg instead of disappearing. * Temperature above 101 F. CARE OF YOUR GROIN INCISION; * Bruising or purple discoloration of the skin near the puncture site is common. * You may shower only, no bathtub bathing for 5 days. Be careful to avoid slipping as your leg may feel stiff. * If a closure device was used on your femoral artery, please see the attached guide regarding care of the device and your leg. * Leave the dressing on, until removed by office staff. CARE OF YOUR WRIST INCISION; * Bruising or purple discoloration of the skin near the puncture site is common. * You may shower. * DO NOT submerge wrist. * Leave dressing on, until removed by office staff.. Latrell TURCIOS MD Aug 01, 2018 13:11
== END 2018-08-01 10:03 | disposition home or self-care (01) ==
LOC: CATH 08:07 → ICU 17:34 → CATH 08-01 10:03
PROVIDERS: ATTEND Internal Medicine Interventional Cardiology
DX: I48.1 Persistent atrial fibrillation (principal); I12.9 Hypertensive chronic kidney disease with stage 1 through stage 4 chronic kidney disease, or unspecified chronic kidney disease; N18.4 Chronic kidney disease, stage 4 (severe); J44.9 Chronic obstructive pulmonary disease, unspecified; E78.2 Mixed hyperlipidemia; K21.9 Gastro-esophageal reflux disease without esophagitis; Z86.19 Personal history of other infectious and parasitic diseases; Z86.73 Personal history of transient ischemic attack (TIA), and cerebral infarction without residual deficits; Z79.899 Other long term (current) drug therapy; Z79.01 Long term (current) use of anticoagulants
CPT/HCPCS: 36415; 80048; 80053; 85027; 85347; 85610; 85730; 87081; 92960; 93005; 93613; 93656; 93662

== ENCOUNTER → 2018-08-30 | Outpatient (CLI) | payer MEDICARE ==
[2018-08-30 09:49] LABS: BASOPHILS % (AUTO) 1 % (0-10); EOSINOPHILS # (AUTO) 0.1 10^3/uL (0.0-0.3); EOSINOPHILS % (AUTO) 1 % (0-10); HEMATOCRIT 44 % (40-54); HEMOGLOBIN 14.4 G/DL (13.3-17.7); LYMPHOCYTES # (AUTO) 1.4 X 10^3 (1.0-4.0); LYMPHOCYTES % (AUTO) 16 % (12-44); MEAN CORPUSCULAR HEMOGLOBIN 30 PG (25-34); MEAN CORPUSCULAR HGB CONC 33 G/DL (32-36); MEAN CORPUSCULAR VOLUME 91 FL (80-99); MEAN PLATELET VOLUME 10.7 FL (7.4-10.4); MONOCYTES # (AUTO) 0.8 X 10^3 (0.0-1.0); MONOCYTES % (AUTO) 9 % (0-12); NEUTROPHILS # (AUTO) 6.5 X 10^3 (1.8-7.8); NEUTROPHILS % (AUTO) 74 % (42-75); PLATELET COUNT 201 10^3/uL (130-400); RED CELL DISTRIBUTION WIDTH 12.9 % (10.0-14.5); WHITE BLOOD COUNT 8.7 10^3/uL (4.3-11.0)
[2018-08-30 09:53] LABS: BILIRUBIN,URINE NEGATIVE (NEGATIVE); CLARITY,URINE CLEAR; COLOR,URINE YELLOW; GLUCOSE, URINE (UA) NEGATIVE (NEGATIVE); KETONES,URINE NEGATIVE (NEGATIVE); LEUKOCYTE ESTERASE ,URINE 1+ (NEGATIVE); NITRITE,URINE NEGATIVE (NEGATIVE); PH,URINE 5 (5-9); PROTEIN,URINE 2+ (NEGATIVE); UROBILINOGEN,URINE NORMAL (NORMAL)
[2018-08-30 10:07] LABS: ALBUMIN 4.5 GM/DL (3.2-4.5); CALCIUM 9.8 MG/DL (8.5-10.1); CREATININE SERUM 1.31 MG/DL (0.60-1.30); POTASSIUM 3.6 MMOL/L (3.6-5.0)
[2018-08-30 10:08] LABS: BACTERIA,URINE NEGATIVE /HPF; RBC,URINE RARE /HPF; SQUAMOUS EPITHELIAL CELL,UR RARE /HPF; WBC,URINE RARE /HPF
[2018-08-30 10:54] LABS: LYMPHOCYTES % (MANUAL) 17 %; MONOCYTES % (MANUAL) 5 %; NEUTROPHILS % (MANUAL) 77 %
[2018-08-30 10:55] LABS: EOSINOPHILS % (MANUAL) 1 %; RBC MORPH NORMAL
== END ==
LOC: LAB 09:25
PROVIDERS: ATTEND Internal Medicine Interventional Cardiology
DX: N18.4 Chronic kidney disease, stage 4 (severe) (principal)
CPT/HCPCS: 36415; 80069; 81000; 82570; 84156; 85007; 85027

== ENCOUNTER 2018-12-25 06:49 | Day surgery (SDC) | payer MEDICARE ==
[2018-12-25] VITALS (14 sets, daily range): BP systolic 118–186; BP diastolic 71–103
[~2018-12-25] VITALS: Ht 175.3 cm; Wt 117.5 kg
[~2018-12-25 06:49] MED LIST changes: -OMEP20CA12 PO; +OMEP20CA13 PO
[2018-12-25] MEDS ORDERED: ISOPROTERENOL 0.2 MG/D5W 50 ML IV ONE (07:00)
[2018-12-25] MEDS ORDERED: NS IV 1000 ML 1,000 ML ONE ×4 (07:14→10:00)
[2018-12-25] MEDS ORDERED: LIDOCAINE BOLUS 100 MG/5 ML (IMS) SYR ONE (07:14)
[2018-12-25] MEDS ORDERED: ROCURONIUM 10 MG/ML 5 ML SYRINGE IV ONE ×2 (07:14→08:09)
[2018-12-25] MEDS ORDERED: proPOfol 200 MG/20 ML (DIPRIVAN) VIAL IV ONE (07:14)
[2018-12-25] MEDS ORDERED: fentaNYL INJECTION 100 MCG/2 ML AMP ONE (07:14)
[2018-12-25] MEDS ORDERED: MIDAZOLAM 2 MG/2 ML (VERSED) VIAL ONE (07:14)
[2018-12-25 07:18] LABS: HEMOGLOBIN 12.8 G/DL (13.3-17.7); MEAN PLATELET VOLUME 11.1 FL (7.4-10.4); RED CELL DISTRIBUTION WIDTH 14.2 % (10.0-14.5); WHITE BLOOD COUNT 7.5 10^3/uL (4.3-11.0)
[2018-12-25] MEDS ORDERED: HEParin (CATH LAB) 3,000 ML IV ONE (07:19)
[2018-12-25] MEDS ORDERED: HEParin 1000 UNIT/ML (10ML VIAL) FOR BOLUS ONE ×3 (07:19→11:20)
[2018-12-25] MEDS ORDERED: LIDOCAINE 1% INJ 20 ML 20 ML VIAL ONE (07:19)
[2018-12-25] MEDS ORDERED: DILT240C53 PO (07:23)
[2018-12-25] MEDS ORDERED: HEParin DRIP 25000 UNIT/500ML 500 ML IV ONE (07:26)
[2018-12-25 07:32] LABS: PROTHROMBIN TIME PATIENT 13.6 SEC (12.2-14.7)
[2018-12-25 07:38] LABS: ALANINE AMINOTRANSFERASE 24 U/L (0-55); ALBUMIN 4.2 GM/DL (3.2-4.5); ALKALINE PHOSPHATASE 99 U/L (40-136); BILIRUBIN,TOTAL 0.3 MG/DL (0.1-1.0); BUN/CREATININE RATIO 24; CALCIUM 9.5 MG/DL (8.5-10.1); CARBON DIOXIDE 30 MMOL/L (21-32); CHLORIDE 102 MMOL/L (98-107); GFR ESTIMATED > 60; GLUCOSE 99 MG/DL (70-105); POTASSIUM 4.3 MMOL/L (3.6-5.0); SODIUM 141 MMOL/L (135-145); TOTAL PROTEIN 7.3 GM/DL (6.4-8.2)
[2018-12-25] MEDS ORDERED: HEParin (CATH LAB) 1,000 ML IV ONE (13:28)
[2018-12-25] MEDS ORDERED: NEOSTIGMINE 3 MG/3 ML VIAL ONE (14:08)
[2018-12-25] MEDS ORDERED: GLYCOPYRROLATE 0.2 MG/ML (ROBINUL) 2 ML VIAL ONE (14:08)
[2018-12-25] MEDS ORDERED: ONDANSETRON 4 MG/2 ML (SDV) Z0FRAN ONE (14:08)
[2018-12-25] MEDS ORDERED: PROTAMINE 50 MG/5 ML VIAL ONE (15:23)
--- NOTE | 2018-12-25 15:53 | Cardiac Procedure Note-CS/ASA ---
Pre-Procedure Note Pre-Op Procedure Note H&P Reviewed The H&P was reviewed, patient examined and no changes noted. Date H&P Reviewed: Dec 25, 2018 Time H&P Reviewed: 07:50 Conscious Sedation Pre-Proced Time 07:50 ASA Score 3 For ASA 3 and 4: Consider anesthesia and medical clearance. Also, for patients with a history of failed moderate sedation consider anesthesia. Airway Lungs Heart ASA score ASA 1: a normal healthy patient ASA 2: a patient with a mild systemic disease (mid diabetes, controlled hypertension, obesity ASA 3: a patient with a severe systemic disease that limits activity (angina, COPD, prior Myocardial infarction) ASA 4: a patient with an incapacitating disease that is a constant threat to life (CHF, renal failure) ASA 5: a moribund patient not expected to survive 24 hrs. (ruptured aneurysm) ASA 6: a declared brain- patient whose organs are being harvested. For emergent operations, add the letter E after the classification Mallampati Classification Grade 1 Sedation Plan Analgesia, Amnesia, Plan communicated to team members, Discussed options with patient/fam, Discussed risks with patient/fam The patient is an appropriate candidate to undergo the planned procedure, sedation, and anesthesia. The patient immediately re-assessed prior to indication. Latrell GUSMAN MD Dec 25, 2018 15:52
--- NOTE | 2018-12-25 15:54 | Electrophysiology Procedure ---
EP Procedure DATE OF SERVICE:12/25/18 CARDIAC BLENDING COORDINATOR: Noe Turcios MD, [facility], [facility]. INDICATION: persistent atrial fibrillation refractory to antiarrhythmic therapy. PREOPERATIVE DIAGNOSIS:persistent atrial fibrillation refractory to antiarrhythmic therapy. POSTOPERATIVE DIAGNOSES: persistent atrial fibrillation. HISTORY: this is a 53-year-old gentleman with symptomatic long-standing persistent atrial fibrillation refractory to antiarrhythmic therapy. He had previous pulmonary vein isolation on 07/31/2018. He stayed in sinus rhythm for 2 weeks however went again into atrial fibrillation. I discussed with the patient that the success rate of atrial fibrillation ablation in a patient with long-standing persistent atrial fibrillation is modest at best considering that he also has significant left atrial dilatation, sleep apnea, COPD. After informed consent the patient was scheduled for persistent atrial fibrillation ablation. PROCEDURE PERFORMED: 1. MARTHA. 2. Left ventricular pacing and recording. 3. Pulmonary vein isolation. 4. Additional atrial fibrillation ablation, complex fractionated atrial electrogram ablation. 5. Additional atrial fibrillation ablation, roofline. 6. Additional atrial fibrillation ablation, posterior line. 7. Comprehensive 3D mapping with the carto system. 8. Intracardiac Echocardiogram. 9. Direct external cardioversion. COMPLICATION: None. ESTIMATED BLOOD LOSS: 10 mL. CONTRAST USED: None. FLUOROSCOPY TIME: 14 minutes. FLUOROSCOPY DOSE: 435 mgy. SPECIMENS: None. ANESTHESIA: Done by our anesthesia colleagues. ANTICOAGULATION: Eliquis, heparin. PROCEDURE IN DETAIL: After informed consent was taken, the patient was brought to the EP lab. Anesthesia was provided by our anesthesia colleagues. The patient was draped and prepped in the usual sterile fashion. The patient presented to the EP lab in atrial fibrillation rhythm. Access was gained in the right femoral vein with a 8 [place]er and a 6 [place] Konger sheath. Left access in the left femoral vein with a 8 [place]er and 6 [place]er sheath respectively. His Catheter and ICE catheter were advanced from the left access sites. with the ice catheter we tried to visualize the left atrial appendage to rule out left atrial appendage thrombus since the patient was taking Eliquis 10 mg once a day rather than the usual prescribed dose of 5 mg twice a day. However we were not able to adequately visualize the left atrial appendage. Therefore transesophageal echocardiogram was performed which demonstrated no left atrial or left atrial appendage thrombus. Significantly enlarged left atrium with a diameter of 6.2 cm. CS multipolar catheter was advanced placed in the CS from the right access site. A guidewire was advanced into the SVC. Long sheath was advanced on top of the guidewire into the SVC. The wire was taken out. We then went in with the transseptal needle. Under fluoroscopic and intracardiac echocardiogram guidance, the sheath and transseptal needle were pulled into the fossa ovalis. While finding the best position for transseptal access, the sheath and introducer advanced into the left atrium through a PFO. This was confirmed with left atrial pressure measurements. The transseptal needle was taken out and we decided to proceed with the procedure. IV heparin was given and ACT was kept over 350 seconds. We then advanced a guidewire which was placed in the left superior pulmonary vein and the sheath and introducer were taken out. We then advanced a large curve steerable sheath into the left atrium. The guidewire was taken out and a [employer] [place] Pentaray catheter was advanced for left atrial mapping. We also used the intracardiac echocardiogram to create an ultrasound shell of the left atrium and identified all vital landmarks including the left atrial appendage, left pulmonary veins, right pulmonary veins, mitral valve, fossa ovalis, aortic cusps. With this multipolar mapping catheter left atrial voltage and electro anatomical map was created. The multipolar mapping catheter was then taken out and and irrigated ablation catheter was advanced into the left atrium. Pulmonary vein isolation was performed. bilateral austyn ablation was also done. entrance block in both left and right sided pulmonary veins was confirmed. patient continued to be in persistent atrial fibrillation. Complex fractionated atrial electrograms (CFAE) were tagged which were primarily demonstrated in the left posterior wall. Caf ablation was done. We then created a roof line. Patient continued to be in atrial fibrillation. We then created a posterior line. The posterior box was isolated. Since the patient was still in atrial fibrillation. We attempted cardioversion with 200 J 3 however that was unsuccessful. Left ventricular pacing and recording was also done which showed a VA Wenckebach cycle length of 420 ms. A 3D electroanatomic mapping was donewith the carto system. Throughout the procedure, intracardiac echocardiogram did not demonstrate any pericardial effusion.The patienttolerated the procedurewell and did not have any complication. The patientleft the lab in atrial fibrillation. Total ablation time was one hour, 27 minutes and 40 seconds.. MEASUREMENTS/EP STUDY: HV interval 52 ms, QRS duration 67 ms, R-R interval 791 ms, Retrograde Wenckebach through left ventricular pacing and recording was at cycle length 430 ms. other measurements could not be done since the patient continued to be in atrial fibrillation. PLAN: The patient will be observed overnight and will be discharged home tomorrow with precise followup instructions. he will continue oral anticoagulation. Noe Turcios MD, RS, CCDS Cardiac Electrophysiology Latrell TURCIOS MD Dec 25, 2018 15:54
[2018-12-25] MEDS ORDERED: PATIENT MAY USE OWN MEDS, ALL PO SCH (16:00)
[2018-12-25] MEDS ORDERED: SEVOFLURANE (ULTANE) 15 ML INHAL SOLN ONE ×2 (16:29)
[2018-12-25] MEDS: NS IV 1000 ML 1,000 ML IV SCH ×3 (17:32→17:33)
[2018-12-25] MEDS ORDERED: lisINopril 20 MG (PRINIVIL) TABLET ONE (20:29)
[2018-12-25] MEDS: lisINopril 20 MG (PRINIVIL) TABLET PO SCH (20:44)
[2018-12-25] MEDS: APIXABAN 5 MG (ELIQUIS) TABLET PO SCH (20:44)
[2018-12-25] MEDS ORDERED: oxyCODONE/APAP 10/325MG (PERCOCET 10) TABLET PO ONE (20:57)
[2018-12-25] MEDS: oxyCODONE/APAP 10/325MG (PERCOCET 10) TABLET PO PRN (21:08)
[2018-12-25] MEDS ORDERED: amLODIPine 10 MG (NORVASC) TAB PO ONE (22:15)
--- NOTE | 2018-12-25 23:00 | NUR ---
1900: PT VERY APPEARS TO VERY ANXIOUS, UNCOOPERATIVE AND UNCOMFORTABLE AT THIS TIME. DURING BEDSIDE SHIFT REPORT HE REPORTS PAIN 10/10 IN HIS BACK AND A HEADACHE. PT ALSO CUSSING ABOUT NOT BEING ABLE TO EAT, DRINK OR SIT UP IN BED. PT IS ON BEDREST AND S/P EP STUDY. THIS RN EDUCATED PT ON THE NEED TO LAY STILL IN BED. 1999: PT'S B/P 190/90 WITH A HEART RATE OF 110. E-ICU NOTIFIED OF PT'S ANXIETY, HIGH BLOOD PRESSURE AND PAIN. SEE ORDER HISTORY WITH NEW ORDERS. PT YELLING FROM HIS ROOM MULTIPLE TIMES. PT YELLING THAT HE HAS DROPPED HIS CALL LIGHT, NEEDS HIS INHALER, IS THIRSTY, AND IS STILL IN PAIN. THIS RN INFORMED PT THAT THE DOCTOR HAS ORDERED FOR PAIN MEDICINE AND THAT IF HE NEEDS ASSISTANCE THAT HE NEEDS TO USE HIS CALL LIGHT. CALL LIGHT RIGHT BESIDE PT AT THIS TIME. 2199: PT'S B/P STILL ELEVATED AT THIS TIME. THIS RN CALLED DR. GUSMAN. NEW ORDER RECEIVED FOR AMLODIPINE 10 MG PO X1. PT CONTINUES TO BE UNCOOPERATIVE, REMOVING O2 AND O2 SATURATION SENSOR. PT ASLO CONTINUOUSLY REMOVING BLANKETS AND STATING THAT HE IS HOT LEAVING HIMSELF NAKED AND EXPOSED. PT ASKING THIS RN MULTIPLE INAPPROPRIATE QUESTIONS SUCH MARITAL STATUS AND LAST NAME. PT STATES HE WILL ' THIS RN AND NEVER LEAVE THIS PLACE." PT INFORMED THAT HE WAS BEING INAPPROPRIATE. 2299: THIS RN AND JANET RN TO BEDSIDE. WHILE REMOVING SUTURES FROM PT'S RIGHT GROIN PT PUT HIS HAND ON THE BACKS OF THIS RN AND JANET RN PUSHING US FORWARD TOWARDS HIS GROIN STATING, "LET'S GET A LITTLE CLOSER." PT INFORMED THAT HIS BEHAVIOR WAS EXTREMELY INAPPROPRIATE AND NOT FUNNY. SUTURES WERE REMOVED PT STATED WHILE LOOKING AT THE SUTURES THAT WE HAD "REMOVED HIS WINKIE AND THAT IT GOT LONGER THAN THE LAST TIME HE SAW IT." 0010: PT STATING AT THIS TIME HE IS VERY NERVOUS WITH A BAD TEMPER AND SOMETIMES GETS VIOLENT. PT APPEARS ANXIOUS AND IRRITABLE; PULLING MONITORS AND CLOTHING OFF. THIS RN HAD ASSOCIATE EMBALMER/FUNERAL DIRECTOR HELP WITH REPOSITIONING PATIENT THIS RN DID NOT FEEL COMFORTABLE IN PT'S ROOM ALONE. E-ICU NOTIFIED OF PT'S STATEMENT AND HIS SEXUAL INAPPROPRIATENESS. SEE ORDER HISTORY FOR NEW ORDER.
[2018-12-25] MEDS ORDERED: LORazepam 1 MG (ATIVAN) TAB ONE (23:50)
[2018-12-25] MEDS ORDERED: LORazepam 0.5 MG (ATIVAN) TABLET PO STA (23:57)
[2018-12-26] VITALS (9 sets, daily range): BP systolic 127–150; BP diastolic 70–125
[2018-12-26] MEDS ORDERED: LORazepam 1 MG (ATIVAN) TAB PO ONE ×2
[2018-12-26] MEDS: NS IV 1000 ML 1,000 ML IV SCH ×2 (02:26→02:27)
[2018-12-26] MEDS: oxyCODONE/APAP 10/325MG (PERCOCET 10) TABLET PO PRN ×2 (02:40→08:59)
[2018-12-26 03:28] LABS: BASOPHILS % (AUTO) 0 % (0-10); EOSINOPHILS # (AUTO) 0.1 10^3/uL (0.0-0.3); EOSINOPHILS % (AUTO) 2 % (0-10); HEMATOCRIT 34 % (40-54); HEMOGLOBIN 10.7 G/DL (13.3-17.7); LYMPHOCYTES # (AUTO) 1.2 X 10^3 (1.0-4.0); LYMPHOCYTES % (AUTO) 17 % (12-44); MEAN CORPUSCULAR HEMOGLOBIN 30 PG (25-34); MEAN CORPUSCULAR HGB CONC 32 G/DL (32-36); MEAN CORPUSCULAR VOLUME 93 FL (80-99); MEAN PLATELET VOLUME 10.6 FL (7.4-10.4); MONOCYTES # (AUTO) 0.8 X 10^3 (0.0-1.0); MONOCYTES % (AUTO) 12 % (0-12); NEUTROPHILS # (AUTO) 4.9 X 10^3 (1.8-7.8); NEUTROPHILS % (AUTO) 70 % (42-75); PLATELET COUNT 158 10^3/uL (130-400); RED CELL DISTRIBUTION WIDTH 14.6 % (10.0-14.5); WHITE BLOOD COUNT 7.1 10^3/uL (4.3-11.0)
[2018-12-26 03:44] LABS: BUN/CREATININE RATIO 17; CALCIUM 8.1 MG/DL (8.5-10.1); CARBON DIOXIDE 23 MMOL/L (21-32); CHLORIDE 106 MMOL/L (98-107); CREATININE SERUM 0.92 MG/DL (0.60-1.30); GFR ESTIMATED > 60; GLUCOSE 110 MG/DL (70-105); PHOSPHORUS 2.8 MG/DL (2.3-4.7); SODIUM 140 MMOL/L (135-145)
[2018-12-26] MEDS: MAGNESIUM 1 GM/100 ML IVPB 100 ML IV SCH ×5 (04:05→09:38)
[2018-12-26] MEDS ORDERED: MAGNESIUM 1 GM/100 ML IVPB 100 ML IV SCH (06:00)
[2018-12-26] MEDS ORDERED: POTASSIUM CL 10MEQ/50ML IVPB 50 ML IV SCH (06:00)
[2018-12-26] MEDS ORDERED: KCL 20 MEQ TAB (K-DUR) PO SCH (06:00)
[2018-12-26] MEDS: APIXABAN 5 MG (ELIQUIS) TABLET PO SCH (08:13)
[2018-12-26] MEDS: lisINopril 20 MG (PRINIVIL) TABLET PO SCH (08:13)
--- NOTE | 2018-12-26 09:03 | Discharge Inst-Post CATH ---
Discharge Inst-CATH/EP Problems Reviewed?: Yes Post Cardiac Cath/EP D/C Inst Follow Up/Plan Dr. Turcios in a month <b>CARDIAC CATH/EP PROCEDURE DISCHARGE INSTRUCTIONS</b> ACTIVITY * Go Home directly and rest. * Limit activity of the leg (or wrist if it was used) for 7 days including aerobics, swimming, jogging, bicycling, etc. * Restrict stair-climbing for 7 days if possible, if not, climb up with your non-cath leg, then bring together on the same step. * Avoid lifting, pushing, pulling or excessive movement of the affected extremity for 7 days. * Customary sexual activity may be resumed after 2 days-use caution not to use a position that strains or causes pain to the affected extremity. * No driving for 24 hours. * NO SMOKING. * Avoid straining for bowel movements for 7 days. * Gentle walking on level ground is allowed. * Returning to work will depend on the type of procedure and the results. Your doctor will discuss this with you. CALL YOUR DOCTOR FOR ANY OF THE FOLLOWING: *If bleeding from the puncture site occurs- Apply gentle pressure to site with clean cloth and call your doctor or EMS. * If a knot or lump forms under the skin, increases in size, or causes pain. * If bruising appears to be worsening or moving further down your leg instead of disappearing. * Temperature above 101 F. CARE OF YOUR GROIN INCISION; * Bruising or purple discoloration of the skin near the puncture site is common. * You may shower only, no bathtub bathing for 5 days. Be careful to avoid slipping as your leg may feel stiff. * If a closure device was used on your femoral artery, please see the attached guide regarding care of the device and your leg. * Leave dressing on FOR 24 hours. CARE OF YOUR WRIST INCISION; * Bruising or purple discoloration of the skin near the puncture site is common. * You may shower. * DO NOT submerge wrist. * Leave dressing on FOR 24 hours. Latrell TURCIOS MD Dec 26, 2018 09:03
--- NOTE | 2018-12-26 09:06 | Cardiology Discharge Summary ---
Diagnosis/Chief Complaint Date of Admission 12/25/2018 Date of Discharge 12/26/2018 Admission Diagnosis Long-standing persistent atrial fibrillation refractory to antiarrhythmic thera py. Final/Discharge Diagnosis Persistent atrial fibrillation. Chief Complaint/HPI Chief Complaint/HPI this is a 53-year-old gentleman with symptomatic long-standing persistent atrial fibrillation refractory to antiarrhythmic therapy. He had previous pulmonary vein isolation on 07/31/2018. He stayed in sinus rhythm for 2 weeks however went again into atrial fibrillation. I discussed with the patient that the success rate of atrial fibrillation ablation in a patient with long-standing persistent atrial fibrillation is modest at best considering that he also has significant left atrial dilatation, sleep apnea, COPD. After informed consent the patient was scheduled for persistent atrial fibrillation ablation. Discharge Summary Procedures Atrial fibrillation ablation: Pulmonary vein isolation, roof line, complex fractionated atrial electrogram ablation, posterior line, cardioversion which was unsuccessful. Patient continued to be in atrial fibrillation. Discharge Physical Examination Unremarkable. Hospital Course Was the Problem List Reviewed?: Yes Hypomagnesemia, medication was repleted. Back pain, Percocet was given. Pending Labs Laboratory Tests 12/26/18 03:20: White Blood Count 7.1, Red Blood Count 3.60, Hemoglobin 10.7, Hematocrit 34, Mean Corpuscular Volume 93, Mean Corpuscular Hemoglobin 30, Mean Corpuscular Hemoglobin Concent 32, Red Cell Distribution Width 14.6, Platelet Count 158, Mean Platelet Volume 10.6, Neutrophils (%) (Auto) 70, Lymphocytes (%) (Auto) 17, Monocytes (%) (Auto) 12, Eosinophils (%) (Auto) 2, Basophils (%) (Auto) 0, Neutrophils # (Auto) 4.9, Lymphocytes # (Auto) 1.2, Monocytes # (Auto) 0.8, Eosinophils # (Auto) 0.1, Basophils # (Auto) 0.0, Sodium Level 140, Potassium Level 4.0, Chloride Level 106, Carbon Dioxide Level 23, Anion Gap 11, Blood Urea Nitrogen 16, Creatinine 0.92, Estimat Glomerular Filtration Rate > 60, BUN/Creatinine Ratio 17, Glucose Level 110, Calcium Level 8.1, Phosphorus Level 2.8, Magnesium Level 1.0 Discussion & Recommendations Discussion Discharge took over 30 minutes to complete. The procedure that was done yesterday was discussed at length with the patient. We performed extensive persistent atrial fibrillation ablation as mentioned above however the patient continued to be in atrial fibrillation. We also attempted cardioversion 3 times but that was unsuccessful. At that point in time the procedure was stopped. I discussed with the patient and offered second opinion in [place]. The patient will think and let us know. He will be discharged on rate control and Eliquis only. Amiodarone will be discontinued. I will see the patient in 4 weeks. Follow up appt.: Dr. Turcios in 4 weeks. Dicharge Diet: Cardiac Diet Activity as Tolerated: Yes Home Medications Reviewed patient Home Medication Reconciliation performed by pharmacy medication reconciliations composite bond technician and/or nursing. Patients Allergies have been reviewed. Discharge Home Medications: Reviewed and agree with Discharge Medication list on patient's Discharge Instruction sheet Condition at discharge Stable. Instructions to patient/family Dr. Turcios in a month Clinical Quality Measures DVT/VTE Risk/Contraindication: Risk Factor Score Per Nursin RFS Level Per Nursing on Admit: 4+=Very High Latrell TURCIOS MD Dec 26, 2018 09:06
[2018-12-26] MEDS ORDERED: CHLORTHALIDONE 25 MG (HYGROTON) TABLET PO SCH (09:10)
[2018-12-26] MEDS ORDERED: ATENOLOL 50 MG (TENORMIN) TAB PO SCH (09:11)
[2018-12-26] MEDS ORDERED: DILTIAZEM 240 MG (CARDIZEM CD) CAP PO SCH (09:13)
--- NOTE | 2018-12-26 14:42 | Anesthesia-General Post-Op ---
General Patient Condition Mental Status/LOC: Same as Preop Cardiovascular: Satisfactory Nausea/Vomiting: Absent Respiratory: Satisfactory Pain: Controlled Complications: Absent Post Op Complications Complications None Follow Up Care/Instructions Patient Instructions None needed. Anesthesia/Patient Condition Patient Condition Patient is already discharged to home but was doing well, no complaints, stable vital signs, no apparent adverse anesthesia problems noted. GAUTAM CEVALLOS DO Dec 26, 2018 14:42
== END 2018-12-26 09:30 | disposition home or self-care (01) ==
LOC: CATH 06:49 → ICU 16:27 → CATH 12-26 09:30
PROVIDERS: ATTEND Internal Medicine Interventional Cardiology
DX: I48.1 Persistent atrial fibrillation (principal); E83.42 Hypomagnesemia; F41.9 Anxiety disorder, unspecified; J44.9 Chronic obstructive pulmonary disease, unspecified; I12.9 Hypertensive chronic kidney disease with stage 1 through stage 4 chronic kidney disease, or unspecified chronic kidney disease; N18.4 Chronic kidney disease, stage 4 (severe); G89.4 Chronic pain syndrome; Z86.73 Personal history of transient ischemic attack (TIA), and cerebral infarction without residual deficits; M48.061 Spinal stenosis, lumbar region without neurogenic claudication; E78.2 Mixed hyperlipidemia; I48.3 Typical atrial flutter; Z79.01 Long term (current) use of anticoagulants; Z79.899 Other long term (current) drug therapy
CPT/HCPCS: 36415; 80048; 80053; 83735; 84100; 85025; 85027; 85610; 85730; 87081; 92960; 93005; 93312; 93320; 93325; 93613; 93622; 93656; 93657; 93662

== ENCOUNTER → 2019-01-11 | Outpatient (CLI) | payer MEDICARE ==
[~2019-01-11] MED LIST changes: +CATHETER FLUSH 10 ML SYR IV PRN; +DILT240C53 PO; +HOLD METFORMIN - RECEIVED CONTRAST 20 ML VIAL IV SCH; +IOHEXOL 350 MG/ML 100 ML (OMNIPAQUE 350) VIAL IV ONE; +NS 100 ML (IVPB) BAG IV ONE
--- NOTE | 2019-01-11 15:34 | Diagnostic Imaging Report ---
PROCEDURE: CT head with and without contrast. TECHNIQUE: Multiple contiguous axial images were obtained through the brain before and after the administration of intravenous contrast. Auto Exposure Controls were utilized during the CT exam to meet ALARA standards for radiation dose reduction. INDICATION: Memory loss. COMPARISON: Comparison is made with noncontrast head CT from 12/19/2017. FINDINGS: Ventricles and sulci are prominent suggestive of cerebral atrophy. There is periventricular hypodensity noted consistent with chronic microvascular ischemia. No sulcal effacement or midline shift is seen. No acute intra-axial or extra-axial hemorrhage is detected. Cisterns are patent. Postcontrast imaging is without evidence of abnormal enhancement. Visualized paranasal sinuses are clear. IMPRESSION: Cerebral atrophy and changes of chronic microvascular ischemia, greater than expected for a patient of this age. No other significant abnormality is seen. Dictated by: Dictated on workstation # [id number]
== END ==
LOC: RAD 14:35
PROVIDERS: ATTEND Nurse Practitioner Community Health
DX: G31.9 Degenerative disease of nervous system, unspecified (principal); I67.82 Cerebral ischemia; I10 Essential (primary) hypertension; E78.2 Mixed hyperlipidemia
CPT/HCPCS: 70470

== ENCOUNTER → 2019-07-12 | Outpatient (CLI) | payer MEDICARE ==
[~2019-07-12] MED LIST changes: -CATHETER FLUSH 10 ML SYR IV PRN; -HOLD METFORMIN - RECEIVED CONTRAST 20 ML VIAL IV SCH; -IOHEXOL 350 MG/ML 100 ML (OMNIPAQUE 350) VIAL IV ONE; -NS 100 ML (IVPB) BAG IV ONE; -OMEP20CA13 PO; +OMEP20CA18 PO; +OMEP40CA27 PO; -OMEP40CA36 PO; -TRAM50TA2 PO; +TRM50T PO
[2019-07-12 10:42] LABS: BILIRUBIN,URINE NEGATIVE (NEGATIVE); CLARITY,URINE CLEAR; COLOR,URINE YELLOW; GLUCOSE, URINE (UA) NEGATIVE (NEGATIVE); KETONES,URINE NEGATIVE (NEGATIVE); LEUKOCYTE ESTERASE ,URINE NEGATIVE (NEGATIVE); NITRITE,URINE NEGATIVE (NEGATIVE); PROTEIN,URINE 2+ (NEGATIVE)
[2019-07-12 10:45] LABS: BASOPHILS # (AUTO) 0.1 10^3/uL (0.0-0.1); BASOPHILS % (AUTO) 1 % (0-10); EOSINOPHILS # (AUTO) 0.2 10^3/uL (0.0-0.3); EOSINOPHILS % (AUTO) 3 % (0-10); HEMATOCRIT 44 % (40-54); HEMOGLOBIN 14.3 G/DL (13.3-17.7); LYMPHOCYTES # (AUTO) 1.4 X 10^3 (1.0-4.0); LYMPHOCYTES % (AUTO) 19 % (12-44); MEAN CORPUSCULAR HEMOGLOBIN 29 PG (25-34); MEAN CORPUSCULAR HGB CONC 33 G/DL (32-36); MEAN CORPUSCULAR VOLUME 90 FL (80-99); MEAN PLATELET VOLUME 11.1 FL (7.4-10.4); MONOCYTES # (AUTO) 0.5 X 10^3 (0.0-1.0); MONOCYTES % (AUTO) 7 % (0-12); NEUTROPHILS # (AUTO) 5.1 X 10^3 (1.8-7.8); NEUTROPHILS % (AUTO) 70 % (42-75); PLATELET COUNT 175 10^3/uL (130-400); RED CELL DISTRIBUTION WIDTH 13.1 % (10.0-14.5); WHITE BLOOD COUNT 7.2 10^3/uL (4.3-11.0)
[2019-07-12 11:06] LABS: ALBUMIN 4.1 GM/DL (3.2-4.5); BUN/CREATININE RATIO 17; CARBON DIOXIDE 30 MMOL/L (21-32); CHLORIDE 103 MMOL/L (98-107); CREATININE SERUM 1.11 MG/DL (0.60-1.30); GFR ESTIMATED > 60; GLUCOSE 138 MG/DL (70-105); PHOSPHORUS 2.9 MG/DL (2.3-4.7); POTASSIUM 3.9 MMOL/L (3.6-5.0); SODIUM 140 MMOL/L (135-145); URIC ACID 7.5 MG/DL (2.6-7.2)
[2019-07-12 11:10] LABS: BACTERIA,URINE NEGATIVE /HPF
== END ==
LOC: LAB 10:10
PROVIDERS: ATTEND Internal Medicine Nephrology
DX: I12.9 Hypertensive chronic kidney disease with stage 1 through stage 4 chronic kidney disease, or unspecified chronic kidney disease (principal); N18.3 Chronic kidney disease, stage 3 (moderate); M19.90 Unspecified osteoarthritis, unspecified site; Z79.1 Long term (current) use of non-steroidal anti-inflammatories (NSAID)
CPT/HCPCS: 36415; 80069; 81000; 82306; 82570; 83970; 84156; 84550; 85025

== ENCOUNTER 2019-08-04 04:34 | Emergency (ER) | payer MEDICARE ==
[~2019-08-04] VITALS: Ht 175 cm; Wt 127.5 kg
--- OUTSIDE RECORDS SUMMARY | 2019-08-04 04:42 | XMS REPORT ---
Author Author Gurpreet POOL Organization [facility] Address [address] [place] [address] Care Team Providers Care Oyster Preparer Name Role Phone PATRICK POOL Unavailable PROBLEMS Type Condition ICD9-CM Code QVA21-KK Code Onset Dates Condition S tatus SNOMED Code Problem Chronic bronchitis, unspecified chronic bronchitis type J42 Active 53831655 Problem Mixed hyperlipidemia E78.2 Active 959652192 Problem Essential hypertension I10 Active 60547761 Problem Generalized anxiety disorder F41.1 A ctive 84640753 Problem History of CVA (cerebrovascular accident) Z86.73 Active 813869918 Problem Arthritis M19.90 Active 9337493 Problem Persistent atrial fibrillation I48.1 Active 656075839 Problem Chronic pain due to trauma G89.21 Act loren 297670988 Problem Prediabetes R73.09 Active 54646513 2 Problem Reactive depression F32.9 Active 74459597 Problem Urinary hesitancy R39.11 Active 59 92812 Problem Other chronic pain G89.29 Active 8 9976014 Problem Lumbago with sciatica, left side M54.42 Active 985164722 Problem Lumbago with sciatica, right side M54.41 Active [id number] ALLERGIES No Information ENCOUNTERS Encounter Location Date Diagnosis [place] [address] [facility] [id number] [address] [place] [address] Jul, Chronic pain due to trauma G 89.21 [facility] [address] [facility] [id number] [address] [place] [address] Jun, Chronic pain due to trauma G 89.21 [facility] [address] [facility] [id number] [address] [place] [address] Jun, [facility] [address] [facility] [id number] [address] [place] [address] Jun, Lumbago with sciatica, left side M54.42 ; Lumbago with sciatica, right side M54.41 ; Elevated glucose R73.09 and Prediabetes R73.09 [facility] [address] [id number] [address] [place] [address] 07 Jun, 2018 Chronic pain due to trauma G 89.21 [facility] [address] [id number] [address] [place] [address] May, Chronic pain due to trauma G 89.21 [facility] [address] [id number] [address] [place] [address] Apr, Chronic pain due to trauma G 89.21 [facility] [address] [id number] [address] [place] [address] Mar, Chronic pain due to trauma G 89.21 [facility] [address] [id number] [address] [place] [address] Jan, [facility] [address] [id number] [address] [place] [phone] Jan, Essential hypertension I10 [facility] [address] [id number] [address] [place] [address] Jan, Chronic pain due to trauma G 89.21 [facility] [address] [id number] [address] [place] [address] Jan, Other viral warts B07.8 [facility] [address] [id number] [address] [place] [phone] 24 Dec, 2017 Other viral warts B07.8 [facility] [address] [id number] [address] [place] [address] Dec, Chronic pain due to trauma G 89.21 [facility] [address] [id number] [address] [place] [address] Dec, [facility] [address] [facility] [id number] [address] [place] [address] Nov, Persistent atrial fibrillati on I48.1 and Chronic pain due to trauma G89.21 [facility] [address] [id number] [address] [place] [address] Nov, Chronic pain due to trauma G 89.21 [facility] [address] [id number] [address] [place] [address] Nov, [facility] [address] [id number] [address] [place] [address] Oct, Chronic pain due to trauma G 89.21 [facility] [address] [id number] [address] [place] [address] Sep, [facility] [address] [id number] [address] [place] [address] Sep, Chronic pain due to trauma G 89.21 [facility] [address] [id number] [address] [place] [address] Sep, Chronic pain due to trauma G 89.21 ; Essential hypertension I10 and Urinary hesitancy R39.11 [facility] [address] [id number] [address] [place] [address] Sep, [facility] [address] [id number] [address] [place] [address] August, Chronic pain due to trauma G 89.21 [facility] [address] [id number] [address] [place] [address] August, Essential hypertension I10 [facility] [address] [id number] [address] [place] [address] August, Right upper quadrant abdomin al pain R10.11 [facility] [address] [id number] [address] [place] [address] August, Medicare annual wellness vis it, initial Z00.00 ; Chronic bronchitis, unspecified chronic bronchitis type J42 ; Reactive depression F32.9 ; Mixed hyperlipidemia E78.2 and Generalized anxiety disorder F41.1 [facility] [address] [facility] [id number] [address] [place] [address] August, Chronic pain due to trauma G 89.21 [facility] [address] [facility] [id number] [address] [place] [address] Jul, Left shoulder pain, unspecif ied chronicity M25.512 [facility] [address] [facility] [id number] [address] [place] [address] Jul, Chronic pain due to trauma G 89.21 ; Essential hypertension I10 ; Urinary hesitancy R39.11 ; Chronic bronchitis, unspecified chronic bronchitis type J42 ; Lumbago with sciatica, left side M54.42 ; Lumbago with sciatica, right side M54.41 ; Other chronic pain G89.29 and BMI 40.0-44.9, adult Z68.41 [facility] [address] [place] [id number] [address] [place] [address] Jul, Chronic pain due to trauma G 89.21 [facility] [address] [facility] [id number] [address] [place] [address] Jul, Encounter for medication mon itoring Z51.81 [place] [address] [facility] [id number] [address] [place] [address] Jul, Encounter for medication mon itoring Z51.81 [facility] [address] [facility] [id number] [address] [place] [address] Jun, [facility] [address] [facility] [id number] [address] [place] [address] Jun, Chronic pain due to trauma G 89.21 [facility] [address] [facility] [id number] [address] [place] [address] Jun, Chronic bronchitis, unspecif ied chronic bronchitis type J42 [facility] [address] [facility] [id number] [address] [place] [address] Jun, [facility] [address] [facility] [id number] [address] [place] [address] Jun, Chronic pain due to trauma G 89.21 [facility] [address] [id number] [address] [place] [address] Jun, Chronic bronchitis, unspecif ied chronic bronchitis type J42 [facility] [address] [id number] [address] [place] [address] Jun, Chronic pain due to trauma G 89.21 [facility] [address] [id number] [address] [place] [address] Jun, Chronic bronchitis, unspecif ied chronic bronchitis type J42 [facility] [address] [id number] [address] [place] [address] May, Chronic pain due to trauma G 89.21 and Arthritis M19.90 [facility] [address] [id number] [address] [place] [address] May, Chronic pain due to trauma G 89.21 [facility] [address] [id number] [address] [place] [address] May, [facility] [address] [id number] [address] [place] [address] Apr, Chronic pain due to trauma G 89.21 [facility] [address] [id number] [address] [place] [address] Mar, Essential hypertension I10 [facility] [address] [id number] [address] [place] [address] Mar, Chronic pain due to trauma G 89.21 [facility] [address] [id number] [address] [place] [address] Mar, [facility] [address] [id number] [address] [place] [address] Mar, Chronic pain due to trauma G 89.21 ; Essential hypertension I10 and Mixed hyperlipidemia E78.2 [facility] [address] [id number] [address] [place] [address] Jan, Chronic pain due to trauma G 89.21 [facility] [address] [id number] [address] [place] [address] Jan, [facility] [address] [id number] [address] [place] [address] Dec, Chronic pain due to trauma G 89.21 [facility] [address] [id number] [address] [place] [address] Dec, Chronic pain due to trauma G 89.21 [facility] [address] [id number] [address] [place] [address] Dec, Essential hypertension I10 [facility] [address] [id number] [address] [place] [address] Nov, Chronic pain due to trauma G 89.21 [facility] [address] [id number] [address] [place] [address] Oct, Chronic pain due to trauma G 89.21 [facility] [address] [id number] [address] [place] [address] Oct, Chronic pain due to trauma G 89.21 [facility] [address] [id number] [address] [place] [address] Oct, Essential hypertension I10 [facility] [address] [id number] [address] [place] [address] Sep, Chronic pain due to trauma G 89.21 ; Reactive depression F32.9 and Essential hypertension I10 [facility] [address] [id number] [address] [place] [address] 13 Sep, 2016 Generalized anxiety disorder F41.1 [facility] [address] [id number] [address] [place] [address] August, Essential hypertension I10 ; Reactive depression F32.9 and Chronic pain due to trauma G89.21 [facility] [address] [id number] [address] [place] [address] 10 Mar, 2017 Flank pain R10.9 [facility] [address] [facility] [id number] [address] [place] [phone] 09 Jun, 2016 Essential hypertension I10 [facility] [address] [facility] [id number] [address] [place] [address] May, Chronic bronchitis, unspecif ied chronic bronchitis type J42 [facility] [address] [facility] [id number] [address] [place] [address] Apr, Essential hypertension I10 [facility] [address] [facility] [id number] [address] [place] [address] Apr, [facility] [address] [facility] [id number] [address] [place] [address] 30 Jan, 2016 Mixed hyperlipidemia E78.2 [facility] [address] [facility] [id number] [address] [place] [address] Dec, Hepatitis C, chronic B18.2 ; Essential hypertension I10 and Mixed hyperlipidemia E78.2 [facility] [address] [facility] [id number] [address] [place] [address] August, [facility] [address] [facility] [id number] [address] [place] [address] August, [facility] [address] [facility] [id number] [address] [place] [address] August, Essential hypertension I10 ; Mixed hyperlipidemia E78.2 and Gastroesophageal reflux disease, esophagitis presence not specified K21.9 [facility] [address] [facility] [id number] [address] [place] [address] Jun, [facility] [address] [facility] [id number] [address] [place] [address] Jun, Hepatitis C, chronic B18.2 ; Dyspepsia R10.13 ; Reflux esophagitis K21.0 and Essential hypertension I10 [facility] [address] [facility] [id number] [address] [place] [address] May, Reflux esophagitis K21.0 ; H epatitis C, chronic B18.2 and Tachycardia, unspecified R00.0 [facility] [address] [facility] [id number] [address] [place] [address] May, Generalized anxiety disorder F41.1 and Substance addiction F19.20 [facility] [address] [facility] [id number] [address] [place] [address] Apr, [facility] [address] [address] Apr, Hepatitis C, chronic B18.2 [facility] [address] [place] [id number] [address] [place] [address] Apr, Anxiety F41.9 [facility] [address] [address] Apr, Hepatitis C, chronic B18.2 a nd Encounter for immunization Z23 [facility] [address] [address] Apr, [facility] [address] [place] [id number] [address] [place] [address] Apr, Dyspepsia R10.13 [facility] [address] [place] [id number] [address] [place] [address] Apr, [facility] [address] [place] [id number] [address] [place] [phone] 30 Mar, 2015 Hepatitis C, chronic B18.2 [facility] [address] [place] [id number] [address] [place] [address] Mar, Hepatitis C, chronic B18.2 [facility] [address] [place] [id number] [address] [place] [address] Mar, [facility] [address] [place] [id number] [address] [place] [phone] Mar, [facility] [address] [place] [id number] [address] [place] [address] Mar, [facility] [address] [facility] [id number] [address] [address] Jan, Essential hypertension I10 ; Chronic bronchitis, unspecified chronic bronchitis type J42 ; Hepatitis C, chronic B18.2 and Dental caries of root surface K02.7 [facility] [address] [facility] [id number] [address] [place] [phone] 17 Dec, 2014 Routine adult health mainten ance V70.0 [facility] [address] [facility] [id number] [address] [place] [address] Dec, [facility] [address] [facility] [id number] [address] [place] [address] Dec, Hypertension 401.9 ; Anxiety 300.00 and Routine adult health maintenance V70.0 IMMUNIZATIONS No Known Immunizations SOCIAL HISTORY Never Assessed REASON FOR VISIT controlled 07/06 PLAN OF CARE VITAL SIGNS MEDICATIONS Medication Instructions Dosage Frequency Start Date End Date Duration S tatus Oxycodone-Acetaminophen 10-325 MG Orally every 6 hrs 1 tablet as ne eded 6h Jun, 28 days Active RESULTS No Results PROCEDURES No Known procedures INSTRUCTIONS MEDICATIONS ADMINISTERED No Known Medications MEDICAL (GENERAL) HISTORY Type Description Date Medical History Asthma Medical History COPD (chronic obstructive pulmonary dise ase) Medical History Arthritis Medical History Hepatitis C Medical History (Hep C treated with Harvoni x 8 weeks De c 2014 to Jun 2015) Medical History Stroke Medical History Heart attack Medical History Hypertension Surgical History rotator cuff tear repair Surgical History Left eye removal Surgical History cholecystectomy Hospitalization History surgeries Hospitalization History [facility]- Acute Cholecystitis 0 09/10/2017
--- OUTSIDE RECORDS SUMMARY | 2019-08-04 04:45 | XMS REPORT | Continuity of Care Document ---
Author Organization Unknown Address Unknown Phone Unavailable Allergies Active Description Code Type Severity Reaction Onset Reported/Identified Relationship to Patient Clinical Status Yes No Known Drug Allergies [id number] Drug Allergy Unknown N/A 03/29/2013 Medications There is no data. Problems Date Dx Coded Attending Type Code Diagnosis Diagnosed By 03/29/2013 SALTY NIETO MD Ot 574.20 CHOLELITHIASIS NOS 03/29/2013 SALTY NIETO MD Ot 789.00 ABDOMINAL PAIN, UNSPECIFIED SITE 05/18/2013 HARRIETT COOL MD Ot 278. 00 OBESITY, NOS 05/18/2013 HARRIETT COOL MD Ot 721. 3 LUMBOSACRAL SPONDYLOSIS 05/18/2013 HARRIETT COOL MD, Ot 722. 52 LUMB/LUMBOSAC DISC DEGEN 05/18/2013 HARRIETT COOL MD Ot 729. 1 MYALGIA AND MYOSITIS NOS 05/18/2013 HARRIETT COOL MD Ot V58. 69 OTH MED,LT,CURRENT USE 05/18/2013 HARRIETT COOL MD Ot V85. 39 BODY MASS INDEX 39.0-39.9, ADULT 07/20/2013 HARRIETT COOL MD Ot 278. 00 OBESITY, NOS 07/20/2013 HARRIETT COOL MD Ot 721. 3 LUMBOSACRAL SPONDYLOSIS 07/20/2013 HARRIETT COOL MD Ot 722. 52 LUMB/LUMBOSAC DISC DEGEN 07/20/2013 HARRIETT COOL MD Ot 729. 1 MYALGIA AND MYOSITIS NOS 07/20/2013 HARRIETT COOL MD, Ot V58. 69 OTH MED,LT,CURRENT USE 07/20/2013 HARRIETT COOL MD Ot V85. 39 BODY MASS INDEX 39.0-39.9, ADULT 09/09/2014 HARRIETT COOL MD Ot 722. 52 09/09/2014 HARRIETT COOL MD Ot 338. 4 CHRONIC PAIN SYNDROME 09/09/2014 HARRIETT COOL MD, Ot 721. 3 LUMBOSACRAL SPONDYLOSIS 09/09/2014 HARRIETT COOL MD Ot 724. 6 DISORDERS OF SACRUM 09/09/2014 HARRIETT COOL MD Ot V58. 69 [facility],LT,CURRENT USE 03/04/2016 BLAIR CADET DO Ot Z01.818 ENCOUNTER FOR OTHER PREPROCEDURAL EXAMIN 03/04/2016 BLAIR CADET DO Ot Z12. 11 ENCOUNTER FOR SCREENING FOR MALIGNANT NE 03/09/2016 BLAIR CADET DO Ot K57. 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 11 ENCOUNTER FOR SCREENING FOR MALIGNANT NE 03/10/2016 BLAIR CADET DO Ot K57. 30 DVRTCLOS OF LG INT W/O PERFORATION OR AB 03/10/2016 BLAIR CADET DO Ot Z12. 11 ENCOUNTER FOR SCREENING FOR MALIGNANT NE 07/04/2016 JAEL WISE MD Ot I10 ESSENTIAL (PRIMARY) HYPERTENSION 07/04/2016 JAEL WISE MD Ot J44. 9 CHRONIC OBSTRUCTIVE PULMONARY DISEASE, U 07/04/2016 JAEL WISE MD Ot K80. 20 CALCULUS OF GALLBLADDER W/O CHOLECYSTITI 07/04/2016 JAEL WISE MD Ot M54. 5 LOW BACK PAIN 07/04/2016 JAEL WISE MD Ot N20. 2 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 07/04/2016 JAEL WISE MD Ot R10. 31 RIGHT LOWER QUADRANT PAIN 07/04/2016 JAEL WISE MD Ot Z79.899 OTHER RETIREMENT (CURRENT) DRUG THERAPY 07/06/2016 JAEL WISE MD Ot I10 ESSENTIAL (PRIMARY) HYPERTENSION 07/06/2016 JAEL WISE MD Ot J44. 9 CHRONIC OBSTRUCTIVE PULMONARY DISEASE, U 07/06/2016 JAEL WISE MD Ot K80. 20 CALCULUS OF GALLBLADDER W/O CHOLECYSTITI 07/06/2016 JAEL WISE MD Ot M54. 5 LOW BACK PAIN 07/06/2016 JAEL WISE MD Ot N20. 2 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 07/06/2016 JAEL WISE MD Ot R10. 31 RIGHT LOWER QUADRANT PAIN 07/06/2016 BILLIE RAMOS, JAEL Bates Ot Z79.899 OTHER RESISTANCE WELDING MACHINE OPERATOR (CURRENT) DRUG THERAPY 07/10/2016 JAEL WISE MD Ot I10 ESSENTIAL (PRIMARY) HYPERTENSION 07/10/2016 JAEL WISE MD Ot J44. 9 CHRONIC OBSTRUCTIVE PULMONARY DISEASE, U 07/10/2016 AJEL WISE MD Ot K80. 20 CALCULUS OF GALLBLADDER W/O CHOLECYSTITI 07/10/2016 BILLIE RAMOS, JAEL Bates Ot M54. 5 LOW BACK PAIN 07/10/2016 JAEL WISE MD Ot N20. 2 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 07/10/2016 JAEL WISE MD Ot R10. 31 RIGHT LOWER QUADRANT PAIN 07/10/2016 JAEL WISE MD Ot Z79.899 OTHER RETIREMENT (CURRENT) DRUG THERAPY 09/06/2017 SILVINA RAMOS, HARRIETT Kevin Ot 722. 52 LUMB/LUMBOSAC DISC DEGEN 09/06/2017 MONA POE MD [...] E86.0 DEHYDRATION 09/10/2017 BRODERICK QUIROZ MD Ot I1 0 ESSENTIAL (PRIMARY) HYPERTENSION 09/10/2017 GABRIELLA RAMOS, BRODERICK Sams Ot I27.20 PULMONARY HYPERTENSION, UNSPECIFIED 09/10/2017 GABRIELLA [...] BRODERICK Sams Ot K81.0 ACUTE CHOLECYSTITIS 09/23/2017 GABRIELLA RAMOS, BRODERICK Sams Ot K81.0 ACUTE CHOLECYSTITIS 10/12/2017 GABRIELLA RAMOS, BRODERICK Sams Ot K81.0 ACUTE CHOLECYSTITIS 10/19/2017 YNR RAMOS, PATRICK Rogel Ot K80.20 CALCULUS OF GALLBLADDER W/O CHOLECYSTITI 10/21/2017 ANGELA HYMAN MD Ot I10 ESSENTIAL (PRIMARY) HYPERTENSION 10/21/2017 ANGELA HYMAN MD Ot I34. 0 NONRHEUMATIC MITRAL (VALVE) INSUFFICIENC 10/21/2017 ANGELA HYMAN MD Ot I48. 91 UNSPECIFIED ATRIAL FIBRILLATION 10/21/2017 ANGELA HYMAN MD Ot Z79. 01 RESISTANCE WELDING MACHINE OPERATOR (CURRENT) USE OF ANTICOAGULANT 10/21/2017 ANGELA HYMAN MD Ot Z79.899 OTHER RETIREMENT (CURRENT) DRUG THERAPY 11/11/2017 ANGELA HYMAN MD Ot I10 ESSENTIAL (PRIMARY) HYPERTENSION 11/11/2017 ANGELA HYMAN MD Ot I34. 0 NONRHEUMATIC MITRAL (VALVE) INSUFFICIENC 11/11/2017 ANGELA HYMAN MD, Ot I48. 91 UNSPECIFIED ATRIAL FIBRILLATION 11/11/2017 YENNI RAMOS, ANGELA Kevin Ot Z79. 01 RETIREMENT (CURRENT) USE OF ANTICOAGULANT 11/11/2017 YENNI RAMOS, ANGELA Kevin Ot Z79.899 OTHER RESISTANCE WELDING MACHINE OPERATOR (CURRENT) DRUG THERAPY 12/20/2017 MOSS DO, EMELINA Ot E78.00 PURE HYPERCHOLESTEROLEMIA, UNSPECIFIED 12/20/2017 MOSS DO, EMELINA Ot F10.12 9 ALCOHOL ABUSE WITH INTOXICATION, UNSPECI 12/20/2017 MOSS DO, EMELINA Ot I10 ESSENTIAL (PRIMARY) HYPERTENSION 12/20/2017 MOSS DO, EMELINA Ot I48.2 CHRONIC ATRIAL FIBRILLATION 12/20/2017 MOSS DO, EMELINA Ot J44.9 CHRONIC OBSTRUCTIVE PULMONARY DISEASE, U 12/20/2017 MOSS DO, EMELINA Ot K21.9 GASTRO-ESOPHAGEAL REFLUX DISEASE WITHOUT 12/20/2017 MOSS DO, EMELINA Ot R41.82 ALTERED MENTAL STATUS, UNSPECIFIED 12/20/2017 MOSS DO EMELINA Ot S01.51 1A LACERATION WITHOUT FOREIGN BODY OF LIP, 12/20/2017 AJAY DO, EMELINA Ot W18.30 XA FALL ON SAME LEVEL, UNSPECIFIED, INITIAL 12/20/2017 MOSS DO, EMELINA Ot Y90.8 BLOOD ALCOHOL LEVEL OF 240 MG/100 ML OR 12/20/2017 AJAY DO EMELINA Ot Z23 ENCOUNTER FOR IMMUNIZATION 12/20/2017 AJAY SHELBY EMELINA Ot Z79.01 RESISTANCE WELDING MACHINE OPERATOR (CURRENT) USE OF ANTICOAGULANT 12/20/2017 AJAY DO EMELINA Ot Z79.89 9 OTHER RETIREMENT (CURRENT) DRUG THERAPY 12/20/2017 AJAY DO, EMELINA Ot E78.00 PURE HYPERCHOLESTEROLEMIA, UNSPECIFIED 12/20/2017 MOSS DO, EMELINA Ot F10.12 9 ALCOHOL ABUSE WITH INTOXICATION, UNSPECI 12/20/2017 MOSS DO, EMELINA Ot I10 ESSENTIAL (PRIMARY) HYPERTENSION 12/20/2017 AJAY DO, EMELINA Ot I48.2 CHRONIC ATRIAL FIBRILLATION 12/20/2017 MOSS DO, EMELINA Ot J44.9 CHRONIC OBSTRUCTIVE PULMONARY DISEASE, U 12/20/2017 MOSS DO, EMELINA Ot K21.9 GASTRO-ESOPHAGEAL REFLUX DISEASE WITHOUT 12/20/2017 MOSS DO, EMELINA Ot R41.82 ALTERED MENTAL STATUS, UNSPECIFIED 12/20/2017 MOSSEMELINA BERG DO Ot S01.51 1A LACERATION WITHOUT FOREIGN BODY OF LIP, 12/20/2017 MOSS EMELINA SHELBY Ot W18.30 XA FALL ON SAME LEVEL, UNSPECIFIED, INITIAL 12/20/2017 MOSSEMELINA BERG DO Ot Y90.8 BLOOD ALCOHOL LEVEL OF 240 MG/100 ML OR 12/20/2017 EMELINA MOSS DO Ot Z23 ENCOUNTER FOR IMMUNIZATION 12/20/2017 EMELINA MOSS DO Ot Z79.01 RESISTANCE WELDING MACHINE OPERATOR (CURRENT) USE OF ANTICOAGULANT 12/20/2017 EMELINA MOSS DO Ot Z79.89 9 OTHER RETIREMENT (CURRENT) DRUG THERAPY 12/20/2017 ANGELA HYMAN MD Ot D64. 9 ANEMIA, UNSPECIFIED 12/20/2017 ANGELA HYMAN MD Ot E66. 9 OBESITY, UNSPECIFIED 12/20/2017 ANGELA HYMAN MD Ot E78. 2 MIXED HYPERLIPIDEMIA 12/20/2017 ANGELA HYMAN MD Ot F41. 9 ANXIETY DISORDER, UNSPECIFIED 12/20/2017 ANGELA HYMAN MD Ot I10 ESSENTIAL (PRIMARY) HYPERTENSION 12/20/2017 ANGELA HYMAN MD Ot I27. 20 PULMONARY HYPERTENSION, UNSPECIFIED 12/20/2017 ANGELA HYMAN MD Ot I34. 0 NONRHEUMATIC MITRAL (VALVE) INSUFFICIENC 12/20/2017 ANGELA HYMAN MD Ot I48. 2 CHRONIC ATRIAL FIBRILLATION 12/20/2017 ANGELA HYMAN MD Ot J44. 9 CHRONIC OBSTRUCTIVE PULMONARY DISEASE, U 12/20/2017 ANGELA HYMAN MD Ot J45.909 UNSPECIFIED ASTHMA, UNCOMPLICATED 12/20/2017 ANGELA HYMAN MD Ot K75. 9 INFLAMMATORY LIVER DISEASE, UNSPECIFIED 12/20/2017 ANGELA HYMAN MD Ot Z68. 38 BODY MASS INDEX (BMI) 38.0-38.9, ADULT 12/20/2017 ANGELA HYMAN MD Ot Z86. 73 PRSNL HX OF TIA (TIA), AND CEREB INFRC W 12/23/2017 LAINEY BELCHER Ot E78.2 MIXED HYPERLIPIDEMIA 12/23/2017 LAINEY BELCHER Ot I10 ESSENTIAL (PRIMARY) HYPERTENSION 12/23/2017 LAINEY BELCHER Ot I48.0 PAROXYSMAL ATRIAL FIBRILLATION 12/23/2017 LAINEY BELCHER Ot I63.9 CEREBRAL INFARCTION, UNSPECIFIED 12/26/2017 AJAY DO EMELINA Ot E78.00 PURE HYPERCHOLESTEROLEMIA, UNSPECIFIED 12/26/2017 JAAY DO EMELINA Ot F10.12 9 ALCOHOL ABUSE WITH INTOXICATION, UNSPECI 12/26/2017 AJAY DO EMELINA Ot I10 ESSENTIAL (PRIMARY) HYPERTENSION 12/26/2017 AJAY DO EMELINA Ot I48.2 CHRONIC ATRIAL FIBRILLATION 12/26/2017 MOSS DO EMELINA Ot J44.9 CHRONIC OBSTRUCTIVE PULMONARY DISEASE, U 12/26/2017 MOSS DO, EMELINA Ot K21.9 GASTRO-ESOPHAGEAL REFLUX DISEASE WITHOUT 12/26/2017 MOSS DO, EMELINA Ot R41.82 ALTERED MENTAL STATUS, UNSPECIFIED 12/26/2017 AJAY DO EMELINA Ot S01.51 1A LACERATION WITHOUT FOREIGN BODY OF LIP, 12/26/2017 AJAY SHELBY EMELINA Ot W18.30 XA FALL ON SAME LEVEL, UNSPECIFIED, INITIAL 12/26/2017 AJAY SHELBY EMELINA Ot Y90.8 BLOOD ALCOHOL LEVEL OF 240 MG/100 ML OR 12/26/2017 AJAY SHELBY EMELINA Ot Z23 ENCOUNTER FOR IMMUNIZATION 12/26/2017 LILLIAN MOSS DOI Ot Z79.01 RETIREMENT (CURRENT) USE OF ANTICOAGULANT 12/26/2017 AJAY SHELBY EMELINA Ot Z79.89 9 OTHER RETIREMENT (CURRENT) DRUG THERAPY 12/26/2017 AJAY SHELBY EMELINA Ot E78.00 PURE HYPERCHOLESTEROLEMIA, UNSPECIFIED 12/26/2017 AJAY SHELBY EMELINA Ot F10.12 9 ALCOHOL ABUSE WITH INTOXICATION, UNSPECI 12/26/2017 AJAY DO EMELINA Ot I10 ESSENTIAL (PRIMARY) HYPERTENSION 12/26/2017 AJAY DO EMELINA Ot I48.2 CHRONIC ATRIAL FIBRILLATION 12/26/2017 AJAY DO EMELINA Ot J44.9 CHRONIC OBSTRUCTIVE PULMONARY DISEASE, U 12/26/2017 AJAY DO EMELINA Ot K21.9 GASTRO-ESOPHAGEAL REFLUX DISEASE WITHOUT 12/26/2017 MOSS DO, EMELINA Ot R41.82 ALTERED MENTAL STATUS, UNSPECIFIED 12/26/2017 AJAY DO EMELINA Ot S01.51 1A LACERATION WITHOUT FOREIGN BODY OF LIP, 12/26/2017 EMELINA MOSS DO Ot W18.30 XA FALL ON SAME LEVEL, UNSPECIFIED, INITIAL 12/26/2017 EMELINA MOSS DO Ot Y90.8 BLOOD ALCOHOL LEVEL OF 240 MG/100 ML OR 12/26/2017 EMELINA MOSS DO Ot Z23 ENCOUNTER FOR IMMUNIZATION 12/26/2017 EMELINA MOSS DO Ot Z79.01 RESISTANCE WELDING MACHINE OPERATOR (CURRENT) USE OF ANTICOAGULANT 12/26/2017 EMELINA MOSS DO Ot Z79.89 9 OTHER RESISTANCE WELDING MACHINE OPERATOR (CURRENT) DRUG THERAPY 12/28/2017 SILVINA RAMOS, HARRIETT Kevin Ot 722. 52 LUMB/LUMBOSAC DISC DEGEN 12/28/2017 YRN RAMOS, PATRICK Rogel Ot K80.20 CALCULUS OF GALLBLADDER W/O CHOLECYSTITI 12/28/2017 GABRIELLA RAMOS, BRODERICK Sams Ot K81.0 ACUTE CHOLECYSTITIS 12/28/2017 ANGELA HYMAN MD Ot I10 ESSENTIAL (PRIMARY) HYPERTENSION 12/28/2017 ANGELA HYMAN MD Ot I34. 0 NONRHEUMATIC MITRAL (VALVE) INSUFFICIENC 12/28/2017 ANGELA HYMAN MD Ot I48. 91 UNSPECIFIED ATRIAL FIBRILLATION 12/28/2017 ANGELA HYMAN MD Ot Z79. 01 RESISTANCE WELDING MACHINE OPERATOR (CURRENT) USE OF ANTICOAGULANT 12/28/2017 ANGELA HYMAN MD Ot Z79.899 OTHER RESISTANCE WELDING MACHINE OPERATOR (CURRENT) DRUG THERAPY 12/28/2017 ANGELA HYMAN MD Ot D64. 9 ANEMIA, UNSPECIFIED 12/28/2017 ANGELA HYMAN MD Ot E66. 9 OBESITY, UNSPECIFIED 12/28/2017 ANGELA HYMAN MD Ot E78. 2 MIXED HYPERLIPIDEMIA 12/28/2017 ANGELA HYMAN MD Ot F41. 9 ANXIETY DISORDER, UNSPECIFIED 12/28/2017 ANGELA HYMAN MD Ot I10 ESSENTIAL (PRIMARY) HYPERTENSION 12/28/2017 ANGELA HYMAN MD Ot I27. 20 PULMONARY HYPERTENSION, UNSPECIFIED 12/28/2017 ANGELA HYMAN MD Ot I34. 0 NONRHEUMATIC MITRAL (VALVE) INSUFFICIENC 12/28/2017 ANGELA HYMAN MD Ot I48. 2 CHRONIC ATRIAL FIBRILLATION 12/28/2017 ANGELA HYMAN MD Ot J44. 9 CHRONIC OBSTRUCTIVE PULMONARY DISEASE, U 12/28/2017 ANGELA HYMAN MD Ot J45.909 UNSPECIFIED ASTHMA, UNCOMPLICATED 12/28/2017 ANGELA HYMAN MD Ot K75. 9 INFLAMMATORY LIVER DISEASE, UNSPECIFIED 12/28/2017 ANGELA HYMAN MD Ot Z68. 38 BODY MASS INDEX (BMI) 38.0-38.9, ADULT 12/28/2017 ANGELA HYMAN MD Ot Z86. 73 PRSNL HX OF TIA (TIA), AND CEREB INFRC W 12/28/2017 LAINEY BELCHER Ot E78.2 MIXED HYPERLIPIDEMIA 12/28/2017 LAINEY BELCHER Ot I10 ESSENTIAL (PRIMARY) HYPERTENSION 12/28/2017 LAINEY BELCHER Ot I48.0 PAROXYSMAL ATRIAL FIBRILLATION 12/28/2017 LAINEY BELCHER Ot I63.9 CEREBRAL INFARCTION, UNSPECIFIED 12/28/2017 ANGELA HYMAN MD Ot D64. 9 ANEMIA, UNSPECIFIED 12/28/2017 ANGELA HYMAN MD Ot E66. 9 OBESITY, UNSPECIFIED 12/28/2017 ANGELA HYMAN MD Ot E78. 2 MIXED HYPERLIPIDEMIA 12/28/2017 ANEGLA HYMAN MD Ot I10 ESSENTIAL (PRIMARY) HYPERTENSION 12/28/2017 ANGELA HYMAN MD Ot I25. 10 ATHSCL HEART DISEASE OF [place] CORONARY 12/28/2017 ANGELA HYMAN MD Ot I48. 0 PAROXYSMAL ATRIAL FIBRILLATION 12/28/2017 ANGELA HYMAN MD Ot J44. 9 CHRONIC OBSTRUCTIVE PULMONARY DISEASE, U 12/28/2017 ANGELA HYMAN MD Ot Z68. 38 BODY MASS INDEX (BMI) 38.0-38.9, ADULT 12/28/2017 ANEGLA HYMAN MD Ot Z79.899 OTHER RETIREMENT (CURRENT) DRUG THERAPY 12/28/2017 ANGELA HYMAN MD Ot Z86. 73 PRSNL HX OF TIA (TIA), AND CEREB INFRC W 12/30/2017 ANGELA HYMAN MD Ot D64. 9 ANEMIA, UNSPECIFIED 12/30/2017 ANGELA HYMAN MD Ot E66. 9 OBESITY, UNSPECIFIED 12/30/2017 ANGELA HYMAN MD Ot E78. 2 MIXED HYPERLIPIDEMIA 12/30/2017 ANGELA HYMAN MD Ot I10 ESSENTIAL (PRIMARY) HYPERTENSION 12/30/2017 ANGELA HYMAN MD Ot I25. 10 ATHSCL HEART DISEASE OF [place] CORONARY 12/30/2017 ANGELA HYMAN MD Ot I48. 0 PAROXYSMAL ATRIAL FIBRILLATION 12/30/2017 ANGELA HYMAN MD Ot J44. 9 CHRONIC OBSTRUCTIVE PULMONARY DISEASE, U 12/30/2017 ANGELA HYMAN MD Ot Z68. 38 BODY MASS INDEX (BMI) 38.0-38.9, ADULT 12/30/2017 ANGELA HYMAN MD Ot Z79.899 OTHER RESISTANCE WELDING MACHINE OPERATOR (CURRENT) DRUG THERAPY 12/30/2017 ANGELA HYMAN MD, Ot Z86. 73 PRSNL HX OF TIA (TIA), AND CEREB INFRC W 01/20/2018 LAINEY BELCHER Ot E78.2 MIXED HYPERLIPIDEMIA 01/20/2018 LAINEY BELCHER Ot I10 ESSENTIAL (PRIMARY) HYPERTENSION 01/20/2018 LAINEY BELCHER Ot I48.0 PAROXYSMAL ATRIAL FIBRILLATION 01/20/2018 LAINEY BELCHER Ot I63.9 CEREBRAL INFARCTION, UNSPECIFIED 02/24/2018 ANGELA HYMAN MD Ot E66. 9 OBESITY, UNSPECIFIED 02/24/2018 ANGELA HYMAN MD Ot E78. 2 MIXED HYPERLIPIDEMIA 02/24/2018 ANGELA HYMAN MD Ot E78. 5 HYPERLIPIDEMIA, UNSPECIFIED 02/24/2018 ANGELA HYMAN MD Ot F10. 20 ALCOHOL DEPENDENCE, UNCOMPLICATED 02/24/2018 ANGELA HYMAN MD Ot F41. 9 ANXIETY DISORDER, UNSPECIFIED 02/24/2018 ANGELA HYMAN MD Ot G89. 4 CHRONIC PAIN SYNDROME 02/24/2018 ANGELA HYMAN MD Ot I10 ESSENTIAL (PRIMARY) HYPERTENSION 02/24/2018 ANGELA HYMAN MD Ot I27. 20 PULMONARY HYPERTENSION, UNSPECIFIED 02/24/2018 ANGELA HYMAN MD Ot I48. 2 CHRONIC ATRIAL FIBRILLATION 02/24/2018 ANGELA HYMAN MD Ot J44. 9 CHRONIC OBSTRUCTIVE PULMONARY DISEASE, U 02/24/2018 ANGELA HYMAN MD Ot Z11. 2 ENCOUNTER FOR SCREENING FOR OTHER BACTER 02/24/2018 ANGELA HYMAN MD Ot Z68. 38 BODY MASS INDEX (BMI) 38.0-38.9, ADULT 02/24/2018 ANGELA HYMAN MD Ot Z79. 01 RETIREMENT (CURRENT) USE OF ANTICOAGULANT 02/24/2018 ANGELA HYMAN MD Ot Z79.899 OTHER RESISTANCE WELDING MACHINE OPERATOR (CURRENT) DRUG THERAPY 02/24/2018 ANGELA HYMAN MD Ot Z86. 73 PRSNL HX OF TIA (TIA), AND CEREB INFRC W 03/16/2018 ANGELA HYMAN MD Ot E66. 9 OBESITY, UNSPECIFIED 03/16/2018 ANGELA HYMAN MD Ot E78. 2 MIXED HYPERLIPIDEMIA 03/16/2018 ANGELA HYMAN MD Ot E78. 5 HYPERLIPIDEMIA, UNSPECIFIED 03/16/2018 ANGELA HYMAN MD Ot F10. 20 ALCOHOL DEPENDENCE, UNCOMPLICATED 03/16/2018 ANGELA HYMAN MD Ot F41. 9 ANXIETY DISORDER, UNSPECIFIED 03/16/2018 ANGELA HYMAN MD Ot G89. 4 CHRONIC PAIN SYNDROME 03/16/2018 ANGELA HYMAN MD Ot I10 ESSENTIAL (PRIMARY) HYPERTENSION 03/16/2018 ANGELA HYMAN MD Ot I27. 20 PULMONARY HYPERTENSION, UNSPECIFIED 03/16/2018 ANGELA HYMAN MD Ot I48. 2 CHRONIC ATRIAL FIBRILLATION 03/16/2018 ANGELA HYMAN MD Ot J44. 9 CHRONIC OBSTRUCTIVE PULMONARY DISEASE, U 03/16/2018 ANGELA HYMAN MD Ot Z11. 2 ENCOUNTER FOR SCREENING FOR OTHER BACTER 03/16/2018 ANGELA HYMAN MD Ot Z68. 38 BODY MASS INDEX (BMI) 38.0-38.9, ADULT 03/16/2018 ANGELA HYMAN MD Ot Z79. 01 RESISTANCE WELDING MACHINE OPERATOR (CURRENT) USE OF ANTICOAGULANT 03/16/2018 ANGELA HYMAN MD Ot Z79.899 OTHER RETIREMENT (CURRENT) DRUG THERAPY 03/16/2018 ANGELA HYMAN MD Ot Z86. 73 PRSNL HX OF TIA (TIA), AND CEREB INFRC W 05/26/2018 ANGELA HYMAN MD Ot E66. 9 OBESITY, UNSPECIFIED 05/26/2018 ANGELA HYMAN MD Ot E78. 2 MIXED HYPERLIPIDEMIA 05/26/2018 ANGELA HYMAN MD Ot E78. 5 HYPERLIPIDEMIA, UNSPECIFIED 05/26/2018 ANGELA HYMAN MD Ot F10. 20 ALCOHOL DEPENDENCE, UNCOMPLICATED 05/26/2018 ANGELA HYMAN MD, Ot F41. 9 ANXIETY DISORDER, UNSPECIFIED 05/26/2018 ANGELA HYMAN MD Ot G89. 4 CHRONIC PAIN SYNDROME 05/26/2018 ANGELA HYMAN MD Ot I10 ESSENTIAL (PRIMARY) HYPERTENSION 05/26/2018 ANGELA HYMAN MD, Ot I27. 20 PULMONARY HYPERTENSION, UNSPECIFIED 05/26/2018 ANGELA HYMAN MD Ot I48. 2 CHRONIC ATRIAL FIBRILLATION 05/26/2018 ANGELA HYMAN MD, Ot J44. 9 CHRONIC OBSTRUCTIVE PULMONARY DISEASE, U 05/26/2018 ANGELA HYMAN MD, Ot Z11. 2 ENCOUNTER FOR SCREENING FOR OTHER BACTER 05/26/2018 ANGELA HYMAN MD Ot Z68. 38 BODY MASS INDEX (BMI) 38.0-38.9, ADULT 05/26/2018 ANGELA HYMAN MD Ot Z79. 01 RETIREMENT (CURRENT) USE OF ANTICOAGULANT 05/26/2018 ANGELA HYMAN MD Ot Z79.899 OTHER RESISTANCE WELDING MACHINE OPERATOR (CURRENT) DRUG THERAPY 05/26/2018 ANGELA HYMAN MD, Ot Z86. 73 PRSNL HX OF TIA (TIA), AND CEREB INFRC W 06/02/2018 Laterll GUSMAN MD Ot E78 .2 MIXED HYPERLIPIDEMIA 06/02/2018 Latrell GUSMAN MD, Ot F41 .9 ANXIETY DISORDER, UNSPECIFIED 06/02/2018 Latrell GUSMAN MD Ot G89 .4 CHRONIC PAIN SYNDROME 06/02/2018 Latrell GUSMAN MD Ot I12 .9 HYPERTENSIVE CHRONIC KIDNEY DISEASE W ST 06/02/2018 Latrell GUSMAN MD Ot I48 .1 PERSISTENT ATRIAL FIBRILLATION 06/02/2018 Latrell GUSMAN MD, Ot J44 .9 CHRONIC OBSTRUCTIVE PULMONARY DISEASE, U 06/02/2018 Latrell GUSMAN MD Ot N18 .4 CHRONIC KIDNEY DISEASE, STAGE 4 (SEVERE) 06/02/2018 Latrell GUSMAN MD Ot Z79.01 RESISTANCE WELDING MACHINE OPERATOR (CURRENT) USE OF ANTICOAGULANT 06/02/2018 Latrell GUSMAN MD Ot Z79.899 OTHER RESISTANCE WELDING MACHINE OPERATOR (CURRENT) DRUG THERAPY 06/26/2018 Latrell GUSMAN MD Ot E78 .2 MIXED HYPERLIPIDEMIA 06/26/2018 Latrell GUSMAN MD Ot F41 .9 ANXIETY DISORDER, UNSPECIFIED 06/26/2018 Latrell GUSMAN MD Ot G89 .4 CHRONIC PAIN SYNDROME 06/26/2018 Latrell GUSMAN MD Ot I12 .9 HYPERTENSIVE CHRONIC KIDNEY DISEASE W ST 06/26/2018 Latrell GUSMAN MD Ot I48 .1 PERSISTENT ATRIAL FIBRILLATION 06/26/2018 Latrell GUSMAN MD Ot J44 .9 CHRONIC OBSTRUCTIVE PULMONARY DISEASE, U 06/26/2018 Latrell GUSMAN MD Ot N18 .4 CHRONIC KIDNEY DISEASE, STAGE 4 (SEVERE) 06/26/2018 Latrell GUSMAN MD Ot Z79.01 RETIREMENT (CURRENT) USE OF ANTICOAGULANT 06/26/2018 Latrell GUSMAN MD Ot Z79.899 OTHER RESISTANCE WELDING MACHINE OPERATOR (CURRENT) DRUG THERAPY 07/13/2018 LICHA RAMOS, HARVEY Chauhan (DDU) Ot Z02.71 ENCOUNTER FOR DISABILITY DETERMINATION 07/26/2018 Latrell GUSMAN MD Ot Z01.818 ENCOUNTER FOR OTHER PREPROCEDURAL EXAMIN 07/26/2018 Latrell GUSMAN MD Ot Z01.818 ENCOUNTER FOR OTHER PREPROCEDURAL EXAMIN 07/26/2018 Latrell GUSMAN MD Ot Z01.818 ENCOUNTER FOR OTHER PREPROCEDURAL EXAMIN 07/26/2018 Latrell GUSMAN MD Ot Z01.818 ENCOUNTER FOR OTHER PREPROCEDURAL EXAMIN 07/31/2018 SILVINA RAMOS, HARREITT Kevin Ot 722. 52 LUMB/LUMBOSAC DISC DEGEN 07/31/2018 YRN RAMOS, PATRICK Rogel Ot K80.20 CALCULUS OF GALLBLADDER W/O CHOLECYSTITI 07/31/2018 GABRIELLA RAMOS, BRODERICK Sams Ot K81.0 ACUTE CHOLECYSTITIS 07/31/2018 ANGELA HYMAN MD Ot I10 ESSENTIAL (PRIMARY) HYPERTENSION 07/31/2018 ANGELA HYMAN MD Ot I34. 0 NONRHEUMATIC MITRAL (VALVE) INSUFFICIENC 07/31/2018 ANGELA HYMAN MD Ot I48. 91 UNSPECIFIED ATRIAL FIBRILLATION 07/31/2018 ANGELA HYMAN MD, Ot Z79. 01 RESISTANCE WELDING MACHINE OPERATOR (CURRENT) USE OF ANTICOAGULANT 07/31/2018 ANGELA HYMAN MD Ot Z79.899 OTHER RETIREMENT (CURRENT) DRUG THERAPY 07/31/2018 ANGELA HYMAN MD Ot D64. 9 ANEMIA, UNSPECIFIED 07/31/2018 ANGELA HYMAN MD Ot E66. 9 OBESITY, UNSPECIFIED 07/31/2018 ANGELA HYMAN MD Ot E78. 2 MIXED HYPERLIPIDEMIA 07/31/2018 ANGELA HYMAN MD Ot F41. 9 ANXIETY DISORDER, UNSPECIFIED 07/31/2018 ANGELA HYMAN MD Ot I10 ESSENTIAL (PRIMARY) HYPERTENSION 07/31/2018 ANGELA HYMAN MD Ot I27. 20 PULMONARY HYPERTENSION, UNSPECIFIED 07/31/2018 ANGELA HYMAN MD Ot I34. 0 NONRHEUMATIC MITRAL (VALVE) INSUFFICIENC 07/31/2018 ANGELA HYMAN MD Ot I48. 2 CHRONIC ATRIAL FIBRILLATION 07/31/2018 ANGELA HYMAN MD Ot J44. 9 CHRONIC OBSTRUCTIVE PULMONARY DISEASE, U 07/31/2018 ANGELA HYMAN MD Ot J45.909 UNSPECIFIED ASTHMA, UNCOMPLICATED 07/31/2018 ANGELA HYMAN MD Ot K75. 9 INFLAMMATORY LIVER DISEASE, UNSPECIFIED 07/31/2018 ANGELA HYMAN MD Ot Z68. 38 BODY MASS INDEX (BMI) 38.0-38.9, ADULT 07/31/2018 ANGELA HYMAN MD Ot Z86. 73 PRSNL HX OF TIA (TIA), AND CEREB INFRC W 07/31/2018 LAINEY BELCHER Ot E78.2 MIXED HYPERLIPIDEMIA 07/31/2018 LAINEY BELCHER Ot I10 ESSENTIAL (PRIMARY) HYPERTENSION 07/31/2018 LAINEY BELCHER Ot I48.0 PAROXYSMAL ATRIAL FIBRILLATION 07/31/2018 LAINEY BELCHER Ot I63.9 CEREBRAL INFARCTION, UNSPECIFIED 07/31/2018 ANGELA HYMAN MD Ot E66. 9 OBESITY, UNSPECIFIED 07/31/2018 ANGELA HYMAN MD Ot E78. 2 MIXED HYPERLIPIDEMIA 07/31/2018 ANGELA HYMAN MD Ot E78. 5 HYPERLIPIDEMIA, UNSPECIFIED 07/31/2018 ANGELA HYMAN MD Ot F10. 20 ALCOHOL DEPENDENCE, UNCOMPLICATED 07/31/2018 ANGELA HYMAN MD Ot F41. 9 ANXIETY DISORDER, UNSPECIFIED 07/31/2018 ANGELA HYMAN MD Ot G89. 4 CHRONIC PAIN SYNDROME 07/31/2018 ANGELA HYMAN MD Ot I10 ESSENTIAL (PRIMARY) HYPERTENSION 07/31/2018 ANGELA HYMAN MD Ot I27. 20 PULMONARY HYPERTENSION, UNSPECIFIED 07/31/2018 ANGELA HYMAN MD Ot I48. 2 CHRONIC ATRIAL FIBRILLATION 07/31/2018 ANGELA HYMAN MD, Ot J44. 9 CHRONIC OBSTRUCTIVE PULMONARY DISEASE, U 07/31/2018 ANGELA HYMAN MD Ot Z11. 2 ENCOUNTER FOR SCREENING FOR OTHER BACTER 07/31/2018 ANGELA HYMAN MD Ot Z68. 38 BODY MASS INDEX (BMI) 38.0-38.9, ADULT 07/31/2018 ANGELA HYMAN MD, Ot Z79. 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 73 PRSNL HX OF TIA (TIA), AND CEREB INFRC W 07/31/2018 Latrell GUSMAN MD Ot E78 .2 MIXED HYPERLIPIDEMIA 07/31/2018 Latrell GUSMAN MD Ot F41 .9 ANXIETY DISORDER, UNSPECIFIED 07/31/2018 Latrell GUSMAN MD Ot G89 .4 CHRONIC PAIN SYNDROME 07/31/2018 Latrell GUSMAN MD Ot I12 .9 HYPERTENSIVE CHRONIC KIDNEY DISEASE W ST 07/31/2018 Latrell GUSMAN MD Ot I48 .1 PERSISTENT ATRIAL FIBRILLATION 07/31/2018 Latrell GUSMAN MD, Ot J44 .9 CHRONIC OBSTRUCTIVE PULMONARY DISEASE, U 07/31/2018 Latrell GUSMAN MD Ot N18 .4 CHRONIC KIDNEY DISEASE, STAGE 4 (SEVERE) 07/31/2018 Latrell GUSMAN MD Ot Z79.01 RESISTANCE WELDING MACHINE OPERATOR (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) USE OF ANTICOAGULANT 07/31/2018 Latrell GUSMAN MD, Ot Z79.899 OTHER RETIREMENT (CURRENT) DRUG THERAPY 07/31/2018 HARVEY HURT MD ([facility]) Ot Z02.71 ENCOUNTER FOR DISABILITY DETERMINATION 08/01/2018 Latrell GUSMAN MD Ot E78 .2 MIXED HYPERLIPIDEMIA 08/01/2018 Latrell GUSMAN MD Ot I12 .9 HYPERTENSIVE CHRONIC KIDNEY DISEASE W ST 08/01/2018 Latrell GUSMAN MD Ot I48 .1 PERSISTENT ATRIAL FIBRILLATION 08/01/2018 Latrell GUSMAN MD, Ot J44 .9 CHRONIC OBSTRUCTIVE PULMONARY DISEASE, U 08/01/2018 Latrell GUSMAN MD, Ot K21 .9 GASTRO-ESOPHAGEAL REFLUX DISEASE WITHOUT 08/01/2018 Latrell GUSMAN MD Ot N18 .4 CHRONIC KIDNEY DISEASE, STAGE 4 (SEVERE) 08/01/2018 Latrell GUSMAN MD Ot Z79.01 RESISTANCE WELDING MACHINE OPERATOR (CURRENT) USE OF ANTICOAGULANT 08/01/2018 Latrell GUSMAN MD Ot Z79.899 OTHER RETIREMENT (CURRENT) DRUG THERAPY 08/01/2018 Latrell GUSMAN MD Ot Z86.19 PERSONAL HISTORY OF OTHER INFECTIOUS AND 08/01/2018 Latrell GUSMAN MD Ot Z86.73 PRSNL HX OF TIA (TIA), AND CEREB INFRC W 08/10/2018 Latrell GUSMAN MD Ot E78 .2 MIXED HYPERLIPIDEMIA 08/10/2018 Latrell GUSMAN MD, Ot I12 .9 HYPERTENSIVE CHRONIC KIDNEY DISEASE W ST 08/10/2018 Latrell GUSMAN MD Ot I48 .1 PERSISTENT ATRIAL FIBRILLATION 08/10/2018 Latrell GUSMAN MD, Ot J44 .9 CHRONIC OBSTRUCTIVE PULMONARY DISEASE, U 08/10/2018 Latrell GUSMAN MD, Ot K21 .9 GASTRO-ESOPHAGEAL REFLUX DISEASE WITHOUT 08/10/2018 Latrell GUSMAN MD, Ot N18 .4 CHRONIC KIDNEY DISEASE, STAGE 4 (SEVERE) 08/10/2018 Latrell GUSMAN MD, Ot Z79.01 RESISTANCE WELDING MACHINE OPERATOR (CURRENT) USE OF ANTICOAGULANT 08/10/2018 Latrell GUSMAN MD, Ot Z79.899 OTHER RETIREMENT (CURRENT) DRUG THERAPY 08/10/2018 Latrell GUSMAN MD, Ot Z86.19 PERSONAL HISTORY OF OTHER INFECTIOUS AND 08/10/2018 Latrell GUSMAN MD, Ot Z86.73 PRSNL HX OF TIA (TIA), AND CEREB INFRC W 08/30/2018 YRN RAMOS, PATRICK Rogel Ot K80.20 CALCULUS OF GALLBLADDER W/O CHOLECYSTITI 08/30/2018 GABRIELLA RAMOS, BRODERICK Sams Ot K81.0 ACUTE CHOLECYSTITIS 08/30/2018 ANGELA HYMAN MD Ot I10 ESSENTIAL (PRIMARY) HYPERTENSION 08/30/2018 ANGELA HYMAN MD Ot I34. 0 NONRHEUMATIC MITRAL (VALVE) INSUFFICIENC 08/30/2018 ANGELA HYMAN MD Ot I48. 91 UNSPECIFIED ATRIAL FIBRILLATION 08/30/2018 ANGELA HYMAN MD Ot Z79. 01 RESISTANCE WELDING MACHINE OPERATOR (CURRENT) USE OF ANTICOAGULANT 08/30/2018 ANGELA HYMAN MD, Ot Z79.899 OTHER RESISTANCE WELDING MACHINE OPERATOR (CURRENT) DRUG THERAPY 08/30/2018 ANGELA HYMAN MD Ot D64. 9 ANEMIA, UNSPECIFIED 08/30/2018 ANGELA HYMAN MD Ot E66. 9 OBESITY, UNSPECIFIED 08/30/2018 ANGELA HYMAN MD Ot E78. 2 MIXED HYPERLIPIDEMIA 08/30/2018 ANGELA HYMAN MD Ot F41. 9 ANXIETY DISORDER, UNSPECIFIED 08/30/2018 ANGELA HYMAN MD Ot I10 ESSENTIAL (PRIMARY) HYPERTENSION 08/30/2018 ANGELA HYMAN MD Ot I27. 20 PULMONARY HYPERTENSION, UNSPECIFIED 08/30/2018 ANGELA HYMAN MD Ot I34. 0 NONRHEUMATIC MITRAL (VALVE) INSUFFICIENC 08/30/2018 ANGELA HYMAN MD Ot I48. 2 CHRONIC ATRIAL FIBRILLATION 08/30/2018 ANGELA HYMAN MD Ot J44. 9 CHRONIC OBSTRUCTIVE PULMONARY DISEASE, U 08/30/2018 ANGELA HYMAN MD Ot J45.909 UNSPECIFIED ASTHMA, UNCOMPLICATED 08/30/2018 ANGELA HYMAN MD Ot K75. 9 INFLAMMATORY LIVER DISEASE, UNSPECIFIED 08/30/2018 ANGELA HYMAN MD, Ot Z68. 38 BODY MASS INDEX (BMI) 38.0-38.9, ADULT 08/30/2018 ANGELA HYMAN MD Ot Z86. 73 PRSNL HX OF TIA (TIA), AND CEREB INFRC W 08/30/2018 LAINEY BELCHER Ot E78.2 MIXED HYPERLIPIDEMIA 08/30/2018 LAINEY BELCHER Ot I10 ESSENTIAL (PRIMARY) HYPERTENSION 08/30/2018 LAINEY BELCHER Ot I48.0 PAROXYSMAL ATRIAL FIBRILLATION 08/30/2018 LAINEY BELCHER Ot I63.9 CEREBRAL INFARCTION, UNSPECIFIED 08/30/2018 ANGELA HYMAN MD Ot E66. 9 OBESITY, UNSPECIFIED 08/30/2018 ANGELA HYMAN MD Ot E78. 2 MIXED HYPERLIPIDEMIA 08/30/2018 ANGELA HYMAN MD Ot E78. 5 HYPERLIPIDEMIA, UNSPECIFIED 08/30/2018 ANGELA HYMAN MD Ot F10. 20 ALCOHOL DEPENDENCE, UNCOMPLICATED 08/30/2018 ANGELA HYMAN MD Ot F41. 9 ANXIETY DISORDER, UNSPECIFIED 08/30/2018 ANGELA HYMAN MD Ot G89. 4 CHRONIC PAIN SYNDROME 08/30/2018 ANGELA HYMAN MD Ot I10 ESSENTIAL (PRIMARY) HYPERTENSION 08/30/2018 ANGELA HYMAN MD Ot I27. 20 PULMONARY HYPERTENSION, UNSPECIFIED 08/30/2018 ANGELA HYMAN MD Ot I48. 2 CHRONIC ATRIAL FIBRILLATION 08/30/2018 ANGELA HYMAN MD, Ot J44. 9 CHRONIC OBSTRUCTIVE PULMONARY DISEASE, U 08/30/2018 ANGELA HYMAN MD Ot Z11. 2 ENCOUNTER FOR SCREENING FOR OTHER BACTER 08/30/2018 ANGELA HYMAN MD Ot Z68. 38 BODY MASS INDEX (BMI) 38.0-38.9, ADULT 08/30/2018 ANGELA HYMAN MD Ot Z79. 01 RESISTANCE WELDING MACHINE OPERATOR (CURRENT) USE OF ANTICOAGULANT 08/30/2018 ANGELA HYMAN MD Ot Z79.899 OTHER RESISTANCE WELDING MACHINE OPERATOR (CURRENT) DRUG THERAPY 08/30/2018 ANGELA HYMAN MD Ot Z86. 73 PRSNL HX OF TIA (TIA), AND CEREB INFRC W 08/30/2018 Latrell GUSMAN MD, Ot E78 .2 MIXED HYPERLIPIDEMIA 08/30/2018 Latrell GUSMAN MD Ot F41 .9 ANXIETY DISORDER, UNSPECIFIED 08/30/2018 Latrell GUSMAN MD Ot G89 .4 CHRONIC PAIN SYNDROME 08/30/2018 Latrell GUSMAN MD Ot I12 .9 HYPERTENSIVE CHRONIC KIDNEY DISEASE W ST 08/30/2018 Latrell GUSMAN MD, Ot I48 .1 PERSISTENT ATRIAL FIBRILLATION 08/30/2018 Latrell GUSMAN MD, Ot J44 .9 CHRONIC OBSTRUCTIVE PULMONARY DISEASE, U 08/30/2018 Latrell GUSMAN MD Ot N18 .4 CHRONIC KIDNEY DISEASE, STAGE 4 (SEVERE) 08/30/2018 Latrell GUSMAN MD Ot Z79.01 RETIREMENT (CURRENT) USE OF ANTICOAGULANT 08/30/2018 Latrell GUSMAN MD Ot Z79.899 OTHER RESISTANCE WELDING MACHINE OPERATOR (CURRENT) DRUG THERAPY 08/30/2018 HARVEY HURT MD (U) Ot Z02.71 ENCOUNTER FOR DISABILITY DETERMINATION 09/01/2018 Latrell GUSMAN MD Ot N18 .4 CHRONIC KIDNEY DISEASE, STAGE 4 (SEVERE) 09/21/2018 Latrell GUSMAN MD, Ot N18 .4 CHRONIC KIDNEY DISEASE, STAGE 4 (SEVERE) 10/23/2018 Latrell GUSMAN MD Ot E78 .2 MIXED HYPERLIPIDEMIA 10/23/2018 Latrell GUSMAN MD Ot I12 .9 HYPERTENSIVE CHRONIC KIDNEY DISEASE W ST 10/23/2018 Latrell GUSMAN MD Ot I48 .1 PERSISTENT ATRIAL FIBRILLATION 10/23/2018 Latrell GUSMAN MD, Ot J44 .9 CHRONIC OBSTRUCTIVE PULMONARY DISEASE, U 10/23/2018 Latrell GUSMAN MD, Ot K21 .9 GASTRO-ESOPHAGEAL REFLUX DISEASE WITHOUT 10/23/2018 Latrell GUSMAN MD, Ot N18 .4 CHRONIC KIDNEY DISEASE, STAGE 4 (SEVERE) 10/23/2018 Latrell GUSMAN MD, Ot Z79.01 RETIREMENT (CURRENT) USE OF ANTICOAGULANT 10/23/2018 Latrell GUSMAN MD, Ot Z79.899 OTHER RETIREMENT (CURRENT) DRUG THERAPY 10/23/2018 Latrell GUSMAN MD, Ot Z86.19 PERSONAL HISTORY OF OTHER INFECTIOUS AND 10/23/2018 Latrell GUSMAN MD, Ot Z86.73 PRSNL HX OF TIA (TIA), AND CEREB INFRC W 12/26/2018 Latrell GUSMAN MD, Ot E78 .2 MIXED HYPERLIPIDEMIA 12/26/2018 Latrell GUSMAN MD, Ot E83.42 HYPOMAGNESEMIA 12/26/2018 Latrell GUSMAN MD, Ot F41 .9 ANXIETY DISORDER, UNSPECIFIED 12/26/2018 Latrell GUSMAN MD, Ot G89 .4 CHRONIC PAIN SYNDROME 12/26/2018 Latrell GUSMAN MD, Ot I12 .9 HYPERTENSIVE CHRONIC KIDNEY DISEASE W ST 12/26/2018 Latrell GUSMAN MD Ot I48 .1 PERSISTENT ATRIAL FIBRILLATION 12/26/2018 Latrell GUSMAN MD, Ot I48 .3 TYPICAL ATRIAL FLUTTER 12/26/2018 Latrell GUSMAN MD, Ot J44 .9 CHRONIC OBSTRUCTIVE PULMONARY DISEASE, U 12/26/2018 Latrell GUSMAN MD, Ot M48.061 SPINAL STENOSIS, LUMBAR REGION WITHOUT N 12/26/2018 Latrell GUSMAN MD, Ot N18 .4 CHRONIC KIDNEY DISEASE, STAGE 4 (SEVERE) 12/26/2018 Latrell GUSMAN MD, Ot Z79.01 RETIREMENT (CURRENT) USE OF ANTICOAGULANT 12/26/2018 Latrell GUSMAN MD, Ot Z79.899 OTHER RESISTANCE WELDING MACHINE OPERATOR (CURRENT) DRUG THERAPY 12/26/2018 Latrell GUSMAN MD, Ot Z86.73 PRSNL HX OF TIA (TIA), AND CEREB INFRC W 12/28/2018 KHALID MD, M NEO Ot E78 .2 MIXED HYPERLIPIDEMIA 12/28/2018 Latrell GUSMAN MD Ot E83.42 HYPOMAGNESEMIA 12/28/2018 Latrell GUSMAN MD, Ot F41 .9 ANXIETY DISORDER, UNSPECIFIED 12/28/2018 Latrell GUSMAN MD Ot G89 .4 CHRONIC PAIN SYNDROME 12/28/2018 Latrell GUSMAN MD Ot I12 .9 HYPERTENSIVE CHRONIC KIDNEY DISEASE W ST 12/28/2018 Latrell GUSMAN MD Ot I48 .1 PERSISTENT ATRIAL FIBRILLATION 12/28/2018 Latrell GUSMAN MD Ot I48 .3 TYPICAL ATRIAL FLUTTER 12/28/2018 Latrell GUSMAN MD, Ot J44 .9 CHRONIC OBSTRUCTIVE PULMONARY DISEASE, U 12/28/2018 Latrell GUSMAN MD, Ot M48.061 SPINAL STENOSIS, LUMBAR REGION WITHOUT N 12/28/2018 Latrell GUSMAN MD Ot N18 .4 CHRONIC KIDNEY DISEASE, STAGE 4 (SEVERE) 12/28/2018 Latrell GUSMAN MD Ot Z79.01 RETIREMENT (CURRENT) USE OF ANTICOAGULANT 12/28/2018 Latrell GUSMAN MD Ot Z79.899 OTHER RESISTANCE WELDING MACHINE OPERATOR (CURRENT) DRUG THERAPY 12/28/2018 Latrell GUSMAN MD Ot Z86.73 PRSNL HX OF TIA (TIA), AND CEREB INFRC W 12/31/2018 Latrell GUSMAN MD Ot E78 .2 MIXED HYPERLIPIDEMIA 12/31/2018 Latrell GUSMAN MD, Ot E83.42 HYPOMAGNESEMIA 12/31/2018 Latrell GUSMAN MD, Ot F41 .9 ANXIETY DISORDER, UNSPECIFIED 12/31/2018 Latrell GUSMAN MD Ot G89 .4 CHRONIC PAIN SYNDROME 12/31/2018 Latrell GUSMAN MD, Ot I12 .9 HYPERTENSIVE CHRONIC KIDNEY DISEASE W ST 12/31/2018 Latrell GUSMAN MD Ot I48 .1 PERSISTENT ATRIAL FIBRILLATION 12/31/2018 Latrell GUSMAN MD Ot I48 .3 TYPICAL ATRIAL FLUTTER 12/31/2018 Latrell GUSMAN MD, Ot J44 .9 CHRONIC OBSTRUCTIVE PULMONARY DISEASE, U 12/31/2018 Latrell GUSMAN MD, Ot M48.061 SPINAL STENOSIS, LUMBAR REGION WITHOUT N 12/31/2018 Latrell GUSMAN MD, Ot N18 .4 CHRONIC KIDNEY DISEASE, STAGE 4 (SEVERE) 12/31/2018 Latrell GUSMAN MD, Ot Z79.01 RESISTANCE WELDING MACHINE OPERATOR (CURRENT) USE OF ANTICOAGULANT 12/31/2018 Latrell GUSMAN MD, Ot Z79.899 OTHER RETIREMENT (CURRENT) DRUG THERAPY 12/31/2018 Latrell GUSMAN MD, Ot Z86.73 PRSNL HX OF TIA (TIA), AND CEREB INFRC W 02/01/2019 LEDA HUYNH Ot E78.2 MIXED HYPERLIPIDEMIA 02/01/2019 LEDA HUYNH Ot G31.9 DEGENERATIVE DISEASE OF NERVOUS SYSTEM, 02/01/2019 LEDA HUYNH Ot I1 0 ESSENTIAL (PRIMARY) HYPERTENSION 02/01/2019 LEDA HUYNH Ot I67.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 07/12/2019 YRN RAMOS, PATRICK Rogel Ot K80.20 CALCULUS OF GALLBLADDER W/O CHOLECYSTITI 07/12/2019 GABRIELLA RAMOS, BRODERICK Sams Ot K81.0 ACUTE CHOLECYSTITIS 07/12/2019 ANGELA HYMAN MD, Ot I10 ESSENTIAL (PRIMARY) HYPERTENSION 07/12/2019 ANGELA HYMAN MD Ot I34. 0 NONRHEUMATIC MITRAL (VALVE) INSUFFICIENC 07/12/2019 ANGELA HYMAN MD Ot I48. 91 UNSPECIFIED ATRIAL FIBRILLATION 07/12/2019 ANGELA HYMAN MD, Ot Z79. 01 RESISTANCE WELDING MACHINE OPERATOR (CURRENT) USE OF ANTICOAGULANT 07/12/2019 ANGELA HYMAN MD, Ot Z79.899 OTHER RETIREMENT (CURRENT) DRUG THERAPY 07/12/2019 ANGELA HYMAN MD, Ot D64. 9 ANEMIA, UNSPECIFIED 07/12/2019 ANGELA HYMAN MD, Ot E66. 9 OBESITY, UNSPECIFIED 07/12/2019 ANGELA HYMAN MD Ot E78. 2 MIXED HYPERLIPIDEMIA 07/12/2019 ANGELA HYMAN MD Ot F41. 9 ANXIETY DISORDER, UNSPECIFIED 07/12/2019 ANGELA HYMAN MD Ot I10 ESSENTIAL (PRIMARY) HYPERTENSION 07/12/2019 ANGELA HYMAN MD Ot I27. 20 PULMONARY HYPERTENSION, UNSPECIFIED 07/12/2019 ANGELA HYMAN MD Ot I34. 0 NONRHEUMATIC MITRAL (VALVE) INSUFFICIENC 07/12/2019 ANGELA HYMAN MD Ot I48. 2 CHRONIC ATRIAL FIBRILLATION 07/12/2019 ANGELA HYMAN MD Ot J44. 9 CHRONIC OBSTRUCTIVE PULMONARY DISEASE, U 07/12/2019 ANGELA HYMAN MD Ot J45.909 UNSPECIFIED ASTHMA, UNCOMPLICATED 07/12/2019 YENNI RAMOS, ANGELA Kevin Ot K75. 9 INFLAMMATORY LIVER DISEASE, UNSPECIFIED 07/12/2019 ANGELA HYMAN MD Ot Z68. 38 BODY MASS INDEX (BMI) 38.0-38.9, ADULT 07/12/2019 ANGELA HYMAN MD Ot Z86. 73 PRSNL HX OF TIA (TIA), AND CEREB INFRC W 07/12/2019 LAINEY BELCHER Ot E78.2 MIXED HYPERLIPIDEMIA 07/12/2019 LAINEY BELCHER Ot I10 ESSENTIAL (PRIMARY) HYPERTENSION 07/12/2019 LAINEY BELCHER Ot I48.0 PAROXYSMAL ATRIAL FIBRILLATION 07/12/2019 LAINEY BELCHER Ot I63.9 CEREBRAL INFARCTION, UNSPECIFIED 07/12/2019 ANGELA HYMAN MD Ot E66. 9 OBESITY, UNSPECIFIED 07/12/2019 ANGELA HYMAN MD Ot E78. 2 MIXED HYPERLIPIDEMIA 07/12/2019 ANGELA HYMAN MD Ot E78. 5 HYPERLIPIDEMIA, UNSPECIFIED 07/12/2019 ANGELA HYMAN MD Ot F10. 20 ALCOHOL DEPENDENCE, UNCOMPLICATED 07/12/2019 ANGELA HYMAN MD Ot F41. 9 ANXIETY DISORDER, UNSPECIFIED 07/12/2019 ANGELA HYMAN MD Ot G89. 4 CHRONIC PAIN SYNDROME 07/12/2019 ANGELA HYMAN MD Ot I10 ESSENTIAL (PRIMARY) HYPERTENSION 07/12/2019 ANGELA HYMAN MD Ot I27. 20 PULMONARY HYPERTENSION, UNSPECIFIED 07/12/2019 ANGELA HYMAN MD Ot I48. 2 CHRONIC ATRIAL FIBRILLATION 07/12/2019 ANGELA HYMAN MD, Ot J44. 9 CHRONIC OBSTRUCTIVE PULMONARY DISEASE, U 07/12/2019 ANGELA HYMAN MD, Ot Z11. 2 ENCOUNTER FOR SCREENING FOR OTHER BACTER 07/12/2019 ANGELA HYMAN MD Ot Z68. 38 BODY MASS INDEX (BMI) 38.0-38.9, ADULT 07/12/2019 ANGELA HYMAN MD, Ot Z79. 01 RESISTANCE WELDING MACHINE OPERATOR (CURRENT) USE OF ANTICOAGULANT 07/12/2019 ANGELA HYMAN MD, Ot Z79.899 OTHER RESISTANCE WELDING MACHINE OPERATOR (CURRENT) DRUG THERAPY 07/12/2019 ANGELA HYMAN MD, Ot Z86. 73 PRSNL HX OF TIA (TIA), AND CEREB INFRC W 07/12/2019 Latrell GUSMAN MD, Ot E78 .2 MIXED HYPERLIPIDEMIA 07/12/2019 Latrell GUSMAN MD, Ot F41 .9 ANXIETY DISORDER, UNSPECIFIED 07/12/2019 Latrell GUSMAN MD, Ot G89 .4 CHRONIC PAIN SYNDROME 07/12/2019 Latrell GUSMAN MD, Ot I12 .9 HYPERTENSIVE CHRONIC KIDNEY DISEASE W ST 07/12/2019 Latrell GUSMAN MD Ot I48 .1 PERSISTENT ATRIAL FIBRILLATION 07/12/2019 Latrell GUSMAN MD, Ot J44 .9 CHRONIC OBSTRUCTIVE PULMONARY DISEASE, U 07/12/2019 Latrell GUSMAN MD, Ot N18 .4 CHRONIC KIDNEY DISEASE, STAGE 4 (SEVERE) 07/12/2019 Latrell GUSMAN MD Ot Z79.01 RETIREMENT (CURRENT) USE OF ANTICOAGULANT 07/12/2019 Latrell GUSMAN MD, Ot Z79.899 OTHER RETIREMENT (CURRENT) DRUG THERAPY 07/12/2019 HARVEY HURT MD (DDU) Ot Z02.71 ENCOUNTER FOR DISABILITY DETERMINATION 07/12/2019 Latrell GUSMAN MD, Ot N18 .4 CHRONIC KIDNEY DISEASE, STAGE 4 (SEVERE) 07/12/2019 LEDA HUYNH Ot E78.2 MIXED HYPERLIPIDEMIA 07/12/2019 LEDA HUYNH Ot G31.9 DEGENERATIVE DISEASE OF NERVOUS SYSTEM, 07/12/2019 LEDA HUYNH Ot I1 0 ESSENTIAL (PRIMARY) HYPERTENSION 07/12/2019 AMINA LEDA Elias MEDRANO Ot I67.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 07/24/2019 JAISON HARRIS MD, Ot I12 .9 HYPERTENSIVE CHRONIC KIDNEY DISEASE W ST 07/24/2019 JAISON HARRIS MD, Ot M19.90 UNSPECIFIED OSTEOARTHRITIS, UNSPECIFIED 07/24/2019 JAISON HARRIS MD, Ot N18 .3 CHRONIC KIDNEY DISEASE, STAGE 3 (MODERAT 07/24/2019 JAISON HARRIS MD, Ot Z79 .1 RETIREMENT (CURRENT) USE OF NON-STEROIDAL Procedures Code Description Performed By Per formed On [id number] RE SECTION OF GALLBLADDER, PERCUTANEOUS E 09/09/2017 [id number] RO BOTIC ASSISTED PROCEDURE OF TRUNK, PER 09/09/2017 Results Test Result Range Complete urinalysis with reflex to cultu re - 07/04/16 11:05 Urine color determination YELLOW NRG Urine clarity determination CLEAR NR G Urine pH measurement by test strip 5 5-9 Specific gravity of urine by test strip 1.015 1.016-1.022 Urine protein assay by test strip, semi-quantitative NEGATIVE NEGATIVE Urine glucose detection by automated test strip NE GATIVE NEGATIVE Erythrocytes detection in urine sediment by light micr oscopy NEGATIVE NEGATIVE Urine ketones detection by automated test strip NE GATIVE NEGATIVE Urine nitrite detection by test strip NEGATIVE NEGATIVE Urine total bilirubin detection by test strip NEGA TIVE NEGATIVE Urine urobilinogen measurement by automated test strip (mass/volume) NORMAL NORMAL Urine leukocyte esterase detection by dipstick NEG ATIVE NEGATIVE Automated urine sediment erythrocyte cou nt by microscopy (number/high power field) RARE NRG Automated urine sediment leukocyte count by microscopy (number/high power field) NONE NRG Bacteria detection in urine sediment by light microsco py NEGATIVE NRG Squamous epithelial cells detection in u rine sediment by light microscopy RARE NRG Crystals detection in urine sediment by light microsco py NONE NRG Casts detection in urine sediment by light microscopy NONE NRG Mucus detection in urine sediment by light microscopy NEGATIVE NRG Complete urinalysis with reflex to culture NO NRG Complete blood count (CBC) with automate d white blood cell (WBC) differential - 07/04/16 11:30 Blood leukocytes automated count (number/volume) 11.6 10*3/uL 4.3-11.0 Blood erythrocytes automated count (number/volume) 4.81 10*6/uL 4.35-5.85 Venous blood hemoglobin measurement (mass/volume) 14.3 g/dL 13.3-17.7 Blood hematocrit (volume fraction) 43 % 40-54 Automated erythrocyte mean corpuscular volume 88 [ foz_us] 80-99 Automated erythrocyte mean corpuscular h emoglobin (mass per erythrocyte) 30 pg 25-34 Automated erythrocyte mean corpuscular h emoglobin concentration measurement (mass/volume) 34 g/dL 32-36 Automated erythrocyte distribution width ratio 12. 8 % 10.0- 14.5 Automated blood platelet count (count/volume) 227 10*3/uL [...] 10*3 1.0-4.0 Blood monocytes automated count (number/volume) 0. 7 10*3 0.0-1.0 Automated eosinophil count 0.2 10*3/uL 0 .0-0.3 Automated blood basophil count (count/volume) 0.1 10*3/uL 0.0-0.1 Comprehensive metabolic panel - 07/04/16 11:35 Serum or plasma sodium measurement (moles/volume) 142 mmol/L 135-145 Serum or plasma potassium measurement (moles/volume) 4.3 mmol/L 3.6-5.0 Serum or plasma chloride measurement (moles/volume) 104 mmol/L 98-107 Carbon dioxide 25 mmol/L 21-32 Serum or plasma anion gap determination (moles/volume) 13 mmol/L 5-14 Serum or plasma urea nitrogen measurement (mass/volume ) 23 mg/dL 7-18 Serum or plasma creatinine measurement (mass/volume) 1.22 mg/dL 0.60-1.30 Serum or plasma urea nitrogen/creatinine mass ratio 19 NRG Serum or plasma creatinine measurement w ith calculation of estimated glomerular filtration rate > NRG Serum or plasma glucose measurement (mass/volume) 95 mg/dL 70-105 Serum or plasma calcium measurement (mass/volume) 8.8 mg/dL 8.5-10.1 Serum or plasma total bilirubin measurement (mass/volu me) 0.5 mg/dL 0.1-1.0 Serum or plasma alkaline phosphatase goldie surement (enzymatic activity/volume) 71 U/L 40-136 Serum or plasma aspartate aminotransfera se measurement (enzymatic activity/volume) 24 U/L 5-34 Serum or plasma alanine aminotransferase measurement (enzymatic activity/volume) 17 U/L 0-55 Serum or plasma protein measurement (mass/volume) 7.2 g/dL 6.4-8.2 Serum or plasma albumin measurement (mass/volume) 4.3 g/dL 3.2-4.5 Lipase - 07/04/16 11:35 Lipase 18 U/L 8-78 CBC - 03/04/17 10:34 WHITE BLOOD CELL COUNT 7.4 Thousand/uL 3 .8-10.8 RED BLOOD CELL COUNT 4.78 Million/uL 4.2 0-5.80 HEMOGLOBIN 14.1 g/dL 13.2-17.1 HEMATOCRIT 44.1 % 38.5-50.0 MCV 92.3 fL 80.0-100.0 MCH 29.5 pg 27.0-33.0 MCHC 32.0 g/dL 32.0-36.0 RDW 12.1 % 11.0-15.0 PLATELET COUNT 240 Thousand/uL 140-400 MPV 10.7 fL 7.5-12.5 ABSOLUTE NEUTROPHILS 4114 cells/uL 1500- 7800 ABSOLUTE LYMPHOCYTES 2042 cells/uL 850-3 900 ABSOLUTE MONOCYTES 895 cells/uL 200-950 ABSOLUTE EOSINOPHILS 266 cells/uL 15-500 ABSOLUTE BASOPHILS 81 cells/uL 0-200 NEUTROPHILS 55.6 % NRG LYMPHOCYTES 27.6 % NRG MONOCYTES 12.1 % NRG EOSINOPHILS 3.6 % NRG BASOPHILS 1.1 % NRG PDM - ATS (PROFILE 8 WITH CONFIRMATION) - 08/03/17 11:30 Creatinine 89.6 mg/dL > or = 20.0 pH 6.25 4.5 - 9.0 Oxidant NEGATIVE [...] NEGATIVE ng/mL <10 medMATCH 6 Acetylmorphine CONSISTENT NR G medMATCH Buprenorphine CONSISTENT NRG Noroxycodone 1432 ng/mL <50 medMATCH Noroxycodone INCONSISTENT NRG Oxycodone 857 ng/mL <50 medMATCH Oxycodone INCONSISTENT NRG Oxymorphone 375 ng/mL <50 medMATCH Oxymorphone INCONSISTENT NRG Ethyl Glucuronide (ETG) 92195 ng/mL <5 00 medMATCH ETG INCONSISTENT NRG Ethyl Sulfate (ETS) 4033 ng/mL <100 medMATCH ETS INCONSISTENT NRG Capillary blood glucose measurement by g lucometer (mass/volume) - 09/06/17 10:49 Capillary blood glucose measurement by glucometer (mas s/volume) 118 mg/dL 70-110 Complete blood count (CBC) with automate d white blood cell (WBC) differential - 09/06/17 11:03 Blood leukocytes automated count (number/volume) 10.3 10*3/uL 4.3-11.0 Blood erythrocytes automated count (number/volume) 4.32 10*6/uL 4.35-5.85 Venous blood hemoglobin measurement (mass/volume) 12.9 g/dL 13.3-17.7 Blood hematocrit (volume fraction) 39 % 40-54 Automated erythrocyte mean corpuscular volume 90 [ foz_us] 80-99 Automated erythrocyte mean corpuscular h emoglobin (mass per erythrocyte) 30 pg 25-34 Automated erythrocyte mean corpuscular h emoglobin concentration measurement (mass/volume) 33 g/dL 32-36 Automated erythrocyte distribution width ratio 12. 5 % 10.0- 14.5 Automated blood platelet count (count/volume) 199 10*3/uL [...] 10*3 1.0-4.0 Blood monocytes automated count (number/volume) 0. 8 10*3 0.0-1.0 Automated eosinophil count 0.2 10*3/uL 0 .0-0.3 Automated blood basophil count (count/volume) 0.0 10*3/uL 0.0-0.1 Blood lactic acid measurement (moles/vol ume) - 09/06/17 11:03 Blood lactic acid measurement (moles/volume) 0.80 mmol/L 0.50-2.00 PT panel in platelet poor plasma by coag ulation assay - 09/06/17 11:03 Prothrombin time (PT) in platelet poor plasma by coagu lation assay 13.1 s 12.2-14.7 INR in platelet poor plasma or blood by coagulation as say 1.0 0.8-1.4 Activated partial thromboplastin time (a PTT) in platelet poor plasma bycoagulation assay - 09/06/17 11:03 Activated partial thromboplastin time (a PTT) in platelet poor plasma bycoagulation assay 33 s 24-35 Comprehensive metabolic panel - 09/06/17 11:03 Serum or plasma sodium measurement (moles/volume) 139 mmol/L 135-145 Serum or plasma potassium measurement (moles/volume) 4.9 mmol/L 3.6-5.0 Serum or plasma chloride measurement (moles/volume) 107 mmol/L 98-107 Carbon dioxide 24 mmol/L 21-32 Serum or plasma anion gap determination (moles/volume) 8 mmol/L 5-14 Serum or plasma urea nitrogen measurement (mass/volume ) 41 mg/dL 7-18 Serum or plasma creatinine measurement (mass/volume) 1.19 mg/dL 0.60-1.30 Serum or plasma urea nitrogen/creatinine mass ratio 34 NRG Serum or plasma creatinine measurement w ith calculation of estimated glomerular filtration rate > NRG Serum or plasma glucose measurement (mass/volume) 130 mg/dL 70-105 Serum or plasma calcium measurement (mass/volume) 9.7 mg/dL 8.5-10.1 Serum or plasma total bilirubin measurement (mass/volu me) 0.5 mg/dL 0.1-1.0 Serum or plasma alkaline phosphatase goldie surement (enzymatic activity/volume) 122 U/L 40-136 Serum or plasma aspartate aminotransfera se measurement (enzymatic activity/volume) 136 U/L 5-34 Serum or plasma alanine aminotransferase measurement (enzymatic activity/volume) 110 U/L 0-55 Serum or plasma protein measurement (mass/volume) 7.9 g/dL 6.4-8.2 Serum or plasma albumin measurement (mass/volume) 4.6 g/dL 3.2-4.5 Serum or plasma troponin i.cardiac measu rement (mass/volume) - 09/06/17 11:03 Serum or plasma troponin i.cardiac measurement (mass/v olume) < ng/mL <0.30 Serum or plasma thyrotropin measurement by detection limit <=0.05 miu/l (units/volume) - 09/06/17 11:03 Serum or plasma thyrotropin measurement by detection limit <=0.05 miu/l (units/volume) 4.17 u[iU]/mL 0.35-4.94 Serum or plasma ethanol measurement (mas s/volume) - 09/06/17 11:03 Serum or plasma ethanol measurement (mass/volume) < mg/dL <10 Bacterial blood culture - 09/06/17 11:03 Bacterial blood culture NG NRG Complete urinalysis with reflex to cultu re - 09/06/17 11:35 Urine color determination YELLOW NRG Urine clarity determination CLEAR NR G Urine pH measurement by test strip 6 5-9 Specific gravity of urine by test strip 1.015 1.016-1.022 Urine protein assay by test strip, semi-quantitative 1+ NEGATIVE Urine glucose detection by automated test strip NE GATIVE NEGATIVE Erythrocytes detection in urine sediment by light micr oscopy NEGATIVE NEGATIVE Urine ketones detection by automated test strip NE GATIVE NEGATIVE Urine nitrite detection by test strip NEGATIVE NEGATIVE Urine total bilirubin detection by test strip NEGA TIVE NEGATIVE Urine urobilinogen measurement by automated test strip (mass/volume) NORMAL NORMAL Urine leukocyte esterase detection by dipstick NEG ATIVE NEGATIVE Automated urine sediment erythrocyte cou nt by microscopy (number/high power field) NONE NRG Automated urine sediment leukocyte count by microscopy (number/high power field) NONE NRG Bacteria detection in urine sediment by light microsco py NEGATIVE NRG Squamous epithelial cells detection in u rine sediment by light microscopy RARE NRG Crystals detection in urine sediment by light microsco py NONE NRG Casts detection in urine sediment by light microscopy NONE NRG Mucus detection in urine sediment by light microscopy NEGATIVE NRG Complete urinalysis with reflex to culture NO NRG Urine drug screening test - 09/06/17 11: 35 Urine phencyclidine detection by screening method NEGATIVE NEGATIVE Urine benzodiazepines detection by screening method NEGATIVE NEGATIVE Urine cocaine detection NEGATIVE NEGATI VE Urine amphetamines detection by screening method N EGATIVE NEGATIVE Urine methamphetamine detection by screening method NEGATIVE NEGATIVE Urine cannabinoids detection by screening method N EGATIVE NEGATIVE Urine opiates detection by screening method NEGATI VE NEGATIVE Urine barbiturates detection NEGATIVE N EGATIVE Screening urine tricyclic antidepressants detection POSITIVE NEGATIVE Urine methadone detection by screening method NEGA TIVE NEGATIVE Urine oxycodone detection POSITIVE NEGA TIVE Urine propoxyphene detection NEGATIVE N EGATIVE Bacterial blood culture - 09/06/17 12:01 Bacterial [...] 5-14 Serum or plasma urea nitrogen measurement (mass/volume ) 47 mg/dL 7-18 Serum or plasma creatinine measurement (mass/volume) 4.20 mg/dL 0.60-1.30 Serum or plasma urea nitrogen/creatinine mass ratio 11 NRG Serum or plasma creatinine measurement w ith calculation of estimated glomerular filtration rate 15 NRG Serum or plasma glucose measurement (mass/volume) 96 mg/dL 70-105 Serum or plasma calcium measurement (mass/volume) 9.8 mg/dL 8.5-10.1 Serum or plasma total bilirubin measurement (mass/volu me) 0.7 mg/dL 0.1-1.0 Serum or plasma alkaline phosphatase goldie surement (enzymatic activity/volume) 88 U/L 40-136 Serum or plasma aspartate aminotransfera se measurement (enzymatic activity/volume) 18 U/L 5-34 Serum or plasma alanine aminotransferase measurement (enzymatic activity/volume) 39 U/L 0-55 Serum or plasma protein measurement (mass/volume) 8.4 g/dL 6.4-8.2 Serum or plasma albumin measurement (mass/volume) 4.3 g/dL 3.2-4.5 Lipase - 09/08/17 15:33 Lipase 19 U/L 8-78 Blood lactic acid measurement (moles/vol ume) - 09/08/17 15:45 Blood lactic acid measurement (moles/volume) 1.33 mmol/L 0.50-2.00 Bacterial blood culture - 09/08/17 15:45 Bacterial blood culture NG NRG Bacterial blood culture - 09/08/17 16:28 Bacterial blood culture NG NRG Methicillin resistant Staphylococcus aur eus (MRSA) screening culture - 09/08/17 18:50 Methicillin resistant Staphylococcus aureus (MRSA) scr eening culture NEG NRG Complete urinalysis with reflex to cultu re - 09/09/17 02:08 Urine color determination YELLOW NRG Urine clarity determination SLIGHTLY CLOUDY NRG Urine pH measurement by test strip 5 5-9 Specific gravity of urine by test strip 1.010 1.016-1.022 Urine protein assay by test strip, semi-quantitative 3+ NEGATIVE Urine glucose detection by automated test strip NE GATIVE NEGATIVE Erythrocytes detection in urine sediment by light micr oscopy 1+ NEGATIVE Urine ketones detection by automated test strip NE GATIVE NEGATIVE Urine nitrite detection by test strip NEGATIVE NEGATIVE Urine total bilirubin detection by test strip NEGA TIVE NEGATIVE Urine urobilinogen measurement by automated test strip (mass/volume) 1 mg/dL NORMAL Urine leukocyte esterase detection by dipstick NEG ATIVE NEGATIVE Automated urine sediment erythrocyte cou nt by microscopy (number/high power field) NONE NRG Automated urine sediment leukocyte count by microscopy (number/high power field) NONE NRG Bacteria detection in urine sediment by light microsco py TRACE NRG Squamous epithelial cells detection in u rine sediment by light microscopy RARE NRG Crystals detection in urine sediment by light microsco py PRESENT NRG Casts detection in urine sediment by light microscopy NONE NRG Mucus detection in urine sediment by light microscopy SMALL NRG Complete urinalysis with reflex to culture NO NRG Amorphous sediment detection in urine sediment by ligh t microscopy MOD ILDEFONSO URATES NRG Granular casts detection in urine sediment by light mi croscopy RARE NRG Complete blood count (CBC) with automate d white blood cell (WBC) differential - 09/09/17 06:31 Blood leukocytes automated count (number/volume) 16.6 10*3/uL 4.3-11.0 Blood erythrocytes automated count (number/volume) 3.52 10*6/uL 4.35-5.85 Venous blood hemoglobin measurement (mass/volume) 10.4 g/dL 13.3-17.7 Blood hematocrit (volume fraction) 32 % 40-54 Automated erythrocyte mean corpuscular volume 90 [ foz_us] 80-99 Automated erythrocyte mean corpuscular h emoglobin (mass per erythrocyte) 30 pg 25-34 Automated erythrocyte mean corpuscular h emoglobin concentration measurement (mass/volume) 33 g/dL 32-36 Automated erythrocyte distribution width ratio 12. 4 % 10.0- 14.5 Automated blood platelet count (count/volume) 202 10*3/uL [...] 10*3 1.0-4.0 Blood monocytes automated count (number/volume) 1. 4 10*3 0.0-1.0 Automated eosinophil count 0.0 10*3/uL 0 .0-0.3 Automated blood basophil count (count/volume) 0.0 10*3/uL 0.0-0.1 Blood manual differential performed dete ction - 09/09/17 06:31 Blood monocytes/100 leukocytes 7 % NRG Manual blood segmented neutrophils/100 leukocytes 76 % NRG Blood band neutrophils/100 leukocytes 4 % NRG Manual blood lymphocytes/100 leukocytes 13 % NRG Blood erythrocyte morphology finding identification NORMAL NRG Comprehensive metabolic panel - 09/09/17 06:31 Serum or plasma sodium measurement (moles/volume) 137 mmol/L 135-145 Serum or plasma potassium measurement (moles/volume) 3.2 mmol/L 3.6-5.0 Serum or plasma chloride measurement (moles/volume) 104 mmol/L 98-107 Carbon dioxide 20 mmol/L 21-32 Serum or plasma anion gap determination (moles/volume) 13 mmol/L 5-14 Serum or plasma urea nitrogen measurement (mass/volume ) 45 mg/dL 7-18 Serum or plasma creatinine measurement (mass/volume) 2.55 mg/dL 0.60-1.30 Serum or plasma urea nitrogen/creatinine mass ratio 18 NRG Serum or plasma creatinine measurement w ith calculation of estimated glomerular filtration rate 27 NRG Serum or plasma glucose measurement (mass/volume) 108 mg/dL 70-105 Serum or plasma calcium measurement (mass/volume) 8.4 mg/dL 8.5-10.1 Serum or plasma total bilirubin measurement (mass/volu me) 0.8 mg/dL 0.1-1.0 Serum or plasma alkaline phosphatase goldie surement (enzymatic activity/volume) 73 U/L 40-136 Serum or plasma aspartate aminotransfera se measurement (enzymatic activity/volume) 15 U/L 5-34 Serum or plasma alanine aminotransferase measurement (enzymatic activity/volume) 27 U/L 0-55 Serum or plasma protein measurement (mass/volume) 6.7 g/dL 6.4-8.2 Serum or plasma albumin measurement (mass/volume) 3.6 g/dL 3.2-4.5 Lipase - 09/09/17 06:31 Lipase 15 U/L 8-78 Complete blood count (CBC) with automate d white blood cell (WBC) differential - 09/10/17 04:00 Blood leukocytes automated count (number/volume) 10.8 10*3/uL 4.3-11.0 Blood erythrocytes automated count (number/volume) 3.13 10*6/uL 4.35-5.85 Venous blood hemoglobin measurement (mass/volume) 9.3 g/dL 13.3-17.7 Blood hematocrit (volume fraction) 28 % 40-54 Automated erythrocyte mean corpuscular volume 91 [ foz_us] 80-99 Automated erythrocyte mean corpuscular h emoglobin (mass per erythrocyte) 30 pg 25-34 Automated erythrocyte mean corpuscular h emoglobin concentration measurement (mass/volume) 33 g/dL 32-36 Automated erythrocyte distribution width ratio 12. 5 % 10.0- 14.5 Automated blood platelet count (count/volume) 226 10*3/uL [...] 10*3 1.0-4.0 Blood monocytes automated count (number/volume) 0. 9 10*3 0.0-1.0 Automated eosinophil count 0.0 10*3/uL 0 .0-0.3 Automated blood basophil count (count/volume) 0.0 10*3/uL 0.0-0.1 Comprehensive metabolic panel - 09/10/17 04:00 Serum or plasma sodium measurement (moles/volume) 138 mmol/L 135-145 Serum or plasma potassium measurement (moles/volume) 3.7 mmol/L 3.6-5.0 Serum or plasma chloride measurement (moles/volume) 103 mmol/L 98-107 Carbon dioxide 25 mmol/L 21-32 Serum or plasma anion gap determination (moles/volume) 10 mmol/L 5-14 Serum or plasma urea nitrogen measurement (mass/volume ) 37 mg/dL 7-18 Serum or plasma creatinine measurement (mass/volume) 1.51 mg/dL 0.60-1.30 Serum or plasma urea nitrogen/creatinine mass ratio 25 NRG Serum or plasma creatinine measurement w ith calculation of estimated glomerular filtration rate 49 NRG Serum or plasma glucose measurement (mass/volume) 209 mg/dL 70-105 Serum or plasma calcium measurement (mass/volume) 8.2 mg/dL 8.5-10.1 Serum or plasma total bilirubin measurement (mass/volu me) 0.5 mg/dL 0.1-1.0 Serum or plasma alkaline phosphatase goldie surement (enzymatic activity/volume) 95 U/L 40-136 Serum or plasma aspartate aminotransfera se measurement (enzymatic activity/volume) 45 U/L 5-34 Serum or plasma alanine aminotransferase measurement (enzymatic activity/volume) 38 U/L 0-55 Serum or plasma protein measurement (mass/volume) 6.4 g/dL 6.4-8.2 Serum or plasma albumin measurement (mass/volume) 3.3 g/dL 3.2-4.5 Automated blood complete blood count (he mogram) panel - 10/19/17 07:02 Blood leukocytes automated count (number/volume) 9.0 10*3/uL 4.3-11.0 Blood erythrocytes automated count (number/volume) 3.73 10*6/uL 4.35-5.85 Venous blood hemoglobin measurement (mass/volume) 10.9 g/dL 13.3-17.7 Blood hematocrit (volume fraction) 33 % 40-54 Automated erythrocyte mean corpuscular volume 89 [ foz_us] 80-99 Automated erythrocyte mean corpuscular h emoglobin (mass per erythrocyte) 29 pg 25-34 Automated erythrocyte mean corpuscular h emoglobin concentration measurement (mass/volume) 33 g/dL 32-36 Automated erythrocyte distribution width ratio 14. 0 % 10.0- 14.5 Automated blood platelet count (count/volume) 325 10*3/uL 130-400 Automated blood platelet mean volume measurement 10.0 [foz_us] 7.4-10.4 PT panel in platelet poor plasma by coag ulation assay - 10/19/17 07:02 Prothrombin time (PT) in platelet poor plasma by coagu lation assay 15.4 s 12.2-14.7 INR in platelet poor plasma or blood by coagulation as say 1.2 0.8-1.4 Activated partial thromboplastin time (a PTT) in platelet poor plasma bycoagulation assay - 10/19/17 07:02 Activated partial thromboplastin time (a PTT) in platelet poor plasma bycoagulation assay 43 s 24-35 Comprehensive metabolic panel - 10/19/17 07:02 Serum or plasma sodium measurement (moles/volume) 141 mmol/L 135-145 Serum or plasma potassium measurement (moles/volume) 3.8 mmol/L 3.6-5.0 Serum or plasma chloride measurement (moles/volume) 104 mmol/L 98-107 Carbon dioxide 25 mmol/L 21-32 Serum or plasma anion gap determination (moles/volume) 12 mmol/L 5-14 Serum or plasma urea nitrogen measurement (mass/volume ) 16 mg/dL 7-18 Serum or plasma creatinine measurement (mass/volume) 1.05 mg/dL 0.60-1.30 Serum or plasma urea nitrogen/creatinine mass ratio 15 NRG Serum or plasma creatinine measurement w ith calculation of estimated glomerular filtration rate > NRG Serum or plasma glucose measurement (mass/volume) 112 mg/dL 70-105 Serum or plasma calcium measurement (mass/volume) 9.7 mg/dL 8.5-10.1 Serum or plasma total bilirubin measurement (mass/volu me) 0.3 mg/dL 0.1-1.0 Serum or plasma alkaline phosphatase goldie surement (enzymatic activity/volume) 77 U/L 40-136 Serum or plasma aspartate aminotransfera se measurement (enzymatic activity/volume) 17 U/L 5-34 Serum or plasma alanine aminotransferase measurement (enzymatic activity/volume) 14 U/L 0-55 Serum or plasma protein measurement (mass/volume) 7.3 g/dL 6.4-8.2 Serum or plasma albumin measurement (mass/volume) 4.0 g/dL 3.2-4.5 Lipid 1996 panel - 10/19/17 07:02 Serum or plasma triglyceride measurement (mass/volume) 113 mg/dL <150 Serum or plasma cholesterol measurement (mass/volume) 152 mg/dL < 200 Serum or plasma cholesterol in HDL measurement (mass/v olume) 30 mg/dL 40-60 Cholesterol in LDL [mass/volume] in serum or plasma by direct assay 105 mg/dL 1-129 Serum or plasma cholesterol in VLDL measurement (mass/ volume) 23 mg/dL 5-40 Methicillin resistant Staphylococcus aur eus (MRSA) screening culture - 10/19/17 07:02 Methicillin resistant Staphylococcus aureus (MRSA) scr eening culture NEG NRG Automated blood complete blood count (he mogram) panel - 11/30/17 07:40 Blood leukocytes automated count (number/volume) 5.3 10*3/uL 4.3-11.0 Blood erythrocytes automated count (number/volume) 4.24 10*6/uL 4.35-5.85 Venous blood hemoglobin measurement (mass/volume) 12.6 g/dL 13.3-17.7 Blood hematocrit (volume fraction) 37 % 40-54 Automated erythrocyte mean corpuscular volume 88 [ foz_us] 80-99 Automated erythrocyte mean corpuscular h emoglobin (mass per erythrocyte) 30 pg 25-34 Automated erythrocyte mean corpuscular h emoglobin concentration measurement (mass/volume) 34 g/dL 32-36 Automated erythrocyte distribution width ratio 13. 3 % 10.0- 14.5 Automated blood platelet count (count/volume) 217 10*3/uL 130-400 Automated blood platelet mean volume measurement 10.7 [foz_us] 7.4-10.4 PT panel in platelet poor plasma by coag ulation assay - 11/30/17 07:40 Prothrombin time (PT) in platelet poor plasma by coagu lation assay 13.8 s 12.2-14.7 INR in platelet poor plasma or blood by coagulation as say 1.1 0.8-1.4 Activated partial thromboplastin time (a PTT) in platelet poor plasma bycoagulation assay - 11/30/17 07:40 Activated partial thromboplastin time (a PTT) in platelet poor plasma bycoagulation assay 41 s 24-35 Comprehensive metabolic panel - 11/30/17 07:40 Serum or plasma sodium measurement (moles/volume) 141 mmol/L 135-145 Serum or plasma potassium measurement (moles/volume) 4.3 mmol/L 3.6-5.0 Serum or plasma chloride measurement (moles/volume) 102 mmol/L 98-107 Carbon dioxide 29 mmol/L 21-32 Serum or plasma anion gap determination (moles/volume) 10 mmol/L 5-14 Serum or plasma urea nitrogen measurement (mass/volume ) 14 mg/dL 7-18 Serum or plasma creatinine measurement (mass/volume) 0.92 mg/dL 0.60-1.30 Serum or plasma urea nitrogen/creatinine mass ratio 15 NRG Serum or plasma creatinine measurement w ith calculation of estimated glomerular filtration rate > NRG Serum or plasma glucose measurement (mass/volume) 108 mg/dL 70-105 Serum or plasma calcium measurement (mass/volume) 9.7 mg/dL 8.5-10.1 Serum or plasma total bilirubin measurement (mass/volu me) 0.2 mg/dL 0.1-1.0 Serum or plasma alkaline phosphatase goldie surement (enzymatic activity/volume) 148 U/L 40-136 Serum or plasma aspartate aminotransfera se measurement (enzymatic activity/volume) 30 U/L 5-34 Serum or plasma alanine aminotransferase measurement (enzymatic activity/volume) 56 U/L 0-55 Serum or plasma protein measurement (mass/volume) 7.3 g/dL 6.4-8.2 Serum or plasma albumin measurement (mass/volume) 4.1 g/dL 3.2-4.5 Methicillin resistant Staphylococcus aur eus (MRSA) screening culture - 11/30/17 07:40 Methicillin resistant Staphylococcus aureus (MRSA) scr eening culture NEG NRG Methicillin resistant Staphylococcus aur eus (MRSA) screening culture - 12/28/17 09:40 Methicillin resistant Staphylococcus aureus (MRSA) scr eening culture NEG NRG Automated blood complete blood count (he mogram) panel - 02/22/18 07:44 Blood leukocytes automated count (number/volume) 8.4 10*3/uL 4.3-11.0 Blood erythrocytes automated count (number/volume) 4.91 10*6/uL 4.35-5.85 Venous blood hemoglobin measurement (mass/volume) 14.4 g/dL 13.3-17.7 Blood hematocrit (volume fraction) 43 % 40-54 Automated erythrocyte mean corpuscular volume 87 [ foz_us] 80-99 Automated erythrocyte mean corpuscular h emoglobin (mass per erythrocyte) 29 pg 25-34 Automated erythrocyte mean corpuscular h emoglobin concentration measurement (mass/volume) 34 g/dL 32-36 Automated erythrocyte distribution width ratio 13. 6 % 10.0- 14.5 Automated blood platelet count (count/volume) 216 10*3/uL [...] 5-14 Serum or plasma urea nitrogen measurement (mass/volume ) 29 mg/dL 7-18 Serum or plasma creatinine measurement (mass/volume) 1.31 mg/dL 0.60-1.30 Serum or plasma urea nitrogen/creatinine mass ratio 22 NRG Serum or plasma creatinine measurement w ith calculation of estimated glomerular filtration rate 57 NRG Serum or plasma glucose measurement (mass/volume) 104 mg/dL 70-105 Serum or plasma calcium measurement (mass/volume) 10.1 mg/dL 8.5-10.1 Serum or plasma total bilirubin measurement (mass/volu me) 0.4 mg/dL 0.1-1.0 Serum or plasma alkaline phosphatase goldie surement (enzymatic activity/volume) 86 U/L 40-136 Serum or plasma aspartate aminotransfera se measurement (enzymatic activity/volume) 18 U/L 5-34 Serum or plasma alanine aminotransferase measurement (enzymatic activity/volume) 17 U/L 0-55 Serum or plasma protein measurement (mass/volume) 7.9 g/dL 6.4-8.2 Serum or plasma albumin measurement (mass/volume) 4.6 g/dL 3.2-4.5 Methicillin resistant Staphylococcus aur eus (MRSA) screening culture - 02/22/18 07:44 Methicillin resistant Staphylococcus aureus (MRSA) scr eening culture NEG NRG Serum or plasma renal function panel (Na , K, Cl, CO2, BUN, Cr, glucose,Ca, phos, alb) - 06/01/18 12:45 Serum or plasma sodium measurement (moles/volume) 139 mmol/L 135-145 Serum or plasma potassium measurement (moles/volume) 4.4 mmol/L 3.6-5.0 Serum or plasma chloride measurement (moles/volume) 100 mmol/L 98-107 Carbon dioxide 30 mmol/L 21-32 Serum or plasma anion gap determination (moles/volume) 9 mmol/L 5-14 Serum or plasma urea nitrogen measurement (mass/volume ) 24 mg/dL 7-18 Serum or plasma creatinine measurement (mass/volume) 1.28 mg/dL 0.60-1.30 Serum or plasma urea nitrogen/creatinine mass ratio 19 NRG Serum or plasma creatinine measurement w ith calculation of estimated glomerular filtration rate 59 NRG Serum or plasma glucose measurement (mass/volume) 104 mg/dL 70-105 Serum or plasma calcium measurement (mass/volume) 9.8 mg/dL 8.5-10.1 Serum or plasma albumin measurement (mass/volume) 4.3 g/dL 3.2-4.5 Serum or plasma phosphate measurement (mass/volume) 3.8 mg/dL 2.3-4.7 Automated blood complete blood count (he mogram) panel - 07/31/18 08:30 Blood leukocytes automated count (number/volume) 11.0 10*3/uL 4.3-11.0 Blood erythrocytes automated count (number/volume) 4.84 10*6/uL 4.35-5.85 Venous blood hemoglobin measurement (mass/volume) 14.5 g/dL 13.3-17.7 Blood hematocrit (volume fraction) 44 % 40-54 Automated erythrocyte mean corpuscular volume 91 [ foz_us] 80-99 Automated erythrocyte mean corpuscular h emoglobin (mass per erythrocyte) 30 pg 25-34 Automated erythrocyte mean corpuscular h emoglobin concentration measurement (mass/volume) 33 g/dL 32-36 Automated erythrocyte distribution width ratio 13. 2 % 10.0- 14.5 Automated blood platelet count (count/volume) 252 10*3/uL 130-400 Automated blood platelet mean volume measurement 10.7 [foz_us] 7.4-10.4 PT panel in platelet poor plasma by coag ulation assay - 07/31/18 08:30 Prothrombin time (PT) in platelet poor plasma by coagu lation assay 14.3 s 12.2-14.7 INR in platelet poor plasma or blood by coagulation as say 1.1 0.8-1.4 Activated partial thromboplastin time (a PTT) in platelet poor plasma bycoagulation assay - 07/31/18 08:30 Activated partial thromboplastin time (a PTT) in platelet poor plasma bycoagulation assay 34 s 24-35 Comprehensive metabolic panel - 07/31/18 08:30 Serum or plasma sodium measurement (moles/volume) 141 mmol/L 135-145 Serum or plasma potassium measurement (moles/volume) 3.9 mmol/L 3.6-5.0 Serum or plasma chloride measurement (moles/volume) 101 mmol/L 98-107 Carbon dioxide 27 mmol/L 21-32 Serum or plasma anion gap determination (moles/volume) 13 mmol/L 5-14 Serum or plasma urea nitrogen measurement (mass/volume ) 10 mg/dL 7-18 Serum or plasma creatinine measurement (mass/volume) 1.30 mg/dL 0.60-1.30 Serum or plasma urea nitrogen/creatinine mass ratio 8 NRG Serum or plasma creatinine measurement w ith calculation of estimated glomerular filtration rate 58 NRG Serum or plasma glucose measurement (mass/volume) 110 mg/dL 70-105 Serum or plasma calcium measurement (mass/volume) 10.5 mg/dL 8.5-10.1 Serum or plasma total bilirubin measurement (mass/volu me) 0.5 mg/dL 0.1-1.0 Serum or plasma alkaline phosphatase goldie surement (enzymatic activity/volume) 87 U/L 40-136 Serum or plasma aspartate aminotransfera se measurement (enzymatic activity/volume) 19 U/L 5-34 Serum or plasma alanine aminotransferase measurement (enzymatic activity/volume) 19 U/L 0-55 Serum or plasma protein measurement (mass/volume) 7.8 g/dL 6.4-8.2 Serum or plasma albumin measurement (mass/volume) 4.5 g/dL 3.2-4.5 CALCIUM CORRECTED 10.1 mg/dL 8.5-10.1 Methicillin resistant Staphylococcus aur eus (MRSA) screening culture - 07/31/18 08:30 Methicillin resistant Staphylococcus aureus (MRSA) scr eening culture NG NRG Automated blood complete blood count (he mogram) panel - 08/01/18 03:37 Blood leukocytes automated count (number/volume) 11.3 10*3/uL 4.3-11.0 Blood erythrocytes automated count (number/volume) 4.02 10*6/uL 4.35-5.85 Venous blood hemoglobin measurement (mass/volume) 11.9 g/dL 13.3-17.7 Blood hematocrit (volume fraction) 37 % 40-54 Automated erythrocyte mean corpuscular volume 92 [ foz_us] 80-99 Automated erythrocyte mean corpuscular h emoglobin (mass per erythrocyte) 30 pg 25-34 Automated erythrocyte mean corpuscular h emoglobin concentration measurement (mass/volume) 32 g/dL 32-36 Automated erythrocyte distribution width ratio 13. 0 % 10.0- 14.5 Automated blood platelet count (count/volume) 160 10*3/uL 130-400 Automated blood platelet mean volume measurement 10.8 [foz_us] 7.4-10.4 Whole blood basic metabolic panel - 06/20 03:37 Serum or plasma sodium measurement (moles/volume) 141 mmol/L 135-145 Serum or plasma potassium measurement (moles/volume) 3.6 mmol/L 3.6-5.0 Serum or plasma chloride measurement (moles/volume) 107 mmol/L 98-107 Carbon dioxide 23 mmol/L 21-32 Serum or plasma anion gap determination (moles/volume) 11 mmol/L 5-14 Serum or plasma urea nitrogen measurement (mass/volume ) 14 mg/dL 7-18 Serum or plasma creatinine measurement (mass/volume) 1.04 mg/dL 0.60-1.30 Serum or plasma urea nitrogen/creatinine mass ratio 13 NRG Serum or plasma creatinine measurement w ith calculation of estimated glomerular filtration rate > NRG Serum or plasma glucose measurement (mass/volume) 109 mg/dL 70-105 Serum or plasma calcium measurement (mass/volume) 8.7 mg/dL 8.5-10.1 PDM - 09 PANEL (PROFILE 1) - 09/27/18 12 :54 Prescribed Drug 1 Percocet(TM) NRG Creatinine 63.4 mg/dL > or = 20.0 pH 5.54 4.5 - 9.0 Oxidant NEGATIVE mcg/mL <200 Amphetamines NEGATIVE ng/mL <500 medMATCH Amphetamines CONSISTENT NRG Benzodiazepines NEGATIVE ng/mL <100 medMATCH Benzodiazepines CONSISTENT NRG Marijuana Metabolite NEGATIVE ng/mL <20 medMATCH Marijuana Metab CONSISTENT NRG Cocaine Metabolite NEGATIVE ng/mL <150 medMATCH Cocaine Metab CONSISTENT NRG Opiates NEGATIVE ng/mL <100 medMATCH Opiates CONSISTENT NRG Oxycodone POSITIVE ng/mL <100 COMMENT NRG Noroxycodone 345 ng/mL <50 medMATCH Noroxycodone CONSISTENT NRG Oxycodone 468 ng/mL <50 medMATCH Oxycodone CONSISTENT NRG Oxymorphone 89 ng/mL <50 medMATCH Oxymorphone CONSISTENT NRG Barbiturates NEGATIVE ng/mL <300 medMATCH Barbiturates CONSISTENT NRG Methadone Metabolite NEGATIVE ng/mL <100 medMATCH Methadone Metab CONSISTENT NRG Phencyclidine NEGATIVE ng/mL <25 medMATCH Phencyclidine CONSISTENT NRG URIC ACID, SERUM - 10/05/18 14:24 URIC ACID 6.2 mg/dL 4.0-8.0 CBC - 12/15/18 08:57 WHITE BLOOD CELL COUNT 8.3 Thousand/uL 3 .8-10.8 RED BLOOD CELL COUNT 4.62 Million/uL 4.2 0-5.80 HEMOGLOBIN 13.3 g/dL 13.2-17.1 HEMATOCRIT 42.8 % 38.5-50.0 MCV 92.6 fL 80.0-100.0 MCH 28.8 pg 27.0-33.0 MCHC 31.1 g/dL 32.0-36.0 RDW 13.9 % 11.0-15.0 PLATELET COUNT 210 Thousand/uL 140-400 MPV 10.9 fL 7.5-12.5 ABSOLUTE NEUTROPHILS 6084 cells/uL 1500- 7800 ABSOLUTE LYMPHOCYTES 1303 cells/uL 850-3 900 ABSOLUTE MONOCYTES 564 cells/uL 200-950 ABSOLUTE EOSINOPHILS 282 cells/uL 15-500 ABSOLUTE BASOPHILS 66 cells/uL 0-200 NEUTROPHILS 73.3 % NRG LYMPHOCYTES 15.7 % NRG MONOCYTES 6.8 % NRG EOSINOPHILS 3.4 % NRG BASOPHILS 0.8 % NRG Automated blood complete blood count (he mogram) panel - 12/25/18 07:10 Blood leukocytes automated count (number/volume) 7.5 10*3/uL 4.3-11.0 Blood erythrocytes automated count (number/volume) 4.31 10*6/uL 4.35-5.85 Venous blood hemoglobin measurement (mass/volume) 12.8 g/dL 13.3-17.7 Blood hematocrit (volume fraction) 40 % 40-54 Automated erythrocyte mean corpuscular volume 92 [ foz_us] 80-99 Automated erythrocyte mean corpuscular h emoglobin (mass per erythrocyte) 30 pg 25-34 Automated erythrocyte mean corpuscular h emoglobin concentration measurement (mass/volume) 32 g/dL 32-36 Automated erythrocyte distribution width ratio 14. 2 % 10.0- 14.5 Automated blood platelet count (count/volume) 182 10*3/uL 130-400 Automated blood platelet mean volume measurement 11.1 [foz_us] 7.4-10.4 PT panel in platelet poor plasma by coag ulation assay - 12/25/18 07:10 Prothrombin time (PT) in platelet poor plasma by coagu lation assay 13.6 s 12.2-14.7 INR in platelet poor plasma or blood by coagulation as say 1.0 0.8-1.4 Activated partial thromboplastin time (a PTT) in platelet poor plasma bycoagulation assay - 12/25/18 07:10 Activated partial thromboplastin time (a PTT) in platelet poor plasma bycoagulation assay 39 s 24-35 Comprehensive metabolic panel - 12/25/18 07:10 Serum or plasma sodium measurement (moles/volume) 141 mmol/L 135-145 Serum or plasma potassium measurement (moles/volume) 4.3 mmol/L 3.6-5.0 Serum or plasma chloride measurement (moles/volume) 102 mmol/L 98-107 Carbon dioxide 30 mmol/L 21-32 Serum or plasma anion gap determination (moles/volume) 9 mmol/L 5-14 Serum or plasma urea nitrogen measurement (mass/volume ) 29 mg/dL 7-18 Serum or plasma creatinine measurement (mass/volume) 1.20 mg/dL 0.60-1.30 Serum or plasma urea nitrogen/creatinine mass ratio 24 NRG Serum or plasma creatinine measurement w ith calculation of estimated glomerular filtration rate > NRG Serum or plasma glucose measurement (mass/volume) 99 mg/dL 70-105 Serum or plasma calcium measurement (mass/volume) 9.5 mg/dL 8.5-10.1 Serum or plasma total bilirubin measurement (mass/volu me) 0.3 mg/dL 0.1-1.0 Serum or plasma alkaline phosphatase goldie surement (enzymatic activity/volume) 99 U/L 40-136 Serum or plasma aspartate aminotransfera se measurement (enzymatic activity/volume) 26 U/L 5-34 Serum or plasma alanine aminotransferase measurement (enzymatic activity/volume) 24 U/L 0-55 Serum or plasma protein measurement (mass/volume) 7.3 g/dL 6.4-8.2 Serum or plasma albumin measurement (mass/volume) 4.2 g/dL 3.2-4.5 CALCIUM CORRECTED 9.3 mg/dL 8.5-10.1 Methicillin resistant Staphylococcus aur eus (MRSA) screening culture - 12/25/18 07:10 MRSA SCREEN RESULT MRSA ISOLATED NRG Complete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
[2019-08-04] MEDS ORDERED: methylPREDNISolone 125 MG (Solu-MEDROL) VIAL IV STA (05:02)
--- NOTE | 2019-08-04 05:05 | NUR ---
RT called at this time to deliver breathing Tx.
[2019-08-04] MEDS ORDERED: lisINopril 20 MG (PRINIVIL) TABLET PO ONE (05:15)
[2019-08-04] MEDS ORDERED: RT-ALBUTEROL/IPRATROPIUM 3 ML (DUONEB) VIAL INH ONE (05:15)
--- NOTE | 2019-08-04 05:15 | NUR ---
Tech attempted EKG at this time, pt refused. Pt states "I'm not doing anything until I get a breathing Tx". notified.
--- NOTE | 2019-08-04 05:22 | ED Respiratory ---
General Chief Complaint: Respiratory Problems Stated Complaint: COPD Nursing Triage Note: Pt ambulates to RM 10 with c/o SOA. Pt states he is usually short of air, has been worse the last 2 hrs. 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 Pt reports Hx of COPD and AFib. Pt O2 95% on RA. Source: patient Exam Limitations: no limitations History of Present Illness Date Seen by Provider: Aug 04, 2019 Time Seen by Provider: 04:57 Initial Comments Here with report of shortness of air this is been going on for the last few hours. He's tried several pus from his inhaler and that has not helped. Denies fever or chills. States he gets COPD exacerbation occasionally. He has been staying at his house and has had no other contacts. Only outing is to the store and then back home. Denies nausea, vomiting or sweating. He is due for his blood pressure medicine. Does have history of atrial fibrillation and is on Eliquis. States that he takes it as directed. Timing/Duration: this morning, constant Severity: moderate Prior Episodes/Possible Cause: occasional episodes Modifying Factors: Improves With Albuterol Inhaler Associated Symptoms: No cough, No fever/chills, No nasal congestion, No nasal drainage; shortness of breath; No sore throat; wheezing Allergies and Home Medications Allergies Coded Allergies: No Known Drug Allergies (Unverified , 03/29/13) Home Medications Albuterol Sulfate 18 Gm Hfa.aer.ad, 2 PUFF INH Q4H PRN for SHORTNESS OF BREATH, (Reported) Albuterol Sulfate 2.5 Mg/3 Ml Vial.neb, 2.5 MG INH Q4H PRN for WHEEZING Prescribed by: MONA POE on 08/04/19 0558 Apixaban 5 Mg Tablet, 5 MG PO BID, (Reported) Atenolol/Chlorthalidone 1 Each Tablet, 1 TAB PO DAILY, (Reported) Cyclobenzaprine HCl 10 Mg Tablet, 10 MG PO TID PRN for SPASMS, (Reported) Diltiazem HCl 240 Mg Cap.er.24h, 240 MG PO DAILY, (Reported) Gabapentin 300 Mg Capsule, 300 MG PO TID, (Reported) Hydroxyzine HCl 25 Mg Tablet, 25 MG PO Q8H PRN for ANXIETY, (Reported) Lisinopril 20 Mg Tablet, 20 MG PO DAILY, (Reported) take 2 (20mg) tabs Lisinopril 20 Mg Tablet, 20 MG PO HS, (Reported) Multivitamin 1 Each Tab.chew, 1 TAB.CHEW PO DAILY, (Reported) Omeprazole 20 Mg Capsule.dr, 20 MG PO DAILY, (Reported) Oxycodone HCl/Acetaminophen 1 Each Tablet, 1 TAB PO Q6H PRN for PAIN-MODERATE, (Reported) Pravastatin Sodium 20 Mg Tablet, 20 MG PO HS, (Reported) LAST FILLED #90 10-2-18 Prednisone 20 Mg Tab, 40 MG PO DAILY Prescribed by: MONA POE on 08/04/19 0558 Patient Home Medication List Home Medication List Reviewed: Yes Review of Systems Review of Systems Constitutional: see HPI; No chills, No fever EENTM: other (left eye blind); No nose congestion Respiratory: see HPI Cardiovascular: No chest pain Gastrointestinal: no symptoms reported Genitourinary: no symptoms reported Musculoskeletal: no symptoms reported Skin: no symptoms reported All Other Systems Reviewed Negative Unless Noted: Yes Past Hagvhme-Ecjykm-Qtrfsh Hx Past Med/Social Hx: Reviewed Nursing Past Med/Soc Hx Patient Social History Alcohol Use: Regular Use Alcohol Beverage of Choice: Beer Recreational Drug Use: No Type Used: Cigarettes 2nd Hand Smoke Exposure: No Recent Foreign Travel: No Contact w/Someone Who Travel: No Recent Infectious Disease Expo: No Recent Hopitalizations: No Immunizations Up To Date Date of Pneumonia Vaccine: Mar 11, 2017 Date of Influenza Vaccine: Mar 01, 2018 Seasonal Allergies Seasonal Allergies: No Past Medical History Surgeries: Yes (L eye removed) Cardiac, Eye Surgery, Gallbladder Respiratory: Yes Asthma, COPD Currently Using CPAP: No Currently Using BIPAP: No Cardiac: Yes (AFIB) Atrial Fibrillation, High Cholesterol, Hypertension Neurological: Yes (QUESTIONABLE HISTORY OF CVA, PER OLD RECORD) Reproductive Disorders: No Genitourinary: Yes Kidney Stones Gastrointestinal: No (HEPATITIS C--TX WITH HARVONI) Gastroesophageal Reflux, Diverticulosis, Hepatitis Musculoskeletal: Yes (CHRONIC PAIN; ROTATOR CUFF REPAIR ) Degenerate Disk Disease, Arthritis, Chronic Back Pain Endocrine: Yes (OBESITY) HEENT: Yes (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 0.0oz. [id number]; 41.00 BMI Method:Estimated General Appearance: WD/WN, mild distress (respiratory) HEENT: PERRL/EOMI, pharynx normal Neck: full range of motion, supple Respiratory: decreased breath sounds, wheezing (few) Cardiovascular: tachycardia, irregularly irregular Gastrointestinal: non tender, soft Extremities: non-tender, normal inspection, pedal edema (mild up to mid tibia bilateral) Neurologic/Psychiatric: alert, oriented x 3 Skin: normal color, warm/dry Progress/Results/Core Measures Suspected Sepsis Recent Fever Within 48 Hours: No Infection Criteria Present: None New/Unexplained Altered Menta: No Sepsis Screen: No Definite Risk SIRS Temperature: Pulse: 106 Respiratory Rate: 20 Laboratory Tests 08/04/19 05:20: White Blood Count 8.3 Blood Pressure 181 /123 Mean: 142 Laboratory Tests 08/04/19 05:20: Creatinine 1.12, Platelet Count 154, Total Bilirubin 0.4 Results/Orders Lab Results Laboratory Tests Test 08/04/19 05:20 08/04/19 06:24 Range/Units White Blood Count 8.3 4.3-11.0 10^3/uL Red Blood Count 4.29 L 4.35-5.85 10^6/uL Hemoglobin 12.5 L 13.3-17.7 G/DL Hematocrit 40 40-54 % Mean Corpuscular Volume 93 80-99 FL Mean Corpuscular Hemoglobin 29 25-34 PG Mean Corpuscular Hemoglobin Concent 32 32-36 G/DL Red Cell Distribution Width 13.4 10.0-14.5 % Platelet Count 154 130-400 10^3/uL Mean Platelet Volume 11.3 H 7.4-10.4 FL Neutrophils (%) (Auto) 74 42-75 % Lymphocytes (%) (Auto) 13 12-44 % Monocytes (%) (Auto) 10 0-12 % Eosinophils (%) (Auto) 2 0-10 % Basophils (%) (Auto) 0 0-10 % Neutrophils # (Auto) 6.2 1.8-7.8 X 10^3 Lymphocytes # (Auto) 1.1 1.0-4.0 X 10^3 Monocytes # (Auto) 0.8 0.0-1.0 X 10^3 Eosinophils # (Auto) 0.2 0.0-0.3 10^3/uL Basophils # (Auto) 0.0 0.0-0.1 10^3/uL Sodium Level 141 135-145 MMOL/L Potassium Level 4.6 3.6-5.0 MMOL/L Chloride Level 103 98-107 MMOL/L Carbon Dioxide Level 27 21-32 MMOL/L Anion Gap 11 5-14 MMOL/L Blood Urea Nitrogen 22 H 7-18 MG/DL Creatinine 1.12 0.60-1.30 MG/DL Estimat Glomerular Filtration Rate > 60 BUN/Creatinine Ratio 20 Glucose Level 107 H 70-105 MG/DL Calcium Level 8.9 8.5-10.1 MG/DL Corrected Calcium 8.7 8.5-10.1 MG/DL Magnesium Level 1.8 1.6-2.4 MG/DL Total Bilirubin 0.4 0.1-1.0 MG/DL Aspartate Amino Transf (AST/SGOT) 30 5-34 U/L Alanine Aminotransferase (ALT/SGPT) 26 0-55 U/L Alkaline Phosphatase 60 40-136 U/L Lactate Dehydrogenase 233 H 125-220 U/L Troponin I < 0.028 <0.028 NG/ML C-Reactive Protein High Sensitivity 4.87 H 0.00-0.50 MG/DL Total Protein 7.0 6.4-8.2 GM/DL Albumin 4.2 3.2-4.5 GM/DL My Orders Orders - MONA POE MD Cbc With Automated Diff (08/04/19 05:02) Comprehensive Metabolic Panel (08/04/19 05:02) Hs C Reactive Protein (08/04/19 05:02) Magnesium (08/04/19 05:02) Troponin I (08/04/19 05:02) Ed Iv/Invasive Line Start (08/04/19 05:02) Ekg Tracing (08/04/19 05:02) Monitor-Rhythm Ecg Trace Only (08/04/19 05:02) Chest 1 View, Ap/Pa Only (08/04/19 05:02) Albuterol/Ipra Inhalation Soln (Duoneb I (08/04/19 05:15) Methylprednisolone Sod Succ (Solu-Medrol (08/04/19 05:02) Svn Small Volume Nebulizer (08/04/19 05:02) Diltiazem Cd 24 Hr Capsule (Cardizem Cd (08/04/19 05:15) Lisinopril Tablet (Zestril Tablet) (08/04/19 05:15) BNP (08/04/19 06:19) Procalcitonin (Pct) (08/04/19 06:19) Rapid Strep A Screen (08/04/19 06:19) Influenza A And B Antigens (08/04/19 06:19) Erythrocyte Sedimentation Rate (08/04/19 06:19) LDH (08/04/19 06:19) Azithromycin Tablet (Zithromax Tablet) (08/04/19 06:21) Cefdinir Capsule (Omnicef Capsule) (08/04/19 06:30) Medications Given in ED Current Medications Medications Dose Ordered Sig/Sebastian Route Start Time Stop Time Status Last Admin Dose Admin Albuterol/ Ipratropium 3 ml ONCE ONCE INH 08/04/19 05:15 08/04/19 05:16 DC 08/04/19 05:28 3 ML Cefdinir 300 mg ONCE ONCE PO 08/04/19 06:30 08/04/19 06:31 DC 08/04/19 06:28 300 MG Diltiazem HCl 240 mg ONCE ONCE PO 08/04/19 05:15 08/04/19 05:16 DC 08/04/19 05:42 240 MG Lisinopril 40 mg ONCE ONCE PO 08/04/19 05:15 08/04/19 05:16 DC 08/04/19 05:42 40 MG Vital Signs/I&O 08/04/19 04:45 Temp 36.6 Pulse 106 Resp 20 B/P (MAP) 181/123 (142) Pulse Ox 95 O2 Delivery Room Air Capillary Refill : Less Than 3 Seconds Blood Pressure Mean: 142 Progress Note : Progress Note Seen and evaluated. IV, labs, EKG, chest x-ray, DuoNeb and Solu-Medrol 125 mg IV ordered. Patient would not allow for EKG or further evaluation until he got breathing treatment. Monitor patient. 0553: Patient is doing better after DuoNeb. He admits that he smoked marijuana earlier this morning because of sleep problems. He hasn't done that for many years. He thinks it may have activated the COPD and I agree. He is also out of his albuterol nebulizer solution. I will write a prescription for both nebulizer and steroids. He is afebrile and white count is normal. CRP is a little high but this is related to the COPD exacerbation. X-ray pending. Anticipate discharge. Patient agrees. 0620: Chest x-ray performed and is concerning for bibasilar pulmonary infiltrates. Likely representing atypical pneumonia. We will treated as such that since patient was not forthcoming initially with marijuana usage I am not entirely sure of his contact history. We will go ahead and test the patient for COVID-19 now. Patient is doing better and I think can be managed at home safely either way. We have added BNP as well as sedimentation rate and pro calcitonin. Azithromycin 500 mg by mouth and Omnicef 300 mg by mouth ordered. Monitor patient. ECG Initial ECG Impression Date: Aug 04, 2019 Initial ECG Impression Time: 05:54 Initial ECG Rate: 108 Initial ECG Rhythm: A Fib/Flutter Initial ECG Impression: Atrial Fibrillation Comment Atrial fibrillation with normal axis. No evidence of ST elevation IA. Similar to previous of 12/26/18. Interpreted by me. Diagnostic Imaging Diagonstic Imaging: Xray Plain Films/CT/US/NM/MRI: chest Comments [facility] [place], [place] NAME: NICOLE CAMERON [facility] REC#: [id number] PT STATUS: REG ER : 1965 PHYSICIAN: MONA POE MD ADMIT DATE: 08/04/19/ER Draft Date of Exam:08/04/19 CHEST 1 VIEW, AP/PA ONLY INDICATION: Dyspnea. COMPARISON: 12/28/2017. DISCUSSION: Single portable upright view of the chest was obtained. Heart is upper limits of normal in size, stable. New mixed interstitial and alveolar infiltrates are present diffusely and bilaterally. No significant central venous congestion. Infiltrates could be seen with atypical pneumonia or edema. No pleural fluid or pneumothorax. No osseous abnormality. IMPRESSION: 1. Bilateral pulmonary infiltrates, new, likely atypical pneumonia or edema. Dictated on workstation # [id number] Dict: 08/04/1934 Trans: 08/04/19 0636 [id number] Interpreted by: PATRICK LUJAN MD Electronically signed by: Departure Impression Primary Impression: COPD with acute exacerbation Additional Impression: Pneumonia of both lower lobes Qualified Codes: J18.1 - Lobar pneumonia, unspecified organism Disposition: HOME, SELF-CARE Condition: Improved Departure-Patient Inst. Decision time for Depature: 05:55 Referrals: [facility]/ (PCP) Primary Care Physician PATRICK POOL MD (Family) Primary Care Physician Patient Instructions: COVID19, Exacerbation of COPD (DC), Community-Acquired Pneumonia, Adult (DC) Add. Discharge Instructions: All discharge instructions reviewed with patient and/or family. Voiced understanding. You have been tested for COVID-19. As such she were now a patient under investigation and UA to remain quarantined until cleared by the health department. You should avoid contact with other people and remain at home. You will be contacted for positive or negative result and that should occur in the next 24-48 hours. You should avoid smoke. Take medications as prescribed. Follow-up with your DrRona in a few days for recheck and further evaluation and to discuss your insomnia. Return for worsening, fever, vomiting, weakness, breathing problems or other concerns as needed. Scripts Cefdinir (Cefdinir) 300 Mg Capsule 300 MG PO BID, #14 CAP 0 Refills Prov: MONA POE MD 08/04/19 Azithromycin (Azithromycin) 250 Mg Tablet 250 MG PO DAILY, #4 TAB 0 Refills Prov: MONA POE MD 08/04/19 Prednisone (Prednisone) 20 Mg Tab 40 MG PO DAILY, #8 TAB 0 Refills Prov: MONA POE MD 08/04/19 Albuterol Sulfate (Albuterol Sulfate) 2.5 Mg/3 Ml Vial.neb 2.5 MG INH Q4H PRN for WHEEZING, #50 EA 1 Refill Prov: MONA POE MD 08/04/19 MONA POE MD Aug 04, 2019 05:22
[2019-08-04 05:28] LABS: BASOPHILS % (AUTO) 0 % (0-10); EOSINOPHILS # (AUTO) 0.2 10^3/uL (0.0-0.3); EOSINOPHILS % (AUTO) 2 % (0-10); HEMATOCRIT 40 % (40-54); HEMOGLOBIN 12.5 G/DL (13.3-17.7); LYMPHOCYTES # (AUTO) 1.1 X 10^3 (1.0-4.0); LYMPHOCYTES % (AUTO) 13 % (12-44); MEAN CORPUSCULAR HEMOGLOBIN 29 PG (25-34); MEAN CORPUSCULAR HGB CONC 32 G/DL (32-36); MEAN CORPUSCULAR VOLUME 93 FL (80-99); MEAN PLATELET VOLUME 11.3 FL (7.4-10.4); MONOCYTES # (AUTO) 0.8 X 10^3 (0.0-1.0); MONOCYTES % (AUTO) 10 % (0-12); NEUTROPHILS # (AUTO) 6.2 X 10^3 (1.8-7.8); NEUTROPHILS % (AUTO) 74 % (42-75); PLATELET COUNT 154 10^3/uL (130-400); RED CELL DISTRIBUTION WIDTH 13.4 % (10.0-14.5); WHITE BLOOD COUNT 8.3 10^3/uL (4.3-11.0)
--- NOTE | 2019-08-04 05:33 | NUR ---
RT has not showed yet, this RN administered breathing Tx at this time.
--- NOTE | 2019-08-04 05:45 | NUR ---
O2 Sat 99% post breathing Tx
[2019-08-04 05:47] LABS: ALANINE AMINOTRANSFERASE 26 U/L (0-55); ALBUMIN 4.2 GM/DL (3.2-4.5); ALKALINE PHOSPHATASE 60 U/L (40-136); BILIRUBIN,TOTAL 0.4 MG/DL (0.1-1.0); BUN/CREATININE RATIO 20; CALCIUM 8.9 MG/DL (8.5-10.1); CARBON DIOXIDE 27 MMOL/L (21-32); CHLORIDE 103 MMOL/L (98-107); CREATININE SERUM 1.12 MG/DL (0.60-1.30); GFR ESTIMATED > 60; GLUCOSE 107 MG/DL (70-105); MAGNESIUM 1.8 MG/DL (1.6-2.4); POTASSIUM 4.6 MMOL/L (3.6-5.0); SODIUM 141 MMOL/L (135-145)
[2019-08-04] MEDS ORDERED: ALBU2.5V4 INH (05:58)
[2019-08-04] MEDS ORDERED: PRD20T PO (05:58)
[2019-08-04] MEDS ORDERED: AZITHROMYCIN 250 MG TAB (ZITHROMAX) PO STA (06:21)
[2019-08-04] MEDS ORDERED: CEFDINIR 300 MG (OMNICEF) CAP PO ONE (06:30)
--- NOTE | 2019-08-04 06:32 | NUR ---
Strep, COVID-19 and flu swabs obtained by [facility] with appropriate PPE.
--- NOTE | 2019-08-04 06:36 | Diagnostic Imaging Report ---
INDICATION: Dyspnea. COMPARISON: 12/28/2017. DISCUSSION: Single portable upright view of the chest was obtained. Heart is upper limits of normal in size, stable. New mixed interstitial and alveolar infiltrates are present diffusely and bilaterally. No significant central venous congestion. Infiltrates could be seen with atypical pneumonia or edema. No pleural fluid or pneumothorax. No osseous abnormality. IMPRESSION: 1. Bilateral pulmonary infiltrates, new, likely atypical pneumonia or edema. Dictated by: Dictated on workstation # [id number]
[2019-08-04] MEDS ORDERED: CEFD300C3 PO (06:44)
[2019-08-04] MEDS ORDERED: AZIT250T12 PO (06:44)
--- NOTE | 2019-08-04 06:55 | NUR ---
Report given to [facility] [place]
[2019-08-04 07:16] VITALS: BP 155/106
== END 2019-08-04 07:17 | disposition home or self-care (01) ==
LOC: EDUNIT# 04:34 → ER 04:36
DX: J44.1 Chronic obstructive pulmonary disease with (acute) exacerbation (principal); J44.0 Chronic obstructive pulmonary disease with (acute) lower respiratory infection; J18.1 Lobar pneumonia, unspecified organism; I48.91 Unspecified atrial fibrillation; E78.00 Pure hypercholesterolemia, unspecified; I10 Essential (primary) hypertension; K21.9 Gastro-esophageal reflux disease without esophagitis; E66.9 Obesity, unspecified; F41.9 Anxiety disorder, unspecified; B19.20 Unspecified viral hepatitis C without hepatic coma; Z87.19 Personal history of other diseases of the digestive system
CPT/HCPCS: 36415; 71045; 80053; 83615; 83735; 83880; 84145; 84484; 85025; 85652; 86141; 87430; 87635; 87804; 93005; 93041

== ENCOUNTER 2019-08-18 19:49 | Observation (INO) | payer MEDICARE ==
[~2019-08-18] VITALS: Ht 180 cm; Wt 105.0 kg
[~2019-08-18 19:49] MED LIST changes: +ALBU2.5V4 INH; +AZIT250T12 PO; +CEFD300C3 PO; +PRD20T PO
[2019-08-18] MEDS ORDERED: NS IV 1000 ML 1,000 ML ONE (19:53)
[2019-08-18] MEDS: NS IV 1000 ML 1,000 ML IV SCH ×3 (19:58→22:05)
[2019-08-18] MEDS ORDERED: TETANUS,DIPTH,PERTUSS P/F (BOOSTRIX) 0.5 ML VIAL IM ONE (20:00)
[2019-08-18] MEDS ORDERED: CATHETER FLUSH 10 ML SYR IV PRN (20:15)
[2019-08-18] MEDS ORDERED: IOHEXOL 350 MG/ML 100 ML (OMNIPAQUE 350) VIAL IV ONE (20:15)
[2019-08-18] MEDS ORDERED: NS 100 ML (IVPB) BAG IV ONE (20:15)
[2019-08-18] MEDS ORDERED: HOLD METFORMIN - RECEIVED CONTRAST 20 ML VIAL IV SCH (20:15)
--- NOTE | 2019-08-18 20:27 | ED Fall/Injury ---
General Stated Complaint: HEADLOCK Source: EMS Exam Limitations: clinical condition (PT HAS DECREASED RESPONSIVENESS, APPEARS CONFUSED AND IS UNABLE TO GIVE DETAILS OF INCIDENT) History of Present Illness Date Seen by Provider: Aug 18, 2019 Time Seen by Provider: 19:51 Initial Comments PT ARRIVES VIA EMS FROM HOME NO IMMOBILIZATION EMS UNABLE TO OBTAIN BLOOD PRESSURE--NO IV FLUIDS GIVEN O2 SATS 93% ON 6L/NC FOR EMS--PT HAS COPD PER OLD CHARTS PT WAS FOUND BY NEIGHBOR-PT WAS COMPLETELY NAKED, LAYING ON HIS PORCH EMS REPORT THAT THERE WAS ALOT OF BLOOD IN THE BATHROOM, SO THEY SURMISE THAT IS WHERE THE INJURY OCCURRED PT IS BLEEDING FROM A WOUND TO THE HEAD EMS REPORT THAT PT C/O PAIN TO HIS BACK ( PT HAS HISTORY OF CHRONIC BACK PAIN EMS REPORT THAT IT APPEARED THAT PT HAD BEEN DRINKING PT IS MINIMALLY RESPONSIVE ON ARRIVAL--AFTER APPLYING CERVICAL COLLAR, APPLYING MONITORING DEVICES, ETC. PT IS NOW TALKING, BUT SPEECH IS SOMEWHAT SLURRED, AND HE APPEARS CONFUSED, NOT ABLE TO ANSWER ANY QUESTIONS RELIABLY, VOICE COMPLAINTS OR FOLLOW ANY COMMANDS PT IS MOVING ALL EXTREMITIES, TRYING TO REMOVE CERVICAL COLLAR-STATING THAT IT HURTS, AND PULLING OFF OXIMASK EMS REPORT ACCUCHECK WAS 285 EMS REPORT THAT PT HAS HISTORY OF ATRIAL FIBRILLATION AND HTN, BUT NOTHING MORE--DO NOT HAVE MEDICATION LIST EMS REPORTS THAT PT LIVES ALONE PT WAS SEEN HERE 08/04/19 FOR COPD EXACERBATION AND WAS SENT HOME PER MOST RECENT ER RECORD, PT IS ON ELIQUIS FOR CHRONIC ATRIAL FIBRILLATION, WITH CARDIOVERSIONS IN THE PAST PT OLD RECORDS, PT HAS HISTORY OF ALCOHOL ABUSE / DAILY USE AND HAS BEEN HEAVILY INTOXICATED ON PREVIOUS ER VISITS AND HAS FALLEN DUE TO INTOXICATION IN THE PAST PCP: [facility] Allergies and Home Medications Allergies Coded Allergies: No Known Drug Allergies (Unverified , 03/29/13) Home Medications Albuterol Sulfate 18 Gm Hfa.aer.ad, 2 PUFF INH Q4H PRN for SHORTNESS OF BREATH, (Reported) Albuterol Sulfate 2.5 Mg/3 Ml Vial.neb, 2.5 MG INH Q4H PRN for WHEEZING Prescribed by: MONA POE on 08/04/19 0558 Apixaban 5 Mg Tablet, 5 MG PO BID, (Reported) Atenolol/Chlorthalidone 1 Each Tablet, 1 TAB PO DAILY, (Reported) Azithromycin 250 Mg Tablet, 250 MG PO DAILY Prescribed by: MONA POE on 08/04/1944 Cefdinir 300 Mg Capsule, 300 MG PO BID Prescribed by: MONA POE on 08/04/19643 Cyclobenzaprine HCl 10 Mg Tablet, 10 MG PO TID PRN for SPASMS, (Reported) Diltiazem HCl 240 Mg Cap.er.24h, 240 MG PO DAILY, (Reported) Gabapentin 300 Mg Capsule, 300 MG PO TID, (Reported) Hydroxyzine HCl 25 Mg Tablet, 25 MG PO Q8H PRN for ANXIETY, (Reported) Lisinopril 20 Mg Tablet, 20 MG PO DAILY, (Reported) take 2 (20mg) tabs Lisinopril 20 Mg Tablet, 20 MG PO HS, (Reported) Multivitamin 1 Each Tab.chew, 1 TAB.CHEW PO DAILY, (Reported) Omeprazole 20 Mg Capsule.dr, 20 MG PO DAILY, (Reported) Oxycodone HCl/Acetaminophen 1 Each Tablet, 1 TAB PO Q6H PRN for PAIN-MODERATE, (Reported) Pravastatin Sodium 20 Mg Tablet, 20 MG PO HS, (Reported) LAST FILLED #90 10-2-18 Prednisone 20 Mg Tab, 40 MG PO DAILY Prescribed by: MONA POE on 08/04/19 0558 Patient Home Medication List Home Medication List Reviewed: Yes Review of Systems Review of Systems Constitutional: see HPI (PT UNABLE TO GIVE ANY INFORMATION) Skin: see HPI Psychiatric/Neurological: See HPI Past Fcaiiia-Koldub-Vuhvrh Hx Past Med/Social Hx: Reviewed and Corrections made Patient Social History Alcohol Use: Regular Use (HEAVY/DAILY USE) Alcohol Beverage of Choice: Beer Recreational Drug Use: Yes (THC) Drug of Choice: Marijuana Smoking Status: Unknown if Ever Smoked 2nd Hand Smoke Exposure: No Recent Hopitalizations: No Immunizations Up To Date Tetanus Booster (TDap): Less than 5yrs (12/20/27) Date of Pneumonia Vaccine: Mar 11, 2017 Date of Influenza Vaccine: Mar 01, 2018 Seasonal Allergies Seasonal Allergies: No Past Medical History Surgeries: Yes (SEE BELOW) Cardiac, Eye Surgery, Gallbladder, Orthopedic Respiratory: Yes Asthma, COPD Currently Using CPAP: No Currently Using BIPAP: No Cardiac: Yes (CARDIOVERSIONS) Atrial Fibrillation, High Cholesterol, Hypertension Neurological: Yes (QUESTIONABLE HISTORY OF CVA, PER OLD RECORD) Reproductive Disorders: No Genitourinary: Yes Kidney Stones Gastrointestinal: Yes (HEPATITIS C--TREATED WITH HARVONI) Gastroesophageal Reflux, Diverticulosis, Hepatitis Musculoskeletal: Yes (CHRONIC GENERALIZED PAIN;CHRONIC NECK & BACK PAIN ;R ROTATOR CUFF REPAIR ) Degenerate Disk Disease, Arthritis, Chronic Back Pain Endocrine: Yes (OBESITY) HEENT: Yes (LEFT EYE ENUCLEATION DUE TO TRAUMA) Loss of Vision: Left Cancer: No Psychosocial: Yes Anxiety Integumentary: No Blood Disorders: No Family Medical History Arthritis 19 FATHER Asthma 19 MOTHER Cardiovascular disease Congenital heart disease 19 FATHER Hypertension G8 BROTHER Myocardial infarction 19 FATHER Osteoporosis 19 FATHER Respiratory disorder 19 MOTHER Thyroid disease 19 MOTHER PSH: - LEFT EYE REMOVED DUE TO TRAUMA -CARDIOVERSIONS -CARDIAC CATH 11/2017--MILD TO MODERATE DISEASE, NO INTERVENTION -RIGHT ROTATOR CUFF REPAIR -KIDNEY STONE REMOVAL -CHOLECYSTECTOMY -CARDIOVERSIONS 10/19/17 AND 11/30/17 Physical Exam Vital Signs Vital Signs - First Documented 08/18/19 19:49 Temp 35.0 Pulse 67 Resp 19 B/P (MAP) 67/42 (50) Pulse Ox 98 O2 Delivery Nasal Cannula O2 Flow Rate 4.00 Capillary Refill : Height, Weight, BMI Height: 5'9.00" Weight: 259lbs. 0.0oz. 117.830036kj; 41.00 BMI Method:Estimated General Appearance: obese, other (PT WITH DECREASED MENTATION ON ARRIVAL, THEN BECAME MORE ALERT AFTER PLACING CERVICAL COLLAR, PLACING MONITOR LEADS, ETC. PT WITH MINIMAL SPEECH AND IS SOMEWHAT SLURRED AND MOSTLY UNINTELLIGIBLE, WITH A FEW WORDS ARE RECOGNIZABLE, PT IS CONFUSED, MOVING ALL EXTREMITIES BUT NOT FOLLOWING COMMANDS. TRYING TO REMOVED O2 AND CERVICAL COLLAR--STATING THAT IT HURTS. PT WITH LARGE AMOUNT OF BLOOD ON HEAD, FACE, NECK, UPPER TRUNK AND ARMS) HEENT: other (LEFT EYE IS MISSING. RIGHT PUPIL IS ROUND AND 2-3 MM, MINIMALLY REACTIVE. NO HYPHEMA; 3 CM FAIRLY SUPERFICIAL LACERATION TO RIGHT PARIETAL AREA WITH EARLY HEMATOMA SURROUNDING IT. NO ACTIVE BLEEDING AT THIS TIME. ) Neck: other (PLACED IN CERVICAL COLLAR IMMEDIATELY ON ARRIVAL) Cardiovascular: no JVD, no murmur, irregularly irregular Respiratory: no respiratory distress, no accessory muscle use, decreased breath sounds (BILATERAL DECREASED BREATH SOUNDS); No rales, No rhonchi, No wheezing; other (LEFT ANTERIOR/LATERAL CHEST TENDERNESS ??; NO EXTERNAL EVIDENCE OF TRAUMA, NO CREPITANCE OR SUB Q AIR. LUNG SOUNDS ARE EQUAL BILATERALLY. ) Gastrointestinal: normal bowel sounds, non tender, soft Extremities: normal range of motion, non-tender, slow capillary refill (HANDS VERY COLD) Neurologic/Psychiatric: other (MENTATION ABOVE) Skin: normal color, cool [place] Coma Score Best Eye Response: (4) Open Spontaneously Best Verbal Response: (4) Confused Conversation Best Motor Response: (5) Localizes to Pain [place] Total: 13 Progress/Results/Core Measures Results/Orders Lab Results Laboratory Tests Test 08/18/19 21:05 08/18/19 21:09 08/18/19 21:30 Range/Units White Blood Count 14.7 H 4.3-11.0 10^3/uL Red Blood Count 3.19 L 4.35-5.85 10^6/uL Hemoglobin 9.5 L 13.3-17.7 G/DL Hematocrit 29 L 40-54 % Mean Corpuscular Volume 92 80-99 FL Mean Corpuscular Hemoglobin 30 25-34 PG Mean Corpuscular Hemoglobin Concent 33 32-36 G/DL Red Cell Distribution Width 13.4 10.0-14.5 % Platelet Count 213 130-400 10^3/uL Mean Platelet Volume 10.7 H 7.4-10.4 FL Neutrophils (%) (Auto) 83 H 42-75 % Lymphocytes (%) (Auto) 11 L 12-44 % Monocytes (%) (Auto) 6 0-12 % Eosinophils (%) (Auto) 0 0-10 % Basophils (%) (Auto) 0 0-10 % Neutrophils # (Auto) 12.2 H 1.8-7.8 X 10^3 Lymphocytes # (Auto) 1.6 1.0-4.0 X 10^3 Monocytes # (Auto) 0.9 0.0-1.0 X 10^3 Eosinophils # (Auto) 0.0 0.0-0.3 10^3/uL Basophils # (Auto) 0.1 0.0-0.1 10^3/uL Neutrophils % (Manual) 80 % Lymphocytes % (Manual) 14 % Monocytes % (Manual) 5 % Myelocytes % 1 % Blood Morphology Comment NORMAL Prothrombin Time 16.3 H 12.2-14.7 SEC INR Comment 1.3 0.8-1.4 Activated Partial Thromboplast Time 30 24-35 SEC Sodium Level 139 135-145 MMOL/L Potassium Level 4.5 3.6-5.0 MMOL/L Chloride Level 109 H 98-107 MMOL/L Carbon Dioxide Level 18 L 21-32 MMOL/L Anion Gap 12 5-14 MMOL/L Blood Urea Nitrogen 22 H 7-18 MG/DL Creatinine 1.66 H 0.60-1.30 MG/DL Estimat Glomerular Filtration Rate 43 BUN/Creatinine Ratio 13 Glucose Level 133 H 70-105 MG/DL Calcium Level 7.4 L 8.5-10.1 MG/DL Corrected Calcium 8.4 L 8.5-10.1 MG/DL Magnesium Level 2.0 1.6-2.4 MG/DL Total Bilirubin 0.2 0.1-1.0 MG/DL Aspartate Amino Transf (AST/SGOT) 23 5-34 U/L Alanine Aminotransferase (ALT/SGPT) 20 0-55 U/L Alkaline Phosphatase 52 40-136 U/L Total Creatine Kinase 280 H 30-200 U/L Creatine Kinase MB 5.0 <6.6 NG/ML Myoglobin 1460.0 H 10.0-92.0 NG/ML Troponin I 0.029 H <0.028 NG/ML B-Type Natriuretic Peptide 111.8 H <100.0 PG/ML Total Protein 5.0 L 6.4-8.2 GM/DL Albumin 2.8 L 3.2-4.5 GM/DL Amylase Level 43 25-125 U/L Lipase 40 8-78 U/L TSH [place] Testing 1.35 0.35-4.94 UIU/ML Serum Alcohol 228 H <10 MG/DL Blood Gas Puncture Site RIGHT BRACHIAL Blood Gas Patient Temperature 35.0 Arterial Blood pH 7.31 *L 7.37-7.43 Arterial Blood Partial Pressure CO2 39 35-45 MMHG Arterial Blood Partial Pressure O2 154 H 79-93 MMHG Arterial Blood HCO3 19 L 23-27 MMOL/L Arterial Blood Total CO2 20.7 L 21.0-31.0 MMOL/L Arterial Blood Oxygen Saturation 98 94-100 % Arterial Blood Base Excess -6.1 L -2.5-2.5 MMOL/L Mario Test NA Blood Gas Ventilator Setting NO Blood Gas Inspired Oxygen 4L Urine Color YELLOW Urine Clarity CLEAR Urine pH 6.0 5-9 Urine Specific Luther <=1.005 1.016-1.022 Urine Protein TRACE H NEGATIVE Urine Glucose (UA) NEGATIVE NEGATIVE Urine Ketones NEGATIVE NEGATIVE Urine Nitrite NEGATIVE NEGATIVE Urine Bilirubin NEGATIVE NEGATIVE Urine Urobilinogen 0.2 < = 1.0 MG/DL Urine Leukocyte Esterase NEGATIVE NEGATIVE Urine RBC (Auto) NEGATIVE NEGATIVE Urine RBC 2-5 H /HPF Urine WBC NONE /HPF Urine Crystals PRESENT H /LPF Urine Amorphous Sediment FEW ILDEFONSO URATES H /LPF Urine Bacteria TRACE /HPF Urine Casts NONE /LPF Urine Mucus NEGATIVE /LPF Urine Culture Indicated NO Urine Opiates Screen NEGATIVE NEGATIVE Urine Oxycodone Screen NEGATIVE NEGATIVE Urine Methadone Screen NEGATIVE NEGATIVE Urine Propoxyphene Screen NEGATIVE NEGATIVE Urine Barbiturates Screen NEGATIVE NEGATIVE Ur Tricyclic Antidepressants Screen NEGATIVE NEGATIVE Urine Phencyclidine Screen NEGATIVE NEGATIVE Urine Amphetamines Screen NEGATIVE NEGATIVE Urine Methamphetamines Screen NEGATIVE NEGATIVE Urine Benzodiazepines Screen NEGATIVE NEGATIVE Urine Cocaine Screen NEGATIVE NEGATIVE Urine Cannabinoids Screen NEGATIVE NEGATIVE My Orders Orders - KATHI SRINIVASAN DO Ed Iv/Invasive Line Start (08/18/19 19:52) Ekg Tracing (08/18/19:52) O2 (08/18/19 19:52) Monitor-Rhythm Ecg Trace Only (08/18/19 19:52) Ct Head/Face/Cervical Wo (08/18/19 19:52) Chest 1 View, Ap/Pa Only (08/18/19:52) Pelvis (08/18/19 19:52) Alcohol (08/18/19 19:52) Amylase (08/18/19 19:52) BNP (08/18/19 19:52) Cbc With Automated Diff (08/18/19:52) Comprehensive Metabolic Panel (08/18/19 19:52) Creatine Kinase (08/18/19 19:52) Creatine Kinase Mb (08/18/19 19:52) Drug Screen Stat (Urine) (08/18/19:52) Lipase (08/18/19 19:52) Magnesium (08/18/19 19:52) Protime With Inr (08/18/19 19:52) Partial Thromboplastin Time (08/18/19 19:52) Thyroid Analyzer (08/18/19 19:52) Ua Culture If Indicated (08/18/19:52) Myoglobin Serum (08/18/19 19:52) Troponin I (08/18/19 19:52) Dipht,Pertuss(Acell),Tet Adult (Boostrix (08/18/19 20:00) Ct Thoracic/Lumbar Spine Wo (08/18/19 19:56) Ct Chest/Abdomen/Pelvis W (08/18/19 19:56) Ed Iv/Invasive Line Start (08/18/19 19:58) Ns Iv 1000 Ml (Sodium Chloride 0.9%) (08/18/19 19:58) Ns Iv 1000 Ml (Sodium Chloride 0.9%) (08/18/19 19:53) Iohexol Injection (Omnipaque 350 Mg/Ml 1 (08/18/19 20:15) Received Contrast (Hold Metformin- Contr (08/18/19 20:15) Sodium Chloride Flush (Catheter Flush Sy (08/18/19 20:15) Ns (Ivpb) (Sodium Chloride 0.9% Ivpb Bag (08/18/19 20:15) Arterial Blood Gas (08/18/19 20:54) Catheter(Urinary) Insert & Ass 03,15 (08/18/19 21:19) Fentanyl Injection (Sublimaze Injection (08/18/19 21:30) Arterial Blood Gas (08/18/19 21:09) Manual Differential (08/18/19 21:05) Medications Given in ED Current Medications Medications Dose Ordered Sig/Sebastian Route Start Time Stop Time Status Last Admin Dose Admin Fentanyl Citrate 50 mcg ONCE ONCE IVP 08/18/19 21:30 08/18/19 21:31 DC 08/18/19 21:26 50 MCG Iohexol 100 ml ONCE ONCE IV 08/18/19 20:15 08/18/19 20:16 DC 08/18/19 20:37 100 ML Sodium Chloride 10 ml NEEDED PRN IV 08/18/19 20:15 08/18/19 20:37 10 ML Sodium Chloride 100 ml ONCE ONCE IV 08/18/19 20:15 08/18/19 20:16 DC 08/18/19 20:37 80 ML Vital Signs/I&O 08/18/19 08/18/19 19:49 19:50 Temp 35.0 Pulse 67 Resp 19 B/P (MAP) 67/42 (50) Pulse Ox 98 97 O2 Delivery Nasal Cannula Nasal Cannula O2 Flow Rate 4.00 4.00 Progress Progress Note : Progress Note PT IMMEDIATELY PLACED IN CERVICAL COLLAR ON ARRIVAL AND LAID FLAT INITIAL BP 63/42--GIVEN 3L OF NORMAL SALINE + 1 LITER OF LR, WITH INCREASE IN BP TO > 100 SYSTOLIC 2055--ON RETURN FROM XRAY DEPT, PT IS NOW MUCH MORE ALERT, TALKING AND SPEECH IS CLEARER. PT IS VERY ARGUMENTATIVE AND NOT WANTING TO COOPERATE. PT STILL IS CONFUSED TO EVENTS---IS ADAMANT THAT "HE DIDN'T FALL" ,BUT DOES STATE HE WAS IN THE BATHTUB. UNABLE TO EXPLAIN WHY HE IS HERE, AND EVEN AFTER REPEATEDLY TELLING HIM THAT HE HAS A LACERATION TO HIS HEAD--HE CONTINUED TO DENY FALLING OR HURTING HIS HEAD. PT C/O NECK AND BACK PAIN, WANTING PAIN MEDICATION--PT HAS CHRONIC BACK PAIN / NECK PAIN PER OLD RECORDS BECOMING MORE BELLIGERENT AND YELLING--WANTING PAIN MEDICATION, WANTS CERVICAL COLLAR OFF--EXPLAINED THAT IT NEEDED TO BE LEFT IN PLACE, BECAUSE HE WAS JUST COMPLAINING OF NECK PAIN, HE NOW YELLS "MY NECK DOESN'T HURT!" PT REPEATEDLY RIPPING OFF HIS CERVICAL COLLAR, AND REMOVING O2, AND GENERALLY UNCOOPERATIVE. HOWEVER, OVERALL MENTATION IS MUCH IMPROVED FROM ARRIVAL NO DETERIORATION IN PT'S CONDITION Initial ECG Impression Date: Aug 18, 2019 Initial ECG Impression Time: 21:11 Initial ECG Rate: 77 Initial ECG Rhythm: A Fib/Flutter Initial ECG Comparisson: Unchanged Diagnostic Imaging Comments CT HEAD/MAXILLOFACIALS/CERVICAL SPINE--CHRONIC/STABLE CHANGES, NO ACUTE PROCESS CT THORACIC/LUMBAR SPINE--CHRONIC/STABLE COMPRESSION FRACTURE L1, NO ACUTE PROCESS CT CHEST/ABDOMEN/PELVIS--NO ACUTE PROCESS, 3 SMALL VENTRAL HERNIAS PELVIS XRAY--OA, NO ACUTE PROCESS CXR--NO ACUTE PROCESS ALL PER RADIOLOGIST REPORTS AT 2109 Reviewed: Reviewed by Me Departure Communication (Admissions) 2148--SPOKE WITH DR BALBUENA, TRAUMA SURGEON BUSINESS INTEGRATION MANAGER, ACCEPTS PT FOR ADMIT. WILL CONSULT MEDICINE 2155--SPOKE WITH DR. MOSS, HOSPITALIST FOR [facility]. ACCEPTS PT FOR ADMIT. SHE WILL ADMIT, AND SHE WILL CONSULT SURGERY Impression Primary Impression: S/P ALLEGED FALL Additional Impressions: CLOSED HEAD INJURY WITH UNKNOWN LOSS OF CONSCIOUSNESS Alcohol intoxication Severe hypotension Hypoxia Altered mental status Hyperglycemia Hypocalcemia Anemia CHRONIC ATRIAL FIBRILLATION ON ELIQUIS Disposition: 09 ADMITTED INPATIENT Condition: Improved (ERASED) Admissions Decision to Admit Reason: Admit from ER (Trauma) Decision to Admit/Date: Aug 18, 2019 Time/Decision to Admit Time: 21:50 Departure-Patient Inst. Referrals: [facility] (PCP) Primary Care Physician PATRICK POOL MD (Family) Primary Care Physician KATIH SRINIVASAN DO Aug 18, 2019 20:27
--- NOTE | 2019-08-18 20:39 | Diagnostic Imaging Report ---
EXAMINATION: CT head, face and CT cervical spine without contrast. TECHNIQUE: Multiple contiguous axial images were obtained through the face, brain and cervical spine without the use of intravenous contrast. Sagittal and coronal reformations through the cervical spine were then performed. All CT scans use one or more of the following dose optimizing techniques: automated exposure control, MA and/or KvP adjustment based on patient size and exam type or iterative reconstruction. HISTORY: Fall. COMPARISON: 01/11/2019. FINDINGS: The canas-white matter differentiation is normal. No mass effect or midline shift. There is age related cerebral atrophy with ex vacuo dilation of the ventricles. Periventricular white matter hypoattenuation is in keeping with chronic small vessel ischemic changes. Basilar cisterns are patent. There are no intra- or extra-axial fluid collections. There is no intracranial hemorrhage. Left globe is calcified and misshapen. Paranasal sinuses are normal. Mastoid air cells are clear. No soft tissue abnormality is seen. No osseus lesions or fractures are seen. No fracture is seen in the face. The nasal bones are normal. Mandible and maxillae are normal. Zygomatic arches are normal. Pterygoid plates are normal. No soft tissue abnormality is seen. The alignment of the cervical spine is normal. No fracture is seen. Vertebral body heights are normal. The craniocervical junction is normal. Disc heights are normal. There is mild uncovertebral arthropathy. There is no osseus spinal canal stenosis. No soft tissue abnormality is seen in the neck. Limited views of the superior thorax are normal. IMPRESSION: 1. No acute intracranial abnormality. 2. No cervical spine fracture. 3. No fracture in the face. Dictated by: Dictated on workstation # [id number]
--- NOTE | 2019-08-18 20:43 | Diagnostic Imaging Report ---
EXAMINATION: CT thoracic and lumbar spine without contrast. TECHNIQUE: Multiple contiguous axial images were obtained through the thoracic and lumbar spine without the use of intravenous contrast. Sagittal and coronal reformations were then performed. All CT scans use one or more of the following dose optimizing techniques: automated exposure control, MA and/or KvP adjustment based on patient size and exam type or iterative reconstruction. HISTORY: Fall. COMPARISON: None available. FINDINGS: The alignment of the thoracic and lumbar spine is normal. There is an unchanged chronic moderate compression fracture of L1 with compression morphology and approximately 25% height loss. Remaining vertebral body heights are normal. Facet joints are normal. There is mild degenerative disc disease from L2 through S1. There is no spinal canal stenosis. Limited views of the soft tissues show no abnormality. The aorta is normal. IMPRESSION: Chronic compression fracture of L1. Dictated by: Dictated on workstation # [id number]
--- NOTE | 2019-08-18 20:57 | Diagnostic Imaging Report ---
EXAMINATION: CT Chest, abdomen and pelvis with intravenous contrast. TECHNIQUE: Multiple contiguous axial images were obtained through the chest, abdomen and pelvis after the uneventful administration of intravenous contrast. All CT scans use one or more of the following dose optimizing techniques: automated exposure control, MA and/or KvP adjustment based on patient size and exam type or iterative reconstruction. HISTORY: Fall. COMPARISON: None available. FINDINGS: There is no edema or pneumonia. No pleural effusion. No pneumothorax. No suspicious nodules. Heart size is normal. There are mild coronary artery calcifications. No pericardial effusion. Aorta is normal in caliber. There is no axillary or supraclavicular lymphadenopathy. There is no mediastinal lymphadenopathy. The liver is normal without focal lesion. There is no biliary ductal dilation. Gallbladder is not seen. Pancreas is normal. Spleen is normal. Adrenal glands are normal. There is an unchanged cyst in the upper pole of the left kidney. No suspicious renal lesion. There is no hydronephrosis. Urinary bladder is normal. Visualized bowel is normal in caliber without obstruction or inflammation. There is diverticulosis without diverticulitis. No free fluid or air. No abdominal or pelvic lymphadenopathy. Aorta is normal in caliber without aneurysm. There are three small fat-containing ventral hernias. There are no suspicious osseus lesions. Chronic compression fracture of L1 is again seen. IMPRESSION: No acute traumatic injury in the chest, abdomen or pelvis. Dictated by: Dictated on workstation # [id number]
--- NOTE | 2019-08-18 21:02 | Diagnostic Imaging Report ---
EXAMINATION: Chest 1 view HISTORY: Fall COMPARISON: 08/04/2019 FINDINGS: The lungs are clear without edema or pneumonia. No pleural effusion or pneumothorax. Heart size is normal. IMPRESSION: 1. Clear lungs. Dictated by: Dictated on workstation # [id number]
--- NOTE | 2019-08-18 21:04 | Diagnostic Imaging Report ---
EXAMINATION: Pelvis 1 or 2 views. HISTORY: Fall. COMPARISON: 12/19/2017. FINDINGS: There is moderate to severe bilateral hip joint osteoarthritis. Unchanged from prior exam. No fracture is seen. Alignment is normal. Sacroiliac joints are symmetric. Mild lumbar spine degenerative disease is seen. IMPRESSION: No fracture in the pelvis. Dictated by: Dictated on workstation # [id number]
[2019-08-18 21:16] LABS: BASOPHILS # (AUTO) 0.1 10^3/uL (0.0-0.1); BASOPHILS % (AUTO) 0 % (0-10); EOSINOPHILS % (AUTO) 0 % (0-10); HEMATOCRIT 29 % (40-54); HEMOGLOBIN 9.5 G/DL (13.3-17.7); LYMPHOCYTES # (AUTO) 1.6 X 10^3 (1.0-4.0); LYMPHOCYTES % (AUTO) 11 % (12-44); MEAN CORPUSCULAR HEMOGLOBIN 30 PG (25-34); MEAN CORPUSCULAR HGB CONC 33 G/DL (32-36); MEAN CORPUSCULAR VOLUME 92 FL (80-99); MEAN PLATELET VOLUME 10.7 FL (7.4-10.4); MONOCYTES # (AUTO) 0.9 X 10^3 (0.0-1.0); MONOCYTES % (AUTO) 6 % (0-12); NEUTROPHILS # (AUTO) 12.2 X 10^3 (1.8-7.8); NEUTROPHILS % (AUTO) 83 % (42-75); PLATELET COUNT 213 10^3/uL (130-400); RED CELL DISTRIBUTION WIDTH 13.4 % (10.0-14.5); WHITE BLOOD COUNT 14.7 10^3/uL (4.3-11.0)
[2019-08-18 21:21] LABS: ABG BASE EXCESS -6.1 MMOL/L (-2.5-2.5); ABG OXYGEN SATURATION 98 % (94-100); ABG PCO2 39 MMHG (35-45); ABG PO2 154 MMHG (79-93); ABG TCO2 20.7 MMOL/L (21.0-31.0)
[2019-08-18 21:23] LABS: ABG PH 7.31 (7.37-7.43)
[2019-08-18 21:24] LABS: INSPIRED O2 4L; VENTILATOR NO
[2019-08-18 21:26] LABS: ALBUMIN 2.8 GM/DL (3.2-4.5); INR 1.3 (0.8-1.4); PROTHROMBIN TIME PATIENT 16.3 SEC (12.2-14.7)
[2019-08-18 21:27] LABS: POTASSIUM 4.5 MMOL/L (3.6-5.0)
[2019-08-18 21:28] LABS: CALCIUM 7.4 MG/DL (8.5-10.1)
[2019-08-18] MEDS ORDERED: fentaNYL INJECTION 100 MCG/2 ML AMP IVP ONE (21:30)
[2019-08-18 21:31] LABS: BILIRUBIN,TOTAL 0.2 MG/DL (0.1-1.0)
[2019-08-18 21:33] LABS: CREATININE SERUM 1.66 MG/DL (0.60-1.30)
[2019-08-18 21:41] LABS: BILIRUBIN,URINE NEGATIVE (NEGATIVE); CLARITY,URINE CLEAR; COLOR,URINE YELLOW; GLUCOSE, URINE (UA) NEGATIVE (NEGATIVE); KETONES,URINE NEGATIVE (NEGATIVE); LEUKOCYTE ESTERASE ,URINE NEGATIVE (NEGATIVE); NITRITE,URINE NEGATIVE (NEGATIVE); PROTEIN,URINE TRACE (NEGATIVE)
[2019-08-18] MEDS ORDERED: PANTOPRAZOLE 40 MG (PROTONIX) VIAL ONE (21:56)
[2019-08-18 21:58] LABS: TSH (THYROID ANALYZER) 1.35 UIU/ML (0.35-4.94)
[2019-08-18] MEDS ORDERED: PANTOPRAZOLE 40 MG (PROTONIX) VIAL IV ONE (22:00)
[2019-08-18 22:12] LABS: AMPHETAMINE SCREEN, URINE NEGATIVE (NEGATIVE); BARBITURATE SCREEN URINE NEGATIVE (NEGATIVE); BENZODIAZEPINES SCREEN URINE NEGATIVE (NEGATIVE); CANNABINOID SCREEN, URINE NEGATIVE (NEGATIVE); COCAINE SCREEN URINE NEGATIVE (NEGATIVE); METHADONE STAT NEGATIVE (NEGATIVE); METHAMPHETAMINE SCREEN URINE S NEGATIVE (NEGATIVE); OPIATE SCREEN URINE NEGATIVE (NEGATIVE); OXYCODONE STAT NEGATIVE (NEGATIVE); PROPOXYPHENE STAT NEGATIVE (NEGATIVE); TRICYCLIC ANTIDEPRESSANTS SCRE NEGATIVE (NEGATIVE)
[2019-08-18 22:20] LABS: BACTERIA,URINE TRACE /HPF
[2019-08-18 22:21] LABS: AMORPHOUS SEDIMENT,UR FEW AMOR URATES /LPF
[2019-08-18] MEDS ORDERED: LACTATED RINGERS 1,000 ML IV ONE (22:23)
--- NOTE | 2019-08-18 22:37 | NUR ---
Pt assisted to bedside commode x 1 assist.
[2019-08-18 22:39] LABS: LYMPHOCYTES % (MANUAL) 14 %; MONOCYTES % (MANUAL) 5 %; MYELOCYTES % 1 %; NEUTROPHILS % (MANUAL) 80 %; RBC MORPH NORMAL
[2019-08-18] MEDS ORDERED: 1/2 NS W/KCL 20 MEQ/L 1,000 ML IV ONE (23:15)
--- NOTE | 2019-08-18 23:15 | HISTORY AND PHYSICAL ---
DATE OF SERVICE: ADMITTING PRIMARY CARE PHYSICIAN: Dr. Wells. HISTORY OF PRESENT ILLNESS: The patient is a 54-year-old male who was found by neighbors lying on his front porch intoxicated. This gentleman has a longstanding history of alcohol abuse and has been admitted several times before due to intoxication and falls. Witnesses state that he most likely fell in the bathroom. There was some blood on the floor. EMS was called and he was evaluated in the Emergency Department with a Case coma scale of 13. He was awake and alert and complained of back pain. C-collar was in place. CT scan was done of the head, neck, chest and abdomen, which did not show any abnormalities. His alcohol level was 228. PAST MEDICAL HISTORY: COPD, asthma, hypertension, hypercholesterolemia, nephrolithiasis, treated hepatitis C, atrial fibrillation, gastroesophageal reflux disease, diverticulosis, degenerative joint disease, alcohol abuse, drug abuse. 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 ALLERGIES: No known drug allergies. MEDICATIONS: Albuterol breathing treatment, apixaban, atenolol, azithromycin, cefdinir, cyclobenzaprine, diltiazem, gabapentin, hydroxyzine, lisinopril, omeprazole, pravastatin, prednisone. SOCIAL HISTORY: Positive for alcohol abuse, recreational THC. FAMILY HISTORY: Noncontributory. VITAL SIGNS: Temperature 35.0, blood pressure 100/42, pulse 67, respirations 19, pulse ox 98% on 4 liters nasal cannula. REVIEW OF SYSTEMS: This is an obese male, currently awake and alert; however intoxicated and non- compliant. He is not experiencing any shortness of breath or difficulty breathing. No chest pain, palpitations, diaphoresis. He does complain of back pain; however, has a longstanding history of degenerative joint disease. No nausea, vomiting. No hematemesis or coffee ground emesis. No known diarrhea, constipation, no red blood per rectum, no dark tarry stools. No fever, chills, no recent inadvertent weight loss. All other review of systems negative. PHYSICAL EXAMINATION: CHEST: Distant breath sounds bilaterally. HEART: Regular, no murmurs. EXTREMITIES: No lower extremity edema, negative Homans sign. HEENT: No scleral icterus. NECK: No cervical lymphadenopathy. ABDOMEN: Soft, nontender, nondistended. SKIN: Warm, dry. NEUROLOGIC: Moves all four extremities purposefully upon command. LABORATORY DATA: WBC 14.7, hemoglobin 9.5, hematocrit 29, platelets 230. BUN is 22, creatinine 1.66. Myoglobin 1460. Troponin 0.029. Alcohol 228. ASSESSMENT AND PLAN: A 54-year-old male with a same level fall with back strain and scalp hematoma as well as intoxication. We will admit him for observation and continue with IV fluids. Once neurologically intact, we will clear his cervical spine. We will also consult medicine for his numerous medical comorbidities. Job ID: [id number] DocumentID: [id number] Dictated Date: 08/18/2019 22:35:33 Experimental Mechanic Electrical Date: 08/18/2019 23:14:25 Dictated By: BELEM BALBUENA MD MTDD
[2019-08-18 23:20] VITALS: BP 125/104
[2019-08-18 23:30] VITALS: BP 79/47
[2019-08-18 23:45] VITALS: BP 91/67
[2019-08-18] MEDS ORDERED: ONDANSETRON 4 MG/2 ML (SDV) Z0FRAN IV PRN (23:45)
[2019-08-18] MEDS ORDERED: 1/2 NS IV SOLUTION 1,000 ML IV PRN (23:46)
[2019-08-19] VITALS (13 sets, daily range): BP systolic 98–131; BP diastolic 54–95
[2019-08-19] MEDS ORDERED: LORazepam 1 MG (ATIVAN) TAB PO PRN
[2019-08-19] MEDS ORDERED: ONDANSETRON 4 MG/2 ML (SDV) Z0FRAN IV PRN
[2019-08-19] MEDS ORDERED: ONDANSETRON 4 MG (ZOFRAN) ORAL DISSOLVE TAB SL PRN
[2019-08-19] MEDS ORDERED: D5 1/2 NS 1000 ML IV SOLUTION 1,000 ML IV PRN
[2019-08-19] MEDS ORDERED: LORazepam INJ 2 MG/ML (ATIVAN) VIAL IV PRN
[2019-08-19] MEDS ORDERED: LORazepam INJ 2 MG/ML (ATIVAN) VIAL IM/IV PRN
[2019-08-19] MEDS ORDERED: ANTACID SUSP 30 ML UDC (MYLANTA) PO PRN
[2019-08-19] MEDS ORDERED: SENNA W/DOCUSATE (SENOKOT S) TABLET PO PRN
[2019-08-19] MEDS: 1/2 NS W/KCL 20 MEQ/L 1,000 ML IV SCH ×2 (00:08→06:27)
[2019-08-19] MEDS: inSUlin ASPART (NovoLOG) 1 UNIT/0.01 ML (CHARGE PER UNIT) SC SCH ×2 (00:08→06:25)
[2019-08-19] MEDS: fentaNYL INJECTION 100 MCG/2 ML AMP IV PRN ×4 (00:08→09:30)
[2019-08-19] MEDS ORDERED: RT-ALBUTEROL/IPRATROPIUM 3 ML (DUONEB) VIAL INH PRN (03:30)
[2019-08-19 04:02] LABS: BASOPHILS % (AUTO) 0 % (0-10); EOSINOPHILS % (AUTO) 0 % (0-10); HEMATOCRIT 26 % (40-54); HEMOGLOBIN 8.6 G/DL (13.3-17.7); LYMPHOCYTES # (AUTO) 1.7 X 10^3 (1.0-4.0); LYMPHOCYTES % (AUTO) 7 % (12-44); MEAN CORPUSCULAR HEMOGLOBIN 30 PG (25-34); MEAN CORPUSCULAR HGB CONC 33 G/DL (32-36); MEAN CORPUSCULAR VOLUME 91 FL (80-99); MEAN PLATELET VOLUME 10.6 FL (7.4-10.4); MONOCYTES # (AUTO) 1.5 X 10^3 (0.0-1.0); MONOCYTES % (AUTO) 6 % (0-12); NEUTROPHILS # (AUTO) 19.7 X 10^3 (1.8-7.8); NEUTROPHILS % (AUTO) 86 % (42-75); PLATELET COUNT 198 10^3/uL (130-400); RED CELL DISTRIBUTION WIDTH 13.5 % (10.0-14.5); WHITE BLOOD COUNT 22.9 10^3/uL (4.3-11.0)
[2019-08-19 04:14] LABS: ALBUMIN 2.9 GM/DL (3.2-4.5); POTASSIUM 4.3 MMOL/L (3.6-5.0)
[2019-08-19 04:15] LABS: CALCIUM 7.3 MG/DL (8.5-10.1)
[2019-08-19 04:17] LABS: TOTAL PROTEIN 5.2 GM/DL (6.4-8.2)
[2019-08-19 04:18] LABS: BILIRUBIN,TOTAL 0.2 MG/DL (0.1-1.0)
[2019-08-19 04:20] LABS: CREATININE SERUM 1.31 MG/DL (0.60-1.30); PHOSPHORUS 3.6 MG/DL (2.3-4.7)
[2019-08-19 04:23] LABS: MAGNESIUM 1.5 MG/DL (1.6-2.4)
[2019-08-19] MEDS ORDERED: LACTATED RINGERS 1,000 ML IV SCH ×3 (05:30)
[2019-08-19] MEDS ORDERED: RT-ALBUTEROL/IPRATROPIUM 3 ML (DUONEB) VIAL INH SCH ×2 (05:30→08:00)
--- NOTE | 2019-08-19 05:35 | Pulmonary Consultation ---
History of Present Illness History of Present Illness Date Seen by Provider: Aug 19, 2019 Time Seen by Provider: 05:33 Date of Admission Allergies and Home Medications Allergies Coded Allergies: No Known Drug Allergies (Unverified , 03/29/13) Home Medications Albuterol Sulfate 18 Gm Hfa.aer.ad, 2 PUFF INH Q4H PRN for SHORTNESS OF BREATH, (Reported) Albuterol Sulfate 2.5 Mg/3 Ml Vial.neb, 2.5 MG INH Q4H PRN for WHEEZING Prescribed by: MONA POE on 08/04/19557 Apixaban 5 Mg Tablet, 5 MG PO BID, (Reported) Atenolol/Chlorthalidone 1 Each Tablet, 1 TAB PO DAILY, (Reported) Azithromycin 250 Mg Tablet, 250 MG PO DAILY Prescribed by: MONA POE on 08/04/19643 Cefdinir 300 Mg Capsule, 300 MG PO BID Prescribed by: MONA POE on 08/04/19643 Cyclobenzaprine HCl 10 Mg Tablet, 10 MG PO TID PRN for SPASMS, (Reported) Diltiazem HCl 240 Mg Cap.er.24h, 240 MG PO DAILY, (Reported) Gabapentin 300 Mg Capsule, 300 MG PO TID, (Reported) Hydroxyzine HCl 25 Mg Tablet, 25 MG PO Q8H PRN for ANXIETY, (Reported) Lisinopril 20 Mg Tablet, 20 MG PO DAILY, (Reported) take 2 (20mg) tabs Lisinopril 20 Mg Tablet, 20 MG PO HS, (Reported) Multivitamin 1 Each Tab.chew, 1 TAB.CHEW PO DAILY, (Reported) Omeprazole 20 Mg Capsule.dr, 20 MG PO DAILY, (Reported) Oxycodone HCl/Acetaminophen 1 Each Tablet, 1 TAB PO Q6H PRN for PAIN-MODERATE, (Reported) Pravastatin Sodium 20 Mg Tablet, 20 MG PO HS, (Reported) LAST FILLED #90 10-2-18 Prednisone 20 Mg Tab, 40 MG PO DAILY Prescribed by: MONA POE on 08/04/19557 Past [id number]-Sjxupo-Donoqq Hx Past Med/Social Hx: Reviewed and Corrections made Patient Social History Alcohol Use: Denies Use Number of Drinks Today: AA Alcohol Beverage of Choice: Beer Recreational Drug Use: Yes (THC) Drug of Choice: Marijuana Smoking Status: Current Everyday Smoker Type Used: Cigarettes 2nd Hand Smoke Exposure: No Recent Foreign Travel: No Contact w/Someone Who Travel: No Recent Infectious Disease Expo: No Recent Hopitalizations: No Immunizations Up To Date Tetanus Booster (TDap): Less than 5yrs Date of Pneumonia Vaccine: Mar 11, 2017 Date of Influenza Vaccine: Mar 01, 2018 Seasonal Allergies Seasonal Allergies: No Past Medical History Surgeries: Yes (SEE BELOW) Cardiac, Eye Surgery, Gallbladder, Orthopedic Respiratory: Yes Asthma, COPD Currently Using CPAP: No Currently Using BIPAP: No Cardiac: Yes (CARDIOVERSIONS) Atrial Fibrillation, High Cholesterol, Hypertension Neurological: Yes (QUESTIONABLE HISTORY OF CVA, PER OLD RECORD) Reproductive Disorders: No Genitourinary: Yes Kidney Stones Gastrointestinal: Yes (HEPATITIS C--TREATED WITH HARVONI) Gastroesophageal Reflux, Diverticulosis, Hepatitis Musculoskeletal: Yes (CHRONIC GENERALIZED PAIN;CHRONIC NECK & BACK PAIN ;R ROTATOR CUFF REPAIR ) Degenerate Disk Disease, Arthritis, Chronic Back Pain Endocrine: Yes (OBESITY) HEENT: Yes (LEFT EYE ENUCLEATION DUE TO TRAUMA) Loss of Vision: Left Cancer: No Psychosocial: Yes Anxiety Integumentary: No Blood Disorders: No Family Medical History Arthritis 19 FATHER Asthma 19 MOTHER Cardiovascular disease Congenital heart disease 19 FATHER Hypertension G8 BROTHER Myocardial infarction 19 FATHER Osteoporosis 19 FATHER Respiratory disorder 19 MOTHER Thyroid disease 19 MOTHER PSH: - LEFT EYE REMOVED DUE TO TRAUMA -CARDIOVERSIONS -CARDIAC CATH 11/2017--MILD TO MODERATE DISEASE, NO INTERVENTION -RIGHT ROTATOR CUFF REPAIR -KIDNEY STONE REMOVAL -CHOLECYSTECTOMY -CARDIOVERSIONS 10/19/17 AND 11/30/17 Review of Systems Time Seen by Provider: 05:35 Sepsis Event Evaluation Height, Weight, BMI Height: 5'9.00" Weight: 259lbs. 0.0oz. [id number]; 32.00 BMI Method:Estimated Exam Exam Vital Signs Date Time Temp Pulse Resp B/P (MAP) Pulse Ox O2 Delivery O2 Flow Rate FiO2 08/19/19 04:05 98 Room Air 08/19/19 04:04 36.0 08/19/19 03:22 71 98 08/19/19 03:00 93 20 102/75 (84) 92 Room Air 08/19/19 02:03 Room Air 08/19/19 02:00 90 21 119/62 (81) 94 Nasal Cannula 2.00 08/19/19 01:00 93 12 103/54 (70) 94 Nasal Cannula 2.00 08/19/19 01:00 100 08/19/19 00:00 71 22 100/92 (95) 98 Nasal Cannula 2.00 08/18/19 23:56 98 Nasal Cannula 2.00 08/18/19 23:45 75 20 91/67 (75) 99 Nasal Cannula 2.00 08/18/19 23:41 Nasal Cannula 2.00 08/18/19 23:37 74 08/18/19 23:30 80 20 79/47 (58) 98 Nasal Cannula 2.00 08/18/19 23:20 36.0 82 18 125/104 (111) 98 Nasal Cannula 2.00 08/18/19 23:06 36.2 74 19 103/72 (50) 97 Nasal Cannula 4.00 08/18/19 19:50 97 Nasal Cannula 4.00 08/18/19 19:49 35.0 67 19 67/42 (50) 98 Nasal Cannula 4.00 I & O 08/19/19 07:00 Intake Total 5120 ml Output Total 600 ml Balance 4520 ml Height & Weight Height: 5'9.00" Weight: 259lbs. 0.0oz. 117.703202pi; 32.00 BMI Method:Estimated Capillary Refill: Less Than 3 Seconds Gastrointestinal: normal bowel sounds, non tender, soft Results Lab Laboratory Tests 08/18/19 21:05 08/19/19 03:55 Assessment/Plan Assessment/Plan s/p fall -Ct is negative worsening leukocytosis r/o infection -Johnson cultures -Start Rocephin Alcohol intoxication Hypotension with decreased UO -Increase IVF -2 liter bolus of LR -Change IVF to LR and increase to 150 Chronic AFib JOSH VALENTINO DO Aug 19, 2019 05:35
[2019-08-19] MEDS ORDERED: cefTRIAXone FOR IV USE 1,000 MG in WATER (STERILE) FOR INJECTION 10 ML IV SCH (05:45)
[2019-08-19] MEDS: RT-ALBUTEROL/IPRATROPIUM 3 ML (DUONEB) VIAL INH SCH ×4 (06:37→10:20)
[2019-08-19] MEDS: MAGNESIUM 1 GM/100 ML IVPB 100 ML IV SCH ×3 (06:40→08:53)
--- NOTE | 2019-08-19 08:42 | Diagnostic Imaging Report ---
INDICATION: Fall. Head injury. Hypotension Portable chest shows heart size to be upper normal. The vascularity is normal. The lungs are clear. There is no effusion or pneumothorax. There is no acute bony abnormality. IMPRESSION: No acute abnormality is seen. Dictated by: Dictated on workstation # [id number]
[2019-08-19] MEDS ORDERED: PANTOPRAZOLE 40 MG (PROTONIX) VIAL IV SCH (09:00)
[2019-08-19] MEDS ORDERED: THIAMINE INJECTION 100 MG, FOLIC ACID INJECTION 1 MG, MAGNESIUM SULFATE 2 GM, VITAMIN M... IV SCH ×5 (09:00)
--- NOTE | 2019-08-19 09:46 | Discharge Inst-Surgical ---
D/C Lap Instructions-SREE Follow Up PRN Activity as tolerated Regular Diet Symptoms to Report: Fever over 101 degree F, Nausea/Vomiting Infection Signs and Symptoms to report: Increased redness, Foul odor of wound, Increased drainage Bathing instructions: May shower Operative Area Clean/Dry; Keep incision clean/dry If any problems/questions: Contact your physician or go to Emergency Room BELEM BALBUENA MD Aug 19, 2019 09:46
--- NOTE | 2019-08-19 10:39 | NUR ---
PT REQUESTED NURSE TO ROOM. PT STATED THAT HE HAD AN EMERGENCY AT HOME AND HAD TO LEAVE. THIS NURSE EXPLAINED TO PT THAT HE WOULD HAVE TO LEAVE AMA. EXPLAINED AMA. PT VERBALIZED UNDERSTANDING. PT SIGNED AMA FORM AND WAS WHEELED TO MAIN ENTRANCE AT 1042.
[2019-08-20] MEDS ORDERED: THIAMINE INJECTION 100 MG, FOLIC ACID INJECTION 1 MG, VITAMIN MULTI INJECTION 10 ML, MA... IV SCH ×5 (09:00)
== END 2019-08-19 10:42 | disposition left against medical advice (07) ==
LOC: EDUNIT# 19:49 → ER 19:51 → ICU 21:50
PROVIDERS: ADMIT Internal Medicine; ATTEND Internal Medicine
DX: S06.9X9A Unspecified intracranial injury with loss of consciousness of unspecified duration, initial encounter (principal); S00.03XA Contusion of scalp, initial encounter; F10.129 Alcohol abuse with intoxication, unspecified; I48.20 Chronic atrial fibrillation, unspecified; J44.1 Chronic obstructive pulmonary disease with (acute) exacerbation; I95.9 Hypotension, unspecified; I10 Essential (primary) hypertension; D72.829 Elevated white blood cell count, unspecified; E78.00 Pure hypercholesterolemia, unspecified; E83.51 Hypocalcemia; D64.9 Anemia, unspecified; K21.9 Gastro-esophageal reflux disease without esophagitis; G89.29 Other chronic pain; M54.2 Cervicalgia; M19.90 Unspecified osteoarthritis, unspecified site; W01.0XXA Fall on same level from slipping, tripping and stumbling without subsequent striking against object, initial encounter; R41.82 Altered mental status, unspecified; R73.9 Hyperglycemia, unspecified; F41.9 Anxiety disorder, unspecified; Z79.01 Long term (current) use of anticoagulants; Z79.891 Long term (current) use of opiate analgesic; Z90.49 Acquired absence of other specified parts of digestive tract; Z79.899 Other long term (current) drug therapy; Z82.62 Family history of osteoporosis
CPT/HCPCS: 36415; 51702; 70450; 70486; 71045; 71260; 72125; 72128; 72131; 72170; 74177; 80053; 80306; 80320; 81000; 82150; 82550; 82553; 82805; 83605; 83690; 83735; 83874; 83880; 84100; 84145; 84443; 84484; 85007; 85025; 85027; 85610; 85730; 87040; 87081; 93005; 93041; 94640; G0378